=== PATIENT | male | born 1955 | race Caucasian/White ===

== ENCOUNTER 2016-10-29 10:31 | Inpatient (IN) | payer MEDICAID ==
[~2016-10-29] VITALS: Ht 175.3 cm; Wt 80.5 kg
[2016-10-29] MEDS ORDERED: ENALAPRILAT 1.25 MG INJ IV ONE (11:30)
[2016-10-29] MEDS ORDERED: FUROSEMIDE 40 MG INJ IV ONE ×2 (11:30→16:30)
[2016-10-29] MEDS ORDERED: ASPIRIN 81 MG TAB PO ONE ×2 (11:30→13:00)
[2016-10-29] MEDS ORDERED: NITROGLYCERIN (SL) 0.4 MG TAB SL ONE (11:30)
--- NOTE | 2016-10-29 12:25 | RADRPT ---
PROCEDURE: Chest 1 views. CLINICAL INDICATION: Abdominal pain and abnormal breath sounds. TECHNIQUE: AP views of the chest were obtained. COMPARISON: None. FINDINGS: The heart is large. Central pulmonary vascular congestion and interstitial prominence is seen in bot h lungs. Patchy infiltrates are identified in the right mid and lower lung, combined with moderate pleural effusion. Atelectasis versus minimal infiltrates are noted in the left lower lobe. 11 mm n odular density is identified over the left lower lobe. Osseous structures are intact. IMPRESSION: Cardiomegaly . Central pulmonary vascular congestion and interstitial prominence in both lungs. Patchy infiltrates in the right mid and lower lung combined with moderate pleural effusion. Atelectasis versus mild infiltrates in the left lower lobe. 11 mm nodular density over the left lower lobe. This could reflect nipple shadow versus lung nodule . Repeat exam with nipple markers or further characterization with CT chest is recommended. RPTAT: AA .Macho Winters MD, MD Date Time Electronically viewed and signed by .Macho Winters MD, on 10/29/2016 12:25 .P/
[2016-10-29 12:29] LABS: CREATININE 12.83 mg/dl (0.61-1.24); TOTAL PROTEIN 6.8 g/dl (6.1-8.1)
[2016-10-29 12:37] LABS: BASOPHILS % 0.4 % (0.0-2.0); EOSINOPHILS # 0.1 10^3/ul (0.0-0.5); HEMATOCRIT 23.9 % (42.0-52.0); HEMOGLOBIN 7.9 g/dl (14.0-18.0); LYMPHOCYTES # 0.7 10^3/ul (0.8-2.9); LYMPHOCYTES % 8.2 % (15.0-51.0); MEAN CORPUSCULAR HEMOGLOBIN 28.9 pg (29.0-33.0); MEAN CORPUSCULAR HGB CONC 32.9 g/dl (32.0-37.0); MEAN CORPUSCULAR VOLUME 87.7 fl (82.0-101.0); MEAN PLATELET VOLUME 12.1 fl (7.4-10.4); MONOCYTE # 0.3 10^3/ul (0.3-0.9); MONOCYTES % 3.7 % (0.0-11.0); NEUTROPHILS % 86.7 % (39.0-77.0); PLATELET COUNT 187 10^3/UL (140-440); RED BLOOD COUNT 2.73 10^6/ul (4.70-6.10); RED CELL DISTRIBUTION WIDTH 16.2 % (11.5-14.5); UNCORRECTED WBC 8.1 10^3/ul (4.8-10.8); WHITE BLOOD COUNT 8.1 10^3/ul (4.8-10.8)
[2016-10-29 12:41] LABS: SUSPECT 1
[2016-10-29 12:42] LABS: CONDITION 1; LH ANALYZER COMMENTS 1
[2016-10-29 12:43] LABS: CALCIUM 5.9 mg/dl (8.4-10.2)
[2016-10-29 12:44] LABS: ALBUMIN 3.4 g/dl (3.3-4.9)
[2016-10-29 12:45] LABS: INR 1.17; PT RATIO 1.2
[2016-10-29 12:47] LABS: TROPONIN-I 0.732 ng/ml (0.00-0.12)
[2016-10-29] MEDS ORDERED: ALBUTEROL 0.083% (NEB) 2.5 MG/3 ML AMP HHN ONE (13:00)
[2016-10-29] MEDS ORDERED: CALCIUM GLUCONATE 10% 2 GM in SOD CHLORIDE 0.9% 100 ML IVPB ONE (13:00)
--- NOTE | 2016-10-29 13:00 | ERA ---
ER Documentation Chief Complaint Date/Time DATE: 10/29/16 TIME: 12:57 Chief Complaint weak, unable to ambulate, sob and swelling. pitting edema noted to domonique le HPI 61-year-old man brought in by his mother for complaints of bilateral lower extremity swelling, recent weakness, and recent shortness of breath. He has developed dyspnea on exertion recently and denies having any past medical history relating to kidneys or liver. He has had no fevers or chills, no chest pain, no blood per rectum or melena. HPI was limited. ROS All systems reviewed and are negative except as per history of present illness. Medications Home Meds No Active Prescriptions or Reported Meds Allergies Allergies: Coded Allergies: No Known Allergy (Unverified , 11/28/13) PMhx/Soc Hypertension, possible psychiatric illness Hx Cardiac Disorders: Yes (htn non-compliant) Hx Alcohol Use: Yes Hx Substance Use: No Hx Tobacco Use: No Smoking Status: Current some day smoker FmHx Family History: No diabetes Physical Exam Vitals Vital Signs Date Time Temp Pulse Resp B/P Pulse Ox O2 Delivery O2 Flow Rate FiO2 10/29/16 13:16 20 99 Nasal Cannula 2.0 10/29/16 10:35 97.8 89 20 226/110 96 Physical Exam GENERAL: Well-developed, well-nourished, well-hydrated, in no apparent distress , looks nontoxic in appearance HEENT: Moist mucous membranes, pink conjunctiva, no cervical spine tenderness or step-off deformities, no goiter, no jaundice or icterus, extraocular movements intact without pain. No submandibular induration, and no pharyngeal erythema NEURO: Alert and oriented 3, cranial nerves II through XII intact bilaterally, pupils equal round reactive to light, no focal deficits or facial asymmetry, sensation intact distally Strength 5/5 in upper and lower extremities bilaterally CARDIAC: Regular rate and rhythm, no murmurs rubs or gallops LUNGS: Bibasilar crackles no wheezing or stridor ABDOMEN: Soft nontender, no guarding, no rigidity, no rebound, no psoas sign no obturator sign. Normoactive bowel sounds SKIN: Positive anasarca with 3+ pitting edema in the lower extremities bilaterally, no ecchymosis, no target lesions, and without ulcers EXTREMITIES: No clubbing cyanosis, 3+ pitting edema in the lower extremities bilaterally, calves are bilaterally symmetrical, no Homans sign, no popliteal cord sign. Distal pulses equal and bilateral PSYCH: Normal affect without agitation or irritability Result Diagram: 10/29/16 1108 10/29/16 1108 Results 24 hrs Laboratory Tests Test 10/29/16 11:08 10/29/16 13:00 Alanine Aminotransferase (ALT/SGPT) 32IU/L Albumin 3.4g/dl Albumin/Globulin Ratio 1.00 Alkaline Phosphatase 123IU/L Anion Gap 24 Aspartate Amino Transf (AST/SGOT) 12IU/L B-Type Natriuretic Peptide 21514QM/ML Basophils # 0.010^3/ul Basophils % 0.4% Blood Morphology Comment Blood Urea Nitrogen 105mg/dl Calcium Level 5.9mg/dl Carbon Dioxide Level 19mmol/L Chloride Level 111mmol/L Creatinine 12.83mg/dl Direct Bilirubin 0.00mg/dl Eosinophils # 0.110^3/ul Eosinophils % 1.0% Globulin 3.40g/dl Glucose Level 76mg/dl Hematocrit 23.9% Hemoglobin 7.9g/dl INR International Normalized Ratio 1.17 Indirect Bilirubin 0.0mg/dl Lipase 209U/L Lymphocytes # 0.710^3/ul Lymphocytes % 8.2% Mean Corpuscular Hemoglobin 28.9pg Mean Corpuscular Hemoglobin Concent 32.9g/dl Mean Corpuscular Volume 87.7fl Mean Platelet Volume 12.1fl Monocytes # 0.310^3/ul Monocytes % 3.7% Neutrophils # 7.010^3/ul Neutrophils % 86.7% Nucleated Red Blood Cells # 0.010^3/ul Nucleated Red Blood Cells % 0.0/100WBC Platelet Count 86537^3/UL Potassium Level 6.0mmol/L Prothrombin Time 15.0Sec Prothrombin Time Ratio 1.2 Red Blood Count 2.7310^6/ul Red Cell Distribution Width 16.2% Sodium Level 148mmol/L Total Bilirubin 0.0mg/dl Total Protein 6.8g/dl Troponin I 0.732ng/ml White Blood Count 8.110^3/ul Urine Amorphous Urates FEW Urine Bilirubin NEGATIVE Urine Clarity CLEAR Urine Coarse Granular Casts RARE Urine Color LT. YELLOW Urine Epithelial Cells FEW Urine Glucose NEGATIVE% Urine Hemoglobin 2+ Urine Ketones NEGATIVE Urine Leukocyte Esterase NEGATIVE Urine Microscopic RBC 0-2/HPF Urine Microscopic WBC 2-5/HPF Urine Nitrite NEGATIVE Urine Specific [place] 1.025 Urine Total Protein 2+ Urine Urobilinogen 0.2 E.U./dL Urine pH 6.0 Current Medications Medications (Trade) Dose Ordered Sig/Saira Route PRN Reason Start Time Stop Time Status Last Admin Dose Admin Nitroglycerin (Nitroglycerin (Sl Tab) 0.4 Mg) 1 tab ONCE ONCE SL 10/29/16 11:30 10/29/16 11:31 DC 10/29/16 12:18 Aspirin (Aspirin) 324 mg ONCE ONCE PO 10/29/16 11:30 10/29/16 11:31 DC 10/29/16 12:18 Furosemide (Lasix) 60 mg ONCE ONCE IV 10/29/16 11:30 10/29/16 11:31 DC 10/29/16 12:18 Enalaprilat 1.25 mg 1.25 mg ONCE ONCE IV 10/29/16 11:30 10/29/16 11:31 DC 10/29/16 12:19 Calcium Gluconate/ Sodium Chloride (Ca Gluc/NS) 120 ml @ 60 mls/hr ONCE ONCE IVPB 10/29/16 13:00 10/29/16 14:59 10/29/16 13:33 Aspirin (Aspirin) 324 mg ONCE ONCE PO 10/29/16 13:00 10/29/16 13:01 DC Albuterol (Proventil 0.083% (Neb)) 10 mg ONCE ONCE HHN 10/29/16 13:00 10/29/16 13:06 DC 10/29/16 13:15 IV Flush (NS 3 ml) 3 ml PER PROTOCOL IV 10/29/16 14:30 UNV Ondansetron HCl (Zofran Inj) 4 mg Q6H PRN IV NAUSEA AND/OR VOMITING 10/29/16 14:30 UNV Acetaminophen (Tylenol Tab) 650 mg Q6H PRN PO PAIN LEVEL 1-3 OR FEVER 10/29/16 14:30 UNV Acetaminophen (Tylenol Supp) 650 mg Q6H PRN ME PAIN LEVEL 1-3 OR FEVER 10/29/16 14:30 UNV Acetaminophen/ Hydrocodone Bitart ([place] (5/325)) 1 tab Q6H PRN PO MODERATE PAIN LEVEL 4-6 10/29/16 14:30 UNV Acetaminophen/ Hydrocodone Bitart ([place] (5/325)) 2 tab Q6H PRN PO SEVERE PAIN LEVEL 7-10 10/29/16 14:30 UNV Morphine Sulfate (morphine) 2 mg Q4H PRN IV SEVERE PAIN LEVEL 7-10 10/29/16 14:30 UNV Docusate Sodium (Colace) 100 mg Q12H PRN PO CONSTIPATION 10/29/16 14:30 UNV Magnesium Hydroxide (Milk Of Mag) 30 ml DAILY PRN PO CONSTIPATION 10/29/16 14:30 UNV Bisacodyl (Dulcolax Supp) 10 mg DAILY PRN ME CONSTIPATION 10/29/16 14:30 UNV Famotidine (Pepcid Iv) 20 mg Q12 IV 10/29/16 21:00 UNV Hydralazine HCl (Apresoline) 10 mg Q4 PRN IV sbp>160 10/29/16 14:30 UNV Procedures/MDM IV line was established 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 Patient was afebrile. EKG performed, read by me: 84 bpm, normal sinus rhythm, normal axis, no acute ST segment changes, narrow QRS complex, with good R-wave progression in precordial leads. One view chest x-ray performed, read by me reveals cardiomegaly with bilateral pulmonary edema and a right pleural effusion, no acute infiltrates, no pneumothorax. Patient was extremely hypertensive upon presentation so I administered enalapril 1.25 mg IV as well as furosemide 60 mg IV for diuresis, nitroglycerin 0.4 mg sublingual. CBC revealed anemia with a hemoglobin of 7.9, electrolytes were all abnormal with a potassium of 6, and a BUN/creatinine of 105/12.8, bicarb low at 19, liver function tests were unremarkable, troponin positive at 0.7, BNP elevated over 83,000, calcium critically low at 5.9 Urine analysis revealed 2+ proteins. I administered calcium gluconate 2 g IV supplementation, patient also received albuterol 10 mg via nebulizer for hyperkalemia after furosemide was administered. Patient also received aspirin 324 mg orally for cardioprotective measures. Critical Care: Time: 40 minutes, this was time separate from other procedures. Treatments/Evaluations: Close monitoring and treatment of unstable vital signs, cardiorespiratory, and neurologic status, while maintaining tight balance of fluid, respiratory, and cardiac interventions. Given the patient's acute renal failure and hypertension, edema, critical hypocalcemia, and proteinuria I suspect acute hypertensive nephropathy of new onset. He may require dialysis and will be admitted to telemetry setting. A Mcgill catheter was placed Departure Diagnosis: Primary Impression: Hypertensive nephrosclerosis, stage 5 chronic kidney disease or end stage renal disease Additional Impressions: Hypertension Qualified Code: I10 - Essential hypertension Hypocalcemia Hyperkalemia Anemia Qualified Code: D64.9 - Anemia, unspecified type Proteinuria Condition: Serious JORDEN ARIZMENDI MD Oct 29, 2016 13:00
[2016-10-29 13:25] LABS: ADD UMIC YES; URINE BILIRUBIN (Dip) NEGATIVE (NEGATIVE); URINE BLOOD (Dip) 2+ (NEGATIVE); URINE COLOR LT. YELLOW (YELLOW); URINE GLUCOSE (Dip) NEGATIVE (NEGATIVE); URINE KETONES (Dip) NEGATIVE (NEGATIVE); URINE LEUKOCYTE ESTERASE (Dip) NEGATIVE (NEGATIVE); URINE NITRITE (Dip) NEGATIVE (NEGATIVE); URINE TOTAL PROTEIN (Dip) 2+ (NEGATIVE); URINE UROBILINOGEN (Dip) 0.2 E.U./dL (0.1-1.0)
[2016-10-29 13:44] LABS: URINE RBCS 0-2 /HPF (0)
[2016-10-29] MEDS ORDERED: morphine 2 MG INJ IV PRN (14:30)
[2016-10-29] MEDS ORDERED: BISACODYL 10 MG SUPP PR PRN (14:30)
[2016-10-29] MEDS ORDERED: DOCUSATE SODIUM 100 MG CAP PO PRN (14:30)
[2016-10-29] MEDS ORDERED: HYDROCODONE/APAP (5/325) TAB PO PRN ×2 (14:30)
[2016-10-29] MEDS ORDERED: MAGNESIUM HYDROXIDE 30ML CUP PO PRN (14:30)
[2016-10-29] MEDS ORDERED: NACL 0.9% 3 ML SYG IV SCH (14:30)
[2016-10-29] MEDS ORDERED: ONDANSETRON 4 MG INJ IV PRN (14:30)
[2016-10-29] MEDS ORDERED: ACETAMINOPHEN 650 MG SUPP PR PRN (14:30)
[2016-10-29] MEDS ORDERED: ACETAMINOPHEN 325 MG TAB PO PRN (14:30)
--- NOTE | 2016-10-29 14:34 | CONS ---
Date/Time of Note Date/Time of Note DATE: 10/29/16 TIME: 14:28 Assessment/Plan Assessment/Plan Additional Assessment/Plan Assessment and recommendations; next 1. Patient admitted with what appears to be congestive heart failure exacerbation. Next 2. Chest x-ray revealing smooth bordered round left lower lobe nodule 1 cm in diameter. Etiology is unclear possibly partially calcified. Next 3. Acute renal failure possibly chronic in etiology. Next 4. Hypertension. 5. Long-standing history of smoking alcohol use. Next 6 currently no evidence of any infective process. Next 7. Right pleural effusion. Likely from congestive heart failure and acute renal failure. 8. Anemia. Obtain ultrasound guided thoracentesis of the right sided ,send fluid for protein. He will need to have dialysis performed. I would recommend obtaining a CT scan of the chest without contrast after couple of sessions of dialysis to get rid of pulmonary edema to better visualize the left lower lobe nodule. Patient also is anemic likely on account of end-stage renal disease. Consultation Date/Type/Reason Admit Date/Time Date of Consultation: Oct 29, 2016 Type of Consultation: Pulmonary Reason for Consultation Patient is a 61-year-old male who came into the emergency room with complaints of shortness of breath and generalized edema. Chest x-ray was done which is showing changes of congestive heart failure also visualized is a left lower lobe nodule and pulmonary consultation has been obtained for further clarification. History presenting in the; patient is a 61-year-old male who came into the ER with complaints of generalized swelling going on for the last several weeks. Associated with some shortness of breath. Patient denies any chest pain , any fever, chills, wheezing, cough or any sputum production. Next Past medical history; hypertension. No other history. Next Medications; are none. Allergies; are none. Social history; patient just recently quit smoking also recently quit drinking about couple of months ago. No history of any hard drug use. Family history; he is single. Occupational history; patient is homeless. Occupational history; patient is on disability. Review of systems; denies any headache, visual changes, seizures, dysphagia, chest pain, wheezing, compares or shortness of breath. Denies any angina. Any sputum production or any hemoptysis. Denies any weight loss. Has gained weight. Denies any abdominal pain, any GI or urinary symptoms. Complains of generalized swelling more pronounced in lower extremities. Does complain of orthopnea. Denies any skin changes. Any arthritis symptoms. General exam; middle aged man, currently in no distress, alert awake and alert. Social History Smoking Status: Current some day smoker Exam/Review of Systems Vital Signs Vitals Vital Signs Date Time Temp Pulse Resp B/P Pulse Ox O2 Delivery O2 Flow Rate FiO2 10/29/16 13:16 20 99 Nasal Cannula 2.0 10/29/16 10:35 97.8 89 226/110 Exam HEENT examination; supple neck, positive JVD. Pharynx is clear. Patient has a few missing teeth. No neck masses. No thyromegaly. Pupils are midsize and reactive to light. Extraocular movements are intact. No neck bruits. Chest examination; minimally decreased breath sounds right lower lobe otherwise clear. S1-S2 audible, no murmurs. Regular rhythm. Abdomen examination; protuberant. Umbilicus is inverted. No organomegaly. Extremity examination; 3+ pitting edema bilaterally lower extremities. Pulses 1 + bilaterally. There are chronic skin changes involving both feet. APN examination; no focal deficit. Results Result Diagram: 10/29/16 1108 10/29/16 1108 Results 24 hrs Laboratory Tests Test 10/29/16 11:08 10/29/16 13:00 Alanine Aminotransferase (ALT/SGPT) 32 Albumin 3.4 Albumin/Globulin Ratio 1.00 Alkaline Phosphatase 123 H Anion Gap 24 H Aspartate Amino Transf (AST/SGOT) 12 L B-Type Natriuretic Peptide 00269 H Basophils # 0.0 Basophils % 0.4 Blood Morphology Comment Blood Urea Nitrogen 105 H Calcium Level 5.9 *L Carbon Dioxide Level 19 L Chloride Level 111 H Creatinine 12.83 H Direct Bilirubin 0.00 Eosinophils # 0.1 Eosinophils % 1.0 Globulin 3.40 H Glucose Level 76 Hematocrit 23.9 L Hemoglobin 7.9 L INR International Normalized Ratio 1.17 Indirect Bilirubin 0.0 Lipase 209 Lymphocytes # 0.7 L Lymphocytes % 8.2 L Mean Corpuscular Hemoglobin 28.9 L Mean Corpuscular Hemoglobin Concent 32.9 Mean Corpuscular Volume 87.7 Mean Platelet Volume 12.1 H Monocytes # 0.3 Monocytes % 3.7 Neutrophils # 7.0 Neutrophils % 86.7 H Nucleated Red Blood Cells # 0.0 Nucleated Red Blood Cells % 0.0 Platelet Count 187 Potassium Level 6.0 H Prothrombin Time 15.0 H Prothrombin Time Ratio 1.2 Red Blood Count 2.73 L Red Cell Distribution Width 16.2 H Sodium Level 148 H Total Bilirubin 0.0 L Total Protein 6.8 Troponin I 0.732 *H White Blood Count 8.1 Urine Amorphous Urates FEW Urine Bilirubin NEGATIVE Urine Clarity CLEAR Urine Coarse Granular Casts RARE Urine Color LT. YELLOW Urine Epithelial Cells FEW Urine Glucose NEGATIVE Urine Hemoglobin 2+ H Urine Ketones NEGATIVE Urine Leukocyte Esterase NEGATIVE Urine Microscopic RBC 0-2 Urine Microscopic WBC 2-5 Urine Nitrite NEGATIVE Urine Specific [place] 1.025 Urine Total Protein 2+ H Urine Urobilinogen 0.2 E.U./dL Urine pH 6.0 Medications Medications Current Medications Calcium Gluconate/ Sodium Chloride (Ca Gluc/NS) 120 ml @ 60 mls/hr ONCE ONCE IVPB Last administered on 10/29/16t 13:33; Admin Dose 60 MLS/HR; Start at 13:00; Stop 10/29/16 at 14:59 Ondansetron HCl (Zofran Inj) 4 mg Q6H PRN IV NAUSEA AND/OR VOMITING; Start at 14:30; Status UNV Acetaminophen (Tylenol Tab) 650 mg Q6H PRN PO PAIN LEVEL 1-3 OR FEVER; Start at 14:30; Status UNV Acetaminophen (Tylenol Supp) 650 mg Q6H PRN [place] PAIN LEVEL 1-3 OR FEVER; Start 10/29/16 at 14:30; Status UNV Acetaminophen/ Hydrocodone Bitart ([place] (5/325)) 1 tab Q6H PRN PO MODERATE PAIN LEVEL 4-6; Start 10/29/16 at 14:30; Status UNV Acetaminophen/ Hydrocodone Bitart ([place] (5/325)) 2 tab Q6H PRN PO SEVERE PAIN LEVEL 7-10; Start 10/29/16 at 14:30; Status UNV Morphine Sulfate (morphine) 2 mg Q4H PRN IV SEVERE PAIN LEVEL 7-10; Start 10/29 at 14:30; Status UNV Docusate Sodium (Colace) 100 mg Q12H PRN PO CONSTIPATION; Start 10/29/16 at 14: 30; Status UNV Magnesium Hydroxide (Milk Of Mag) 30 ml DAILY PRN PO CONSTIPATION; Start at 14:30; Status UNV Bisacodyl (Dulcolax Supp) 10 mg DAILY PRN CO CONSTIPATION; Start 10/29/16 at 14 :30; Status UNV Famotidine (Pepcid Iv) 20 mg Q12 IV ; Start 10/29/16 at 21:00; Status UNV Hydralazine HCl (Apresoline) 10 mg Q4 PRN IV sbp>160; Start 10/29/16 at 14:30; Status UNV KIRA MCCURDY Oct 29, 2016 14:34
--- NOTE | 2016-10-29 14:58 | QN ---
Documentation Comment [id number] Abdi MD Oct 29, 2016 14:58
[2016-10-29] MEDS ORDERED: NA POLYST SULFON 15 GM/60 ML BTL PO ONE (15:30)
[2016-10-29 15:32] LABS: HAAIG REFLEX REFLEX FILED
[2016-10-29 15:41] LABS: CK-MB 8.28 ng/ml (0.0-2.4); TROPONIN-I 0.662 ng/ml (0.00-0.12)
[2016-10-29 15:47] LABS: PHOSPHORUS 8.7 mg/dl (2.5-4.9)
--- NOTE | 2016-10-29 15:52 | HP ---
DATE OF ADMISSION: 10/29/2016 TYPE OF CONSULTATION: Nephrology. Thank you, Dr. sorianofor kindly asking me to see this patient in Nephrology consultation. HISTORY OF PRESENT ILLNESS: The patient is a poor historian who presented to this hospital admitted with complaints of shortness of breath. The patient also is legally blind and is homeless. Denies any diabetes, hypertension at this point. He presented with shortness of breath, has anasarca and is being admitted for further management. PAST MEDICAL HISTORY: Cannot be obtained. The patient denies any diabetes, hypertension or any medical condition at this point. ALLERGY HISTORY: Denies. FAMILY HISTORY: Denies. SOCIAL HISTORY: He is also on denying. He denies any smoking or drinking but has used in the past. MEDICATION HISTORY: At home none. FAMILY HISTORY: He denies. REVIEW OF SYSTEMS HEENT: Unremarkable. RESPIRATORY: Shortness of breath. CARDIOVASCULAR: No chest pain, palpitation. ABDOMEN: No dyspepsia, hematemesis or melena. EXTREMITIES: No swelling. CENTRAL NERVOUS SYSTEM: Denies any history of stroke. PHYSICAL EXAMINATION: GENERAL: Anasarcic looking male, awake, alert with poor hygiene. VITAL SIGNS: Pulse 89, blood pressure 220 to 110. HEAD: Atraumatic, normocephalic. Pupils are equal, reactive. Patient has pale conjunctivae. No icterus. NECK: Supple. LUNGS: Basilar rales. CARDIOVASCULAR: S1, S2 is normal. ABDOMEN: Soft, bowel sounds present, no palpable mass. EXTREMITIES: No cyanosis, clubbing, edema positive. CENTRAL NERVOUS SYSTEM: The patient is awake, alert, moving both upper and lower extremities. LABORATORY DATA: Hematocrit 23.9, sodium 148, potassium 6, BUN of 105, creatinine 12.83. Patient's potassium 5.9. Troponin 0.732, albumin 3.4. The patient had a chest x-ray done, shows central pulmonary vascular congestion and interstitial prominence in both lungs, patchy infiltrate, atelectasis, versus mild infiltrate. IMPRESSION: 1. Patient has acute kidney injury with possible underlying chronic kidney disease. 2. The patient has anasarca. 3. Pulmonary edema. 4. Anemia. 5. Hyperkalemia. 6. Metabolic acidosis. 7. Homelessness. 8. Incomplete database. 9. Rule out proteinuria. 10. Rule out underlying chronic kidney disease. 11. Congestive heart failure. 12. Electrolyte imbalance. PLAN: At this point, the patient is currently on the renal diet. Will have thoracentesis ordered per pulmonary. Patient will have ultrasound of the kidney , diuretic and Kayexalate. The patient will also be receiving urine for protein creatinine ratio. A hemoglobin A1c will be ordered. Her diuretics will be given. The patient should benefit from 2D echo as well. Thank to Dr. lieberman for asking me to see this patient in nephrology consultation. Dictated By: ARMIDA HARRIS MD BS/NTS Conf#: [id number] DID#: [id number] MTDD
--- NOTE | 2016-10-29 16:30 | CONS ---
Date/Time of Note Date/Time of Note DATE: 10/29/16 TIME: 16:22 Assessment/Plan Assessment/Plan Chief Complaint/Hosp Course Acute diastolic vs systolic heart failure: In setting of acute vs chronic kidney failure. Will likely need HD for volume unloading as doubt lasix will be very effective Acute respiratory distress: secondary to above. Appears relatively comfortable though grossly decompensated Acute vs chronic renal failure: contributing to above Hyperkalemia: secondary to above HTN urgency: SBP >200 on admission, now improved. Contribution by volume overload NSTEMI: type II in setting of above. Trop 0.7 and trending down. No acute EKG changes. Would not be cath candidate anyway considering his social situation and med noncompliance Anemia: ?from CKD Homelessness Blindness -will give another lasix 60mg (total 120) -will likely need HD, defer to nephrology -ASA, lipitor -hold BB until EF assessed and euvolemic -BP control (can try amlodipine or hydralazine for now) -echo -would not anticoagulate as unlikely ACS and may need procedures/lines Problems: Consultation Date/Type/Reason Admit Date/Time Date of Consultation: Oct 29, 2016 Type of Consultation: Cardiology Reason for Consultation CHF, NSTEMI Referring Provider: MIGUE VILLALOBOS Hx of Present Illness 61 yo homeless male brought in by his mother for failure to thrive. Through an vamp liner the pt notes that he also has been having severe SOB and leg swelling. He also notes having pain everywhere including chest and head. He is blind. He is unaware of his medical history. per HPI, unable to obtain details Social History Smoking Status: Current some day smoker Exam/Review of Systems Vital Signs Vitals Vital Signs Date Time Temp Pulse Resp B/P Pulse Ox O2 Delivery O2 Flow Rate FiO2 10/29/16 13:16 20 99 Nasal Cannula 2.0 10/29/16 10:35 97.8 89 226/110 Exam Constitutional: alert, other (disheveled, unkempt ) Head: atraumatic, normocephalic Neck: jvd (12cm) Respiratory: crackles/rales, diminished breath sounds, No clear to auscultation Cardiovascular: edema (3+), regular rate and rhythm, systolic murmur (2/6) Neurological: nl mental status Skin: No rash or lesions Results Result Diagram: 10/29/16 1108 10/29/16 1108 Results 24 hrs Laboratory Tests Test 10/29/16 11:08 10/29/16 13:00 10/29/16 14:50 Alanine Aminotransferase (ALT/SGPT) 32 Albumin 3.4 Albumin/Globulin Ratio 1.00 Alkaline Phosphatase 123 H Anion Gap 24 H Aspartate Amino Transf (AST/SGOT) 12 L B-Type Natriuretic Peptide 45473 H Basophils # 0.0 Basophils % 0.4 Blood Morphology Comment Blood Urea Nitrogen 105 H Calcium Level 5.9 *L Carbon Dioxide Level 19 L Chloride Level 111 H Creatinine 12.83 H Direct Bilirubin 0.00 Eosinophils # 0.1 Eosinophils % 1.0 Globulin 3.40 H Glucose Level 76 Hematocrit 23.9 L Hemoglobin 7.9 L Hepatitis B Core Total Antibody Pending Hepatitis B Surface Antigen Pending Hepatitis C Antibody Pending INR International Normalized Ratio 1.17 Indirect Bilirubin 0.0 Lipase 209 Lymphocytes # 0.7 L Lymphocytes % 8.2 L Mean Corpuscular Hemoglobin 28.9 L Mean Corpuscular Hemoglobin Concent 32.9 Mean Corpuscular Volume 87.7 Mean Platelet Volume 12.1 H Monocytes # 0.3 Monocytes % 3.7 Neutrophils # 7.0 Neutrophils % 86.7 H Nucleated Red Blood Cells # 0.0 Nucleated Red Blood Cells % 0.0 Parathyroid Hormone (Intact) Pending Phosphorus Level 8.7 H Platelet Count 187 Potassium Level 6.0 H Prothrombin Time 15.0 H Prothrombin Time Ratio 1.2 Red Blood Count 2.73 L Red Cell Distribution Width 16.2 H Sodium Level 148 H Total Bilirubin 0.0 L Total Protein 6.8 Troponin I 0.732 *H 0.662 *H White Blood Count 8.1 Urine Amorphous Urates FEW Urine Bilirubin NEGATIVE Urine Clarity CLEAR Urine Coarse Granular Casts RARE Urine Color LT. YELLOW Urine Epithelial Cells FEW Urine Glucose NEGATIVE Urine Hemoglobin 2+ H Urine Ketones NEGATIVE Urine Leukocyte Esterase NEGATIVE Urine Microscopic RBC 0-2 Urine Microscopic WBC 2-5 Urine Nitrite NEGATIVE Urine Random Sodium 82 Urine Specific [place] 1.025 Urine Total Protein 2+ H Urine Urobilinogen 0.2 E.U./dL Urine pH 6.0 Ammonia < 9 L Creatine Kinase 468 H Creatine Kinase Index 1.8 Creatinine Kinase MB (Mass) 8.28 H Medications Medications Current Medications Ondansetron HCl (Zofran Inj) 4 mg Q6H PRN IV NAUSEA AND/OR VOMITING; Start at 14:30 Acetaminophen (Tylenol Tab) 650 mg Q6H PRN PO PAIN LEVEL 1-3 OR FEVER; Start at 14:30 Acetaminophen (Tylenol Supp) 650 mg Q6H PRN [place] PAIN LEVEL 1-3 OR FEVER; Start 10/29/16 at 14:30 Acetaminophen/ Hydrocodone Bitart ([place] (5/325)) 1 tab Q6H PRN PO MODERATE PAIN LEVEL 4-6; Start 10/29/16 at 14:30 Acetaminophen/ Hydrocodone Bitart ([place] (5/325)) 2 tab Q6H PRN PO SEVERE PAIN LEVEL 7-10; Start 10/29/16 at 14:30 Morphine Sulfate (morphine) 2 mg Q4H PRN IV SEVERE PAIN LEVEL 7-10; Start 10/29 at 14:30 Docusate Sodium (Colace) 100 mg Q12H PRN PO CONSTIPATION; Start 10/29/16 at 14: 30 Magnesium Hydroxide (Milk Of Mag) 30 ml DAILY PRN PO CONSTIPATION; Start at 14:30 Bisacodyl (Dulcolax Supp) 10 mg DAILY PRN [place] CONSTIPATION; Start 10/29/16 at 14 :30 Famotidine (Pepcid Iv) 20 mg Q24H IV ; Start 10/29/16 at 21:00 Hydralazine HCl (Apresoline) 10 mg Q4 PRN IV sbp>160; Start 10/29/16 at 14:30 Furosemide (Lasix) 40 mg BID IV ; Start 10/29/16 at 21:00 HILDA LOWE Oct 29, 2016 16:30
[2016-10-29 16:37] LABS: HEPATITIS B CORE ANTIBODY NEGATIVE (NEGATIVE)
--- NOTE | 2016-10-29 17:04 | RADRPT ---
PROCEDURE: Retroperitoneal US. CLINICAL INDICATION: Renal insufficiency TECHNIQUE: Multiple sonographic images of the kidneys and retroperitoneum were obtained. The imag es were reviewed on a PACS workstation. COMPARISON: No prior studies are available for comparison. FINDINGS: The kidneys are normal in size, contour, cortical thickness and cortical echogenicity. The right kidney measures 9.3 cm. The left kidney measures 9.4 cm. No kidney stones are visualized. There is no evidence for hydronephrosis. There is a left pleural effusion. The urinary bladder is not visualized. RPTAT: AA IMPRESSION: Normal appearance of the kidneys. Left pleural effusion. .Singh Garrett MD, MD Date Time Electronically viewed and signed by .Singh Garrett MD, on 10/29/2016 17:04 .S/
--- NOTE | 2016-10-29 17:12 | RADRPT ---
Echocardiogram Report Patient Name: LYN OLVERA Gender: Male Date: 1955 Study Date: 29-Oct-2016 Folder Machine: Ric Chester RDCS Location: 3 Ref. Physician: MIGUE VILLALOBOS Quality: Adequate Procedures: Transthoracic echocardiogram with complete 2D, M-Mode, and doppler examination. Indications: Congestive Heart Failure. 2D/M Mode Doppler Measurement Value Normal Ranges Measurement Value Normal Ranges LVIDd 2D 5.2 3.5 - 5.6 cm AV Peak [place] 1.5 m/sec LVIDs 2D 3.2 2.1 - 4.1 cm AV Peak PG 9.5 mmHg LVPWd 2D 1.2 0.6 - 1.1 cm MV E Peak [place] 1.1 m/sec IVSd 2D 1.2 0.6 - 1.1 cm MV A Peak [place] 0.6 m/sec AoR Diam 2D 2.5 2.0 - 3.7 cm MV E/A 1.7 EDV 2D 126.9 cm3 MV Decel Time 134 msec ESV 2D 33.1 cm3 MV Decel [place] 8 LA Dimen 2D 4.5 2.3 - 4.0 cm MV E/A 1.7 TR Peak [place] 3.8 m/sec TR Peak PG 49.0 mmHg RVSP 66.0 mmHg Findings Left Ventricle: Lower limits of normal systolic function. Normal left ventricular cavity size. Mild concentric left ventricular hypertrophy. Ejection fraction is visually estimated at 50 %. Tissue Doppler/Mitral Doppler indices are consistent with pseudonormalization with mildly elevated left atrial pressure (Stage II diastolic dysfunction). Resting Segmental Wall Motion Analysis: Mild hypokinesis of the inferior and septal walker. Right Ventricle: Normal right ventricular size. Normal right ventricular systolic function. Left Atrium: There is mild enlargement of left atrium. LA Dimension4.50 cm. Right Atrium: The right atrium is normal in size. Mitral Valve: Mitral valve leaflets appear mildly thickened. Mild mitral annular calcification. Mild mitral valve regurgitation. Aortic Valve: No significant aortic stenosis or insufficiency. Aortic cusps appear mildly calcified. Tricuspid Valve: Normal appearance of the tricuspid valve. Estimated peak PA systolic pressure 58 mmHg. There is mild tricuspid regurgitation. Pulmonic Valve: Normal pulmonic valve appearance. Pericardium: Normal pericardium with no significant pericardial effusion. Left pleural effusion seen. Aorta: Normal aortic root. IVC: Normal size and no respiratory collapse consistent with elevated right atrial pressure. Conclusions 1.Lower limits of normal systolic function. Normal left ventricular cavity size. Mild concentric left ventricular hypertrophy. Ejection fraction is visually estimated at 50 %. Stage II diastolic dysfunction. Mild hypokinesis of the inferior and septal walker. 2.No significant valvular stenosis or regurgitation seen. 3.Estimated peak PA systolic pressure 58 mmHg based on RA pressure of 8 mmHg. Electronically Signed By: Vladimir Mac 29-Oct-2016 17:11:45 -0800 Patient Name: LYN OLVERA Study Date: 29-Oct-2016 [id number]
--- NOTE | 2016-10-29 17:13 | HP ---
Date/Time of Note Date/Time of Note DATE: 10/29/16 TIME: 16:58 Assessment/Plan VTE Prophylaxis VTE Prophylaxis Intervention: SCD's Lines/Catheters IV [facility] Saline Lock Assessment/Plan Chief Complaint/Hosp Course Assessment and plan 1. Acute renal failure. Patient with no reported unknown renal failure. Fresh Work Inspector consulted. Patient noted with symptomatic hyperkalemia. Will provide with Kayexalate as needed 2. CHF. Follow-up on echocardiogram. 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 Will get cardiology to follow. 3. Elevated troponin. Likely ischemic demand. Housekeeping Director consulted. Will follow up with recommendations 4. Anemia. Likely of chronic disease. Follow-up on iron panel. Will follow up on occult stool 5. Hyperkalemia. Will provide Kayexalate as needed. 6. Hypocalcemia. To be repleted. Will check level in a.m. Continue with the following recommendations 7. Hypertensive emergency. Patient does not report having any blood pressure medicines at home. Will add medications for better blood pressure control 8. Homeless status. 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 Bradley Problems: HPI/ROS Admit Date/Time Admit Date/Time Hx of Present Illness This is a 61-year-old male who is a poor historian of his medical history who came to the [facility] due to reports of increased shortness of breath. According to the patient had been havin increased shortness of breath for several days. He is reported to be homeless and was brought to his mother who then brought the patient to the hospital due to his increased shortness of breath. On further examination He did have a chest x-ray that did show cardiomegaly and central pulmonary vascular congestion and interstitial prominence in both lungs. There is also some patchy infiltrates in the right mid and lower lung combined with moderate pleural effusion. There is also seen atelectasis versus mild infiltrates in the left lower lobe. There was also seen and an 11 mm nodular density over the left lower lobe. Patient also was in hypertensive emergency with blood pressure of 226/110. Further lab results done also showed him to have elevated potassium at 6.0 and a BUN of 105 and creatinine of 12.83. He was also found with electrode imbalance of calcium which was 5.9. He also had elevated troponin initial at 0.732 and second and 0.662. He had elevated BNP of 83,200. Currently the patient is alert and oriented. He does have some shortness of breath but does have normal oxygenation while on room air. We will evaluate him for the aforementioned issues. ROS 12 point review of systems obtained and entirely negative except that mentioned in history of present illness PMH/Family/Social Past Medical History Medical/surgical history 1. Patient for historian and is unaware of any other medical history Past Surgical History Past Surgical Hx: no surgical history Family History Significant Family History: no pertinent family hx Social History Alcohol Use: none Smoking Status: Unknown if ever smoked Drug Use: none Exam/Review of Systems Vital Signs Vitals Vital Signs Date Time Temp Pulse Resp B/P Pulse Ox O2 Delivery O2 Flow Rate FiO2 10/29/16 16:06 97 18 180/100 97 Nasal Cannula 2.0 10/29/16 10:35 97.8 Exam Exam General: In some mild distress. Reports of shortness of breath Eyes: [pupils equal round, Anicteric sclera] Neck: Supple nontender, no JVD Cardiac: [S1, S2 auscultated, regular rhythm and rate] Pulmonary: diminished at lung bases GI: [Abdomen soft nontender nondistended, bowel sounds active] Extremities: Edema bilateral lower extremities Skin: Blackish discoloration feet on dorsal aspect Neurologic: [Alert to person place and time and situation] Labs Result Diagram: 10/29/16 1108 10/29/16 1108 Medications Medications Current Medications Ondansetron HCl (Zofran Inj) 4 mg Q6H PRN IV NAUSEA AND/OR VOMITING; Start at 14:30 Acetaminophen (Tylenol Tab) 650 mg Q6H PRN PO PAIN LEVEL 1-3 OR FEVER; Start at 14:30 Acetaminophen (Tylenol Supp) 650 mg Q6H PRN [place] PAIN LEVEL 1-3 OR FEVER; Start 10/29/16 at 14:30 Acetaminophen/ Hydrocodone Bitart ([place] (5/325)) 1 tab Q6H PRN PO MODERATE PAIN LEVEL 4-6; Start 10/29/16 at 14:30 Acetaminophen/ Hydrocodone Bitart ([place] (5/325)) 2 tab Q6H PRN PO SEVERE PAIN LEVEL 7-10; Start 10/29/16 at 14:30 Morphine Sulfate (morphine) 2 mg Q4H PRN IV SEVERE PAIN LEVEL 7-10; Start 10/29 at 14:30 Docusate Sodium (Colace) 100 mg Q12H PRN PO CONSTIPATION; Start 10/29/16 at 14: 30 Magnesium Hydroxide (Milk Of Mag) 30 ml DAILY PRN PO CONSTIPATION; Start at 14:30 Bisacodyl (Dulcolax Supp) 10 mg DAILY PRN [place] CONSTIPATION; Start 10/29/16 at 14 :30 Famotidine (Pepcid Iv) 20 mg Q24H IV ; Start 10/29/16 at 21:00 Hydralazine HCl (Apresoline) 10 mg Q4 PRN IV sbp>160; Start 10/29/16 at 14:30 Furosemide (Lasix) 40 mg BID IV ; Start 10/29/16 at 21:00 MIGUE VILLALOBOS Oct 29, 2016 17:09
[2016-10-29 18:00] VITALS: TEMP 98.9
[2016-10-29] MEDS: FAMOTIDINE 20 MG INJ IV SCH (20:23)
[2016-10-29] MEDS: FUROSEMIDE 40 MG INJ IV SCH (20:23)
[2016-10-29 21:41] LABS: CK-MB 6.71 ng/ml (0.0-2.4); TROPONIN-I 0.605 ng/ml (0.00-0.12)
[2016-10-29 21:57] VITALS: PULSE 86
[2016-10-29 23:16] VITALS: Ht 175.3 cm; Wt 80.5 kg
[2016-10-30] VITALS (16 sets, daily range): BP systolic 134–184; BP diastolic 63–92; PULSE 77–85; RESP 15–20
[2016-10-30 08:10] LABS: ALBUMIN 3.1 g/dl (3.3-4.9)
[2016-10-30 08:11] LABS: POTASSIUM 5.3 mmol/L (3.5-5.1)
[2016-10-30 08:13] LABS: CREATININE 12.21 mg/dl (0.61-1.24); TOTAL PROTEIN 6.2 g/dl (6.1-8.1)
[2016-10-30 08:14] LABS: CHOL/HDL RATIO 3.6 RATIO; MAGNESIUM 1.9 mg/dl (1.7-2.5); PHOSPHORUS 9.2 mg/dl (2.5-4.9)
[2016-10-30 08:16] LABS: T3 UPTAKE 45.3 % (23.5-40.5)
[2016-10-30 08:20] LABS: CALCIUM 5.7 mg/dl (8.4-10.2)
[2016-10-30] MEDS ORDERED: NA POLYST SULFON 15 GM/60 ML BTL PO ONE (09:00)
[2016-10-30 09:09] LABS: BASOPHILS % 0.4 % (0.0-2.0); EOSINOPHILS # 0.2 10^3/ul (0.0-0.5); EOSINOPHILS % 2.1 % (0.0-7.0); HEMATOCRIT 21.6 % (42.0-52.0); HEMOGLOBIN 7.1 g/dl (14.0-18.0); LYMPHOCYTES # 0.8 10^3/ul (0.8-2.9); LYMPHOCYTES % 9.9 % (15.0-51.0); MEAN CORPUSCULAR HEMOGLOBIN 28.9 pg (29.0-33.0); MEAN CORPUSCULAR HGB CONC 32.6 g/dl (32.0-37.0); MEAN CORPUSCULAR VOLUME 88.5 fl (82.0-101.0); MEAN PLATELET VOLUME 12.1 fl (7.4-10.4); MONOCYTE # 0.4 10^3/ul (0.3-0.9); MONOCYTES % 5.4 % (0.0-11.0); NEUTROPHIL # 6.3 10^3/ul (1.6-7.5); NEUTROPHILS % 82.2 % (39.0-77.0); PLATELET COUNT 177 10^3/UL (140-440); RED BLOOD COUNT 2.45 10^6/ul (4.70-6.10); RED CELL DISTRIBUTION WIDTH 16.4 % (11.5-14.5); UNCORRECTED WBC 7.7 10^3/ul (4.8-10.8); WHITE BLOOD COUNT 7.7 10^3/ul (4.8-10.8)
[2016-10-30 09:16] LABS: CONDITION 1; LH ANALYZER COMMENTS 1; SUSPECT 1
[2016-10-30 09:19] LABS: THYROID STIMULATING HORMONE 2.61 MIU/L (0.465-4.680)
[2016-10-30] MEDS ORDERED: LIDOCAINE 1% (MPF) 5 ML VIAL ONE (09:23)
[2016-10-30] MEDS: FUROSEMIDE 40 MG INJ IV SCH ×2 (09:58→21:14)
[2016-10-30] MEDS ORDERED: CALCIUM GLUCONATE 10% 2 GM in SOD CHLORIDE 0.9% 100 ML IVPB ONE (10:00)
--- NOTE | 2016-10-30 10:39 | RADRPT ---
PROCEDURE: US guided right thoracentesis. CLINICAL INDICATION: Shortness of breath. Right pleural effusion. TECHNIQUE: Prior to the procedure, informed consent was obtained. The risks, benefits, and alternatives were e xplained to the patient or the patient's family, including but not limited to bleeding, infection, p ain, visceral or vascular damage, shock, pneumothorax, chest tube placement, air embolism, and . The patient or the patient's family understood the risks and the alternatives and wished to proce ed with the study. Informed written consent was obtained. A procedural pause was performed. The patient's name, date of , and procedure to be performed were verified. Ultrasound of the right hemithorax was performed in the axial and sagittal planes. A right pleural e ffusion is noted. Utilizing ultrasound guidance, optimal location for entry to the pleural cavity wa s ascertained. The overlying skin was prepped and draped in the usual sterile fashion. Approximate ly 10 ml of 1% Xylocaine was injected locally for pain control. Using ultrasound guidance, a 5-Fren ch Yueh catheter was introduced into the right pleural space without difficulty. Fluid was aspirated . COMPARISON: None. FINDINGS: Initial ultrasound demonstrates fluid in the right pleural space. Approximately 1.0 liters of serou s fluid was aspirated and sent to the laboratory. IMPRESSION: 1. Satisfactory ultrasound-guided right thoracentesis. RPTAT: QQ .Trip Blanton MD, Date Time Electronically viewed and signed by .Trip Blanton MD, on 10/30/2016 10:39 .R/
--- NOTE | 2016-10-30 12:03 | CONS ---
Date/Time of Note Date/Time of Note DATE: 10/30/16 TIME: 12:01 Assessment/Plan Assessment/Plan Chief Complaint/Hosp Course Acute diastolic vs systolic heart failure: In setting of acute vs chronic kidney failure. EF 50%. Actually making some urine so will continue lasix Acute respiratory distress: secondary to above. Improving with diuresis Acute vs chronic renal failure: contributing to above Hyperkalemia: secondary to above. Improved with diuresis HTN urgency: SBP >200 on admission, now improved. Contribution by volume overload NSTEMI: type II in setting of above. Trop 0.7 and trending down. No acute EKG changes. Would not be cath candidate anyway considering his social situation and med noncompliance Anemia: ?from CKD Homelessness Blindness -increase to lasix 60mg IV BID -ASA, lipitor -BP control Problems: Consultation Date/Type/Reason Admit Date/Time Oct 29, 2016 at 13:24 Initial Consult Date 10/29/16 Type of Consultation: Cardiology Referring Provider: MIGUE VILLALOBOS 24 HR Interval Summary Free Text/Dictation Feels better. No SOB Exam/Review of Systems Vital Signs Vitals Vital Signs Date Time Temp Pulse Resp B/P Pulse Ox O2 Delivery O2 Flow Rate FiO2 10/30/16 08:31 78 10/30/16 07:00 98.0 20 164/74 94 10/29/16 20:00 Nasal Cannula 2.0 Intake and Output 10/29/16 10/29/16 10/30/16 15:00 23:00 07:00 Intake Total 120 ml 550 ml Output Total 600 ml 500 ml Balance 120 ml -600 ml 50 ml Exam Constitutional: alert, oriented Head: atraumatic, normocephalic Neck: jvd (12) Respiratory: crackles/rales, diminished breath sounds Cardiovascular: edema (2+) Neurological: nl mental status Results Result Diagram: 10/30/16 0705 10/30/16 0705 Results 24 hrs Laboratory Tests Test 10/29/16 13:00 10/29/16 14:50 10/29/16 20:55 10/30/16 04:16 Urine Amorphous Urates FEW Urine Bilirubin NEGATIVE Urine Clarity CLEAR Urine Coarse Granular Casts RARE Urine Color LT. YELLOW Urine Eosinophils % 0.0 Urine Epithelial Cells FEW Urine Glucose NEGATIVE Urine Hemoglobin 2+ H Urine Ketones NEGATIVE Urine Leukocyte Esterase NEGATIVE Urine Microscopic RBC 0-2 Urine Microscopic WBC 2-5 Urine Nitrite NEGATIVE Urine Protein/Creatinine Ratio Urine Random Creatinine 41.61 Urine Random Sodium 82 Urine Specific [place] 1.025 Urine Total Protein Urine Urobilinogen 0.2 E.U./dL Urine pH 6.0 Ammonia < 9 L Creatine Kinase 468 H 457 H Creatine Kinase Index 1.8 1.5 Creatinine Kinase MB (Mass) 8.28 H 6.71 H Troponin I 0.662 *H 0.605 *H Test 10/30/16 07:05 Alanine Aminotransferase (ALT/SGPT) 28 Albumin 3.1 L Albumin/Globulin Ratio 1.00 Alkaline Phosphatase 104 Anion Gap 23 H Aspartate Amino Transf (AST/SGOT) 9 L Basophils # 0.0 Basophils % 0.4 Blood Morphology Comment Blood Urea Nitrogen 105 H Calcium Level 5.7 *L Carbon Dioxide Level 19 L Chloride Level 111 H Cholesterol Level 108 Cholesterol/HDL Ratio 3.6 Creatinine 12.21 H Direct Bilirubin 0.00 Eosinophils # 0.2 Eosinophils % 2.1 Free Thyroxine Index 1.95 Globulin 3.10 Glucose Level 73 HDL Cholesterol 30 Hematocrit 21.6 L Hemoglobin 7.1 L Hemoglobin A1c 5.3 Indirect Bilirubin 0.0 LDL Cholesterol, Calculated 63 Lymphocytes # 0.8 Lymphocytes % 9.9 L Magnesium Level 1.9 Mean Corpuscular Hemoglobin 28.9 L Mean Corpuscular Hemoglobin Concent 32.6 Mean Corpuscular Volume 88.5 Mean Platelet Volume 12.1 H Monocytes # 0.4 Monocytes % 5.4 Neutrophils # 6.3 Neutrophils % 82.2 H Nucleated Red Blood Cells # 0.0 Nucleated Red Blood Cells % 0.0 Phosphorus Level 9.2 H Platelet Count 177 Potassium Level 5.3 H Red Blood Count 2.45 L Red Cell Distribution Width 16.4 H Sodium Level 148 H Thyroid Stimulating Hormone (TSH) 2.610 Thyroxine (T4) 4.3 L Total Bilirubin 0.0 L Total Protein 6.2 Triglycerides Level 74 Triiodothyronine (T3) Uptake 45.3 H White Blood Count 7.7 Medications Medications Current Medications Ondansetron HCl (Zofran Inj) 4 mg Q6H PRN IV NAUSEA AND/OR VOMITING; Start at 14:30 Acetaminophen (Tylenol Tab) 650 mg Q6H PRN PO PAIN LEVEL 1-3 OR FEVER; Start at 14:30 Acetaminophen (Tylenol Supp) 650 mg Q6H PRN [place] PAIN LEVEL 1-3 OR FEVER; Start 10/29/16 at 14:30 Acetaminophen/ Hydrocodone Bitart ([place] (5/325)) 1 tab Q6H PRN PO MODERATE PAIN LEVEL 4-6; Start 10/29/16 at 14:30 Acetaminophen/ Hydrocodone Bitart ([place] (5/325)) 2 tab Q6H PRN PO SEVERE PAIN LEVEL 7-10; Start 10/29/16 at 14:30 Morphine Sulfate (morphine) 2 mg Q4H PRN IV SEVERE PAIN LEVEL 7-10; Start 10/29 at 14:30 Docusate Sodium (Colace) 100 mg Q12H PRN PO CONSTIPATION; Start 10/29/16 at 14: 30 Magnesium Hydroxide (Milk Of Mag) 30 ml DAILY PRN PO CONSTIPATION; Start at 14:30 Bisacodyl (Dulcolax Supp) 10 mg DAILY PRN [place] CONSTIPATION; Start 10/29/16 at 14 :30 Famotidine (Pepcid Iv) 20 mg Q24H IV Last administered on 10/29/16 20:23; Admin Dose 20 MG; Start 10/29/16 at 21:00 Hydralazine HCl (Apresoline) 10 mg Q4 PRN IV sbp>160; Start 10/29/16 at 14:30 Furosemide (Lasix) 40 mg BID IV Last administered on 10/30/16 09:58; Admin Dose 40 MG; Start 10/29/16 at 21:00 HILDA LOWE Oct 30, 2016 12:03
--- NOTE | 2016-10-30 13:00 | CONS ---
Date/Time of Note Date/Time of Note DATE: 10/30/16 TIME: 12:57 Assessment/Plan Assessment/Plan Additional Assessment/Plan Assessment and recommendations; next 1. Patient admitted with acute renal failure possibly chronic in etiology. 2. CHF. 3. Anemia. Next 4. Diabetes. 5. Hypertension. Next 6. Left lower lobe lung nodule. Etiology currently is unclear. Current treatment for now ,patient will need to be dialyzed. Transfuse blood as well. CT of the chest is recommended in 2 days once patient undergoes couple of hemodialysis sessions. Consultation Date/Type/Reason Admit Date/Time Oct 29, 2016 at 13:24 Initial Consult Date 10/29/16 Type of Consultation: Pulmonary Referring Provider: MIGUE VILLALOBOS 24 HR Interval Summary Free Text/Dictation Patient's condition is stable. Denies any shortness of breath. Patient underwent right-sided thoracentesis about a liter of serous fluid was removed. Denies any chest pain. Still complains of lower extremity edema. General examination; elderly male currently in no distress. Exam/Review of Systems Vital Signs Vitals Vital Signs Date Time Temp Pulse Resp B/P Pulse Ox O2 Delivery O2 Flow Rate FiO2 10/30/16 12:41 81 10/30/16 11:00 98.2 20 177/84 98 10/29/16 20:00 Nasal Cannula 2.0 Intake and Output 10/29/16 10/29/16 10/30/16 15:00 23:00 07:00 Intake Total 120 ml 550 ml Output Total 600 ml 500 ml Balance 120 ml -600 ml 50 ml Exam H EENT examination; supple neck, positive JVD. Pharynx is clear. Patient has a few missing teeth. Pupils are midsize and reactive to light. Chest examination; diminished breath on lung bases bilaterally. S1-S2 audible, no murmurs. Regular rhythm. Abdomen examination; soft, protuberant. No organomegaly. Bowel sounds audible. Extremity examination; 2+ pitting edema bilaterally lower extremities. Pulses 1 + bilaterally. Appearing skin changes are seen in both lower extremities. PRESSURE TESTER examination; no focal deficit. Results Result Diagram: 10/30/16 0705 10/30/16 0705 Results 24 hrs Laboratory Tests Test 10/29/16 13:00 10/29/16 14:50 10/29/16 20:55 10/30/16 04:16 Urine Amorphous Urates FEW Urine Bilirubin NEGATIVE Urine Clarity CLEAR Urine Coarse Granular Casts RARE Urine Color LT. YELLOW Urine Eosinophils % 0.0 Urine Epithelial Cells FEW Urine Glucose NEGATIVE Urine Hemoglobin 2+ H Urine Ketones NEGATIVE Urine Leukocyte Esterase NEGATIVE Urine Microscopic RBC 0-2 Urine Microscopic WBC 2-5 Urine Nitrite NEGATIVE Urine Protein/Creatinine Ratio Urine Random Creatinine 41.61 Urine Random Sodium 82 Urine Specific [place] 1.025 Urine Total Protein Urine Urobilinogen 0.2 E.U./dL Urine pH 6.0 Ammonia < 9 L Creatine Kinase 468 H 457 H Creatine Kinase Index 1.8 1.5 Creatinine Kinase MB (Mass) 8.28 H 6.71 H Troponin I 0.662 *H 0.605 *H Test 10/30/16 07:05 Alanine Aminotransferase (ALT/SGPT) 28 Albumin 3.1 L Albumin/Globulin Ratio 1.00 Alkaline Phosphatase 104 Anion Gap 23 H Aspartate Amino Transf (AST/SGOT) 9 L Basophils # 0.0 Basophils % 0.4 Blood Morphology Comment Blood Urea Nitrogen 105 H Calcium Level 5.7 *L Carbon Dioxide Level 19 L Chloride Level 111 H Cholesterol Level 108 Cholesterol/HDL Ratio 3.6 Creatinine 12.21 H Direct Bilirubin 0.00 Eosinophils # 0.2 Eosinophils % 2.1 Free Thyroxine Index 1.95 Globulin 3.10 Glucose Level 73 HDL Cholesterol 30 Hematocrit 21.6 L Hemoglobin 7.1 L Hemoglobin A1c 5.3 Indirect Bilirubin 0.0 LDL Cholesterol, Calculated 63 Lymphocytes # 0.8 Lymphocytes % 9.9 L Magnesium Level 1.9 Mean Corpuscular Hemoglobin 28.9 L Mean Corpuscular Hemoglobin Concent 32.6 Mean Corpuscular Volume 88.5 Mean Platelet Volume 12.1 H Monocytes # 0.4 Monocytes % 5.4 Neutrophils # 6.3 Neutrophils % 82.2 H Nucleated Red Blood Cells # 0.0 Nucleated Red Blood Cells % 0.0 Phosphorus Level 9.2 H Platelet Count 177 Potassium Level 5.3 H Red Blood Count 2.45 L Red Cell Distribution Width 16.4 H Sodium Level 148 H Thyroid Stimulating Hormone (TSH) 2.610 Thyroxine (T4) 4.3 L Total Bilirubin 0.0 L Total Protein 6.2 Triglycerides Level 74 Triiodothyronine (T3) Uptake 45.3 H White Blood Count 7.7 Medications Medications Current Medications Ondansetron HCl (Zofran Inj) 4 mg Q6H PRN IV NAUSEA AND/OR VOMITING; Start at 14:30 Acetaminophen (Tylenol Tab) 650 mg Q6H PRN PO PAIN LEVEL 1-3 OR FEVER; Start at 14:30 Acetaminophen (Tylenol Supp) 650 mg Q6H PRN [place] PAIN LEVEL 1-3 OR FEVER; Start 10/29/16 at 14:30 Acetaminophen/ Hydrocodone Bitart ([place] (5/325)) 1 tab Q6H PRN PO MODERATE PAIN LEVEL 4-6; Start 10/29/16 at 14:30 Acetaminophen/ Hydrocodone Bitart ([place] (5/325)) 2 tab Q6H PRN PO SEVERE PAIN LEVEL 7-10; Start 10/29/16 at 14:30 Morphine Sulfate (morphine) 2 mg Q4H PRN IV SEVERE PAIN LEVEL 7-10; Start 10/29 at 14:30 Docusate Sodium (Colace) 100 mg Q12H PRN PO CONSTIPATION; Start 10/29/16 at 14: 30 Magnesium Hydroxide (Milk Of Mag) 30 ml DAILY PRN PO CONSTIPATION; Start at 14:30 Bisacodyl (Dulcolax Supp) 10 mg DAILY PRN [place] CONSTIPATION; Start 10/29/16 at 14 :30 Famotidine (Pepcid Iv) 20 mg Q24H IV Last administered on 10/29/16t 20:23; Admin Dose 20 MG; Start 10/29/16 at 21:00 Hydralazine HCl (Apresoline) 10 mg Q4 PRN IV sbp>160; Start 10/29/16 at 14:30 Furosemide (Lasix) 60 mg BID IV ; Start 10/30/16 at 21:00 KIRA MCCURDY Oct 30, 2016 13:00
--- NOTE | 2016-10-30 14:17 | RADRPT ---
PROCEDURE: XR Chest. CLINICAL INDICATION: Shortness of breath. Post right thoracentesis. TECHNIQUE: Single frontal view. COMPARISON: 10/29/2016. FINDINGS: There is interstitial and alveolar disease bilaterally in the mid and lower lung zones consistent wi th pulmonary edema, unchanged. The heart is enlarged. Previously noted right pleural effusion is no longer present. There is a small left pleural effusio n. There is no pneumothorax. IMPRESSION: 1. Unchanged pulmonary edema. 2. Right pleural effusion no longer present. 3. No pneumothorax following right thoracentesis. RPTAT: QQ .Trip Blanton MD, MD Date Time Electronically viewed and signed by .Trip Blanton MD, MD on 10/30/2016 14:17 .R/
--- NOTE | 2016-10-30 14:18 | CONS ---
Date/Time of Note Date/Time of Note DATE: 10/30/16 TIME: 14:16 Assessment/Plan Assessment/Plan Chief Complaint/Hosp Course IMPRESSION: 1. Patient has acute kidney injury with possible underlying chronic kidney disease. 2. The patient has anasarca. 3. Pulmonary edema. 4. Anemia. 5. Hyperkalemia. 6. Metabolic acidosis. 7. Homelessness. 8. Incomplete database. 9. Rule out proteinuria. 10. Rule out underlying chronic kidney disease. 11. Congestive heart failure. 12. Electrolyte imbalance. PLAN HD LASIX Problems: Consultation Date/Type/Reason Admit Date/Time Oct 29, 2016 at 13:24 Initial Consult Date 10/29/16 Type of Consultation: RENAL Referring Provider: MIGUE VILLALOBOS 24 HR Interval Summary Constitutional: other (SOB LESS) Exam/Review of Systems Vital Signs Vitals Vital Signs Date Time Temp Pulse Resp B/P Pulse Ox O2 Delivery O2 Flow Rate FiO2 10/30/16 13:27 158/78 10/30/16 12:41 81 10/30/16 11:00 98.2 20 98 10/29/16 20:00 Nasal Cannula 2.0 Intake and Output 10/29/16 10/29/16 10/30/16 15:00 23:00 07:00 Intake Total 120 ml 550 ml Output Total 600 ml 500 ml Balance 120 ml -600 ml 50 ml Exam Neck: supple Respiratory: diminished breath sounds Cardiovascular: regular rate and rhythm Gastrointestinal: soft Musculoskeletal: nl extremities to inspection Extremities: edema (++), normal pulses Results Result Diagram: 10/30/16 0710/30/16 0705 Results 24 hrs Laboratory Tests Test 10/29/16 14:50 10/29/16 20:55 10/30/16 04:16 10/30/16 07:05 Ammonia < 9 L Creatine Kinase 468 H 457 H Creatine Kinase Index 1.8 1.5 Creatinine Kinase MB (Mass) 8.28 H 6.71 H Troponin I 0.662 *H 0.605 *H Urine Random Creatinine 41.61 Alanine Aminotransferase (ALT/SGPT) 28 Albumin 3.1 L Albumin/Globulin Ratio 1.00 Alkaline Phosphatase 104 Anion Gap 23 H Aspartate Amino Transf (AST/SGOT) 9 L Basophils # 0.0 Basophils % 0.4 Blood Morphology Comment Blood Urea Nitrogen 105 H Calcium Level 5.7 *L Carbon Dioxide Level 19 L Chloride Level 111 H Cholesterol Level 108 Cholesterol/HDL Ratio 3.6 Creatinine 12.21 H Direct Bilirubin 0.00 Eosinophils # 0.2 Eosinophils % 2.1 Free Thyroxine Index 1.95 Globulin 3.10 Glucose Level 73 HDL Cholesterol 30 Hematocrit 21.6 L Hemoglobin 7.1 L Hemoglobin A1c 5.3 Indirect Bilirubin 0.0 LDL Cholesterol, Calculated 63 Lymphocytes # 0.8 Lymphocytes % 9.9 L Magnesium Level 1.9 Mean Corpuscular Hemoglobin 28.9 L Mean Corpuscular Hemoglobin Concent 32.6 Mean Corpuscular Volume 88.5 Mean Platelet Volume 12.1 H Monocytes # 0.4 Monocytes % 5.4 Neutrophils # 6.3 Neutrophils % 82.2 H Nucleated Red Blood Cells # 0.0 Nucleated Red Blood Cells % 0.0 Phosphorus Level 9.2 H Platelet Count 177 Potassium Level 5.3 H Red Blood Count 2.45 L Red Cell Distribution Width 16.4 H Sodium Level 148 H Thyroid Stimulating Hormone (TSH) 2.610 Thyroxine (T4) 4.3 L Total Bilirubin 0.0 L Total Protein 6.2 Triglycerides Level 74 Triiodothyronine (T3) Uptake 45.3 H White Blood Count 7.7 Medications Medications Current Medications Ondansetron HCl (Zofran Inj) 4 mg Q6H PRN IV NAUSEA AND/OR VOMITING; Start at 14:30 Acetaminophen (Tylenol Tab) 650 mg Q6H PRN PO PAIN LEVEL 1-3 OR FEVER; Start at 14:30 Acetaminophen (Tylenol Supp) 650 mg Q6H PRN [place] PAIN LEVEL 1-3 OR FEVER; Start 10/29/16 at 14:30 Acetaminophen/ Hydrocodone Bitart ([place] (5/325)) 1 tab Q6H PRN PO MODERATE PAIN LEVEL 4-6; Start 10/29/16 at 14:30 Acetaminophen/ Hydrocodone Bitart ([place] (5/325)) 2 tab Q6H PRN PO SEVERE PAIN LEVEL 7-10; Start 10/29/16 at 14:30 Morphine Sulfate (morphine) 2 mg Q4H PRN IV SEVERE PAIN LEVEL 7-10; Start 10/29 at 14:30 Docusate Sodium (Colace) 100 mg Q12H PRN PO CONSTIPATION; Start 10/29/16 at 14: 30 Magnesium Hydroxide (Milk Of Mag) 30 ml DAILY PRN PO CONSTIPATION; Start at 14:30 Bisacodyl (Dulcolax Supp) 10 mg DAILY PRN [place] CONSTIPATION; Start 10/29/16 at 14 :30 Famotidine (Pepcid Iv) 20 mg Q24H IV Last administered on 10/29/16t 20:23; Admin Dose 20 MG; Start 10/29/16 at 21:00 Hydralazine HCl (Apresoline) 10 mg Q4 PRN IV sbp>160; Start 10/29/16 at 14:30 Furosemide (Lasix) 60 mg BID IV ; Start 10/30/16 at 21:00 ARMIDA HARRIS MD Oct 30, 2016 14:18
[2016-10-30] MEDS ORDERED: SOD CHLORIDE 0.9% 250 ML IV* ONE (15:27)
--- NOTE | 2016-10-30 16:23 | PN ---
Date/Time of Note Date/Time of Note DATE: 10/30/16 TIME: 16:19 Assessment/Plan VTE Prophylaxis VTE Prophylaxis Intervention: SCD's Lines/Catheters IV [facility] Saline Lock Urinary Cath still in place: Yes Reason Cath still needed: other (indicate) Assessment/Plan Chief Complaint/Hosp Course Assessment and plan 1. Acute renal failure. Patient with worsening renal function. 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 CHF. plan for HD. cont with cardiology recs. cont optimization with cardiovascular medications 3. Elevated troponin. Likely ischemic demand. cont with cardiology recs 4. Anemia. Worse. Patient with reported black stool. will get GI consultation 5. Hyperkalemia. Will provide Kayexalate as needed. plan for HD 6. Hypocalcemia. To be repleted. Will check level in a.m. Continue with the following recommendations 7. Hypertensive emergency. Patient does not report having any blood pressure medicines at home. cont on antihypertensives 8. Homeless status. Follow up with social service coordinator DISPO/PLAN: Plan for dialysis. GI consulted for worsening anemia and suspect GI bleed Discussed plan of care with Dr. Bradley Problems: Subjective 24 Hr Interval Summary Free Text/Dictation less shortness of breath reported . With reported black stools Exam/Review of Systems Vital Signs Vitals Vital Signs Date Time Temp Pulse Resp B/P Pulse Ox O2 Delivery O2 Flow Rate FiO2 10/30/16 16:18 79 10/30/16 13:27 158/78 10/30/16 11:00 98.2 20 98 10/29/16 20:00 Nasal Cannula 2.0 Intake and Output 10/29/16 10/29/16 10/30/16 14:59 22:59 06:59 Intake Total 120 ml 550 ml Output Total 600 ml 500 ml Balance 120 ml -600 ml 50 ml Exam General: In some mild distress. Reports of shortness of breath Eyes: [pupils equal round, Anicteric sclera] Neck: Supple nontender, no JVD Cardiac: [S1, S2 auscultated, regular rhythm and rate] Pulmonary: diminished at lung bases GI: [Abdomen soft nontender nondistended, bowel sounds active] Extremities: Edema bilateral lower extremities Skin: Blackish discoloration feet on dorsal aspect Neurologic: [Alert to person place and time and situation] Results Result Diagram: 2/17/17 0705 2/17/17 0705 Results 24 hrs Laboratory Tests Test 10/29/16 20:55 10/30/16 04:16 10/30/16 07:05 Creatine Kinase 457 H Creatine Kinase Index 1.5 Creatinine Kinase MB (Mass) 6.71 H Troponin I 0.605 *H Urine Random Creatinine 41.61 Alanine Aminotransferase (ALT/SGPT) 28 Albumin 3.1 L Albumin/Globulin Ratio 1.00 Alkaline Phosphatase 104 Anion Gap 23 H Aspartate Amino Transf (AST/SGOT) 9 L Basophils # 0.0 Basophils % 0.4 Blood Morphology Comment Blood Urea Nitrogen 105 H Calcium Level 5.7 *L Carbon Dioxide Level 19 L Chloride Level 111 H Cholesterol Level 108 Cholesterol/HDL Ratio 3.6 Creatinine 12.21 H Direct Bilirubin 0.00 Eosinophils # 0.2 Eosinophils % 2.1 Free Thyroxine Index 1.95 Globulin 3.10 Glucose Level 73 HDL Cholesterol 30 Hematocrit 21.6 L Hemoglobin 7.1 L Hemoglobin A1c 5.3 Indirect Bilirubin 0.0 LDL Cholesterol, Calculated 63 Lymphocytes # 0.8 Lymphocytes % 9.9 L Magnesium Level 1.9 Mean Corpuscular Hemoglobin 28.9 L Mean Corpuscular Hemoglobin Concent 32.6 Mean Corpuscular Volume 88.5 Mean Platelet Volume 12.1 H Monocytes # 0.4 Monocytes % 5.4 Neutrophils # 6.3 Neutrophils % 82.2 H Nucleated Red Blood Cells # 0.0 Nucleated Red Blood Cells % 0.0 Phosphorus Level 9.2 H Platelet Count 177 Potassium Level 5.3 H Red Blood Count 2.45 L Red Cell Distribution Width 16.4 H Sodium Level 148 H Thyroid Stimulating Hormone (TSH) 2.610 Thyroxine (T4) 4.3 L Total Bilirubin 0.0 L Total Protein 6.2 Triglycerides Level 74 Triiodothyronine (T3) Uptake 45.3 H White Blood Count 7.7 Medications Medications Current Medications Ondansetron HCl (Zofran Inj) 4 mg Q6H PRN IV NAUSEA AND/OR VOMITING; Start at 14:30 Acetaminophen (Tylenol Tab) 650 mg Q6H PRN PO PAIN LEVEL 1-3 OR FEVER; Start at 14:30 Acetaminophen (Tylenol Supp) 650 mg Q6H PRN [place] PAIN LEVEL 1-3 OR FEVER; Start 10/29/16 at 14:30 Acetaminophen/ Hydrocodone Bitart ([place] (5/325)) 1 tab Q6H PRN PO MODERATE PAIN LEVEL 4-6; Start 10/29/16 at 14:30 Acetaminophen/ Hydrocodone Bitart ([place] (5/325)) 2 tab Q6H PRN PO SEVERE PAIN LEVEL 7-10; Start 10/29/16 at 14:30 Morphine Sulfate (morphine) 2 mg Q4H PRN IV SEVERE PAIN LEVEL 7-10; Start 10/29 at 14:30 Docusate Sodium (Colace) 100 mg Q12H PRN PO CONSTIPATION; Start 10/29/16 at 14: 30 Magnesium Hydroxide (Milk Of Mag) 30 ml DAILY PRN PO CONSTIPATION; Start at 14:30 Bisacodyl (Dulcolax Supp) 10 mg DAILY PRN [place] CONSTIPATION; Start 10/29/16 at 14 :30 Famotidine (Pepcid Iv) 20 mg Q24H IV Last administered on 10/29/16t 20:23; Admin Dose 20 MG; Start 10/29/16 at 21:00 Hydralazine HCl (Apresoline) 10 mg Q4 PRN IV sbp>160; Start 10/29/16 at 14:30 Furosemide (Lasix) 60 mg BID IV ; Start 10/30/16 at 21:00 MIGUE VILLALOBOS Oct 30, 2016 16:23
--- NOTE | 2016-10-30 17:11 | CONS ---
DATE OF ADMISSION: 10/29/2016 DATE OF CONSULTATION: 10/30/2016 TYPE OF CONSULTATION: Infectious Disease. REASON FOR CONSULTATION: Antibiotic management. HISTORY OF PRESENT ILLNESS: Jason Olivarez is a 61-year-old male with a number of problem s who comes in with shortness of breath for several days. The patient is homeless, was brought to h is mother, who then brought the patient to the hospital. Chest x-ray showed cardiomegaly and centra l pulmonary vascular congestion and interstitial prominence in both lungs. There are also some patc hy infiltrates in the right middle and lower lung combined with moderate pleural effusion. There is some atelectasis versus mild infiltrates in the left lower lobe. He has an 11 mm nodular density i n the left lower lobe. The patient also had hypertensive emergency with blood pressure of 226/110. His BUN and creatinine was 105/12.83 with a potassium of 6, so he was in renal failure. On admission, his white count was 8.1, H and H of 7.9 and 23.9, platelet count 187,000. BUN and cre atinine 105/12.83. So the patient was in acute renal failure, congestive heart failure. Microbiolo gy showed gram-positive cocci in pairs and chains in 2 sets of blood cultures. Urine culture was ne gative. He had a thoracentesis, 1 liter of serous fluid was aspirated and sent to the laboratory [facility]. His white count today is 7.7, H and H of 7.1 and 21.6, platelet count of 177,000. His urine was negative for nitrite and leukocyte esterase. His hepatitis B antibodies and hepatitis C were ne gative. Currently, is on no antibiotics and the source of his sepsis may be his lungs or possibly e ndocarditis. PAST MEDICAL HISTORY: Operations as outlined. FAMILY HISTORY: Noncontributory. SOCIAL HISTORY: He does not smoke, drink or abuse drugs as far as we know. He is homeless. ALLERGIES: NONE TO PENICILLIN, SULFA OR FOODS. MEDICATIONS: Per chart. REVIEW OF SYSTEMS: Noncontributory. PHYSICAL EXAMINATION: GENERAL: The patient is in some mild distress with shortness of breath. SKIN: Without generalized rash. He has some blackish discoloration on his feet. HEENT: Within normal limits. NECK: Supple. LYMPH NODES: None palpable. CHEST: Decreased breath sounds at the bases. HEART: Without murmur or gallop. ABDOMEN: Soft, nontender, without organosplenomegaly or masses. EXTREMITIES: Without cyanosis, clubbing, or edema. RECTAL AND GENITAL: Deferred. NEUROLOGIC: No focal neurological abnormalities. IMPRESSION AND PLAN: The patient is bacteremic. He needs to be on antibiotic therapy. I will star t him on vancomycin. I will discuss the case with nurse practitioner Edwin Cortez. Dictated By: JESSICA VARGAS MD, JD/MYRON Conf#: [id number] DID#: [id number]
[2016-10-30] MEDS: hydrALAzine 20 MG INJ IV PRN (17:12)
[2016-10-30] MEDS ORDERED: LABETALOL HCL 20MG INJ IV PRN (18:00)
[2016-10-30] MEDS: CLINDAMYCIN 900 MG/D5W (PMX) 50 ML IVPB SCH (21:14)
[2016-10-30] MEDS: FAMOTIDINE 20 MG INJ IV SCH (21:14)
[2016-10-31] VITALS (13 sets, daily range): BP systolic 143–168; BP diastolic 69–85; PULSE 73–76; RESP 18–20
[2016-10-31] MEDS: CLINDAMYCIN 900 MG/D5W (PMX) 50 ML IVPB SCH ×3 (05:26→21:26)
[2016-10-31 07:49] LABS: BASOPHILS % 0.2 % (0.0-2.0); EOSINOPHILS # 0.2 10^3/ul (0.0-0.5); HEMATOCRIT 24.9 % (42.0-52.0); HEMOGLOBIN 8.2 g/dl (14.0-18.0); LYMPHOCYTES # 0.9 10^3/ul (0.8-2.9); LYMPHOCYTES % 11.1 % (15.0-51.0); MEAN CORPUSCULAR HEMOGLOBIN 28.9 pg (29.0-33.0); MEAN CORPUSCULAR HGB CONC 32.9 g/dl (32.0-37.0); MEAN PLATELET VOLUME 12.1 fl (7.4-10.4); MONOCYTE # 0.5 10^3/ul (0.3-0.9); MONOCYTES % 6.5 % (0.0-11.0); NEUTROPHIL # 6.5 10^3/ul (1.6-7.5); NEUTROPHILS % 80.2 % (39.0-77.0); PLATELET COUNT 172 10^3/UL (140-440); RED BLOOD COUNT 2.83 10^6/ul (4.70-6.10); RED CELL DISTRIBUTION WIDTH 15.9 % (11.5-14.5); UNCORRECTED WBC 8.2 10^3/ul (4.8-10.8); WHITE BLOOD COUNT 8.2 10^3/ul (4.8-10.8)
[2016-10-31 07:56] LABS: CONDITION 1; LH ANALYZER COMMENTS 1; SUSPECT 1
[2016-10-31 08:04] LABS: CHLORIDE 110 mmol/L (97-110); POTASSIUM 4.8 mmol/L (3.5-5.1); SODIUM 150 mmol/L (135-144)
[2016-10-31 08:06] LABS: ANION GAP 26 (8-16); CARBON DIOXIDE 19 mmol/L (21-31)
[2016-10-31 08:07] LABS: ALANINE AMINOTRANSFERASE 24 IU/L (13-69); ALBUMIN/GLOBULIN RATIO 0.96; ALKALINE PHOSPHATASE 102 IU/L (42-121); ASPARTATE AMINO TRANSFERASE < 8 IU/L (15-46); BLOOD UREA NITROGEN 105 mg/dl (7-20); GLUCOSE 85 mg/dl (70-220); TOTAL PROTEIN 6.1 g/dl (6.1-8.1)
[2016-10-31 08:33] LABS: CALCIUM 5.4 mg/dl (8.4-10.2)
[2016-10-31] MEDS: FUROSEMIDE 40 MG INJ IV SCH ×2 (09:00→20:55)
[2016-10-31 10:20] LABS: INR 1.29; PROTIME 16.2 Sec (12.2-14.2); PT RATIO 1.3
[2016-10-31 10:21] LABS: PARTIAL THROMBOPLASTIN TIME 33.6 Sec (25.0-35.0)
--- NOTE | 2016-10-31 12:15 | CONS ---
Date/Time of Note Date/Time of Note DATE: 10/31/16 TIME: 12:15 Assessment/Plan Assessment/Plan Chief Complaint/Hosp Course IMPRESSION: 1. Patient has acute kidney injury with possible underlying chronic kidney disease. 2. The patient has anasarca. 3. Pulmonary edema. 4. Anemia. 5. Hyperkalemia. 6. Metabolic acidosis. 7. Homelessness. 8. Incomplete database. 9. Rule out proteinuria. 10. Rule out underlying chronic kidney disease. 11. Congestive heart failure. 12. Electrolyte imbalance. PLAN HD LASIX need hd catheter Problems: Consultation Date/Type/Reason Admit Date/Time Oct 29, 2016 at 13:24 Initial Consult Date 10/29/16 Type of Consultation: RENAL Referring Provider: MIGUE VILLALOBOS 24 HR Interval Summary Constitutional: no complaints Exam/Review of Systems Vital Signs Vitals Vital Signs Date Time Temp Pulse Resp B/P Pulse Ox O2 Delivery O2 Flow Rate FiO2 10/31/16 11:56 98.4 74 18 143/69 95 10/31/16 04:00 Nasal Cannula 2.0 Intake and Output 10/30/16 10/30/16 10/31/16 15:00 23:00 07:00 Intake Total 120 ml 550 ml 665 ml Output Total 200 ml 1800 ml Balance 120 ml 350 ml -1135 ml Exam Neck: supple Respiratory: diminished breath sounds Cardiovascular: regular rate and rhythm Gastrointestinal: soft Extremities: edema (++) Results Result Diagram: 10/31/16 0600 10/31/16 0600 Results 24 hrs Laboratory Tests Test 10/31/16 06:00 10/31/16 09:40 Alanine Aminotransferase (ALT/SGPT) 24 Albumin 3.0 L Albumin/Globulin Ratio 0.96 Alkaline Phosphatase 102 Anion Gap 26 H Aspartate Amino Transf (AST/SGOT) < 8 L Basophils # 0.0 Basophils % 0.2 Blood Morphology Comment Blood Urea Nitrogen 105 H Calcium Level 5.4 *L Carbon Dioxide Level 19 L Chloride Level 110 Creatinine 12.30 H Direct Bilirubin 0.00 Eosinophils # 0.2 Eosinophils % 2.0 Globulin 3.10 Glucose Level 85 Hematocrit 24.9 L Hemoglobin 8.2 L Indirect Bilirubin 0.0 Lymphocytes # 0.9 Lymphocytes % 11.1 L Mean Corpuscular Hemoglobin 28.9 L Mean Corpuscular Hemoglobin Concent 32.9 Mean Corpuscular Volume 88.0 Mean Platelet Volume 12.1 H Monocytes # 0.5 Monocytes % 6.5 Neutrophils # 6.5 Neutrophils % 80.2 H Nucleated Red Blood Cells # 0.0 Nucleated Red Blood Cells % 0.0 Platelet Count 172 Potassium Level 4.8 Red Blood Count 2.83 L Red Cell Distribution Width 15.9 H Sodium Level 150 H Total Bilirubin 0.0 L Total Protein 6.1 White Blood Count 8.2 Activated Partial Thromboplast Time 33.6 INR International Normalized Ratio 1.29 Prothrombin Time 16.2 H Prothrombin Time Ratio 1.3 Medications Medications Current Medications Ondansetron HCl (Zofran Inj) 4 mg Q6H PRN IV NAUSEA AND/OR VOMITING; Start at 14:30 Acetaminophen (Tylenol Tab) 650 mg Q6H PRN PO PAIN LEVEL 1-3 OR FEVER; Start at 14:30 Acetaminophen (Tylenol Supp) 650 mg Q6H PRN [place] PAIN LEVEL 1-3 OR FEVER; Start 10/29/16 at 14:30 Acetaminophen/ Hydrocodone Bitart ([place] (5/325)) 1 tab Q6H PRN PO MODERATE PAIN LEVEL 4-6; Start 10/29/16 at 14:30 Acetaminophen/ Hydrocodone Bitart ([place] (5/325)) 2 tab Q6H PRN PO SEVERE PAIN LEVEL 7-10; Start 10/29/16 at 14:30 Morphine Sulfate (morphine) 2 mg Q4H PRN IV SEVERE PAIN LEVEL 7-10; Start 10/29 at 14:30 Docusate Sodium (Colace) 100 mg Q12H PRN PO CONSTIPATION; Start 10/29/16 at 14: 30 Magnesium Hydroxide (Milk Of Mag) 30 ml DAILY PRN PO CONSTIPATION; Start at 14:30 Bisacodyl (Dulcolax Supp) 10 mg DAILY PRN [place] CONSTIPATION; Start 10/29/16 at 14 :30 Famotidine (Pepcid Iv) 20 mg Q24H IV Last administered on 10/30/16 21:14; Admin Dose 20 MG; Start 10/29/16 at 21:00 Hydralazine HCl (Apresoline) 10 mg Q4 PRN IV sbp>160 Last administered on 17:12; Admin Dose 10 MG; Start 10/29/16 at 14:30 Furosemide 60 mg 60 mg BID IV Last administered on 10/30/16 21:14; Admin Dose 60 MG; Start 10/30/16 at 21:00 Clindamycin HCl/ Dextrose (Cleocin 900 Mg/ D5W (Pmx)) 50 ml @ 50 mls/hr Q8 IVPB Last administered on 10/31/16 05:26; Admin Dose 50 MLS/HR; Start 10/30/16 at 22:00 Labetalol HCl (Labetalol) 20 mg Q2H PRN IV for sbp >160 Last administered on 18:01; Admin Dose 20 MG; Start 10/30/16 at 18:00 ARMIDA HARRIS MD Oct 31, 2016 12:15
--- NOTE | 2016-10-31 13:08 | CONS ---
Date/Time of Note Date/Time of Note DATE: 10/31/16 TIME: 12:59 Assessment/Plan Assessment/Plan Chief Complaint/Hosp Course Impression: 1. Acute renal failure. 2. Anemia with reported black stool: h/h stable 3. CHF. plan for HD. 4. Elevated troponin. Likely ischemic demand. 5. Electrolyte abnormality 7. Hypertensive emergency. Patient does not report having any blood pressure medicines at home. 8. Homeless status. Follow up with health care social worker Plan: 1. f/u occult blood 2. if occult blood positive, consider EGD and colonoscopy 3. change H2 eleanor with PPI for better acid suppression 4. management of his other medical problems per primary and consultants 5. will need cardiac optimization if EGD and colonoscopy is needed Problems: Consultation Date/Type/Reason Admit Date/Time Oct 29, 2016 at 13:24 Type of Consultation: GI Hx of Present Illness 61-year-old male who is a poor historian of his medical history who is admitted for bilateral pleural effusion, CHF, and renal insufficiency. Patient had been having increased shortness of breath for several days [employer]. Work up with a chest x-ray that did show cardiomegaly and central pulmonary vascular congestion and interstitial prominence in both lungs. There is also some patchy infiltrates in the right mid and lower lung combined with moderate pleural effusion. There is also seen atelectasis versus mild infiltrates in the left lower lobe. There was also seen and an 11 mm nodular density over the left lower lobe. Other w/u showed hypertensive emergency with blood pressure of 226/110. Lab results done also showed him to have elevated potassium at 6.0 and a BUN of 105 and creatinine of 12.83. He was also found with electrode imbalance of calcium which was 5.9. He also had elevated troponin initial at 0.732 and second and 0.662. He had elevated BNP of 83,200. Currently the patient is alert and oriented. He does have some shortness of breath but does have normal oxygenation while on room air. We will evaluate him for the aforementioned issues. He reports "black" stool and GI is consulted to r/o GIB. All point ROS administered, pertinent positives and negatives in HPI otherwise negative. Constitutional: no complaints Past Medical History Medical History: congestive heart failure, hypertension, renal disease Past Surgical History Past Surgical Hx: no surgical history Family History Significant Family History: no pertinent family hx Social History Alcohol Use: none Smoking Status: Former smoker Drug Use: none Exam/Review of Systems Vital Signs Vitals Vital Signs Date Time Temp Pulse Resp B/P Pulse Ox O2 Delivery O2 Flow Rate FiO2 10/31/16 12:27 73 10/31/16 11:56 98.4 18 143/69 95 10/31/16 04:00 Nasal Cannula 2.0 Intake and Output 10/30/16 10/30/16 10/31/16 15:00 23:00 07:00 Intake Total 120 ml 550 ml 665 ml Output Total 200 ml 1800 ml Balance 120 ml 350 ml -1135 ml Exam Constitutional: alert, oriented, well developed Psych: nl mood/affect, no complaints Head: atraumatic, normocephalic Eyes: EOMI, nl conjunctiva, nl lids, nl sclera ENMT: mucosa pink and moist, nl external ears & nose, nl lips & teeth, nl nasal mucosa & septum Neck: non-tender, supple Respiratory: clear to auscultation, normal air movement Cardiovascular: nl pulses, regular rate and rhythm Gastrointestinal: bowel sounds, non-tender, soft Musculoskeletal: nl extremities to inspection, nl gait and stance Neurological: nl mental status, nl speech, nl strength Results Result Diagram: 10/31/16 0600 10/31/16 0600 Results 24 hrs Laboratory Tests Test 10/31/16 06:00 10/31/16 09:40 Alanine Aminotransferase (ALT/SGPT) 24 Albumin 3.0 L Albumin/Globulin Ratio 0.96 Alkaline Phosphatase 102 Anion Gap 26 H Aspartate Amino Transf (AST/SGOT) < 8 L Basophils # 0.0 Basophils % 0.2 Blood Morphology Comment Blood Urea Nitrogen 105 H Calcium Level 5.4 *L Carbon Dioxide Level 19 L Chloride Level 110 Creatinine 12.30 H Direct Bilirubin 0.00 Eosinophils # 0.2 Eosinophils % 2.0 Globulin 3.10 Glucose Level 85 Hematocrit 24.9 L Hemoglobin 8.2 L Indirect Bilirubin 0.0 Lymphocytes # 0.9 Lymphocytes % 11.1 L Mean Corpuscular Hemoglobin 28.9 L Mean Corpuscular Hemoglobin Concent 32.9 Mean Corpuscular Volume 88.0 Mean Platelet Volume 12.1 H Monocytes # 0.5 Monocytes % 6.5 Neutrophils # 6.5 Neutrophils % 80.2 H Nucleated Red Blood Cells # 0.0 Nucleated Red Blood Cells % 0.0 Platelet Count 172 Potassium Level 4.8 Red Blood Count 2.83 L Red Cell Distribution Width 15.9 H Sodium Level 150 H Total Bilirubin 0.0 L Total Protein 6.1 White Blood Count 8.2 Activated Partial Thromboplast Time 33.6 INR International Normalized Ratio 1.29 Prothrombin Time 16.2 H Prothrombin Time Ratio 1.3 Medications Medications Current Medications Ondansetron HCl (Zofran Inj) 4 mg Q6H PRN IV NAUSEA AND/OR VOMITING; Start at 14:30 Acetaminophen (Tylenol Tab) 650 mg Q6H PRN PO PAIN LEVEL 1-3 OR FEVER; Start at 14:30 Acetaminophen (Tylenol Supp) 650 mg Q6H PRN [place] PAIN LEVEL 1-3 OR FEVER; Start 10/29/16 at 14:30 Acetaminophen/ Hydrocodone Bitart ([place] (5/325)) 1 tab Q6H PRN PO MODERATE PAIN LEVEL 4-6; Start 10/29/16 at 14:30 Acetaminophen/ Hydrocodone Bitart ([place] (5/325)) 2 tab Q6H PRN PO SEVERE PAIN LEVEL 7-10; Start 10/29/16 at 14:30 Morphine Sulfate (morphine) 2 mg Q4H PRN IV SEVERE PAIN LEVEL 7-10; Start 10/29 at 14:30 Docusate Sodium (Colace) 100 mg Q12H PRN PO CONSTIPATION; Start 10/29/16 at 14: 30 Magnesium Hydroxide (Milk Of Mag) 30 ml DAILY PRN PO CONSTIPATION; Start at 14:30 Bisacodyl (Dulcolax Supp) 10 mg DAILY PRN [place] CONSTIPATION; Start 10/29/16 at 14 :30 Famotidine (Pepcid Iv) 20 mg Q24H IV Last administered on 10/30/16 21:14; Admin Dose 20 MG; Start 10/29/16 at 21:00 Hydralazine HCl (Apresoline) 10 mg Q4 PRN IV sbp>160 Last administered on 17:12; Admin Dose 10 MG; Start 10/29/16 at 14:30 Furosemide 60 mg 60 mg BID IV Last administered on 10/30/16 21:14; Admin Dose 60 MG; Start 10/30/16 at 21:00 Clindamycin HCl/ Dextrose (Cleocin 900 Mg/ D5W (Pmx)) 50 ml @ 50 mls/hr Q8 IVPB Last administered on 10/31/16 05:26; Admin Dose 50 MLS/HR; Start 10/30/16 at 22:00 Labetalol HCl (Labetalol) 20 mg Q2H PRN IV for sbp >160 Last administered on 18:01; Admin Dose 20 MG; Start 10/30/16 at 18:00 JORDEN CHRISTIE MD Oct 31, 2016 13:08
--- NOTE | 2016-10-31 14:54 | PN ---
Date/Time of Note Date/Time of Note DATE: 10/31/16 TIME: 14:50 Assessment/Plan VTE Prophylaxis VTE Prophylaxis Intervention: SCD's Lines/Catheters [facility] Saline Lock Urinary Cath still in place: Yes Reason Cath still needed: other (indicate) (monitor I&O) Assessment/Plan Chief Complaint/Hosp Course Assessment and plan 1. Acute renal failure. . Plan for HD per floorworker distributor 2. CHF. plan for HD. cont with cardiology recs. cont optimization with cardiovascular medications 3. Elevated troponin. Likely ischemic demand. cont with cardiology recs 4. Anemia. Follow-up on occult stool. GI following. Follow-up with recommendations 5. Hyperkalemia. Will provide Kayexalate as needed. plan for HD 6. Hypocalcemia. To be repleted. Will check level in a.m. Continue with the following recommendations 7. Hypertensive emergency. Patient does not report having any blood pressure medicines at home. cont on antihypertensives 8. Homeless status. Follow up with neonatal social worker DISPO/PLAN: Monitor H&H for worsening anemia. Dialysis per floorworker distributor. We'll follow-up a.m. labs Discussed plan of care with Dr. Bradley Problems: Subjective 24 Hr Interval Summary Free Text/Dictation Denies shortness of breath. Seen off oxygen. Family at bedside Exam/Review of Systems Vital Signs Vitals Vital Signs Date Time Temp Pulse Resp B/P Pulse Ox O2 Delivery O2 Flow Rate FiO2 10/31/16 12:27 73 10/31/16 11:56 98.4 18 143/69 95 10/31/16 04:00 Nasal Cannula 2.0 Intake and Output 10/30/16 10/30/16 10/31/16 15:00 23:00 07:00 Intake Total 120 ml 550 ml 665 ml Output Total 200 ml 1800 ml Balance 120 ml 350 ml -1135 ml Exam General: No plan distress noted at this time Eyes: pupils equal round, Anicteric sclera Neck: Supple nontender, no JVD Cardiac: S1, S2 auscultated, regular rhythm and rate Pulmonary: diminished at lung bases GI: Abdomen soft nontender nondistended, bowel sounds active Extremities: Edema bilateral lower extremities Skin: Blackish discoloration feet on dorsal aspect Neurologic: Alert to person place and time and situation Results Result Diagram: 10/31/16 0600 10/31/16 0600 Results 24 hrs Laboratory Tests Test 10/31/16 06:00 10/31/16 09:40 Alanine Aminotransferase (ALT/SGPT) 24 Albumin 3.0 L Albumin/Globulin Ratio 0.96 Alkaline Phosphatase 102 Anion Gap 26 H Aspartate Amino Transf (AST/SGOT) < 8 L Basophils # 0.0 Basophils % 0.2 Blood Morphology Comment Blood Urea Nitrogen 105 H Calcium Level 5.4 *L Carbon Dioxide Level 19 L Chloride Level 110 Creatinine 12.30 H Direct Bilirubin 0.00 Eosinophils # 0.2 Eosinophils % 2.0 Globulin 3.10 Glucose Level 85 Hematocrit 24.9 L Hemoglobin 8.2 L Indirect Bilirubin 0.0 Lymphocytes # 0.9 Lymphocytes % 11.1 L Mean Corpuscular Hemoglobin 28.9 L Mean Corpuscular Hemoglobin Concent 32.9 Mean Corpuscular Volume 88.0 Mean Platelet Volume 12.1 H Monocytes # 0.5 Monocytes % 6.5 Neutrophils # 6.5 Neutrophils % 80.2 H Nucleated Red Blood Cells # 0.0 Nucleated Red Blood Cells % 0.0 Platelet Count 172 Potassium Level 4.8 Red Blood Count 2.83 L Red Cell Distribution Width 15.9 H Sodium Level 150 H Total Bilirubin 0.0 L Total Protein 6.1 White Blood Count 8.2 Activated Partial Thromboplast Time 33.6 INR International Normalized Ratio 1.29 Prothrombin Time 16.2 H Prothrombin Time Ratio 1.3 Medications Medications Current Medications Ondansetron HCl (Zofran Inj) 4 mg Q6H PRN IV NAUSEA AND/OR VOMITING; Start at 14:30 Acetaminophen (Tylenol Tab) 650 mg Q6H PRN PO PAIN LEVEL 1-3 OR FEVER; Start at 14:30 Acetaminophen (Tylenol Supp) 650 mg Q6H PRN [place] PAIN LEVEL 1-3 OR FEVER; Start 10/29/16 at 14:30 Acetaminophen/ Hydrocodone Bitart ([place] (5/325)) 1 tab Q6H PRN PO MODERATE PAIN LEVEL 4-6; Start 10/29/16 at 14:30 Acetaminophen/ Hydrocodone Bitart ([place] (5/325)) 2 tab Q6H PRN PO SEVERE PAIN LEVEL 7-10; Start 10/29/16 at 14:30 Morphine Sulfate (morphine) 2 mg Q4H PRN IV SEVERE PAIN LEVEL 7-10; Start 10/29 at 14:30 Docusate Sodium (Colace) 100 mg Q12H PRN PO CONSTIPATION; Start 10/29/16 at 14: 30 Magnesium Hydroxide (Milk Of Mag) 30 ml DAILY PRN PO CONSTIPATION; Start at 14:30 Bisacodyl (Dulcolax Supp) 10 mg DAILY PRN [place] CONSTIPATION; Start 10/29/16 at 14 :30 Hydralazine HCl (Apresoline) 10 mg Q4 PRN IV sbp>160 Last administered on 17:12; Admin Dose 10 MG; Start 10/29/16 at 14:30 Furosemide 60 mg 60 mg BID IV Last administered on 10/30/16 21:14; Admin Dose 60 MG; Start 10/30/16 at 21:00 Clindamycin HCl/ Dextrose (Cleocin 900 Mg/ D5W (Pmx)) 50 ml @ 50 mls/hr Q8 IVPB Last administered on 10/31/16 05:26; Admin Dose 50 MLS/HR; Start 10/30/16 at 22:00 Labetalol HCl (Labetalol) 20 mg Q2H PRN IV for sbp >160 Last administered on 18:01; Admin Dose 20 MG; Start 10/30/16 at 18:00 Pantoprazole (Protonix Tab) 40 mg BID@06,18 PO ; Start 10/31/16 at 18:00 MIGUE VILLALOBOS Oct 31, 2016 14:54
[2016-10-31] MEDS ORDERED: HEPARIN 1000 UNITS/ML 10 ML INJ ONE (14:58)
[2016-10-31] MEDS ORDERED: LIDOCAINE 1% (MDV) 20 ML INJ ONE (14:58)
[2016-10-31] MEDS ORDERED: FENTAnyl 50 MCG/ML VIAL ONE (16:01)
[2016-10-31] MEDS ORDERED: MIDAZOLAM 1 MG/ML 2 ML INJ ONE (16:01)
[2016-10-31] MEDS ORDERED: SOD CHLORIDE 0.9% 500 ML ONE (16:02)
[2016-10-31] MEDS ORDERED: DIPHENHYDRAMINE 50 MG INJ ONE (16:02)
[2016-10-31] MEDS ORDERED: CEFAZOLIN 1 GM/50 ML (PMX) 50 ML IVPB ONE (16:05)
--- NOTE | 2016-10-31 17:33 | RADRPT ---
PROCEDURE: PLACEMENT OF RIGHT INTERNAL JUGULAR VENOUS TUNNELED DIALYSIS CATHETER. CLINICAL INDICATION: Renal failure. TECHNIQUE: Prior to the procedure, informed consent was obtained. Risks including bleeding, infection, and pneu mothorax were explained to the patient. The patient understood and was willing to proceed. A procedu ral pause was performed. The patient's name, date of , and procedure to be performed were verif ied. The central line was inserted with all elements of maximal sterile barrier technique. All of th e following were used: head covering, facial mask, sterile gown, sterile gloves, a large sterile she et, hand hygiene, and 2% chlorhexidine for cutaneous antisepsis. The right neck and anterior/super ior chest wall was prepped and draped in usual sterile fashion. Limited sonography of the right neck was then performed. Noted is a patent right internal jugular ve in. Ultrasound images were recorded and stored in the patient's medical record. Following the local injection of Xylocaine, the right internal jugular vein was punctured under sono graphic guidance with a 20-gauge needle through which a 0.018 inch floppy tip guidewire was advanced into the superior vena cava. The tract was dilated to 5 [place] and the wire was then replaced with a 0.035 in Amplatz guidewire. A tunnel was then created from the anterior lateral aspect of the sup erior right chest wall to the puncture site in the neck and the catheter was pulled through the trac t. Serial dilatation was then performed and a 16 [place]ian peel away sheath was introduced. The 14.5 [place]isian 23cm tip to cuff Angiodynamics dialysis catheter was advanced through the 16 [place]ian peel-away sheath. The tip of the catheter was confirmed in position within the right atrium. The peel-away sh eath was removed. The 2 ports were each flushed with 2.3 ml of 1:1000 heparin. The catheter was sec ured to the skin with 2-0 silk. The wound in the neck was closed with 4-0 Vicryl suture using subcuticular running technique. The site was dressed. The patient tolerated the procedure well. COMPARISON: None. FINDINGS: Final radiographic images demonstrate the tip of the catheter in the upper right atrium. A total of 0.1 minutes of fluoroscopy time was used. The ultrasound images demonstrate the needle entering e jugular vein. Ultrasound images were recorded and stored in the patient's medical record. 6 fluor oscopic guided images of the chest were obtained. IMPRESSION: 1. Percutaneous insertion of right internal jugular dialysis tunneled dialysis catheter under fluoro scopic and sonographic guidance. RPTAT: QQ .Trip Blanton MD, MD Date Time Electronically viewed and signed by .Trip Blanton MD, MD on 10/31/2016 17:33 .R/
--- NOTE | 2016-10-31 17:49 | RADRPT ---
PROCEDURE: Ultrasound guidance for placement of needle in right internal jugular vein. CLINICAL INDICATION: Venous access. TECHNIQUE: Prior to the procedure, informed consent was obtained. Risks including bleeding, infection, and pneu mothorax were explained to the patient. The patient understood and was willing to proceed. A procedu ral pause was performed. The patient's name, date of , and procedure to be performed were verif ied. The central line was inserted with all elements of maximal sterile barrier technique. All of th e following were used: head covering, facial mask, sterile gown, sterile gloves, a large sterile she et, hand hygiene, and 2% chlorhexidine for cutaneous antisepsis. The right neck and anterior/super ior chest wall was prepped and draped in usual sterile fashion. Limited sonography of the right neck was then performed. Noted is a patent right internal jugular ve in. Ultrasound images were recorded and stored in the patient's medical record. Following the local injection of Xylocaine, the right internal jugular vein was punctured under sono graphic guidance with a 20-gauge needle through which a 0.018 inch floppy tip guidewire was advanced into the superior vena cava. The patient tolerated the procedure well. The remainder of the proce dure was performed and dictated under separate cover. COMPARISON: None. FINDINGS: The ultrasound images demonstrate a patent right internal jugular vein. The subsequent images demon strate the needle entering the right internal jugular vein. IMPRESSION: 1. Ultrasound guidance for a needle placement in right internal jugular vein. RPTAT: QQ .Trip Blanton MD, Date Time Electronically viewed and signed by .Trip Blanton MD, on 10/31/2016 17:49 .R/
[2016-10-31] MEDS: PANTOPRAZOLE (EC) 40 MG TAB PO SCH (18:00)
--- NOTE | 2016-10-31 19:07 | CONS ---
Date/Time of Note Date/Time of Note DATE: 10/31/16 TIME: 19:06 Consult Date/Type/Reason Admit Date/Time Oct 29, 2016 at 13:24 Initial Consult Date 10/29/16 Type of Consultation: Pulm Ordering Provider: MIGUE VILLALOBOS Subjective No events overnight Objective Vital Signs Date Time Temp Pulse Resp B/P Pulse Ox O2 Delivery O2 Flow Rate FiO2 10/31/16 16:01 98.1 75 18 168/81 95 10/31/16 04:00 Nasal Cannula 2.0 Intake and Output 10/30/16 10/30/16 10/31/16 15:00 23:00 07:00 Intake Total 120 ml 550 ml 665 ml Output Total 200 ml 1800 ml Balance 120 ml 350 ml -1135 ml HEENT: Neck supple; no JVD; no LAD CVS: RRR, S1 and S2 CHEST: Bibasilar rales ABD: Soft, NT, + BS EXT: No c/c ++ edema Results/Medications Result Diagram: 10/31/16 0600 10/31/16 0600 Results 24 hrs Laboratory Tests Test 10/31/16 06:00 10/31/16 09:40 Alanine Aminotransferase (ALT/SGPT) 24 Albumin 3.0 L Albumin/Globulin Ratio 0.96 Alkaline Phosphatase 102 Anion Gap 26 H Aspartate Amino Transf (AST/SGOT) < 8 L Basophils # 0.0 Basophils % 0.2 Blood Morphology Comment Blood Urea Nitrogen 105 H Calcium Level 5.4 *L Carbon Dioxide Level 19 L Chloride Level 110 Creatinine 12.30 H Direct Bilirubin 0.00 Eosinophils # 0.2 Eosinophils % 2.0 Globulin 3.10 Glucose Level 85 Hematocrit 24.9 L Hemoglobin 8.2 L Indirect Bilirubin 0.0 Lymphocytes # 0.9 Lymphocytes % 11.1 L Mean Corpuscular Hemoglobin 28.9 L Mean Corpuscular Hemoglobin Concent 32.9 Mean Corpuscular Volume 88.0 Mean Platelet Volume 12.1 H Monocytes # 0.5 Monocytes % 6.5 Neutrophils # 6.5 Neutrophils % 80.2 H Nucleated Red Blood Cells # 0.0 Nucleated Red Blood Cells % 0.0 Platelet Count 172 Potassium Level 4.8 Red Blood Count 2.83 L Red Cell Distribution Width 15.9 H Sodium Level 150 H Total Bilirubin 0.0 L Total Protein 6.1 White Blood Count 8.2 Activated Partial Thromboplast Time 33.6 INR International Normalized Ratio 1.29 Prothrombin Time 16.2 H Prothrombin Time Ratio 1.3 Medications Current Medications Ondansetron HCl (Zofran Inj) 4 mg Q6H PRN IV NAUSEA AND/OR VOMITING; Start at 14:30 Acetaminophen (Tylenol Tab) 650 mg Q6H PRN PO PAIN LEVEL 1-3 OR FEVER; Start at 14:30 Acetaminophen (Tylenol Supp) 650 mg Q6H PRN [place] PAIN LEVEL 1-3 OR FEVER; Start 10/29/16 at 14:30 Acetaminophen/ Hydrocodone Bitart ([place] (5/325)) 1 tab Q6H PRN PO MODERATE PAIN LEVEL 4-6; Start 10/29/16 at 14:30 Acetaminophen/ Hydrocodone Bitart ([place] (5/325)) 2 tab Q6H PRN PO SEVERE PAIN LEVEL 7-10; Start 10/29/16 at 14:30 Morphine Sulfate (morphine) 2 mg Q4H PRN IV SEVERE PAIN LEVEL 7-10; Start 10/29 at 14:30 Docusate Sodium (Colace) 100 mg Q12H PRN PO CONSTIPATION; Start 10/29/16 at 14: 30 Magnesium Hydroxide (Milk Of Mag) 30 ml DAILY PRN PO CONSTIPATION; Start at 14:30 Bisacodyl (Dulcolax Supp) 10 mg DAILY PRN [place] CONSTIPATION; Start 10/29/16 at 14 :30 Hydralazine HCl (Apresoline) 10 mg Q4 PRN IV sbp>160 Last administered on 17:12; Admin Dose 10 MG; Start 10/29/16 at 14:30 Furosemide 60 mg 60 mg BID IV Last administered on 10/31/16 09:00; Admin Dose 60 MG; Start 10/30/16 at 21:00 Clindamycin HCl/ Dextrose (Cleocin 900 Mg/ D5W (Pmx)) 50 ml @ 50 mls/hr Q8 IVPB Last administered on 10/31/16 14:00; Admin Dose 50 MLS/HR; Start 10/30/16 at 22:00 Labetalol HCl (Labetalol) 20 mg Q2H PRN IV for sbp >160 Last administered on 18:01; Admin Dose 20 MG; Start 10/30/16 at 18:00 Pantoprazole (Protonix Tab) 40 mg BID@06,18 PO Last administered on 10/31/16t 18:00; Admin Dose 40 MG; Start 10/31/16 at 18:00 Assessment/Plan Additional Assessment/Plan IMP: 1. Volume overload/pulm edema 2. ARF 3. Anemia RECS: 1. HD/UF 2. Follow H/H 3 Increase free H20 RAJIV GATES MD Oct 31, 2016 19:07
--- NOTE | 2016-10-31 20:06 | CONS ---
Date/Time of Note Date/Time of Note DATE: 10/31/16 TIME: 19:56 Assessment/Plan Assessment/Plan Chief Complaint/Hosp Course Subjective: No events, awake, lying in bed, no fevers nad Ax: Clindamycin Micro: Bld cx + Strep PHYSICAL EXAMINATION: GENERAL: Obese, wel developed elderly man with a poor hygiene, in no distress SKIN: Without generalized rash. He has some blackish discoloration on his feet. HEENT: Within normal limits. NECK: Supple. LYMPH NODES: None palpable. CHEST: Decreased breath sounds at the bases. HEART: Without murmur or gallop. ABDOMEN: Soft, nontender, without organosplenomegaly or masses. EXTREMITIES: Without cyanosis, clubbing, or edema. RECTAL AND GENITAL: Deferred. NEUROLOGIC: No focal neurological abnormalities. Assessment: 1. Strep bacteremia 2. Acute respiratory distress/fluid overload, s/p thoracentesis ?PNA 3. ARF ?CKD 4. Anemia 5. Elevated troponin 6. Homeless PLAN: Stable, pulmonary/card teams follow, no vegetations per 2D ECHO, plan for richie catheter placement/HD, continue abx, repeat bld cx in am, sputum cx if able DW pt/mother at bedside DW RN Problems: Consultation Date/Type/Reason Admit Date/Time Oct 29, 2016 at 13:24 Initial Consult Date 10/29/16 Type of Consultation: id Referring Provider: MIGUE VILLALOBOS Exam/Review of Systems Vital Signs Vitals Vital Signs Date Time Temp Pulse Resp B/P Pulse Ox O2 Delivery O2 Flow Rate FiO2 10/31/16 16:01 98.1 75 18 168/81 95 10/31/16 04:00 Nasal Cannula 2.0 Intake and Output 10/30/16 10/30/16 10/31/16 15:00 23:00 07:00 Intake Total 120 ml 550 ml 665 ml Output Total 200 ml 1800 ml Balance 120 ml 350 ml -1135 ml Results Result Diagram: 10/31/16 0600 10/31/16 0600 Results 24 hrs Laboratory Tests Test 10/31/16 06:00 10/31/16 09:40 Alanine Aminotransferase (ALT/SGPT) 24 Albumin 3.0 L Albumin/Globulin Ratio 0.96 Alkaline Phosphatase 102 Anion Gap 26 H Aspartate Amino Transf (AST/SGOT) < 8 L Basophils # 0.0 Basophils % 0.2 Blood Morphology Comment Blood Urea Nitrogen 105 H Calcium Level 5.4 *L Carbon Dioxide Level 19 L Chloride Level 110 Creatinine 12.30 H Direct Bilirubin 0.00 Eosinophils # 0.2 Eosinophils % 2.0 Globulin 3.10 Glucose Level 85 Hematocrit 24.9 L Hemoglobin 8.2 L Indirect Bilirubin 0.0 Lymphocytes # 0.9 Lymphocytes % 11.1 L Mean Corpuscular Hemoglobin 28.9 L Mean Corpuscular Hemoglobin Concent 32.9 Mean Corpuscular Volume 88.0 Mean Platelet Volume 12.1 H Monocytes # 0.5 Monocytes % 6.5 Neutrophils # 6.5 Neutrophils % 80.2 H Nucleated Red Blood Cells # 0.0 Nucleated Red Blood Cells % 0.0 Platelet Count 172 Potassium Level 4.8 Red Blood Count 2.83 L Red Cell Distribution Width 15.9 H Sodium Level 150 H Total Bilirubin 0.0 L Total Protein 6.1 White Blood Count 8.2 Activated Partial Thromboplast Time 33.6 INR International Normalized Ratio 1.29 Prothrombin Time 16.2 H Prothrombin Time Ratio 1.3 Medications Medications Current Medications Ondansetron HCl (Zofran Inj) 4 mg Q6H PRN IV NAUSEA AND/OR VOMITING; Start at 14:30 Acetaminophen (Tylenol Tab) 650 mg Q6H PRN PO PAIN LEVEL 1-3 OR FEVER; Start at 14:30 Acetaminophen (Tylenol Supp) 650 mg Q6H PRN [place] PAIN LEVEL 1-3 OR FEVER; Start 10/29/16 at 14:30 Acetaminophen/ Hydrocodone Bitart ([place] (5/325)) 1 tab Q6H PRN PO MODERATE PAIN LEVEL 4-6; Start 10/29/16 at 14:30 Acetaminophen/ Hydrocodone Bitart ([place] (5/325)) 2 tab Q6H PRN PO SEVERE PAIN LEVEL 7-10; Start 10/29/16 at 14:30 Morphine Sulfate (morphine) 2 mg Q4H PRN IV SEVERE PAIN LEVEL 7-10; Start 10/29 at 14:30 Docusate Sodium (Colace) 100 mg Q12H PRN PO CONSTIPATION; Start 10/29/16 at 14: 30 Magnesium Hydroxide (Milk Of Mag) 30 ml DAILY PRN PO CONSTIPATION; Start at 14:30 Bisacodyl (Dulcolax Supp) 10 mg DAILY PRN [place] CONSTIPATION; Start 10/29/16 at 14 :30 Hydralazine HCl (Apresoline) 10 mg Q4 PRN IV sbp>160 Last administered on 17:12; Admin Dose 10 MG; Start 10/29/16 at 14:30 Furosemide 60 mg 60 mg BID IV Last administered on 10/31/16 09:00; Admin Dose 60 MG; Start 10/30/16 at 21:00 Clindamycin HCl/ Dextrose (Cleocin 900 Mg/ D5W (Pmx)) 50 ml @ 50 mls/hr Q8 IVPB Last administered on 10/31/16 14:00; Admin Dose 50 MLS/HR; Start 10/30/16 at 22:00 Labetalol HCl (Labetalol) 20 mg Q2H PRN IV for sbp >160 Last administered on 18:01; Admin Dose 20 MG; Start 10/30/16 at 18:00 Pantoprazole (Protonix Tab) 40 mg BID@06,18 PO Last administered on 10/31/16 18:00; Admin Dose 40 MG; Start 10/31/16 at 18:00 MARY CEDILLO NP Oct 31, 2016 20:05
--- NOTE | 2016-10-31 20:13 | CONS ---
Date/Time of Note Date/Time of Note DATE: 10/31/16 TIME: 20:08 Assessment/Plan Assessment/Plan Chief Complaint/Hosp Course Acute on chronic diastolic heart failure: In setting of renal failure. Actually making some urine, so will continue Lasix. Acute respiratory distress: secondary to above. Improving with diuresis. Acute vs chronic renal failure: contributing to above HTN urgency: SBP >200 on admission, now improved. Contribution by volume overload. NSTEMI: type II in setting of above. Trop 0.7 and trending down. No acute EKG changes. Would not be cath candidate anyway considering his social situation and med noncompliance. Anemia Homelessness Blindness -echocardiogram showed LVEF 50% with inferior and septal hypokinesis, moderate diastolic dysfunction, RVSP 58mmHg -continue Lasix 60mg IV BID -ASA, lipitor -BP control -product/device technologist plans to initiate hemodialysis Problems: Consultation Date/Type/Reason Admit Date/Time Oct 29, 2016 at 13:24 Initial Consult Date 10/29/16 Type of Consultation: Cardiology 24 HR Interval Summary Free Text/Dictation Status post right thoracentesis yesterday with removal of [address] Tunneled-catheter place for hemodialysis. Patient still with some shortness of breath. Detailed Summary Additional Comments 14 point review of systems without changes. Exam/Review of Systems Vital Signs Vitals Vital Signs Date Time Temp Pulse Resp B/P Pulse Ox O2 Delivery O2 Flow Rate FiO2 10/31/16 16:01 98.1 75 18 168/81 95 10/31/16 04:00 Nasal Cannula 2.0 Intake and Output 10/30/16 10/30/16 10/31/16 15:00 23:00 07:00 Intake Total 120 ml 550 ml 665 ml Output Total 200 ml 1800 ml Balance 120 ml 350 ml -1135 ml Exam Constitutional: alert, oriented Head: atraumatic, normocephalic Neck: jvd (12) Respiratory: crackles/rales, diminished breath sounds Cardiovascular: edema (2+) Neurological: nl mental status Results Result Diagram: 10/31/16 0600 10/31/16 0600 Results 24 hrs Laboratory Tests Test 10/31/16 06:00 10/31/16 09:40 Alanine Aminotransferase (ALT/SGPT) 24 Albumin 3.0 L Albumin/Globulin Ratio 0.96 Alkaline Phosphatase 102 Anion Gap 26 H Aspartate Amino Transf (AST/SGOT) < 8 L Basophils # 0.0 Basophils % 0.2 Blood Morphology Comment Blood Urea Nitrogen 105 H Calcium Level 5.4 *L Carbon Dioxide Level 19 L Chloride Level 110 Creatinine 12.30 H Direct Bilirubin 0.00 Eosinophils # 0.2 Eosinophils % 2.0 Globulin 3.10 Glucose Level 85 Hematocrit 24.9 L Hemoglobin 8.2 L Indirect Bilirubin 0.0 Lymphocytes # 0.9 Lymphocytes % 11.1 L Mean Corpuscular Hemoglobin 28.9 L Mean Corpuscular Hemoglobin Concent 32.9 Mean Corpuscular Volume 88.0 Mean Platelet Volume 12.1 H Monocytes # 0.5 Monocytes % 6.5 Neutrophils # 6.5 Neutrophils % 80.2 H Nucleated Red Blood Cells # 0.0 Nucleated Red Blood Cells % 0.0 Platelet Count 172 Potassium Level 4.8 Red Blood Count 2.83 L Red Cell Distribution Width 15.9 H Sodium Level 150 H Total Bilirubin 0.0 L Total Protein 6.1 White Blood Count 8.2 Activated Partial Thromboplast Time 33.6 INR International Normalized Ratio 1.29 Prothrombin Time 16.2 H Prothrombin Time Ratio 1.3 Medications Medications Current Medications Ondansetron HCl (Zofran Inj) 4 mg Q6H PRN IV NAUSEA AND/OR VOMITING; Start at 14:30 Acetaminophen (Tylenol Tab) 650 mg Q6H PRN PO PAIN LEVEL 1-3 OR FEVER; Start at 14:30 Acetaminophen (Tylenol Supp) 650 mg Q6H PRN [place] PAIN LEVEL 1-3 OR FEVER; Start 10/29/16 at 14:30 Acetaminophen/ Hydrocodone Bitart ([place] (5/325)) 1 tab Q6H PRN PO MODERATE PAIN LEVEL 4-6; Start 10/29/16 at 14:30 Acetaminophen/ Hydrocodone Bitart ([place] (5/325)) 2 tab Q6H PRN PO SEVERE PAIN LEVEL 7-10; Start 10/29/16 at 14:30 Morphine Sulfate (morphine) 2 mg Q4H PRN IV SEVERE PAIN LEVEL 7-10; Start 10/29 at 14:30 Docusate Sodium (Colace) 100 mg Q12H PRN PO CONSTIPATION; Start 10/29/16 at 14: 30 Magnesium Hydroxide (Milk Of Mag) 30 ml DAILY PRN PO CONSTIPATION; Start at 14:30 Bisacodyl (Dulcolax Supp) 10 mg DAILY PRN [place] CONSTIPATION; Start 10/29/16 at 14 :30 Hydralazine HCl (Apresoline) 10 mg Q4 PRN IV sbp>160 Last administered on 17:12; Admin Dose 10 MG; Start 10/29/16 at 14:30 Furosemide 60 mg 60 mg BID IV Last administered on 10/31/16 09:00; Admin Dose 60 MG; Start 10/30/16 at 21:00 Clindamycin HCl/ Dextrose (Cleocin 900 Mg/ D5W (Pmx)) 50 ml @ 50 mls/hr Q8 IVPB Last administered on 10/31/16 14:00; Admin Dose 50 MLS/HR; Start 10/30/16 at 22:00 Labetalol HCl (Labetalol) 20 mg Q2H PRN IV for sbp >160 Last administered on 18:01; Admin Dose 20 MG; Start 10/30/16 at 18:00 Pantoprazole (Protonix Tab) 40 mg BID@06,18 PO Last administered on 10/31/16 18:00; Admin Dose 40 MG; Start 10/31/16 at 18:00 SHANTA CROFT MD Oct 31, 2016 20:12
[2016-11-01] VITALS (30 sets, daily range): BP systolic 125–197; BP diastolic 58–106; PULSE 73–117; RESP 18–20
[2016-11-01] MEDS: MANNITOL 25% 50 ML IV PRN ×2 (00:12→17:24)
[2016-11-01] MEDS: CLINDAMYCIN 900 MG/D5W (PMX) 50 ML IVPB SCH ×2 (05:10→14:45)
[2016-11-01] MEDS: PANTOPRAZOLE (EC) 40 MG TAB PO SCH ×2 (05:10→17:57)
[2016-11-01 10:02] LABS: BASOPHIL # 0.1 10^3/ul (0.0-0.1); BASOPHILS % 0.7 % (0.0-2.0); EOSINOPHILS # 0.2 10^3/ul (0.0-0.5); EOSINOPHILS % 3.1 % (0.0-7.0); HEMATOCRIT 24.5 % (42.0-52.0); HEMOGLOBIN 8.2 g/dl (14.0-18.0); LYMPHOCYTES # 0.7 10^3/ul (0.8-2.9); LYMPHOCYTES % 9.9 % (15.0-51.0); MEAN CORPUSCULAR HEMOGLOBIN 29.4 pg (29.0-33.0); MEAN CORPUSCULAR HGB CONC 33.4 g/dl (32.0-37.0); MEAN CORPUSCULAR VOLUME 87.9 fl (82.0-101.0); MEAN PLATELET VOLUME 11.2 fl (7.4-10.4); MONOCYTE # 0.5 10^3/ul (0.3-0.9); MONOCYTES % 6.6 % (0.0-11.0); NEUTROPHIL # 5.7 10^3/ul (1.6-7.5); NEUTROPHILS % 79.7 % (39.0-77.0); PLATELET COUNT 153 10^3/UL (140-440); RED BLOOD COUNT 2.79 10^6/ul (4.70-6.10); RED CELL DISTRIBUTION WIDTH 16.4 % (11.5-14.5); UNCORRECTED WBC 7.1 10^3/ul (4.8-10.8); WHITE BLOOD COUNT 7.1 10^3/ul (4.8-10.8)
[2016-11-01 10:06] LABS: CONDITION 1; LH ANALYZER COMMENTS 1; SUSPECT 1
[2016-11-01 10:14] LABS: CREATININE 10.36 mg/dl (0.61-1.24)
[2016-11-01 10:15] LABS: CALCIUM 6.1 mg/dl (8.4-10.2)
[2016-11-01] MEDS: hydrALAzine 20 MG INJ IV PRN ×2 (10:22→18:59)
[2016-11-01] MEDS: FUROSEMIDE 40 MG INJ IV SCH ×2 (10:24→20:43)
--- NOTE | 2016-11-01 12:20 | CONS ---
Date/Time of Note Date/Time of Note DATE: 11/01/16 TIME: 12:18 Assessment/Plan Assessment/Plan Chief Complaint/Hosp Course Impression: 1. Acute renal failure. 2. Anemia with reported black stool: h/h stable 3. CHF. plan for HD. 4. Elevated troponin. Likely ischemic demand. 5. Electrolyte abnormality 7. Hypertensive emergency. Patient does not report having any blood pressure medicines at home. 8. Homeless status. Follow up with social and human services assistant Plan: 1. f/u occult blood 2. if occult blood positive, consider EGD and colonoscopy 3. change H2 eleanor with PPI for better acid suppression 4. management of his other medical problems per primary and consultants 5. will need cardiac optimization if EGD and colonoscopy is needed Problems: Consultation Date/Type/Reason Admit Date/Time Oct 29, 2016 at 13:24 Initial Consult Date 10/29/16 Type of Consultation: GI 24 HR Interval Summary Free Text/Dictation no abdominal pain, no n/v Constitutional: improved Exam/Review of Systems Vital Signs Vitals Vital Signs Date Time Temp Pulse Resp B/P Pulse Ox O2 Delivery O2 Flow Rate FiO2 11/01/16 08:29 75 11/01/16 07:54 98.1 18 184/94 100 10/31/16 04:00 Nasal Cannula 2.0 Intake and Output 10/31/16 10/31/16 11/01/16 15:00 23:00 07:00 Intake Total 650 ml 740 ml Output Total 450 ml 4050 ml Balance 200 ml -3310 ml Exam Constitutional: alert, oriented, well developed Psych: nl mood/affect, no complaints Head: atraumatic, normocephalic Eyes: EOMI, nl conjunctiva, nl lids, nl sclera ENMT: mucosa pink and moist, nl external ears & nose, nl lips & teeth, nl nasal mucosa & septum Neck: non-tender, supple Respiratory: clear to auscultation, normal air movement Cardiovascular: nl pulses, regular rate and rhythm Gastrointestinal: bowel sounds, non-tender, soft Results Result Diagram: 11/01/16 0940 11/01/16 0940 Results 24 hrs Laboratory Tests Test 11/01/16 09:40 Anion Gap 19 #H Basophils # 0.1 Basophils % 0.7 Blood Morphology Comment Blood Urea Nitrogen 76 H Calcium Level 6.1 L Carbon Dioxide Level 23 Chloride Level 105 Creatinine 10.36 H Eosinophils # 0.2 Eosinophils % 3.1 Glucose Level 99 Hematocrit 24.5 L Hemoglobin 8.2 L Lymphocytes # 0.7 L Lymphocytes % 9.9 L Mean Corpuscular Hemoglobin 29.4 Mean Corpuscular Hemoglobin Concent 33.4 Mean Corpuscular Volume 87.9 Mean Platelet Volume 11.2 H Monocytes # 0.5 Monocytes % 6.6 Neutrophils # 5.7 Neutrophils % 79.7 H Nucleated Red Blood Cells # 0.0 Nucleated Red Blood Cells % 0.0 Platelet Count 153 Potassium Level 4.0 Red Blood Count 2.79 L Red Cell Distribution Width 16.4 H Sodium Level 143 White Blood Count 7.1 Medications Medications Current Medications Ondansetron HCl (Zofran Inj) 4 mg Q6H PRN IV NAUSEA AND/OR VOMITING; Start at 14:30 Acetaminophen (Tylenol Tab) 650 mg Q6H PRN PO PAIN LEVEL 1-3 OR FEVER; Start at 14:30 Acetaminophen (Tylenol Supp) 650 mg Q6H PRN [place] PAIN LEVEL 1-3 OR FEVER; Start 10/29/16 at 14:30 Acetaminophen/ Hydrocodone Bitart ([place] (5/325)) 1 tab Q6H PRN PO MODERATE PAIN LEVEL 4-6; Start 10/29/16 at 14:30 Acetaminophen/ Hydrocodone Bitart ([place] (5/325)) 2 tab Q6H PRN PO SEVERE PAIN LEVEL 7-10; Start 10/29/16 at 14:30 Morphine Sulfate (morphine) 2 mg Q4H PRN IV SEVERE PAIN LEVEL 7-10; Start 10/29 at 14:30 Docusate Sodium (Colace) 100 mg Q12H PRN PO CONSTIPATION; Start 10/29/16 at 14: 30 Magnesium Hydroxide (Milk Of Mag) 30 ml DAILY PRN PO CONSTIPATION; Start at 14:30 Bisacodyl (Dulcolax Supp) 10 mg DAILY PRN [place] CONSTIPATION; Start 10/29/16 at 14 :30 Hydralazine HCl (Apresoline) 10 mg Q4 PRN IV sbp>160 Last administered on 10:22; Admin Dose 10 MG; Start 10/29/16 at 14:30 Furosemide 60 mg 60 mg BID IV Last administered on 11/01/16 10:24; Admin Dose 60 MG; Start 10/30/16 at 21:00 Clindamycin HCl/ Dextrose (Cleocin 900 Mg/ D5W (Pmx)) 50 ml @ 50 mls/hr Q8 IVPB Last administered on 11/01/16 05:10; Admin Dose 50 MLS/HR; Start 10/30/16 at 22:00 Labetalol HCl (Labetalol) 20 mg Q2H PRN IV for sbp >160 Last administered on 18:01; Admin Dose 20 MG; Start 10/30/16 at 18:00 Pantoprazole (Protonix Tab) 40 mg BID@06,18 PO Last administered on 11/01/16 05:10; Admin Dose 40 MG; Start 10/31/16 at 18:00 JORDEN CHRISTIE MD Nov 01, 2016 12:19
--- NOTE | 2016-11-01 13:47 | PN ---
Date/Time of Note Date/Time of Note DATE: 11/01/16 TIME: 13:45 Assessment/Plan VTE Prophylaxis VTE Prophylaxis Intervention: SCD's Lines/Catheters [facility] Urinary Cath still in place: Yes Reason Cath still needed: other (indicate) (monitor I&O) Assessment/Plan Chief Complaint/Hosp Course Assessment and plan 1. Acute renal failure. Patient with worsening renal function. Plan for HD per marshmallow machine worker 2. CHF. plan for HD. cont with cardiology recs. cont optimization with cardiovascular medications 3. Elevated troponin. Likely ischemic demand. cont with cardiology recs 4. Anemia. Worse. Patient with reported black stool. will get GI consultation 5. Hyperkalemia. Will provide Kayexalate as needed. plan for HD 6. Hypocalcemia. will monitor and replete as needed. follow up with marshmallow machine worker recommendations 7. Hypertensive emergency. Patient does not report having any blood pressure medicines at home. cont on antihypertensives 8. Homeless status. Follow up with social work coordinator DISPO/PLAN: dialysis catheter placed. plan for HD . d/c when medically stable and cleared by consultants Discussed plan of care with Dr. Bradley Problems: Subjective 24 Hr Interval Summary Free Text/Dictation comfortable at present. no s/s of distress Exam/Review of Systems Vital Signs Vitals Vital Signs Date Time Temp Pulse Resp B/P Pulse Ox O2 Delivery O2 Flow Rate FiO2 11/01/16 12:22 78 11/01/16 12:19 97.1 18 125/60 99 10/31/16 04:00 Nasal Cannula 2.0 Intake and Output 10/31/16 10/31/16 11/01/16 15:00 23:00 07:00 Intake Total 650 ml 740 ml Output Total 450 ml 4050 ml Balance 200 ml -3310 ml Exam General: No plan distress noted at this time Eyes: pupils equal round, Anicteric sclera Neck: Supple nontender, no JVD Cardiac: S1, S2 auscultated, regular rhythm and rate Pulmonary: diminished at lung bases GI: Abdomen soft nontender nondistended, bowel sounds active Extremities: Edema bilateral lower extremities Skin: Blackish discoloration feet on dorsal aspect Neurologic: Alert to person place and time and situation Results Result Diagram: 11/01/16 0940 11/01/16 0940 Results 24 hrs Laboratory Tests Test 11/01/16 09:40 Anion Gap 19 #H Basophils # 0.1 Basophils % 0.7 Blood Morphology Comment Blood Urea Nitrogen 76 H Calcium Level 6.1 L Carbon Dioxide Level 23 Chloride Level 105 Creatinine 10.36 H Eosinophils # 0.2 Eosinophils % 3.1 Glucose Level 99 Hematocrit 24.5 L Hemoglobin 8.2 L Lymphocytes # 0.7 L Lymphocytes % 9.9 L Mean Corpuscular Hemoglobin 29.4 Mean Corpuscular Hemoglobin Concent 33.4 Mean Corpuscular Volume 87.9 Mean Platelet Volume 11.2 H Monocytes # 0.5 Monocytes % 6.6 Neutrophils # 5.7 Neutrophils % 79.7 H Nucleated Red Blood Cells # 0.0 Nucleated Red Blood Cells % 0.0 Platelet Count 153 Potassium Level 4.0 Red Blood Count 2.79 L Red Cell Distribution Width 16.4 H Sodium Level 143 White Blood Count 7.1 Medications Medications Current Medications Ondansetron HCl (Zofran Inj) 4 mg Q6H PRN IV NAUSEA AND/OR VOMITING; Start at 14:30 Acetaminophen (Tylenol Tab) 650 mg Q6H PRN PO PAIN LEVEL 1-3 OR FEVER; Start at 14:30 Acetaminophen (Tylenol Supp) 650 mg Q6H PRN [place] PAIN LEVEL 1-3 OR FEVER; Start 10/29/16 at 14:30 Acetaminophen/ Hydrocodone Bitart ([place] (5/325)) 1 tab Q6H PRN PO MODERATE PAIN LEVEL 4-6; Start 10/29/16 at 14:30 Acetaminophen/ Hydrocodone Bitart ([place] (5/325)) 2 tab Q6H PRN PO SEVERE PAIN LEVEL 7-10; Start 10/29/16 at 14:30 Morphine Sulfate (morphine) 2 mg Q4H PRN IV SEVERE PAIN LEVEL 7-10; Start 10/29 at 14:30 Docusate Sodium (Colace) 100 mg Q12H PRN PO CONSTIPATION; Start 10/29/16 at 14: 30 Magnesium Hydroxide (Milk Of Mag) 30 ml DAILY PRN PO CONSTIPATION; Start at 14:30 Bisacodyl (Dulcolax Supp) 10 mg DAILY PRN [place] CONSTIPATION; Start 10/29/16 at 14 :30 Hydralazine HCl (Apresoline) 10 mg Q4 PRN IV sbp>160 Last administered on 10:22; Admin Dose 10 MG; Start 10/29/16 at 14:30 Furosemide 60 mg 60 mg BID IV Last administered on 11/01/16 10:24; Admin Dose 60 MG; Start 10/30/16 at 21:00 Clindamycin HCl/ Dextrose (Cleocin 900 Mg/ D5W (Pmx)) 50 ml @ 50 mls/hr Q8 IVPB Last administered on 11/01/16 05:10; Admin Dose 50 MLS/HR; Start 10/30/16 at 22:00 Labetalol HCl (Labetalol) 20 mg Q2H PRN IV for sbp >160 Last administered on 18:01; Admin Dose 20 MG; Start 10/30/16 at 18:00 Pantoprazole 40 mg 40 mg BID@06,18 PO Last administered on 11/01/16 05:10; Admin Dose 40 MG; Start 10/31/16 at 18:00 Multivitamins 10 ml/Thiamine HCl 100 mg/Folic Acid 1 mg/Sodium Chloride 1,011.2 ml @ 125 mls/ hr DAILY@09 IVPB ; Start 11/02/16 at 09:00; Stop 11/04/16 at 17: 06 Calcium Gluconate/ Sodium Chloride (Ca Gluc/NS) 120 ml @ 60 mls/hr ONCE ONCE IVPB ; Start 11/01/16 at 14:00; Stop 11/01/16 at 15:59 MIGUE VILLALOBOS Nov 01, 2016 13:47
[2016-11-01] MEDS ORDERED: CALCIUM GLUCONATE 10% 2 GM in SOD CHLORIDE 0.9% 100 ML IVPB ONE (14:00)
--- NOTE | 2016-11-01 16:50 | CONS ---
Date/Time of Note Date/Time of Note DATE: 11/01/16 TIME: 16:48 Assessment/Plan Assessment/Plan Chief Complaint/Hosp Course IMPRESSION: 1. Patient has acute kidney injury with possible underlying chronic kidney disease. 2. The patient has anasarca. 3. Pulmonary edema. 4. Anemia. 5. Hyperkalemia. 6. Metabolic acidosis. 7. Homelessness. 8. Incomplete database. 9. proteinuria. 10. chronic kidney disease. 11. Congestive heart failure. 12. Electrolyte imbalance. PLAN HD LASIX s/p perma cath placement and hd Problems: Consultation Date/Type/Reason Admit Date/Time Oct 29, 2016 at 13:24 Initial Consult Date 10/29/16 Type of Consultation: renal 24 HR Interval Summary Constitutional: no complaints Exam/Review of Systems Vital Signs Vitals Vital Signs Date Time Temp Pulse Resp B/P Pulse Ox O2 Delivery O2 Flow Rate FiO2 11/01/16 16:35 74 11/01/16 15:53 98.1 18 140/66 96 10/31/16 04:00 Nasal Cannula 2.0 Intake and Output 10/31/16 10/31/16 11/01/16 15:00 23:00 07:00 Intake Total 650 ml 740 ml Output Total 450 ml 4050 ml Balance 200 ml -3310 ml Exam Respiratory: diminished breath sounds Cardiovascular: regular rate and rhythm Gastrointestinal: bowel sounds (+), soft Extremities: edema Results Result Diagram: 11/01/16 0940 11/01/16 0940 Results 24 hrs Laboratory Tests Test 11/01/16 09:40 Anion Gap 19 #H Basophils # 0.1 Basophils % 0.7 Blood Morphology Comment Blood Urea Nitrogen 76 H Calcium Level 6.1 L Carbon Dioxide Level 23 Chloride Level 105 Creatinine 10.36 H Eosinophils # 0.2 Eosinophils % 3.1 Glucose Level 99 Hematocrit 24.5 L Hemoglobin 8.2 L Lymphocytes # 0.7 L Lymphocytes % 9.9 L Mean Corpuscular Hemoglobin 29.4 Mean Corpuscular Hemoglobin Concent 33.4 Mean Corpuscular Volume 87.9 Mean Platelet Volume 11.2 H Monocytes # 0.5 Monocytes % 6.6 Neutrophils # 5.7 Neutrophils % 79.7 H Nucleated Red Blood Cells # 0.0 Nucleated Red Blood Cells % 0.0 Platelet Count 153 Potassium Level 4.0 Red Blood Count 2.79 L Red Cell Distribution Width 16.4 H Sodium Level 143 White Blood Count 7.1 Medications Medications Current Medications Ondansetron HCl (Zofran Inj) 4 mg Q6H PRN IV NAUSEA AND/OR VOMITING; Start at 14:30 Acetaminophen (Tylenol Tab) 650 mg Q6H PRN PO PAIN LEVEL 1-3 OR FEVER; Start at 14:30 Acetaminophen (Tylenol Supp) 650 mg Q6H PRN [place] PAIN LEVEL 1-3 OR FEVER; Start 10/29/16 at 14:30 Acetaminophen/ Hydrocodone Bitart ([place] (5/325)) 1 tab Q6H PRN PO MODERATE PAIN LEVEL 4-6; Start 10/29/16 at 14:30 Acetaminophen/ Hydrocodone Bitart ([place] (5/325)) 2 tab Q6H PRN PO SEVERE PAIN LEVEL 7-10; Start 10/29/16 at 14:30 Morphine Sulfate (morphine) 2 mg Q4H PRN IV SEVERE PAIN LEVEL 7-10; Start 10/29 at 14:30 Docusate Sodium (Colace) 100 mg Q12H PRN PO CONSTIPATION; Start 10/29/16 at 14: 30 Magnesium Hydroxide (Milk Of Mag) 30 ml DAILY PRN PO CONSTIPATION; Start at 14:30 Bisacodyl (Dulcolax Supp) 10 mg DAILY PRN [place] CONSTIPATION; Start 10/29/16 at 14 :30 Hydralazine HCl (Apresoline) 10 mg Q4 PRN IV sbp>160 Last administered on 10:22; Admin Dose 10 MG; Start 10/29/16 at 14:30 Furosemide 60 mg 60 mg BID IV Last administered on 11/01/16 10:24; Admin Dose 60 MG; Start 10/30/16 at 21:00 Clindamycin HCl/ Dextrose (Cleocin 900 Mg/ D5W (Pmx)) 50 ml @ 50 mls/hr Q8 IVPB Last administered on 11/01/16 14:45; Admin Dose 50 MLS/HR; Start 10/30/16 at 22:00 Labetalol HCl (Labetalol) 20 mg Q2H PRN IV for sbp >160 Last administered on 18:01; Admin Dose 20 MG; Start 10/30/16 at 18:00 Pantoprazole 40 mg 40 mg BID@06,18 PO Last administered on 11/01/16t 05:10; Admin Dose 40 MG; Start 10/31/16 at 18:00 Multivitamins/ Thiamine HCl/ Folic Acid/Sodium Chloride (Mvi-12 Adult/ Vitamin B1/Folic Acid/NS) 1,011.2 ml @ 125 mls/ hr DAILY@09 IVPB ; Start 11/02/16 at 09 :00; Stop 11/04/16 at 17:06 ARMIDA HARRIS MD Nov 01, 2016 16:50
--- NOTE | 2016-11-01 20:10 | PN ---
DATE: 11/01/2016 SUBJECTIVE: The patient is awake. Denies pain, discomfort. Lying comfortably in bed. No fevers. LABORATORY DATA: WBC is 7.1, platelets 153, neutrophils 79.7. INDWELLINGS: Right subclavian Baljit and Mcgill catheter. MICROBIOLOGY: Blood culture on admission grew alpha hemolytic strep species susceptible to majority antibiotics. ALLERGIES: NONE. ANTIMICROBIALS: The patient is on IV clindamycin. PHYSICAL EXAMINATION: GENERAL: Well-developed, elderly man in no distress. HEENT: Head atraumatic, normocephalic. Sclerae anicteric. Buccal mucosa pink. NECK: Supple, trachea midline. CHEST: Rise symmetrical. Breath sounds diminished to bases. HEART: S1, S2. ABDOMEN: Soft. Bowel tones present. ASSESSMENT: 1. Alpha hemolytic strep bacteremia, unclear etiology. A 2D echocardiogram on admission revealed n o vegetations. 2. Acute renal failure, possibly on chronic kidney disease, status post Baljit, started on hemodia lysis. 3. Status post acute respiratory distress secondary to pleural effusion. 4. Anemia. 5. Homelessness. PLAN: We are going to change clindamycin to Rocephin. Repeat blood cultures. Continue management as per primary team and consultants. Dictated By: MARY CEDILLO DYEING MACHINE BACK TENDER for JESSICA VARGAS MD NI/NTS Conf#: [id number] DID#: [id number] CC: KALE VERA MD;*EndCC*
[2016-11-01] MEDS: CEFTRIAXONE 1 GM/50 ML (PMX) 50 ML IVPB SCH (21:30)
[2016-11-02] VITALS (20 sets, daily range): BP systolic 148–191; BP diastolic 60–81; PULSE 76–116; RESP 20–22
[2016-11-02] MEDS: PANTOPRAZOLE (EC) 40 MG TAB PO SCH ×2 (05:58→17:41)
--- NOTE | 2016-11-02 07:47 | CONS ---
Date/Time of Note Date/Time of Note DATE: 11/02/16 TIME: 07:46 Assessment/Plan Assessment/Plan Chief Complaint/Hosp Course Impression: 1. Acute renal failure. 2. Anemia with reported black stool: h/h stable 3. CHF. plan for HD. 4. Elevated troponin. Likely ischemic demand. 5. Electrolyte abnormality 7. Hypertensive emergency. Patient does not report having any blood pressure medicines at home. 8. Homeless status. Follow up with executive secretary social welfare Plan: 1. f/u occult blood 2. if occult blood positive, consider EGD and colonoscopy 3. change H2 eleanor with PPI for better acid suppression 4. management of his other medical problems per primary and consultants 5. will need cardiac optimization if EGD and colonoscopy is needed Problems: Consultation Date/Type/Reason Admit Date/Time Oct 29, 2016 at 13:24 Initial Consult Date 10/29/16 Type of Consultation: GI 24 HR Interval Summary Free Text/Dictation plan to start hemodialysis today Exam/Review of Systems Vital Signs Vitals Vital Signs Date Time Temp Pulse Resp B/P Pulse Ox O2 Delivery O2 Flow Rate FiO2 11/02/16 04:35 81 11/02/16 04:08 98.6 22 150/60 98 10/31/16 04:00 Nasal Cannula 2.0 Intake and Output 11/01/16 11/01/16 11/02/16 15:00 23:00 07:00 Intake Total 1420 ml 450 ml Output Total 6750 ml 500 ml Balance -5330 ml -50 ml Exam Head: atraumatic, normocephalic Eyes: EOMI, nl conjunctiva, nl lids, nl sclera ENMT: mucosa pink and moist, nl external ears & nose, nl lips & teeth, nl nasal mucosa & septum Neck: non-tender, supple Respiratory: clear to auscultation, normal air movement Cardiovascular: nl pulses, regular rate and rhythm Gastrointestinal: bowel sounds, soft Results Result Diagram: 11/01/16 0940 11/01/16 0940 Results 24 hrs Laboratory Tests Test 11/01/16 09:40 Anion Gap 19 #H Basophils # 0.1 Basophils % 0.7 Blood Morphology Comment Blood Urea Nitrogen 76 H Calcium Level 6.1 L Carbon Dioxide Level 23 Chloride Level 105 Creatinine 10.36 H Eosinophils # 0.2 Eosinophils % 3.1 Glucose Level 99 Hematocrit 24.5 L Hemoglobin 8.2 L Lymphocytes # 0.7 L Lymphocytes % 9.9 L Mean Corpuscular Hemoglobin 29.4 Mean Corpuscular Hemoglobin Concent 33.4 Mean Corpuscular Volume 87.9 Mean Platelet Volume 11.2 H Monocytes # 0.5 Monocytes % 6.6 Neutrophils # 5.7 Neutrophils % 79.7 H Nucleated Red Blood Cells # 0.0 Nucleated Red Blood Cells % 0.0 Platelet Count 153 Potassium Level 4.0 Red Blood Count 2.79 L Red Cell Distribution Width 16.4 H Sodium Level 143 White Blood Count 7.1 Medications Medications Current Medications Ondansetron HCl (Zofran Inj) 4 mg Q6H PRN IV NAUSEA AND/OR VOMITING; Start at 14:30 Acetaminophen (Tylenol Tab) 650 mg Q6H PRN PO PAIN LEVEL 1-3 OR FEVER; Start at 14:30 Acetaminophen (Tylenol Supp) 650 mg Q6H PRN [place] PAIN LEVEL 1-3 OR FEVER; Start 10/29/16 at 14:30 Acetaminophen/ Hydrocodone Bitart ([place] (5/325)) 1 tab Q6H PRN PO MODERATE PAIN LEVEL 4-6; Start 10/29/16 at 14:30 Acetaminophen/ Hydrocodone Bitart ([place] (5/325)) 2 tab Q6H PRN PO SEVERE PAIN LEVEL 7-10; Start 10/29/16 at 14:30 Morphine Sulfate (morphine) 2 mg Q4H PRN IV SEVERE PAIN LEVEL 7-10; Start 10/29 at 14:30 Docusate Sodium (Colace) 100 mg Q12H PRN PO CONSTIPATION; Start 10/29/16 at 14: 30 Magnesium Hydroxide (Milk Of Mag) 30 ml DAILY PRN PO CONSTIPATION; Start at 14:30 Bisacodyl (Dulcolax Supp) 10 mg DAILY PRN [place] CONSTIPATION; Start 10/29/16 at 14 :30 Hydralazine HCl (Apresoline) 10 mg Q4 PRN IV sbp>160 Last administered on 18:59; Admin Dose 10 MG; Start 10/29/16 at 14:30 Furosemide (Lasix) 60 mg BID IV Last administered on 11/01/16 20:43; Admin Dose 60 MG; Start 10/30/16 at 21:00 Labetalol HCl (Labetalol) 20 mg Q2H PRN IV for sbp >160 Last administered on 18:01; Admin Dose 20 MG; Start 10/30/16 at 18:00 Pantoprazole 40 mg 40 mg BID@06,18 PO Last administered on 11/02/16 05:58; Admin Dose 40 MG; Start 10/31/16 at 18:00 Multivitamins 10 ml/Thiamine HCl 100 mg/Folic Acid 1 mg/Sodium Chloride 1,011.2 ml @ 125 mls/ hr DAILY@09 IVPB ; Start 11/02/16 at 09:00; Stop 11/04/16 at 17: 06 Ceftriaxone Sodium (Rocephin) 50 ml @ 100 mls/hr Q24H IVPB Last administered on 11/01/16 21:30; Admin Dose 100 MLS/HR; Start 11/01/16 at 19:30 JORDEN CHRISTIE MD Nov 02, 2016 07:46
[2016-11-02] MEDS: FUROSEMIDE 40 MG INJ IV SCH ×2 (08:51→21:08)
[2016-11-02 09:45] LABS: BASOPHILS % 0.1 % (0.0-2.0); EOSINOPHILS # 0.2 10^3/ul (0.0-0.5); EOSINOPHILS % 2.1 % (0.0-7.0); HEMATOCRIT 26.6 % (42.0-52.0); HEMOGLOBIN 8.8 g/dl (14.0-18.0); LYMPHOCYTES # 0.6 10^3/ul (0.8-2.9); LYMPHOCYTES % 7.6 % (15.0-51.0); MEAN CORPUSCULAR HGB CONC 33.1 g/dl (32.0-37.0); MEAN CORPUSCULAR VOLUME 87.7 fl (82.0-101.0); MEAN PLATELET VOLUME 11.6 fl (7.4-10.4); MONOCYTE # 0.5 10^3/ul (0.3-0.9); MONOCYTES % 6.1 % (0.0-11.0); NEUTROPHIL # 7.1 10^3/ul (1.6-7.5); NEUTROPHILS % 84.1 % (39.0-77.0); PLATELET COUNT 162 10^3/UL (140-440); RED BLOOD COUNT 3.04 10^6/ul (4.70-6.10); RED CELL DISTRIBUTION WIDTH 16.1 % (11.5-14.5); UNCORRECTED WBC 8.5 10^3/ul (4.8-10.8); WHITE BLOOD COUNT 8.5 10^3/ul (4.8-10.8)
[2016-11-02 09:53] LABS: CONDITION 1; LH ANALYZER COMMENTS 1; SUSPECT 1
[2016-11-02 09:58] LABS: POTASSIUM 3.8 mmol/L (3.5-5.1)
[2016-11-02 10:01] LABS: CREATININE 8.38 mg/dl (0.61-1.24)
[2016-11-02 10:02] LABS: CALCIUM 6.8 mg/dl (8.4-10.2)
--- NOTE | 2016-11-02 14:33 | CONS ---
Date/Time of Note Date/Time of Note DATE: 11/02/16 TIME: 14:32 Assessment/Plan Assessment/Plan Chief Complaint/Hosp Course SUBJECTIVE: The patient is awake. In HD, lying comfortably in bed. No fevers. INDWELLINGS: Right subclavian Baljit and Mcgill catheter. MICROBIOLOGY: Blood culture on admission grew alpha hemolytic strep species . ALLERGIES: NONE. ANTIMICROBIALS: Rocephin. PHYSICAL EXAMINATION: GENERAL: Well-developed, elderly man in no distress. HEENT: Head atraumatic, normocephalic. Sclerae anicteric. Buccal mucosa pink. NECK: Supple, trachea midline. CHEST: Rise symmetrical. Breath sounds diminished to bases. HEART: S1, S2. ABDOMEN: Soft. Bowel tones present. ASSESSMENT: 1. Alpha hemolytic strep bacteremia, unclear etiology. A 2D echocardiogram on admission revealed no vegetations. 2. Acute renal failure, possibly on chronic kidney disease, status post Baljit , started on hemodialysis. 3. Status post acute respiratory distress secondary to pleural effusion. 4. Anemia. 5. Homelessness. PLAN: Clinically stable, continue abx, f/u repeat blood cultures. Continue management as per primary team and consultants. DW staff Problems: Consultation Date/Type/Reason Admit Date/Time Oct 29, 2016 at 13:24 Initial Consult Date 10/29/16 Type of Consultation: ID Exam/Review of Systems Vital Signs Vitals Vital Signs Date Time Temp Pulse Resp B/P Pulse Ox O2 Delivery O2 Flow Rate FiO2 11/02/16 14:00 80 11/02/16 12:20 99.0 20 156/74 95 10/31/16 04:00 Nasal Cannula 2.0 Intake and Output 11/01/16 11/01/16 11/02/16 14:59 22:59 06:59 Intake Total 1420 ml 450 ml Output Total 6750 ml 500 ml Balance -5330 ml -50 ml Results Result Diagram: 11/02/1690411/02/16 09 Results 24 hrs Laboratory Tests Test 11/02/16 09:05 Anion Gap 19 H Basophils # 0.0 Basophils % 0.1 Blood Morphology Comment Blood Urea Nitrogen 54 H Calcium Level 6.8 L Carbon Dioxide Level 25 Chloride Level 101 Creatinine 8.38 H Eosinophils # 0.2 Eosinophils % 2.1 Glucose Level 104 Hematocrit 26.6 L Hemoglobin 8.8 L Lymphocytes # 0.6 L Lymphocytes % 7.6 L Mean Corpuscular Hemoglobin 29.0 Mean Corpuscular Hemoglobin Concent 33.1 Mean Corpuscular Volume 87.7 Mean Platelet Volume 11.6 H Monocytes # 0.5 Monocytes % 6.1 Neutrophils # 7.1 Neutrophils % 84.1 H Nucleated Red Blood Cells # 0.0 Nucleated Red Blood Cells % 0.0 Platelet Count 162 Potassium Level 3.8 Red Blood Count 3.04 L Red Cell Distribution Width 16.1 H Sodium Level 141 White Blood Count 8.5 Medications Medications Current Medications Ondansetron HCl (Zofran Inj) 4 mg Q6H PRN IV NAUSEA AND/OR VOMITING; Start at 14:30 Acetaminophen (Tylenol Tab) 650 mg Q6H PRN PO PAIN LEVEL 1-3 OR FEVER; Start at 14:30 Acetaminophen (Tylenol Supp) 650 mg Q6H PRN [place] PAIN LEVEL 1-3 OR FEVER; Start 10/29/16 at 14:30 Acetaminophen/ Hydrocodone Bitart ([place] (5/325)) 1 tab Q6H PRN PO MODERATE PAIN LEVEL 4-6; Start 10/29/16 at 14:30 Acetaminophen/ Hydrocodone Bitart ([place] (5/325)) 2 tab Q6H PRN PO SEVERE PAIN LEVEL 7-10; Start 10/29/16 at 14:30 Morphine Sulfate (morphine) 2 mg Q4H PRN IV SEVERE PAIN LEVEL 7-10; Start 10/29 at 14:30 Docusate Sodium (Colace) 100 mg Q12H PRN PO CONSTIPATION; Start 10/29/16 at 14: 30 Magnesium Hydroxide (Milk Of Mag) 30 ml DAILY PRN PO CONSTIPATION; Start at 14:30 Bisacodyl (Dulcolax Supp) 10 mg DAILY PRN [place] CONSTIPATION; Start 10/29/16 at 14 :30 Hydralazine HCl (Apresoline) 10 mg Q4 PRN IV sbp>160 Last administered on 18:59; Admin Dose 10 MG; Start 10/29/16 at 14:30 Furosemide (Lasix) 60 mg BID IV Last administered on 11/02/16 08:51; Admin Dose 60 MG; Start 10/30/16 at 21:00 Labetalol HCl (Labetalol) 20 mg Q2H PRN IV for sbp >160 Last administered on 18:01; Admin Dose 20 MG; Start 10/30/16 at 18:00 Pantoprazole 40 mg 40 mg BID@06,18 PO Last administered on 11/02/16 05:58; Admin Dose 40 MG; Start 10/31/16 at 18:00 Multivitamins 10 ml/Thiamine HCl 100 mg/Folic Acid 1 mg/Sodium Chloride 1,011.2 ml @ 125 mls/ hr DAILY@09 IVPB ; Start 11/02/16 at 09:00; Stop 11/04/16 at 17: 06 Ceftriaxone Sodium (Rocephin) 50 ml @ 100 mls/hr Q24H IVPB Last administered on 11/01/16 21:30; Admin Dose 100 MLS/HR; Start 11/01/16 at 19:30 MARY CEDILLO NP Nov 02, 2016 14:33
[2016-11-02] MEDS: MULTIVITAMINS 10 ML, THIAMINE 100 MG, FOLIC ACID 1 MG in SOD CHLORIDE 0.9% 1,000 ML IVPB SCH (16:30)
--- NOTE | 2016-11-02 17:14 | CONS ---
Date/Time of Note Date/Time of Note DATE: 11/02/16 TIME: 17:13 Assessment/Plan Assessment/Plan Chief Complaint/Hosp Course IMPRESSION: 1. Patient has acute kidney injury with possible underlying chronic kidney disease. 2. The patient has anasarca. 3. Pulmonary edema. 4. Anemia. 5. Hyperkalemia. 6. Metabolic acidosis. 7. Homelessness. 8. Incomplete database. 9. proteinuria. 10. chronic kidney disease. 11. Congestive heart failure. 12. Electrolyte imbalance. PLAN HD LASIX s/p perma cath placement and hd Problems: Consultation Date/Type/Reason Admit Date/Time Oct 29, 2016 at 13:24 Initial Consult Date 10/29/16 Type of Consultation: renal 24 HR Interval Summary Constitutional: no complaints Exam/Review of Systems Vital Signs Vitals Vital Signs Date Time Temp Pulse Resp B/P Pulse Ox O2 Delivery O2 Flow Rate FiO2 11/02/16 15:44 2.0 11/02/16 15:28 98.3 80 20 191/81 99 11/02/16 08:00 Nasal Cannula Intake and Output 11/01/16 11/01/16 11/02/16 14:59 22:59 06:59 Intake Total 1420 ml 450 ml Output Total 6750 ml 500 ml Balance -5330 ml -50 ml Exam Respiratory: clear to auscultation Cardiovascular: regular rate and rhythm Gastrointestinal: soft Extremities: edema (better) Results Result Diagram: 11/02/16 0905 11/02/16 0905 Results 24 hrs Laboratory Tests Test 11/02/16 09:05 Anion Gap 19 H Basophils # 0.0 Basophils % 0.1 Blood Morphology Comment Blood Urea Nitrogen 54 H Calcium Level 6.8 L Carbon Dioxide Level 25 Chloride Level 101 Creatinine 8.38 H Eosinophils # 0.2 Eosinophils % 2.1 Glucose Level 104 Hematocrit 26.6 L Hemoglobin 8.8 L Lymphocytes # 0.6 L Lymphocytes % 7.6 L Mean Corpuscular Hemoglobin 29.0 Mean Corpuscular Hemoglobin Concent 33.1 Mean Corpuscular Volume 87.7 Mean Platelet Volume 11.6 H Monocytes # 0.5 Monocytes % 6.1 Neutrophils # 7.1 Neutrophils % 84.1 H Nucleated Red Blood Cells # 0.0 Nucleated Red Blood Cells % 0.0 Platelet Count 162 Potassium Level 3.8 Red Blood Count 3.04 L Red Cell Distribution Width 16.1 H Sodium Level 141 White Blood Count 8.5 Medications Medications Current Medications Ondansetron HCl (Zofran Inj) 4 mg Q6H PRN IV NAUSEA AND/OR VOMITING Last administered on 11/02/16 16:29; Admin Dose 4 MG; Start 10/29/16 at 14:30 Acetaminophen (Tylenol Tab) 650 mg Q6H PRN PO PAIN LEVEL 1-3 OR FEVER; Start at 14:30 Acetaminophen (Tylenol Supp) 650 mg Q6H PRN [place] PAIN LEVEL 1-3 OR FEVER; Start 10/29/16 at 14:30 Acetaminophen/ Hydrocodone Bitart ([place] (5/325)) 1 tab Q6H PRN PO MODERATE PAIN LEVEL 4-6; Start 10/29/16 at 14:30 Acetaminophen/ Hydrocodone Bitart ([place] (5/325)) 2 tab Q6H PRN PO SEVERE PAIN LEVEL 7-10; Start 10/29/16 at 14:30 Morphine Sulfate (morphine) 2 mg Q4H PRN IV SEVERE PAIN LEVEL 7-10; Start 10/29 at 14:30 Docusate Sodium (Colace) 100 mg Q12H PRN PO CONSTIPATION; Start 10/29/16 at 14: 30 Magnesium Hydroxide (Milk Of Mag) 30 ml DAILY PRN PO CONSTIPATION; Start at 14:30 Bisacodyl (Dulcolax Supp) 10 mg DAILY PRN [place] CONSTIPATION; Start 10/29/16 at 14 :30 Hydralazine HCl (Apresoline) 10 mg Q4 PRN IV sbp>160 Last administered on 18:59; Admin Dose 10 MG; Start 10/29/16 at 14:30 Furosemide (Lasix) 60 mg BID IV Last administered on 11/02/16 08:51; Admin Dose 60 MG; Start 10/30/16 at 21:00 Labetalol HCl (Labetalol) 20 mg Q2H PRN IV for sbp >160 Last administered on 18:01; Admin Dose 20 MG; Start 10/30/16 at 18:00 Pantoprazole 40 mg 40 mg BID@ PO Last administered on 11/02/16 05:58; Admin Dose 40 MG; Start 2/18/17 at 18:00 Multivitamins 10 ml/Thiamine HCl 100 mg/Folic Acid 1 mg/Sodium Chloride 1,011.2 ml @ 125 mls/ hr DAILY@09 IVPB Last administered on 11/02/16 16:30; Admin Dose 125 MLS/HR; Start 11/02/16 at 09:00; Stop 11/04/16 at 17:06 Ceftriaxone Sodium (Rocephin) 50 ml @ 100 mls/hr Q24H IVPB Last administered on 11/01/16 21:30; Admin Dose 100 MLS/HR; Start 11/01/16 at 19:30 ARMIDA HARRIS MD Nov 02, 2016 17:14
--- NOTE | 2016-11-02 17:42 | CONS ---
Date/Time of Note Date/Time of Note DATE: 11/02/16 TIME: 17:41 Assessment/Plan Assessment/Plan Chief Complaint/Hosp Course Acute on chronic diastolic heart failure: improving with hemodialysis and Lasix Acute respiratory distress: secondary to above. Improving with hemodialysis and diuresis. Acute vs chronic renal failure: contributing to above HTN urgency: SBP >200 on admission, now improved. Contribution by volume overload. NSTEMI: type II in setting of above. Trop 0.7 and trending down. No acute EKG changes. Would not be cath candidate anyway considering his social situation and med noncompliance. Anemia Homelessness Blindness -echocardiogram showed LVEF 50% with inferior and septal hypokinesis, moderate diastolic dysfunction, RVSP 58mmHg -continue Lasix 60mg IV BID -ASA, lipitor -BP control -hemodialysis per nephrology Problems: Consultation Date/Type/Reason Admit Date/Time Oct 29, 2016 at 13:24 Initial Consult Date 10/29/16 Type of Consultation: Cardiology 24 HR Interval Summary Free Text/Dictation Started on hemodialysis today. Detailed Summary Additional Comments 14 point review of systems without changes. Exam/Review of Systems Vital Signs Vitals Vital Signs Date Time Temp Pulse Resp B/P Pulse Ox O2 Delivery O2 Flow Rate FiO2 11/02/16 15:44 2.0 11/02/16 15:28 98.3 80 20 191/81 99 11/02/16 08:00 Nasal Cannula Intake and Output 11/01/16 11/01/16 11/02/16 15:00 23:00 07:00 Intake Total 1420 ml 450 ml Output Total 6750 ml 500 ml Balance -5330 ml -50 ml Exam Constitutional: alert, oriented Head: atraumatic, normocephalic Neck: jvd (12) Respiratory: crackles/rales, diminished breath sounds Cardiovascular: edema (2+) Neurological: nl mental status Results Result Diagram: 11/02/16 0905 11/02/16 0905 Results 24 hrs Laboratory Tests Test 11/02/16 09:05 Anion Gap 19 H Basophils # 0.0 Basophils % 0.1 Blood Morphology Comment Blood Urea Nitrogen 54 H Calcium Level 6.8 L Carbon Dioxide Level 25 Chloride Level 101 Creatinine 8.38 H Eosinophils # 0.2 Eosinophils % 2.1 Glucose Level 104 Hematocrit 26.6 L Hemoglobin 8.8 L Lymphocytes # 0.6 L Lymphocytes % 7.6 L Mean Corpuscular Hemoglobin 29.0 Mean Corpuscular Hemoglobin Concent 33.1 Mean Corpuscular Volume 87.7 Mean Platelet Volume 11.6 H Monocytes # 0.5 Monocytes % 6.1 Neutrophils # 7.1 Neutrophils % 84.1 H Nucleated Red Blood Cells # 0.0 Nucleated Red Blood Cells % 0.0 Platelet Count 162 Potassium Level 3.8 Red Blood Count 3.04 L Red Cell Distribution Width 16.1 H Sodium Level 141 White Blood Count 8.5 Medications Medications Current Medications Ondansetron HCl (Zofran Inj) 4 mg Q6H PRN IV NAUSEA AND/OR VOMITING Last administered on 11/02/16 16:29; Admin Dose 4 MG; Start 10/29/16 at 14:30 Acetaminophen (Tylenol Tab) 650 mg Q6H PRN PO PAIN LEVEL 1-3 OR FEVER; Start at 14:30 Acetaminophen (Tylenol Supp) 650 mg Q6H PRN [place] PAIN LEVEL 1-3 OR FEVER; Start 10/29/16 at 14:30 Acetaminophen/ Hydrocodone Bitart ([place] (5/325)) 1 tab Q6H PRN PO MODERATE PAIN LEVEL 4-6; Start 10/29/16 at 14:30 Acetaminophen/ Hydrocodone Bitart ([place] (5/325)) 2 tab Q6H PRN PO SEVERE PAIN LEVEL 7-10; Start 10/29/16 at 14:30 Morphine Sulfate (morphine) 2 mg Q4H PRN IV SEVERE PAIN LEVEL 7-10; Start 10/29 at 14:30 Docusate Sodium (Colace) 100 mg Q12H PRN PO CONSTIPATION; Start 10/29/16 at 14: 30 Magnesium Hydroxide (Milk Of Mag) 30 ml DAILY PRN PO CONSTIPATION; Start at 14:30 Bisacodyl (Dulcolax Supp) 10 mg DAILY PRN [place] CONSTIPATION; Start 10/29/16 at 14 :30 Hydralazine HCl (Apresoline) 10 mg Q4 PRN IV sbp>160 Last administered on 18:59; Admin Dose 10 MG; Start 10/29/16 at 14:30 Furosemide (Lasix) 60 mg BID IV Last administered on 11/02/16 08:51; Admin Dose 60 MG; Start 10/30/16 at 21:00 Labetalol HCl (Labetalol) 20 mg Q2H PRN IV for sbp >160 Last administered on 18:01; Admin Dose 20 MG; Start 10/30/16 at 18:00 Pantoprazole 40 mg 40 mg BID@06,18 PO Last administered on 11/02/16 05:58; Admin Dose 40 MG; Start 10/31/16 at 18:00 Multivitamins 10 ml/Thiamine HCl 100 mg/Folic Acid 1 mg/Sodium Chloride 1,011.2 ml @ 125 mls/ hr DAILY@09 IVPB Last administered on 11/02/16 16:30; Admin Dose 125 MLS/HR; Start 11/02/16 at 09:00; Stop 11/04/16 at 17:06 Ceftriaxone Sodium (Rocephin) 50 ml @ 100 mls/hr Q24H IVPB Last administered on 11/01/16 21:30; Admin Dose 100 MLS/HR; Start 11/01/16 at 19:30 SHANTA CROFT MD Nov 02, 2016 17:42
[2016-11-02] MEDS: CEFTRIAXONE 1 GM/50 ML (PMX) 50 ML IVPB SCH (21:02)
[2016-11-03] VITALS (12 sets, daily range): BP systolic 130–180; BP diastolic 69–84; PULSE 71–77; RESP 18–20
[2016-11-03] MEDS: PANTOPRAZOLE (EC) 40 MG TAB PO SCH ×2 (05:48→17:32)
[2016-11-03 07:49] LABS: POTASSIUM 3.9 mmol/L (3.5-5.1)
[2016-11-03 07:52] LABS: CREATININE 5.83 mg/dl (0.61-1.24)
[2016-11-03 07:53] LABS: CALCIUM 6.9 mg/dl (8.4-10.2)
[2016-11-03 08:05] LABS: BASOPHILS % 0.1 % (0.0-2.0); EOSINOPHILS # 0.3 10^3/ul (0.0-0.5); EOSINOPHILS % 3.9 % (0.0-7.0); HEMATOCRIT 26.7 % (42.0-52.0); HEMOGLOBIN 9.1 g/dl (14.0-18.0); LYMPHOCYTES # 0.8 10^3/ul (0.8-2.9); LYMPHOCYTES % 10.8 % (15.0-51.0); MEAN CORPUSCULAR HEMOGLOBIN 29.7 pg (29.0-33.0); MEAN CORPUSCULAR HGB CONC 33.9 g/dl (32.0-37.0); MEAN CORPUSCULAR VOLUME 87.5 fl (82.0-101.0); MEAN PLATELET VOLUME 12.5 fl (7.4-10.4); MONOCYTE # 0.6 10^3/ul (0.3-0.9); MONOCYTES % 7.5 % (0.0-11.0); NEUTROPHIL # 5.7 10^3/ul (1.6-7.5); NEUTROPHILS % 77.7 % (39.0-77.0); PLATELET COUNT 155 10^3/UL (140-440); RED BLOOD COUNT 3.06 10^6/ul (4.70-6.10); UNCORRECTED WBC 7.4 10^3/ul (4.8-10.8); WHITE BLOOD COUNT 7.4 10^3/ul (4.8-10.8)
[2016-11-03 08:07] LABS: CONDITION 1; LH ANALYZER COMMENTS 1; SUSPECT 1
[2016-11-03] MEDS: MULTIVITAMINS 10 ML, THIAMINE 100 MG, FOLIC ACID 1 MG in SOD CHLORIDE 0.9% 1,000 ML IVPB SCH (09:05)
[2016-11-03] MEDS: FUROSEMIDE 40 MG INJ IV SCH ×2 (09:06→20:07)
--- NOTE | 2016-11-03 11:53 | CONS ---
Date/Time of Note Date/Time of Note DATE: 11/03/16 TIME: 11:49 Assessment/Plan Assessment/Plan Chief Complaint/Hosp Course Acute diastolic heart failure: In setting of acute vs chronic kidney failure. EF 50%. Still making urine and on HD. Improving Acute respiratory distress: secondary to above.resolved Acute vs chronic renal failure: contributing to above Hyperkalemia: secondary to above. Resolved HTN urgency: SBP >200 on admission, now improved. Contribution by volume overload NSTEMI: type II in setting of above. Trop 0.7 and trended down. No acute EKG changes. Would not be cath candidate anyway considering his social situation and med noncompliance Anemia: ?from CKD Homelessness Blindness -start amlodipine 5mg -continue lasix and HD Problems: Consultation Date/Type/Reason Admit Date/Time Oct 29, 2016 at 13:24 Initial Consult Date 10/29/16 Type of Consultation: Cardiology 24 HR Interval Summary Free Text/Dictation No o/n events. No complaints. Exam/Review of Systems Vital Signs Vitals Vital Signs Date Time Temp Pulse Resp B/P Pulse Ox O2 Delivery O2 Flow Rate FiO2 11/03/16 09:47 73 11/03/16 09:06 98.9 18 180/84 100 11/03/16 08:00 Nasal Cannula 2.0 Intake and Output 11/02/16 11/02/16 11/03/16 15:00 23:00 07:00 Intake Total 500 ml 450 ml 300 ml Output Total 3500 ml 200 ml 550 ml Balance -3000 ml 250 ml -250 ml Exam Constitutional: alert Head: normocephalic Neck: jvd (8cm) Respiratory: crackles/rales, diminished breath sounds Cardiovascular: regular rate and rhythm, systolic murmur (2/6) Gastrointestinal: soft Results Result Diagram: 11/03/16 0700 11/03/16 0700 Results 24 hrs Laboratory Tests Test 11/03/16 07:00 11/03/16 09:48 Anion Gap 14 Basophils # 0.0 Basophils % 0.1 Blood Morphology Comment Blood Urea Nitrogen 32 #H Calcium Level 6.9 L Carbon Dioxide Level 30 Chloride Level 98 Creatinine 5.83 #H Eosinophils # 0.3 Eosinophils % 3.9 Glucose Level 82 Hematocrit 26.7 L Hemoglobin 9.1 L Lymphocytes # 0.8 Lymphocytes % 10.8 L Mean Corpuscular Hemoglobin 29.7 Mean Corpuscular Hemoglobin Concent 33.9 Mean Corpuscular Volume 87.5 Mean Platelet Volume 12.5 H Monocytes # 0.6 Monocytes % 7.5 Neutrophils # 5.7 Neutrophils % 77.7 H Nucleated Red Blood Cells # 0.0 Nucleated Red Blood Cells % 0.0 Platelet Count 155 Potassium Level 3.9 Red Blood Count 3.06 L Red Cell Distribution Width 16.0 H Sodium Level 138 White Blood Count 7.4 Lab Scanned Report REFERENCE LAB Medications Medications Current Medications Ondansetron HCl (Zofran Inj) 4 mg Q6H PRN IV NAUSEA AND/OR VOMITING Last administered on 11/02/16 16:29; Admin Dose 4 MG; Start 10/29/16 at 14:30 Acetaminophen (Tylenol Tab) 650 mg Q6H PRN PO PAIN LEVEL 1-3 OR FEVER; Start at 14:30 Acetaminophen (Tylenol Supp) 650 mg Q6H PRN [place] PAIN LEVEL 1-3 OR FEVER; Start 10/29/16 at 14:30 Acetaminophen/ Hydrocodone Bitart ([place] (5/325)) 1 tab Q6H PRN PO MODERATE PAIN LEVEL 4-6; Start 10/29/16 at 14:30 Acetaminophen/ Hydrocodone Bitart ([place] (5/325)) 2 tab Q6H PRN PO SEVERE PAIN LEVEL 7-10; Start 10/29/16 at 14:30 Morphine Sulfate (morphine) 2 mg Q4H PRN IV SEVERE PAIN LEVEL 7-10; Start 10/29 at 14:30 Docusate Sodium (Colace) 100 mg Q12H PRN PO CONSTIPATION; Start 10/29/16 at 14: 30 Magnesium Hydroxide (Milk Of Mag) 30 ml DAILY PRN PO CONSTIPATION; Start at 14:30 Bisacodyl (Dulcolax Supp) 10 mg DAILY PRN [place] CONSTIPATION; Start 10/29/16 at 14 :30 Hydralazine HCl (Apresoline) 10 mg Q4 PRN IV sbp>160 Last administered on 18:59; Admin Dose 10 MG; Start 10/29/16 at 14:30 Furosemide (Lasix) 60 mg BID IV Last administered on 11/03/16 09:06; Admin Dose 60 MG; Start 10/30/16 at 21:00 Labetalol HCl (Labetalol) 20 mg Q2H PRN IV for sbp >160 Last administered on 18:01; Admin Dose 20 MG; Start 10/30/16 at 18:00 Pantoprazole 40 mg 40 mg BID@06,18 PO Last administered on 11/03/16 05:48; Admin Dose 40 MG; Start 10/31/16 at 18:00 Multivitamins 10 ml/Thiamine HCl 100 mg/Folic Acid 1 mg/Sodium Chloride 1,011.2 ml @ 125 mls/ hr DAILY@09 IVPB Last administered on 11/03/16 09:05; Admin Dose 125 MLS/HR; Start 11/02/16 at 09:00; Stop 11/04/16 at 17:06 Ceftriaxone Sodium (Rocephin) 50 ml @ 100 mls/hr Q24H IVPB Last administered on 11/02/16 21:02; Admin Dose 100 MLS/HR; Start 11/01/16 at 19:30 HILDA LOWE Nov 03, 2016 11:53
[2016-11-03] MEDS ORDERED: AMLODIPINE 5 MG TAB PO SCH (12:00)
--- NOTE | 2016-11-03 12:42 | PN ---
DATE: 11/03/2016 SUBJECTIVE: No events overnight. No fevers. The patient is alert, lying comfortably in bed. Saul es pain. LABORATORY DATA: WBC 7.4, neutrophils 77.7. INDWELLINGS: Right chest Baljit. ANTIMICROBIALS: The patient is on Rocephin. PHYSICAL EXAMINATION: GENERAL: Well-developed elderly man who is alert, in no distress. HEENT: Head atraumatic, normocephalic. Sclerae anicteric. Buccal mucosa pink. NECK: Supple, trachea midline. CHEST: Rise symmetrical. Breath sounds clear. HEART: S1, S2. ABDOMEN: Soft, bowel tones present. EXTREMITIES: No cyanosis. ASSESSMENT: 1. Resolving sepsis. 2. Alpha hemolytic strep bacteremia on admission, possibly pulmonary source, 2-D echo revealed no e vidence of vegetations. Repeat blood cultures negative. 3. Acute kidney failure on chronic kidney disease, hemodialysis dependent. 4. Status post acute respiratory distress secondary to congestive heart failure exacerbation and vo lume overload. 5. Non-ST elevation myocardial infarction. 6. Homeless. PLAN: The patient remains stable on appropriate antimicrobials. Repeat blood cultures negative. C ontinue antibiotics for 2 weeks to complete treatment for bacteremia. Dictated By: MARY CEDILLO MICROFICHE DUPLICATOR for JESSICA VARGAS MD NI/NTS Conf#: [id number] DID#: [id number]
[2016-11-03] MEDS: CEFTRIAXONE 1 GM/50 ML (PMX) 50 ML IVPB SCH (20:07)
--- NOTE | 2016-11-03 21:06 | CONS ---
Date/Time of Note Date/Time of Note DATE: 11/03/16 TIME: 21:06 Assessment/Plan Assessment/Plan Chief Complaint/Hosp Course IMPRESSION: 1. Patient has acute kidney injury with possible underlying chronic kidney disease. 2. The patient has anasarca. 3. Pulmonary edema. 4. Anemia. 5. Hyperkalemia. 6. Metabolic acidosis. 7. Homelessness. 8. Incomplete database. 9. proteinuria. 10. chronic kidney disease. 11. Congestive heart failure. BETTER PLAN HD Problems: Consultation Date/Type/Reason Admit Date/Time Oct 29, 2016 at 13:24 Initial Consult Date 10/29/16 Type of Consultation: Cardiology 24 HR Interval Summary Constitutional: no complaints Exam/Review of Systems Vital Signs Vitals Vital Signs Date Time Temp Pulse Resp B/P Pulse Ox O2 Delivery O2 Flow Rate FiO2 11/03/16 20:44 75 11/03/16 20:43 98.5 20 158/75 100 11/03/16 08:00 Nasal Cannula 2.0 Intake and Output 11/02/16 11/02/16 11/03/16 15:00 23:00 07:00 Intake Total 500 ml 450 ml 300 ml Output Total 3500 ml 200 ml 550 ml Balance -3000 ml 250 ml -250 ml Exam Neck: supple Respiratory: clear to auscultation Cardiovascular: regular rate and rhythm Gastrointestinal: soft Results Result Diagram: 11/03/16 0700 11/03/16 0700 Results 24 hrs Laboratory Tests Test 11/03/16 07:00 11/03/16 09:48 Anion Gap 14 Basophils # 0.0 Basophils % 0.1 Blood Morphology Comment Blood Urea Nitrogen 32 #H Calcium Level 6.9 L Carbon Dioxide Level 30 Chloride Level 98 Creatinine 5.83 #H Eosinophils # 0.3 Eosinophils % 3.9 Glucose Level 82 Hematocrit 26.7 L Hemoglobin 9.1 L Lymphocytes # 0.8 Lymphocytes % 10.8 L Mean Corpuscular Hemoglobin 29.7 Mean Corpuscular Hemoglobin Concent 33.9 Mean Corpuscular Volume 87.5 Mean Platelet Volume 12.5 H Monocytes # 0.6 Monocytes % 7.5 Neutrophils # 5.7 Neutrophils % 77.7 H Nucleated Red Blood Cells # 0.0 Nucleated Red Blood Cells % 0.0 Platelet Count 155 Potassium Level 3.9 Red Blood Count 3.06 L Red Cell Distribution Width 16.0 H Sodium Level 138 White Blood Count 7.4 Lab Scanned Report REFERENCE LAB Medications Medications Current Medications Ondansetron HCl (Zofran Inj) 4 mg Q6H PRN IV NAUSEA AND/OR VOMITING Last administered on 11/02/16 16:29; Admin Dose 4 MG; Start 10/29/16 at 14:30 Acetaminophen (Tylenol Tab) 650 mg Q6H PRN PO PAIN LEVEL 1-3 OR FEVER; Start at 14:30 Acetaminophen (Tylenol Supp) 650 mg Q6H PRN [place] PAIN LEVEL 1-3 OR FEVER; Start 10/29/16 at 14:30 Acetaminophen/ Hydrocodone Bitart ([place] (5/325)) 1 tab Q6H PRN PO MODERATE PAIN LEVEL 4-6; Start 10/29/16 at 14:30 Acetaminophen/ Hydrocodone Bitart ([place] (5/325)) 2 tab Q6H PRN PO SEVERE PAIN LEVEL 7-10; Start 10/29/16 at 14:30 Morphine Sulfate (morphine) 2 mg Q4H PRN IV SEVERE PAIN LEVEL 7-10; Start 10/29 at 14:30 Docusate Sodium (Colace) 100 mg Q12H PRN PO CONSTIPATION; Start 10/29/16 at 14: 30 Magnesium Hydroxide (Milk Of Mag) 30 ml DAILY PRN PO CONSTIPATION; Start at 14:30 Bisacodyl (Dulcolax Supp) 10 mg DAILY PRN [place] CONSTIPATION; Start 10/29/16 at 14 :30 Hydralazine HCl (Apresoline) 10 mg Q4 PRN IV sbp>160 Last administered on 18:59; Admin Dose 10 MG; Start 10/29/16 at 14:30 Furosemide (Lasix) 60 mg BID IV Last administered on 11/03/16 20:07; Admin Dose 60 MG; Start 10/30/16 at 21:00 Labetalol HCl (Labetalol) 20 mg Q2H PRN IV for sbp >160 Last administered on 18:01; Admin Dose 20 MG; Start 10/30/16 at 18:00 Pantoprazole 40 mg 40 mg BID@18 PO Last administered on 11/03/16 17:32; Admin Dose 40 MG; Start 10/31/16 at 18:00 Multivitamins 10 ml/Thiamine HCl 100 mg/Folic Acid 1 mg/Sodium Chloride 1,011.2 ml @ 125 mls/ hr DAILY@09 IVPB Last administered on 11/03/16 09:05; Admin Dose 125 MLS/HR; Start 11/02/16 at 09:00; Stop 11/04/16 at 17:06 Ceftriaxone Sodium (Rocephin) 50 ml @ 100 mls/hr Q24H IVPB Last administered on 11/03/16 20:07; Admin Dose 100 MLS/HR; Start 11/01/16 at 19:30 Amlodipine Besylate (Norvasc) 5 mg DAILY PO Last administered on 11/03/16 12: 20; Admin Dose 5 MG; Start 11/03/16 at 12:00 ARMIDA HARRIS MD Nov 03, 2016 21:06
[2016-11-04] VITALS (16 sets, daily range): BP systolic 131–190; BP diastolic 67–89; PULSE 71–95; RESP 17–20
[2016-11-04] MEDS: PANTOPRAZOLE (EC) 40 MG TAB PO SCH ×2 (05:15→17:36)
[2016-11-04 07:21] LABS: POTASSIUM 4.4 mmol/L (3.5-5.1)
[2016-11-04 07:23] LABS: CREATININE 7.32 mg/dl (0.61-1.24)
[2016-11-04 07:25] LABS: CALCIUM 6.4 mg/dl (8.4-10.2); PHOSPHORUS 7.2 mg/dl (2.5-4.9)
[2016-11-04] MEDS: AMLODIPINE 10 MG TAB PO SCH ×2 (08:52→09:11)
[2016-11-04] MEDS: METOPROLOL 25 MG TAB PO SCH ×3 (08:52→20:00)
[2016-11-04] MEDS: MULTIVITAMINS 10 ML, THIAMINE 100 MG, FOLIC ACID 1 MG in SOD CHLORIDE 0.9% 1,000 ML IVPB SCH (09:10)
--- NOTE | 2016-11-04 09:17 | CONS ---
Date/Time of Note Date/Time of Note DATE: 11/04/16 TIME: 09:15 Assessment/Plan Assessment/Plan Chief Complaint/Hosp Course Acute diastolic heart failure: In setting of acute vs chronic kidney failure. EF 50%. Still making urine and on HD. ~Euvolemic Acute respiratory distress: secondary to above.resolved Acute vs chronic renal failure: contributing to above. Now on HD Hyperkalemia: secondary to above. Resolved HTN urgency: SBP >200 on admission, now improved. Contribution by volume overload. Improving NSTEMI: type II in setting of above. Trop 0.7 and trended down. No acute EKG changes. Would not be cath candidate anyway considering his social situation and med noncompliance Anemia: ?from CKD Homelessness Blindness -increase to amlodipine 10mg -MTP 25mg BID -change to PO lasix 40mg BID -will follow as needed Problems: Consultation Date/Type/Reason Admit Date/Time Oct 29, 2016 at 13:24 Initial Consult Date 10/29/16 Type of Consultation: Cardiology 24 HR Interval Summary Free Text/Dictation No o/n events. Exam/Review of Systems Vital Signs Vitals Vital Signs Date Time Temp Pulse Resp B/P Pulse Ox O2 Delivery O2 Flow Rate FiO2 11/04/16 08:18 98.0 77 17 179/88 100 11/04/16 06:26 2.0 11/03/16 21:00 Nasal Cannula Intake and Output 11/03/16 11/03/16 11/04/16 15:00 23:00 07:00 Intake Total 700 ml Output Total 500 ml Balance 200 ml Exam Constitutional: alert, oriented Psych: no complaints Neck: No jvd Respiratory: diminished breath sounds Cardiovascular: regular rate and rhythm, systolic murmur (2/6) Gastrointestinal: non-tender, soft Neurological: nl mental status, nl speech Results Result Diagram: 11/03/16 0700 11/04/16 0623 Results 24 hrs Laboratory Tests Test 11/03/16 09:48 11/04/16 06:23 Lab Scanned Report REFERENCE LAB Anion Gap 15 Blood Urea Nitrogen 43 #H Calcium Level 6.4 L Carbon Dioxide Level 29 Chloride Level 97 Creatinine 7.32 H Glucose Level 89 Phosphorus Level 7.2 H Potassium Level 4.4 Sodium Level 137 Medications Medications Current Medications Ondansetron HCl (Zofran Inj) 4 mg Q6H PRN IV NAUSEA AND/OR VOMITING Last administered on 11/02/16 16:29; Admin Dose 4 MG; Start 10/29/16 at 14:30 Acetaminophen (Tylenol Tab) 650 mg Q6H PRN PO PAIN LEVEL 1-3 OR FEVER; Start at 14:30 Acetaminophen (Tylenol Supp) 650 mg Q6H PRN [place] PAIN LEVEL 1-3 OR FEVER; Start 10/29/16 at 14:30 Acetaminophen/ Hydrocodone Bitart ([place] (5/325)) 1 tab Q6H PRN PO MODERATE PAIN LEVEL 4-6; Start 10/29/16 at 14:30 Acetaminophen/ Hydrocodone Bitart ([place] (5/325)) 2 tab Q6H PRN PO SEVERE PAIN LEVEL 7-10; Start 10/29/16 at 14:30 Morphine Sulfate (morphine) 2 mg Q4H PRN IV SEVERE PAIN LEVEL 7-10; Start 10/29 at 14:30 Docusate Sodium (Colace) 100 mg Q12H PRN PO CONSTIPATION; Start 10/29/16 at 14: 30 Magnesium Hydroxide (Milk Of Mag) 30 ml DAILY PRN PO CONSTIPATION; Start at 14:30 Bisacodyl (Dulcolax Supp) 10 mg DAILY PRN [place] CONSTIPATION; Start 10/29/16 at 14 :30 Hydralazine HCl (Apresoline) 10 mg Q4 PRN IV sbp>160 Last administered on 18:59; Admin Dose 10 MG; Start 10/29/16 at 14:30 Labetalol HCl (Labetalol) 20 mg Q2H PRN IV for sbp >160 Last administered on 18:01; Admin Dose 20 MG; Start 10/30/16 at 18:00 Pantoprazole 40 mg 40 mg BID@06,18 PO Last administered on 11/04/16 05:15; Admin Dose 40 MG; Start 10/31/16 at 18:00 Multivitamins 10 ml/Thiamine HCl 100 mg/Folic Acid 1 mg/Sodium Chloride 1,011.2 ml @ 125 mls/ hr DAILY@09 IVPB Last administered on 11/04/16 09:10; Admin Dose 125 MLS/HR; Start 11/02/16 at 09:00; Stop 11/04/16 at 17:06 Ceftriaxone Sodium (Rocephin) 50 ml @ 100 mls/hr Q24H IVPB Last administered on 11/03/16 20:07; Admin Dose 100 MLS/HR; Start 11/01/16 at 19:30 Amlodipine Besylate (Norvasc) 10 mg DAILY PO Last administered on 11/04/16 09: 11; Admin Dose 10 MG; Start 11/04/16 at 09:00 Metoprolol Tartrate (Lopressor) 25 mg BID PO Last administered on 11/04/16 09: 11; Admin Dose 25 MG; Start 11/04/16 at 09:00 HILDA LOWE Nov 04, 2016 09:17
--- NOTE | 2016-11-04 12:03 | PN ---
Date/Time of Note Date/Time of Note DATE: 11/04/16 TIME: 11:55 Assessment/Plan VTE Prophylaxis VTE Prophylaxis Intervention: SCD's Lines/Catheters IV Catheter Type (from Nrs): perm caTH Central line still needed: Yes (dialysis access ) Urinary Cath still in place: Yes Reason Cath still needed: other (indicate) (strict I/O ) Assessment/Plan Assessment/Plan 1. Severe sepsis due to abcteremia- 2 D echo neg for vegeations . 2. Alpha hemolytic strep bacteremia on admission, possibly pulmonary source, 2- D echo revealed no evidence of vegetations. Repeat blood cultures negative. 3. acute on chronic renal failure, progressed to ESRD started on HD during this admission 4. Status post acute respiratory distress secondary to congestive heart failure exacerbation and volume overload. 5. Non-ST elevation myocardial infarction.- Cardiology following, no further Intevention/procedure planned Plan: IV abx, ID following, recommending for 2 weeks of Abx HD as per nephrology- will need outpatietn HD placement BP stable, afebrile, Case management to help with d/c, d/c thomas catheter Subjective 24 Hr Interval Summary Free Text/Dictation pt remained stable s/p HD yesterday, plan for HD today Follow up blood cx negative Exam/Review of Systems Vital Signs Vitals Vital Signs Date Time Temp Pulse Resp B/P Pulse Ox O2 Delivery O2 Flow Rate FiO2 11/04/16 10:47 95 17 11/04/16 10:33 Nasal Cannula 2.0 11/04/16 08:18 98.0 179/88 100 Intake and Output 11/03/16 11/03/16 11/04/16 15:00 23:00 07:00 Intake Total 700 ml Output Total 500 ml Balance 200 ml Exam GENERAL: Well-developed elderly man who is alert, in no distress. HEENT: Head atraumatic, normocephalic. Sclerae anicteric. Buccal mucosa pink. + permacath NECK: Supple, trachea midline. CHEST: Rise symmetrical. Breath sounds clear. HEART: S1, S2. ABDOMEN: Soft, bowel tones present. EXTREMITIES: No cyanosis. Results Result Diagram: 11/03/16 0700 11/04/16 0623 Results 24 hrs Laboratory Tests Test 11/04/16 06:23 Anion Gap 15 Blood Urea Nitrogen 43 #H Calcium Level 6.4 L Carbon Dioxide Level 29 Chloride Level 97 Creatinine 7.32 H Glucose Level 89 Phosphorus Level 7.2 H Potassium Level 4.4 Sodium Level 137 Medications Medications Current Medications Ondansetron HCl (Zofran Inj) 4 mg Q6H PRN IV NAUSEA AND/OR VOMITING Last administered on 11/02/16 16:29; Admin Dose 4 MG; Start 10/29/16 at 14:30 Acetaminophen (Tylenol Tab) 650 mg Q6H PRN PO PAIN LEVEL 1-3 OR FEVER; Start at 14:30 Acetaminophen (Tylenol Supp) 650 mg Q6H PRN [place] PAIN LEVEL 1-3 OR FEVER; Start 10/29/16 at 14:30 Acetaminophen/ Hydrocodone Bitart ([place] (5/325)) 1 tab Q6H PRN PO MODERATE PAIN LEVEL 4-6; Start 10/29/16 at 14:30 Acetaminophen/ Hydrocodone Bitart ([place] (5/325)) 2 tab Q6H PRN PO SEVERE PAIN LEVEL 7-10; Start 10/29/16 at 14:30 Morphine Sulfate (morphine) 2 mg Q4H PRN IV SEVERE PAIN LEVEL 7-10; Start 10/29 at 14:30 Docusate Sodium (Colace) 100 mg Q12H PRN PO CONSTIPATION; Start 10/29/16 at 14: 30 Magnesium Hydroxide (Milk Of Mag) 30 ml DAILY PRN PO CONSTIPATION; Start at 14:30 Bisacodyl (Dulcolax Supp) 10 mg DAILY PRN [place] CONSTIPATION; Start 10/29/16 at 14 :30 Hydralazine HCl (Apresoline) 10 mg Q4 PRN IV sbp>160 Last administered on 18:59; Admin Dose 10 MG; Start 10/29/16 at 14:30 Labetalol HCl (Labetalol) 20 mg Q2H PRN IV for sbp >160 Last administered on 18:01; Admin Dose 20 MG; Start 10/30/16 at 18:00 Pantoprazole 40 mg 40 mg BID@06,18 PO Last administered on 11/04/16 05:15; Admin Dose 40 MG; Start 10/31/16 at 18:00 Multivitamins 10 ml/Thiamine HCl 100 mg/Folic Acid 1 mg/Sodium Chloride 1,011.2 ml @ 125 mls/ hr DAILY@09 IVPB Last administered on 11/04/16 09:10; Admin Dose 125 MLS/HR; Start 11/02/16 at 09:00; Stop 11/04/16 at 17:06 Ceftriaxone Sodium (Rocephin) 50 ml @ 100 mls/hr Q24H IVPB Last administered on 11/03/16 20:07; Admin Dose 100 MLS/HR; Start 11/01/16 at 19:30 Amlodipine Besylate (Norvasc) 10 mg DAILY PO Last administered on 11/04/16 09: 11; Admin Dose 10 MG; Start 11/04/16 at 09:00 Metoprolol Tartrate (Lopressor) 25 mg BID PO Last administered on 11/04/16 09: 11; Admin Dose 25 MG; Start 11/04/16 at 09:00 ИРИНА URBANO MD Nov 04, 2016 12:03
--- NOTE | 2016-11-04 12:51 | CONS ---
Date/Time of Note Date/Time of Note DATE: 11/04/16 TIME: 12:39 Assessment/Plan Assessment/Plan Additional Assessment/Plan 1. Acute renal failure. 2. Anemia with reported black stool: h/h stable 3. CHF. plan for HD. 4. Elevated troponin. Likely ischemic demand. 5. Electrolyte abnormality 7. Hypertensive emergency. Patient does not report having any blood pressure medicines at home. 8. Homeless status. Follow up with addiction social worker Plan: 1. f/u occult blood 2. if occult blood positive, consider EGD and colonoscopy 3. Continue PPI for better acid suppression 4. management of his other medical problems per primary and consultants 5. will need cardiac optimization if EGD and colonoscopy is needed Further recommendations depend on clinical course Patient seen in collaboration with Dr. Webb Consultation Date/Type/Reason Admit Date/Time Oct 29, 2016 at 13:24 Initial Consult Date 10/29/16 Type of Consultation: GI 24 HR Interval Summary Free Text/Dictation Hemoglobin stable Last BM 10/31/2016, however stool OB not processed 1 dose of lactulose ordered for stool OB Denies abdominal pain Paulina diet Exam/Review of Systems Vital Signs Vitals Vital Signs Date Time Temp Pulse Resp B/P Pulse Ox O2 Delivery O2 Flow Rate FiO2 11/04/16 12:19 97.9 74 18 168/80 96 11/04/16 10:33 Nasal Cannula 2.0 Intake and Output 11/03/16 11/03/16 11/04/16 15:00 23:00 07:00 Intake Total 700 ml Output Total 500 ml Balance 200 ml Exam Head: atraumatic, normocephalic Eyes: EOMI, nl conjunctiva, nl lids, nl sclera ENMT: mucosa pink and moist, nl external ears & nose, nl lips & teeth, nl nasal mucosa & septum Neck: non-tender, supple Respiratory: clear to auscultation, normal air movement Cardiovascular: nl pulses, regular rate and rhythm Gastrointestinal: bowel sounds, soft Results Result Diagram: 11/03/16 0700 11/04/16 0623 Results 24 hrs Laboratory Tests Test 11/04/16 06:23 Anion Gap 15 Blood Urea Nitrogen 43 #H Calcium Level 6.4 L Carbon Dioxide Level 29 Chloride Level 97 Creatinine 7.32 H Glucose Level 89 Phosphorus Level 7.2 H Potassium Level 4.4 Sodium Level 137 Medications Medications Current Medications Ondansetron HCl (Zofran Inj) 4 mg Q6H PRN IV NAUSEA AND/OR VOMITING Last administered on 11/02/16 16:29; Admin Dose 4 MG; Start 10/29/16 at 14:30 Acetaminophen (Tylenol Tab) 650 mg Q6H PRN PO PAIN LEVEL 1-3 OR FEVER; Start at 14:30 Acetaminophen (Tylenol Supp) 650 mg Q6H PRN [place] PAIN LEVEL 1-3 OR FEVER; Start 10/29/16 at 14:30 Acetaminophen/ Hydrocodone Bitart ([place] (5/325)) 1 tab Q6H PRN PO MODERATE PAIN LEVEL 4-6; Start 10/29/16 at 14:30 Acetaminophen/ Hydrocodone Bitart ([place] (5/325)) 2 tab Q6H PRN PO SEVERE PAIN LEVEL 7-10; Start 10/29/16 at 14:30 Morphine Sulfate (morphine) 2 mg Q4H PRN IV SEVERE PAIN LEVEL 7-10; Start 10/29 at 14:30 Docusate Sodium (Colace) 100 mg Q12H PRN PO CONSTIPATION; Start 10/29/16 at 14: 30 Magnesium Hydroxide (Milk Of Mag) 30 ml DAILY PRN PO CONSTIPATION; Start at 14:30 Bisacodyl (Dulcolax Supp) 10 mg DAILY PRN [place] CONSTIPATION; Start 10/29/16 at 14 :30 Hydralazine HCl (Apresoline) 10 mg Q4 PRN IV sbp>160 Last administered on 18:59; Admin Dose 10 MG; Start 10/29/16 at 14:30 Labetalol HCl (Labetalol) 20 mg Q2H PRN IV for sbp >160 Last administered on 18:01; Admin Dose 20 MG; Start 10/30/16 at 18:00 Pantoprazole 40 mg 40 mg BID@06,18 PO Last administered on 11/04/16 05:15; Admin Dose 40 MG; Start 10/31/16 at 18:00 Multivitamins 10 ml/Thiamine HCl 100 mg/Folic Acid 1 mg/Sodium Chloride 1,011.2 ml @ 125 mls/ hr DAILY@09 IVPB Last administered on 11/04/16 09:10; Admin Dose 125 MLS/HR; Start 11/02/16 at 09:00; Stop 11/04/16 at 17:06 Ceftriaxone Sodium (Rocephin) 50 ml @ 100 mls/hr Q24H IVPB Last administered on 11/03/16 20:07; Admin Dose 100 MLS/HR; Start 11/01/16 at 19:30 Amlodipine Besylate (Norvasc) 10 mg DAILY PO Last administered on 11/04/16 09: 11; Admin Dose 10 MG; Start 11/04/16 at 09:00 Metoprolol Tartrate (Lopressor) 25 mg BID PO Last administered on 11/04/16 09: 11; Admin Dose 25 MG; Start 11/04/16 at 09:00 GIOVANA REGAN Nov 04, 2016 12:50
[2016-11-04] MEDS ORDERED: LACTULOSE 30ML CUP PO ONE (13:00)
--- NOTE | 2016-11-04 13:23 | CONS ---
Date/Time of Note Date/Time of Note DATE: 11/04/16 TIME: 13:22 Assessment/Plan Assessment/Plan Chief Complaint/Hosp Course SUBJECTIVE: The patient is in HD, lying comfortably in bed. No fevers. INDWELLINGS: Right subclavian permacath Mcgill catheter. MICROBIOLOGY: Blood culture on admission grew alpha hemolytic strep species . ALLERGIES: NONE. ANTIMICROBIALS: Rocephin. PHYSICAL EXAMINATION: GENERAL: Well-developed, elderly man in no distress. HEENT: Head atraumatic, normocephalic. Sclerae anicteric. Buccal mucosa pink. NECK: Supple, trachea midline. CHEST: Rise symmetrical. Breath sounds diminished to bases. HEART: S1, S2. ABDOMEN: Soft. Bowel tones present. ASSESSMENT: 1. Alpha hemolytic strep bacteremia, unclear etiology. A 2D echocardiogram on admission revealed no vegetations. 2. Acute renal failure, possibly on chronic kidney disease, status post Baljit , started on hemodialysis. 3. Status post acute respiratory distress secondary to pleural effusion. 4. Anemia. 5. Homelessness. PLAN: Clinically stable, repeat bld cx negative, continue abx for 8 more days DW staff Problems: Consultation Date/Type/Reason Admit Date/Time Oct 29, 2016 at 13:24 Initial Consult Date 10/29/16 Type of Consultation: ID Exam/Review of Systems Vital Signs Vitals Vital Signs Date Time Temp Pulse Resp B/P Pulse Ox O2 Delivery O2 Flow Rate FiO2 11/04/16 12:19 97.9 74 18 168/80 96 11/04/16 10:33 Nasal Cannula 2.0 Intake and Output 11/03/16 11/03/16 11/04/16 15:00 23:00 07:00 Intake Total 700 ml Output Total 500 ml Balance 200 ml Results Result Diagram: 11/03/16 0700 11/04/16 0623 Results 24 hrs Laboratory Tests Test 11/04/16 06:23 Anion Gap 15 Blood Urea Nitrogen 43 #H Calcium Level 6.4 L Carbon Dioxide Level 29 Chloride Level 97 Creatinine 7.32 H Glucose Level 89 Phosphorus Level 7.2 H Potassium Level 4.4 Sodium Level 137 Medications Medications Current Medications Ondansetron HCl (Zofran Inj) 4 mg Q6H PRN IV NAUSEA AND/OR VOMITING Last administered on 11/02/16t 16:29; Admin Dose 4 MG; Start 10/29/16 at 14:30 Acetaminophen (Tylenol Tab) 650 mg Q6H PRN PO PAIN LEVEL 1-3 OR FEVER; Start at 14:30 Acetaminophen (Tylenol Supp) 650 mg Q6H PRN [place] PAIN LEVEL 1-3 OR FEVER; Start 10/29/16 at 14:30 Acetaminophen/ Hydrocodone Bitart ([place] (5/325)) 1 tab Q6H PRN PO MODERATE PAIN LEVEL 4-6; Start 10/29/16 at 14:30 Acetaminophen/ Hydrocodone Bitart ([place] (5/325)) 2 tab Q6H PRN PO SEVERE PAIN LEVEL 7-10; Start 10/29/16 at 14:30 Morphine Sulfate (morphine) 2 mg Q4H PRN IV SEVERE PAIN LEVEL 7-10; Start 10/29 at 14:30 Docusate Sodium (Colace) 100 mg Q12H PRN PO CONSTIPATION; Start 10/29/16 at 14: 30 Magnesium Hydroxide (Milk Of Mag) 30 ml DAILY PRN PO CONSTIPATION; Start at 14:30 Bisacodyl (Dulcolax Supp) 10 mg DAILY PRN [place] CONSTIPATION; Start 10/29/16 at 14 :30 Hydralazine HCl (Apresoline) 10 mg Q4 PRN IV sbp>160 Last administered on 18:59; Admin Dose 10 MG; Start 10/29/16 at 14:30 Labetalol HCl (Labetalol) 20 mg Q2H PRN IV for sbp >160 Last administered on 18:01; Admin Dose 20 MG; Start 10/30/16 at 18:00 Pantoprazole 40 mg 40 mg BID@06,18 PO Last administered on 11/04/16 05:15; Admin Dose 40 MG; Start 10/31/16 at 18:00 Multivitamins 10 ml/Thiamine HCl 100 mg/Folic Acid 1 mg/Sodium Chloride 1,011.2 ml @ 125 mls/ hr DAILY@09 IVPB Last administered on 11/04/16 09:10; Admin Dose 125 MLS/HR; Start 11/02/16 at 09:00; Stop 11/04/16 at 17:06 Ceftriaxone Sodium (Rocephin) 50 ml @ 100 mls/hr Q24H IVPB Last administered on 11/03/16 20:07; Admin Dose 100 MLS/HR; Start 11/01/16 at 19:30 Amlodipine Besylate (Norvasc) 10 mg DAILY PO Last administered on 11/04/16 09: 11; Admin Dose 10 MG; Start 11/04/16 at 09:00 Metoprolol Tartrate (Lopressor) 25 mg BID PO Last administered on 11/04/16 09: 11; Admin Dose 25 MG; Start 11/04/16 at 09:00 MARY CEDILLO NP Nov 04, 2016 13:23
[2016-11-04] MEDS: hydrALAzine 20 MG INJ IV PRN (15:50)
[2016-11-04] MEDS: FUROSEMIDE 40 MG TAB PO SCH (17:36)
--- NOTE | 2016-11-04 19:15 | CONS ---
Date/Time of Note Date/Time of Note DATE: 11/04/16 TIME: 19:14 Assessment/Plan Assessment/Plan Chief Complaint/Hosp Course IMPRESSION: 1. Patient has acute kidney injury with possible underlying chronic kidney disease. 2. The patient has anasarca.BETTER 3. Pulmonary edema.BETTER 4. Anemia. 5. Hyperkalemia.BETTER 6. Metabolic acidosis. 7. Homelessness. 8. Incomplete database. 9. proteinuria. 10. chronic kidney disease. 11. Congestive heart failure. BETTER PLAN HD [facility] Problems: Consultation Date/Type/Reason Admit Date/Time Oct 29, 2016 at 13:24 Initial Consult Date 10/29/16 Type of Consultation: RENAL 24 HR Interval Summary Constitutional: no complaints Exam/Review of Systems Vital Signs Vitals Vital Signs Date Time Temp Pulse Resp B/P Pulse Ox O2 Delivery O2 Flow Rate FiO2 11/04/16 18:08 2.0 11/04/16 17:24 73 11/04/16 17:00 152/71 11/04/16 16:17 98.9 17 100 11/04/16 10:33 Nasal Cannula Intake and Output 11/03/16 11/03/16 11/04/16 15:00 23:00 07:00 Intake Total 700 ml Output Total 500 ml Balance 200 ml Exam Respiratory: clear to auscultation Cardiovascular: regular rate and rhythm Gastrointestinal: soft Musculoskeletal: nl extremities to inspection Extremities: normal pulses, No edema Neurological: 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 II-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 intact Results Result Diagram: 11/03/16 0700 11/04/16 0623 Results 24 hrs Laboratory Tests Test 11/04/16 06:23 Anion Gap 15 Blood Urea Nitrogen 43 #H Calcium Level 6.4 L Carbon Dioxide Level 29 Chloride Level 97 Creatinine 7.32 H Glucose Level 89 Phosphorus Level 7.2 H Potassium Level 4.4 Sodium Level 137 Medications Medications Current Medications Ondansetron HCl (Zofran Inj) 4 mg Q6H PRN IV NAUSEA AND/OR VOMITING Last administered on 11/02/16t 16:29; Admin Dose 4 MG; Start 10/29/16 at 14:30 Acetaminophen (Tylenol Tab) 650 mg Q6H PRN PO PAIN LEVEL 1-3 OR FEVER; Start at 14:30 Acetaminophen (Tylenol Supp) 650 mg Q6H PRN [place] PAIN LEVEL 1-3 OR FEVER; Start 10/29/16 at 14:30 Acetaminophen/ Hydrocodone Bitart ([place] (5/325)) 1 tab Q6H PRN PO MODERATE PAIN LEVEL 4-6; Start 10/29/16 at 14:30 Acetaminophen/ Hydrocodone Bitart ([place] (5/325)) 2 tab Q6H PRN PO SEVERE PAIN LEVEL 7-10; Start 10/29/16 at 14:30 Morphine Sulfate (morphine) 2 mg Q4H PRN IV SEVERE PAIN LEVEL 7-10; Start 10/29 at 14:30 Docusate Sodium (Colace) 100 mg Q12H PRN PO CONSTIPATION Last administered on 13:43; Admin Dose 100 MG; Start 10/29/16 at 14:30 Magnesium Hydroxide (Milk Of Mag) 30 ml DAILY PRN PO CONSTIPATION; Start at 14:30 Bisacodyl (Dulcolax Supp) 10 mg DAILY PRN [place] CONSTIPATION; Start 10/29/16 at 14 :30 Hydralazine HCl (Apresoline) 10 mg Q4 PRN IV sbp>160 Last administered on 15:50; Admin Dose 10 MG; Start 10/29/16 at 14:30 Labetalol HCl (Labetalol) 20 mg Q2H PRN IV for sbp >160 Last administered on 18:01; Admin Dose 20 MG; Start 10/30/16 at 18:00 Pantoprazole 40 mg 40 mg BID@06,18 PO Last administered on 11/04/16 17:36; Admin Dose 40 MG; Start 10/31/16 at 18:00 Ceftriaxone Sodium (Rocephin) 50 ml @ 100 mls/hr Q24H IVPB Last administered on 11/03/16 20:07; Admin Dose 100 MLS/HR; Start 11/01/16 at 19:30 Amlodipine Besylate (Norvasc) 10 mg DAILY PO Last administered on 11/04/16 09: 11; Admin Dose 10 MG; Start 11/04/16 at 09:00 Metoprolol Tartrate (Lopressor) 25 mg BID PO Last administered on 11/04/16 09: 11; Admin Dose 25 MG; Start 11/04/16 at 09:00 ARMIDA HARRIS MD Nov 04, 2016 19:15
[2016-11-04] MEDS: CEFTRIAXONE 1 GM/50 ML (PMX) 50 ML IVPB SCH (19:48)
[2016-11-05] VITALS (12 sets, daily range): BP systolic 133–153; BP diastolic 58–70; PULSE 72–79; RESP 16–20
[2016-11-05] MEDS: FUROSEMIDE 40 MG TAB PO SCH ×2 (05:14→17:18)
[2016-11-05] MEDS: PANTOPRAZOLE (EC) 40 MG TAB PO SCH ×2 (05:14→17:17)
[2016-11-05 08:02] LABS: BASOPHILS % 0.1 % (0.0-2.0); EOSINOPHILS # 0.3 10^3/ul (0.0-0.5); EOSINOPHILS % 2.8 % (0.0-7.0); HEMATOCRIT 27.9 % (42.0-52.0); HEMOGLOBIN 8.7 g/dl (14.0-18.0); LYMPHOCYTES # 0.5 10^3/ul (0.8-2.9); LYMPHOCYTES % 5.4 % (15.0-51.0); MEAN CORPUSCULAR HEMOGLOBIN 28.7 pg (29.0-33.0); MEAN CORPUSCULAR HGB CONC 31.2 g/dl (32.0-37.0); MEAN CORPUSCULAR VOLUME 92.1 fl (82.0-101.0); MEAN PLATELET VOLUME 13.9 fl (7.4-10.4); MONOCYTE # 0.7 10^3/ul (0.3-0.9); MONOCYTES % 7.1 % (0.0-11.0); NEUTROPHIL # 8.2 10^3/ul (1.6-7.5); PLATELET COUNT 145 10^3/UL (140-415); RED BLOOD COUNT 3.03 10^6/ul (4.70-6.10); RED CELL DISTRIBUTION WIDTH 14.9 % (11.5-14.5); WHITE BLOOD COUNT 9.7 10^3/ul (4.8-10.8)
[2016-11-05] MEDS: MULTIVIT/CA CARB/B CMPLX/FA TAB PO SCH (10:01)
[2016-11-05] MEDS: CALCIUM ACETATE 667 MG CAP PO SCH ×3 (10:02→17:18)
[2016-11-05] MEDS: AMLODIPINE 10 MG TAB PO SCH (10:02)
[2016-11-05] MEDS: METOPROLOL 25 MG TAB PO SCH ×2 (10:02→20:53)
--- NOTE | 2016-11-05 11:57 | PN ---
Date/Time of Note Date/Time of Note DATE: 11/05/16 TIME: 11:53 Assessment/Plan VTE Prophylaxis VTE Prophylaxis Intervention: SCD's Lines/Catheters IV [facility] [place] [facility] Urinary Cath still in place: No Assessment/Plan Assessment/Plan 1. Severe sepsis due to abcteremia- 2 D echo neg for vegeations . 2. Alpha hemolytic strep bacteremia on admission, possibly pulmonary source, 2- D echo revealed no evidence of vegetations. Repeat blood cultures negative. 3. acute on chronic renal failure, progressed to ESRD started on HD during this admission 4. Status post acute respiratory distress secondary to congestive heart failure exacerbation and volume overload. 5. Non-ST elevation myocardial infarction.- Cardiology following, no further Intevention/procedure planned Plan: IV abx, ID following, recommending for 2 weeks of Abx podiatry has been consulted to see pt HD as per nephrology- will need outpatient HD placement - in progress BP stable, afebrile, Case management to help with d/c, Subjective 24 Hr Interval Summary Free Text/Dictation podiatry has been consulted to see pt for foot, On HD per nephrology, outpatient HD placement in Progress Exam/Review of Systems Vital Signs Vitals Vital Signs Date Time Temp Pulse Resp B/P Pulse Ox O2 Delivery O2 Flow Rate FiO2 11/05/16 11:00 98.1 71 20 153/70 99 11/05/16 01:40 2.0 11/04/16 20:51 Nasal Cannula Intake and Output 11/04/16 11/04/16 11/05/16 15:00 23:00 07:00 Intake Total 2000 ml Output Total 3050 ml Balance -1050 ml Exam GENERAL: Well-developed elderly man who is alert, in no distress. HEENT: Head atraumatic, normocephalic. Sclerae anicteric. Buccal mucosa pink. + permacath NECK: Supple, trachea midline. CHEST: Rise symmetrical. Breath sounds clear. HEART: S1, S2. ABDOMEN: Soft, bowel tones present. EXTREMITIES: No cyanosis. Results Result Diagram: 11/05/16 0608 11/04/16 0623 Results 24 hrs Laboratory Tests Test 11/04/16 19:22 11/05/16 06:08 Stool Occult Blood NEGATIVE Basophils # 0.0 Basophils % 0.1 Eosinophils # 0.3 Eosinophils % 2.8 Hematocrit 27.9 L Hemoglobin 8.7 L Lymphocytes # 0.5 L Lymphocytes % 5.4 L Mean Corpuscular Hemoglobin 28.7 L Mean Corpuscular Hemoglobin Concent 31.2 L Mean Corpuscular Volume 92.1 Mean Platelet Volume 13.9 H Monocytes # 0.7 Monocytes % 7.1 Neutrophils # 8.2 H Neutrophils % 84.0 H Nucleated Red Blood Cells # 0.0 Nucleated Red Blood Cells % 0.0 Platelet Count 145 Red Blood Count 3.03 L Red Cell Distribution Width 14.9 H White Blood Count 9.7 # Medications Medications Current Medications Ondansetron HCl (Zofran Inj) 4 mg Q6H PRN IV NAUSEA AND/OR VOMITING Last administered on 11/02/16 16:29; Admin Dose 4 MG; Start 10/29/16 at 14:30 Acetaminophen (Tylenol Tab) 650 mg Q6H PRN PO PAIN LEVEL 1-3 OR FEVER; Start at 14:30 Acetaminophen (Tylenol Supp) 650 mg Q6H PRN [place] PAIN LEVEL 1-3 OR FEVER; Start 10/29/16 at 14:30 Acetaminophen/ Hydrocodone Bitart ([place] (5/325)) 1 tab Q6H PRN PO MODERATE PAIN LEVEL 4-6; Start 10/29/16 at 14:30 Acetaminophen/ Hydrocodone Bitart ([place] (5/325)) 2 tab Q6H PRN PO SEVERE PAIN LEVEL 7-10; Start 10/29/16 at 14:30 Morphine Sulfate (morphine) 2 mg Q4H PRN IV SEVERE PAIN LEVEL 7-10; Start 10/29 at 14:30 Docusate Sodium (Colace) 100 mg Q12H PRN PO CONSTIPATION Last administered on 13:43; Admin Dose 100 MG; Start 10/29/16 at 14:30 Magnesium Hydroxide (Milk Of Mag) 30 ml DAILY PRN PO CONSTIPATION; Start at 14:30 Bisacodyl (Dulcolax Supp) 10 mg DAILY PRN [place] CONSTIPATION; Start 10/29/16 at 14 :30 Hydralazine HCl (Apresoline) 10 mg Q4 PRN IV sbp>160 Last administered on 15:50; Admin Dose 10 MG; Start 10/29/16 at 14:30 Labetalol HCl (Labetalol) 20 mg Q2H PRN IV for sbp >160 Last administered on 18:01; Admin Dose 20 MG; Start 10/30/16 at 18:00 Pantoprazole 40 mg 40 mg BID@06,18 PO Last administered on 11/05/16 05:14; Admin Dose 40 MG; Start 10/31/16 at 18:00 Ceftriaxone Sodium (Rocephin) 50 ml @ 100 mls/hr Q24H IVPB Last administered on 11/04/16 19:48; Admin Dose 100 MLS/HR; Start 11/01/16 at 19:30 Amlodipine Besylate (Norvasc) 10 mg DAILY PO Last administered on 11/05/16 10: 02; Admin Dose 10 MG; Start 11/04/16 at 09:00 Metoprolol Tartrate (Lopressor) 25 mg BID PO Last administered on 11/05/16 10: 02; Admin Dose 25 MG; Start 11/04/16 at 09:00 Multivit/Ca Carb/ B Cmplx/FA/Prenat (Ct-Haritha) 1 tab DAILY PO Last administered on 11/05/16 10:01; Admin Dose 1 TAB; Start 11/05/16 at 09:00 ИРИНА URBANO MD Nov 05, 2016 11:57
--- NOTE | 2016-11-05 13:31 | CONS ---
Date/Time of Note Date/Time of Note DATE: 11/05/16 TIME: 13:30 Assessment/Plan Assessment/Plan Chief Complaint/Hosp Course SUBJECTIVE: The patient is lying comfortably in bed. No fevers. INDWELLINGS: Right subclavian permacath Mcgill catheter. MICROBIOLOGY: Blood culture on admission grew alpha hemolytic strep species . ALLERGIES: NONE. ANTIMICROBIALS: Rocephin. PHYSICAL EXAMINATION: GENERAL: Well-developed, elderly man in no distress. HEENT: Head atraumatic, normocephalic. Sclerae anicteric. Buccal mucosa pink. NECK: Supple, trachea midline. CHEST: Rise symmetrical. Breath sounds diminished to bases. HEART: S1, S2. ABDOMEN: Soft. Bowel tones present. ASSESSMENT: 1. Alpha hemolytic strep bacteremia, unclear etiology. A 2D echocardiogram on admission revealed no vegetations. 2. Acute renal failure, possibly on chronic kidney disease, status post Baljit , started on hemodialysis. 3. Status post acute respiratory distress secondary to pleural effusion. 4. Anemia. 5. Homelessness. PLAN: Clinically stable, repeat bld cx negative, continue abx for 7 more days DW staff Problems: Consultation Date/Type/Reason Admit Date/Time Oct 29, 2016 at 13:24 Initial Consult Date 10/29/16 Type of Consultation: ID Exam/Review of Systems Vital Signs Vitals Vital Signs Date Time Temp Pulse Resp B/P Pulse Ox O2 Delivery O2 Flow Rate FiO2 11/05/16 12:15 74 11/05/16 11:00 98.1 20 153/70 99 11/05/16 01:40 2.0 11/04/16 20:51 Nasal Cannula Intake and Output 11/04/16 11/04/16 11/05/16 15:00 23:00 07:00 Intake Total 2000 ml Output Total 3050 ml Balance -1050 ml Results Result Diagram: 11/05/16 0608 11/04/16 0623 Results 24 hrs Laboratory Tests Test 11/04/16 19:22 11/05/16 06:08 Stool Occult Blood NEGATIVE Basophils # 0.0 Basophils % 0.1 Eosinophils # 0.3 Eosinophils % 2.8 Hematocrit 27.9 L Hemoglobin 8.7 L Lymphocytes # 0.5 L Lymphocytes % 5.4 L Mean Corpuscular Hemoglobin 28.7 L Mean Corpuscular Hemoglobin Concent 31.2 L Mean Corpuscular Volume 92.1 Mean Platelet Volume 13.9 H Monocytes # 0.7 Monocytes % 7.1 Neutrophils # 8.2 H Neutrophils % 84.0 H Nucleated Red Blood Cells # 0.0 Nucleated Red Blood Cells % 0.0 Platelet Count 145 Red Blood Count 3.03 L Red Cell Distribution Width 14.9 H White Blood Count 9.7 # Medications Medications Current Medications Ondansetron HCl (Zofran Inj) 4 mg Q6H PRN IV NAUSEA AND/OR VOMITING Last administered on 11/02/16 16:29; Admin Dose 4 MG; Start 10/29/16 at 14:30 Acetaminophen (Tylenol Tab) 650 mg Q6H PRN PO PAIN LEVEL 1-3 OR FEVER; Start at 14:30 Acetaminophen (Tylenol Supp) 650 mg Q6H PRN [place] PAIN LEVEL 1-3 OR FEVER; Start 10/29/16 at 14:30 Acetaminophen/ Hydrocodone Bitart ([place] (5/325)) 1 tab Q6H PRN PO MODERATE PAIN LEVEL 4-6; Start 10/29/16 at 14:30 Acetaminophen/ Hydrocodone Bitart ([place] (5/325)) 2 tab Q6H PRN PO SEVERE PAIN LEVEL 7-10; Start 10/29/16 at 14:30 Morphine Sulfate (morphine) 2 mg Q4H PRN IV SEVERE PAIN LEVEL 7-10; Start 10/29 at 14:30 Docusate Sodium (Colace) 100 mg Q12H PRN PO CONSTIPATION Last administered on 13:43; Admin Dose 100 MG; Start 10/29/16 at 14:30 Magnesium Hydroxide (Milk Of Mag) 30 ml DAILY PRN PO CONSTIPATION; Start at 14:30 Bisacodyl (Dulcolax Supp) 10 mg DAILY PRN [place] CONSTIPATION; Start 10/29/16 at 14 :30 Hydralazine HCl (Apresoline) 10 mg Q4 PRN IV sbp>160 Last administered on 15:50; Admin Dose 10 MG; Start 10/29/16 at 14:30 Labetalol HCl (Labetalol) 20 mg Q2H PRN IV for sbp >160 Last administered on 18:01; Admin Dose 20 MG; Start 10/30/16 at 18:00 Pantoprazole 40 mg 40 mg BID@06,18 PO Last administered on 11/05/16 05:14; Admin Dose 40 MG; Start 10/31/16 at 18:00 Ceftriaxone Sodium (Rocephin) 50 ml @ 100 mls/hr Q24H IVPB Last administered on 11/04/16 19:48; Admin Dose 100 MLS/HR; Start 11/01/16 at 19:30 Amlodipine Besylate (Norvasc) 10 mg DAILY PO Last administered on 11/05/16 10: 02; Admin Dose 10 MG; Start 11/04/16 at 09:00 Metoprolol Tartrate (Lopressor) 25 mg BID PO Last administered on 11/05/16 10: 02; Admin Dose 25 MG; Start 11/04/16 at 09:00 Multivit/Ca Carb/ B Cmplx/FA/Prenat (Ct-Haritha) 1 tab DAILY PO Last administered on 11/05/16 10:01; Admin Dose 1 TAB; Start 11/05/16 at 09:00 MARY CEDILLO NP Nov 05, 2016 13:31
--- NOTE | 2016-11-05 16:15 | CONS ---
Date/Time of Note Date/Time of Note DATE: 11/05/16 TIME: 16:13 Assessment/Plan Assessment/Plan Additional Assessment/Plan 1. Acute renal failure. 2. Anemia with reported black stool: h/h stable, stool OB negative 3. CHF. plan for HD. 4. Elevated troponin. Likely ischemic demand. 5. Electrolyte abnormality 7. Hypertensive emergency. Patient does not report having any blood pressure medicines at home. 8. Homeless status. Follow up with social media content specialist Plan: 1. EGD and colonoscopy deferred 2. Continue PPI for better acid suppression 3. management of his other medical problems per primary and consultants 4. will need cardiac optimization if EGD and colonoscopy is needed Further recommendations depend on clinical course Patient seen in collaboration with Dr. Webb Consultation Date/Type/Reason Admit Date/Time Oct 29, 2016 at 13:24 Initial Consult Date 10/29/16 Type of Consultation: GI Reason for Consultation Anemia 24 HR Interval Summary Free Text/Dictation Stool OB negative Patient denies abdominal pain, nausea, vomiting Hemoglobin stable EGD deferred Exam/Review of Systems Vital Signs Vitals Vital Signs Date Time Temp Pulse Resp B/P Pulse Ox O2 Delivery O2 Flow Rate FiO2 11/05/16 15:15 97.9 75 20 146/67 99 11/05/16 14:15 Nasal Cannula 2.0 Intake and Output 11/04/16 11/04/16 11/05/16 15:00 23:00 07:00 Intake Total 2000 ml Output Total 3050 ml Balance -1050 ml Exam Head: atraumatic, normocephalic Eyes: EOMI, nl conjunctiva, nl lids, nl sclera ENMT: mucosa pink and moist, nl external ears & nose, nl lips & teeth, nl nasal mucosa & septum Neck: non-tender, supple Respiratory: clear to auscultation, normal air movement Cardiovascular: nl pulses, regular rate and rhythm Gastrointestinal: bowel sounds, soft Results Result Diagram: 11/05/16 0608 11/04/16 0623 Results 24 hrs Laboratory Tests Test 11/04/16 19:22 11/05/16 06:08 Stool Occult Blood NEGATIVE Basophils # 0.0 Basophils % 0.1 Eosinophils # 0.3 Eosinophils % 2.8 Hematocrit 27.9 L Hemoglobin 8.7 L Lymphocytes # 0.5 L Lymphocytes % 5.4 L Mean Corpuscular Hemoglobin 28.7 L Mean Corpuscular Hemoglobin Concent 31.2 L Mean Corpuscular Volume 92.1 Mean Platelet Volume 13.9 H Monocytes # 0.7 Monocytes % 7.1 Neutrophils # 8.2 H Neutrophils % 84.0 H Nucleated Red Blood Cells # 0.0 Nucleated Red Blood Cells % 0.0 Platelet Count 145 Red Blood Count 3.03 L Red Cell Distribution Width 14.9 H White Blood Count 9.7 # Medications Medications Current Medications Ondansetron HCl (Zofran Inj) 4 mg Q6H PRN IV NAUSEA AND/OR VOMITING Last administered on 11/02/16 16:29; Admin Dose 4 MG; Start 10/29/16 at 14:30 Acetaminophen (Tylenol Tab) 650 mg Q6H PRN PO PAIN LEVEL 1-3 OR FEVER; Start at 14:30 Acetaminophen (Tylenol Supp) 650 mg Q6H PRN [place] PAIN LEVEL 1-3 OR FEVER; Start 10/29/16 at 14:30 Acetaminophen/ Hydrocodone Bitart ([place] (5/325)) 1 tab Q6H PRN PO MODERATE PAIN LEVEL 4-6; Start 10/29/16 at 14:30 Acetaminophen/ Hydrocodone Bitart ([place] (5/325)) 2 tab Q6H PRN PO SEVERE PAIN LEVEL 7-10; Start 10/29/16 at 14:30 Morphine Sulfate (morphine) 2 mg Q4H PRN IV SEVERE PAIN LEVEL 7-10; Start 10/29 at 14:30 Docusate Sodium (Colace) 100 mg Q12H PRN PO CONSTIPATION Last administered on 13:43; Admin Dose 100 MG; Start 10/29/16 at 14:30 Magnesium Hydroxide (Milk Of Mag) 30 ml DAILY PRN PO CONSTIPATION; Start at 14:30 Bisacodyl (Dulcolax Supp) 10 mg DAILY PRN [place] CONSTIPATION; Start 10/29/16 at 14 :30 Hydralazine HCl (Apresoline) 10 mg Q4 PRN IV sbp>160 Last administered on 15:50; Admin Dose 10 MG; Start 10/29/16 at 14:30 Labetalol HCl (Labetalol) 20 mg Q2H PRN IV for sbp >160 Last administered on 18:01; Admin Dose 20 MG; Start 10/30/16 at 18:00 Pantoprazole 40 mg 40 mg BID@06,18 PO Last administered on 11/05/16 05:14; Admin Dose 40 MG; Start 10/31/16 at 18:00 Ceftriaxone Sodium (Rocephin) 50 ml @ 100 mls/hr Q24H IVPB Last administered on 11/04/16 19:48; Admin Dose 100 MLS/HR; Start 11/01/16 at 19:30 Amlodipine Besylate (Norvasc) 10 mg DAILY PO Last administered on 11/05/16 10: 02; Admin Dose 10 MG; Start 11/04/16 at 09:00 Metoprolol Tartrate (Lopressor) 25 mg BID PO Last administered on 11/05/16 10: 02; Admin Dose 25 MG; Start 11/04/16 at 09:00 Multivit/Ca Carb/ B Cmplx/FA/Prenat (Ct-Haritha) 1 tab DAILY PO Last administered on 11/05/16 10:01; Admin Dose 1 TAB; Start 11/05/16 at 09:00 GIOVANA REGAN Nov 05, 2016 16:15
--- NOTE | 2016-11-05 20:19 | CONS ---
Date/Time of Note Date/Time of Note DATE: 11/05/16 TIME: 20:18 Assessment/Plan Assessment/Plan Chief Complaint/Hosp Course IMPRESSION: 1. Patient has acute kidney injury with possible underlying chronic kidney disease. 2. The patient has anasarca.BETTER 3. Pulmonary edema.BETTER 4. Anemia. 5. Hyperkalemia.BETTER 6. Metabolic acidosis. 7. Homelessness. 8. Incomplete database. 9. proteinuria. 10. chronic kidney disease. 11. Congestive heart failure. BETTER PLAN HD am [place] Problems: Consultation Date/Type/Reason Admit Date/Time Oct 29, 2016 at 13:24 Initial Consult Date 10/29/16 Type of Consultation: renal 24 HR Interval Summary Constitutional: no complaints Exam/Review of Systems Vital Signs Vitals Vital Signs Date Time Temp Pulse Resp B/P Pulse Ox O2 Delivery O2 Flow Rate FiO2 11/05/16 19:59 98.6 74 18 151/58 99 11/05/16 14:15 Nasal Cannula 2.0 Intake and Output 11/04/16 11/04/16 11/05/16 15:00 23:00 07:00 Intake Total 2000 ml Output Total 3050 ml Balance -1050 ml Exam Neck: supple Respiratory: clear to auscultation Cardiovascular: regular rate and rhythm Gastrointestinal: soft Extremities: No edema Results Result Diagram: 11/05/16 0608 11/04/16 0623 Results 24 hrs Laboratory Tests Test 11/05/16 06:08 Basophils # 0.0 Basophils % 0.1 Eosinophils # 0.3 Eosinophils % 2.8 Hematocrit 27.9 L Hemoglobin 8.7 L Lymphocytes # 0.5 L Lymphocytes % 5.4 L Mean Corpuscular Hemoglobin 28.7 L Mean Corpuscular Hemoglobin Concent 31.2 L Mean Corpuscular Volume 92.1 Mean Platelet Volume 13.9 H Monocytes # 0.7 Monocytes % 7.1 Neutrophils # 8.2 H Neutrophils % 84.0 H Nucleated Red Blood Cells # 0.0 Nucleated Red Blood Cells % 0.0 Platelet Count 145 Red Blood Count 3.03 L Red Cell Distribution Width 14.9 H White Blood Count 9.7 # Medications Medications Current Medications Ondansetron HCl (Zofran Inj) 4 mg Q6H PRN IV NAUSEA AND/OR VOMITING Last administered on 11/02/16t 16:29; Admin Dose 4 MG; Start 10/29/16 at 14:30 Acetaminophen (Tylenol Tab) 650 mg Q6H PRN PO PAIN LEVEL 1-3 OR FEVER; Start at 14:30 Acetaminophen (Tylenol Supp) 650 mg Q6H PRN [place] PAIN LEVEL 1-3 OR FEVER; Start 10/29/16 at 14:30 Acetaminophen/ Hydrocodone Bitart ([place] (5/325)) 1 tab Q6H PRN PO MODERATE PAIN LEVEL 4-6; Start 10/29/16 at 14:30 Acetaminophen/ Hydrocodone Bitart ([place] (5/325)) 2 tab Q6H PRN PO SEVERE PAIN LEVEL 7-10; Start 10/29/16 at 14:30 Morphine Sulfate (morphine) 2 mg Q4H PRN IV SEVERE PAIN LEVEL 7-10; Start 10/29 at 14:30 Docusate Sodium (Colace) 100 mg Q12H PRN PO CONSTIPATION Last administered on 13:43; Admin Dose 100 MG; Start 10/29/16 at 14:30 Magnesium Hydroxide (Milk Of Mag) 30 ml DAILY PRN PO CONSTIPATION; Start at 14:30 Bisacodyl (Dulcolax Supp) 10 mg DAILY PRN [place] CONSTIPATION; Start 10/29/16 at 14 :30 Hydralazine HCl (Apresoline) 10 mg Q4 PRN IV sbp>160 Last administered on 15:50; Admin Dose 10 MG; Start 10/29/16 at 14:30 Labetalol HCl (Labetalol) 20 mg Q2H PRN IV for sbp >160 Last administered on 18:01; Admin Dose 20 MG; Start 10/30/16 at 18:00 Pantoprazole 40 mg 40 mg BID@06,18 PO Last administered on 11/05/16 17:17; Admin Dose 40 MG; Start 10/31/16 at 18:00 Ceftriaxone Sodium (Rocephin) 50 ml @ 100 mls/hr Q24H IVPB Last administered on 11/04/16 19:48; Admin Dose 100 MLS/HR; Start 11/01/16 at 19:30 Amlodipine Besylate (Norvasc) 10 mg DAILY PO Last administered on 11/05/16 10: 02; Admin Dose 10 MG; Start 11/04/16 at 09:00 Metoprolol Tartrate (Lopressor) 25 mg BID PO Last administered on 11/05/16 10: 02; Admin Dose 25 MG; Start 11/04/16 at 09:00 Multivit/Ca Carb/ B Cmplx/FA/Prenat (Ct-Haritha) 1 tab DAILY PO Last administered on 11/05/16 10:01; Admin Dose 1 TAB; Start 11/05/16 at 09:00 ARMIDA HARRIS MD Nov 05, 2016 20:19
[2016-11-05] MEDS: CEFTRIAXONE 1 GM/50 ML (PMX) 50 ML IVPB SCH (22:45)
[2016-11-06] VITALS (19 sets, daily range): BP systolic 120–174; BP diastolic 63–80; PULSE 68–86; RESP 18
[2016-11-06] MEDS: FUROSEMIDE 40 MG TAB PO SCH ×2 (06:26→18:58)
[2016-11-06] MEDS: PANTOPRAZOLE (EC) 40 MG TAB PO SCH ×2 (06:28→18:58)
[2016-11-06 07:22] LABS: ADD SCAN DIFF NO
[2016-11-06 07:31] LABS: BASOPHILS % 0.2 % (0.0-2.0); EOSINOPHILS # 0.3 10^3/ul (0.0-0.5); EOSINOPHILS % 2.9 % (0.0-7.0); HEMATOCRIT 27.3 % (42.0-52.0); HEMOGLOBIN 8.5 g/dl (14.0-18.0); LYMPHOCYTES % 11.1 % (15.0-51.0); MEAN CORPUSCULAR HEMOGLOBIN 28.6 pg (29.0-33.0); MEAN CORPUSCULAR HGB CONC 31.1 g/dl (32.0-37.0); MEAN CORPUSCULAR VOLUME 91.9 fl (82.0-101.0); MEAN PLATELET VOLUME 13.8 fl (7.4-10.4); MONOCYTE # 0.6 10^3/ul (0.3-0.9); MONOCYTES % 7.1 % (0.0-11.0); NEUTROPHIL # 6.8 10^3/ul (1.6-7.5); NEUTROPHILS % 78.4 % (39.0-77.0); PLATELET COUNT 153 10^3/UL (140-415); RED BLOOD COUNT 2.97 10^6/ul (4.70-6.10); RED CELL DISTRIBUTION WIDTH 14.5 % (11.5-14.5); WHITE BLOOD COUNT 8.7 10^3/ul (4.8-10.8)
[2016-11-06] MEDS: MULTIVIT/CA CARB/B CMPLX/FA TAB PO SCH (08:53)
[2016-11-06] MEDS: CALCIUM ACETATE 667 MG CAP PO SCH ×3 (08:53→18:05)
[2016-11-06] MEDS: AMLODIPINE 10 MG TAB PO SCH (08:57)
[2016-11-06] MEDS: METOPROLOL 25 MG TAB PO SCH ×2 (08:57→20:36)
--- NOTE | 2016-11-06 11:14 | CONS ---
Date/Time of Note Date/Time of Note DATE: 11/06/16 TIME: 11:13 Assessment/Plan Assessment/Plan Additional Assessment/Plan 1. Acute renal failure. 2. Anemia with reported black stool: h/h stable, stool OB negative 3. CHF. plan for HD. 4. Elevated troponin. Likely ischemic demand. 5. Electrolyte abnormality 7. Hypertensive emergency. Patient does not report having any blood pressure medicines at home. 8. Homeless status. Follow up with social service liaison Plan: 1. EGD and colonoscopy deferred 2. Continue PPI for better acid suppression 3. management of his other medical problems per primary and consultants 4. will need cardiac optimization if EGD and colonoscopy is needed Further recommendations depend on clinical course Patient seen in collaboration with Dr. Webb Consultation Date/Type/Reason Admit Date/Time Oct 29, 2016 at 13:24 Initial Consult Date 10/29/16 Type of Consultation: GI 24 HR Interval Summary Free Text/Dictation Getting HD Paulina diet Hgb stable Exam/Review of Systems Vital Signs Vitals Vital Signs Date Time Temp Pulse Resp B/P Pulse Ox O2 Delivery O2 Flow Rate FiO2 11/06/16 10:29 68 17 11/06/16 08:52 97.9 148/69 100 11/06/16 08:09 Nasal Cannula 2.0 Intake and Output 11/05/16 11/05/16 11/06/16 15:00 23:00 07:00 Intake Total 400 ml Output Total 100 ml Balance 400 ml -100 ml Exam Head: atraumatic, normocephalic Eyes: EOMI, nl conjunctiva, nl lids, nl sclera ENMT: mucosa pink and moist, nl external ears & nose, nl lips & teeth, nl nasal mucosa & septum Neck: non-tender, supple Respiratory: clear to auscultation, normal air movement Cardiovascular: nl pulses, regular rate and rhythm Gastrointestinal: bowel sounds, soft Results Result Diagram: 11/06/16 0539 11/04/16 0623 Results 24 hrs Laboratory Tests Test 11/06/16 05:39 Basophils # 0.0 Basophils % 0.2 Eosinophils # 0.3 Eosinophils % 2.9 Hematocrit 27.3 L Hemoglobin 8.5 L Lymphocytes # 1.0 Lymphocytes % 11.1 L Mean Corpuscular Hemoglobin 28.6 L Mean Corpuscular Hemoglobin Concent 31.1 L Mean Corpuscular Volume 91.9 Mean Platelet Volume 13.8 H Monocytes # 0.6 Monocytes % 7.1 Neutrophils # 6.8 Neutrophils % 78.4 H Nucleated Red Blood Cells # 0.0 Nucleated Red Blood Cells % 0.0 Platelet Count 153 Red Blood Count 2.97 L Red Cell Distribution Width 14.5 White Blood Count 8.7 Medications Medications Current Medications Ondansetron HCl (Zofran Inj) 4 mg Q6H PRN IV NAUSEA AND/OR VOMITING Last administered on 11/02/16 16:29; Admin Dose 4 MG; Start 10/29/16 at 14:30 Acetaminophen (Tylenol Tab) 650 mg Q6H PRN PO PAIN LEVEL 1-3 OR FEVER; Start at 14:30 Acetaminophen (Tylenol Supp) 650 mg Q6H PRN [place] PAIN LEVEL 1-3 OR FEVER; Start 10/29/16 at 14:30 Acetaminophen/ Hydrocodone Bitart ([place] (5/325)) 1 tab Q6H PRN PO MODERATE PAIN LEVEL 4-6; Start 10/29/16 at 14:30 Acetaminophen/ Hydrocodone Bitart ([place] (5/325)) 2 tab Q6H PRN PO SEVERE PAIN LEVEL 7-10; Start 10/29/16 at 14:30 Morphine Sulfate (morphine) 2 mg Q4H PRN IV SEVERE PAIN LEVEL 7-10 Last administered on 11/05/16 22:58; Admin Dose 2 MG; Start 10/29/16 at 14:30 Docusate Sodium (Colace) 100 mg Q12H PRN PO CONSTIPATION Last administered on 13:43; Admin Dose 100 MG; Start 10/29/16 at 14:30 Magnesium Hydroxide (Milk Of Mag) 30 ml DAILY PRN PO CONSTIPATION; Start at 14:30 Bisacodyl (Dulcolax Supp) 10 mg DAILY PRN [place] CONSTIPATION; Start 10/29/16 at 14 :30 Hydralazine HCl (Apresoline) 10 mg Q4 PRN IV sbp>160 Last administered on 15:50; Admin Dose 10 MG; Start 10/29/16 at 14:30 Labetalol HCl (Labetalol) 20 mg Q2H PRN IV for sbp >160 Last administered on 18:01; Admin Dose 20 MG; Start 10/30/16 at 18:00 Pantoprazole 40 mg 40 mg BID@06,18 PO Last administered on 11/06/16 06:28; Admin Dose 40 MG; Start 10/31/16 at 18:00 Ceftriaxone Sodium (Rocephin) 50 ml @ 100 mls/hr Q24H IVPB Last administered on 11/05/16 22:45; Admin Dose 100 MLS/HR; Start 11/01/16 at 19:30 Amlodipine Besylate (Norvasc) 10 mg DAILY PO Last administered on 11/05/16 10: 02; Admin Dose 10 MG; Start 11/04/16 at 09:00 Metoprolol Tartrate (Lopressor) 25 mg BID PO Last administered on 11/05/16 20: 53; Admin Dose 25 MG; Start 11/04/16 at 09:00 Multivit/Ca Carb/ B Cmplx/FA/Prenat (Ct-Haritha) 1 tab DAILY PO Last administered on 11/06/16 08:53; Admin Dose 1 TAB; Start 11/05/16 at 09:00 GIOVANA REGAN Nov 06, 2016 11:14
[2016-11-06 12:40] LABS: ALANINE AMINOTRANSFERASE 25 IU/L (13-69); ASPARTATE AMINO TRANSFERASE 21 IU/L (15-46)
--- NOTE | 2016-11-06 13:27 | PN ---
Date/Time of Note Date/Time of Note DATE: 11/06/16 TIME: 13:25 Assessment/Plan VTE Prophylaxis VTE Prophylaxis Intervention: SCD's Lines/Catheters IV [facility]ter [facility]from [facility] Lock Urinary Cath still in place: No Assessment/Plan Assessment/Plan 1. Severe sepsis due to abcteremia- 2 D echo neg for vegeations . 2. Alpha hemolytic strep bacteremia on admission, possibly pulmonary source, 2- D echo revealed no evidence of vegetations. Repeat blood cultures negative. 3. acute on chronic renal failure, progressed to ESRD started on HD during this admission 4. Status post acute respiratory distress secondary to congestive heart failure exacerbation and volume overload. 5. Non-ST elevation myocardial infarction.- Cardiology following, no further Intevention/procedure planned Plan: IV abx, ID following, recommending for 2 weeks of Abx on PO lasix SCD for DVT prophylaxis podiatry has been consulted to see pt - not seen pt yet HD as per nephrology- will need outpatient HD placement - in progress BP stable, afebrile, Case management to help with d/c, Subjective 24 Hr Interval Summary Free Text/Dictation awaiting HD placement, BP stable, afebrile Exam/Review of Systems Vital Signs Vitals Vital Signs Date Time Temp Pulse Resp B/P Pulse Ox O2 Delivery O2 Flow Rate FiO2 11/06/16 12:30 76 11/06/16 11:33 17 11/06/16 08:52 97.9 148/69 100 11/06/16 08:09 Nasal Cannula 2.0 Intake and Output 11/05/16 11/05/16 11/06/16 15:00 23:00 07:00 Intake Total 400 ml Output Total 100 ml Balance 400 ml -100 ml Exam GENERAL: Well-developed elderly man who is alert, in no distress. HEENT: Head atraumatic, normocephalic. Sclerae anicteric. Buccal mucosa pink. + permacath NECK: Supple, trachea midline. CHEST: Rise symmetrical. Breath sounds clear. HEART: S1, S2. ABDOMEN: Soft, bowel tones present. EXTREMITIES: No cyanosis. Results Result Diagram: 11/06/16 0539 11/04/16 0623 Results 24 hrs Laboratory Tests Test 11/06/16 05:39 11/06/16 12:15 Basophils # 0.0 Basophils % 0.2 Eosinophils # 0.3 Eosinophils % 2.9 Hematocrit 27.3 L Hemoglobin 8.5 L Lymphocytes # 1.0 Lymphocytes % 11.1 L Mean Corpuscular Hemoglobin 28.6 L Mean Corpuscular Hemoglobin Concent 31.1 L Mean Corpuscular Volume 91.9 Mean Platelet Volume 13.8 H Monocytes # 0.6 Monocytes % 7.1 Neutrophils # 6.8 Neutrophils % 78.4 H Nucleated Red Blood Cells # 0.0 Nucleated Red Blood Cells % 0.0 Platelet Count 153 Red Blood Count 2.97 L Red Cell Distribution Width 14.5 White Blood Count 8.7 Alanine Aminotransferase (ALT/SGPT) 25 Aspartate Amino Transf (AST/SGOT) 21 Medications Medications Current Medications Ondansetron HCl (Zofran Inj) 4 mg Q6H PRN IV NAUSEA AND/OR VOMITING Last administered on 11/02/16 16:29; Admin Dose 4 MG; Start 10/29/16 at 14:30 Acetaminophen (Tylenol Tab) 650 mg Q6H PRN PO PAIN LEVEL 1-3 OR FEVER; Start at 14:30 Acetaminophen (Tylenol Supp) 650 mg Q6H PRN [place] PAIN LEVEL 1-3 OR FEVER; Start 10/29/16 at 14:30 Acetaminophen/ Hydrocodone Bitart ([place] (5/325)) 1 tab Q6H PRN PO MODERATE PAIN LEVEL 4-6; Start 10/29/16 at 14:30 Acetaminophen/ Hydrocodone Bitart ([place] (5/325)) 2 tab Q6H PRN PO SEVERE PAIN LEVEL 7-10; Start 10/29/16 at 14:30 Morphine Sulfate (morphine) 2 mg Q4H PRN IV SEVERE PAIN LEVEL 7-10 Last administered on 11/05/16 22:58; Admin Dose 2 MG; Start 10/29/16 at 14:30 Docusate Sodium (Colace) 100 mg Q12H PRN PO CONSTIPATION Last administered on 13:43; Admin Dose 100 MG; Start 10/29/16 at 14:30 Magnesium Hydroxide (Milk Of Mag) 30 ml DAILY PRN PO CONSTIPATION; Start at 14:30 Bisacodyl (Dulcolax Supp) 10 mg DAILY PRN [place] CONSTIPATION; Start 10/29/16 at 14 :30 Hydralazine HCl (Apresoline) 10 mg Q4 PRN IV sbp>160 Last administered on 15:50; Admin Dose 10 MG; Start 10/29/16 at 14:30 Labetalol HCl (Labetalol) 20 mg Q2H PRN IV for sbp >160 Last administered on 18:01; Admin Dose 20 MG; Start 10/30/16 at 18:00 Pantoprazole 40 mg 40 mg BID@06,18 PO Last administered on 11/06/16 06:28; Admin Dose 40 MG; Start 10/31/16 at 18:00 Ceftriaxone Sodium (Rocephin) 50 ml @ 100 mls/hr Q24H IVPB Last administered on 11/05/16 22:45; Admin Dose 100 MLS/HR; Start 11/01/16 at 19:30 Amlodipine Besylate (Norvasc) 10 mg DAILY PO Last administered on 11/05/16 10: 02; Admin Dose 10 MG; Start 11/04/16 at 09:00 Metoprolol Tartrate (Lopressor) 25 mg BID PO Last administered on 11/05/16 20: 53; Admin Dose 25 MG; Start 11/04/16 at 09:00 Multivit/Ca Carb/ B Cmplx/FA/Prenat (Ct-Haritha) 1 tab DAILY PO Last administered on 11/06/16 08:53; Admin Dose 1 TAB; Start 11/05/16 at 09:00 ИРИНА URBANO MD Nov 06, 2016 13:27
--- NOTE | 2016-11-06 13:29 | CONS ---
Date/Time of Note Date/Time of Note DATE: 11/06/16 TIME: 13:28 Assessment/Plan Assessment/Plan Chief Complaint/Hosp Course SUBJECTIVE: The patient is lying comfortably in bed. No fevers. INDWELLINGS: Right subclavian permacath, Mcgill catheter. MICROBIOLOGY: Blood culture on admission grew alpha hemolytic strep species . ALLERGIES: NONE. ANTIMICROBIALS: Rocephin. PHYSICAL EXAMINATION: GENERAL: Well-developed, elderly man in no distress. HEENT: Head atraumatic, normocephalic. Sclerae anicteric. Buccal mucosa pink. NECK: Supple, trachea midline. CHEST: Rise symmetrical. Breath sounds diminished to bases. HEART: S1, S2. ABDOMEN: Soft. Bowel tones present. ASSESSMENT: 1. Alpha hemolytic strep bacteremia, unclear etiology. A 2D echocardiogram on admission revealed no vegetations. 2. Acute renal failure, possibly on chronic kidney disease, status post Baljit , started on hemodialysis. 3. Status post acute respiratory distress secondary to pleural effusion. 4. Anemia. 5. Homelessness. PLAN: Clinically stable, repeat bld cx negative, continue abx for 6 more days, HD per renal DW staff Problems: Consultation Date/Type/Reason Admit Date/Time Oct 29, 2016 at 13:24 Initial Consult Date 10/29/16 Type of Consultation: ID Exam/Review of Systems Vital Signs Vitals Vital Signs Date Time Temp Pulse Resp B/P Pulse Ox O2 Delivery O2 Flow Rate FiO2 11/06/16 13:24 71 11/06/16 11:33 17 11/06/16 08:52 97.9 148/69 100 11/06/16 08:09 Nasal Cannula 2.0 Intake and Output 11/05/16 11/05/16 11/06/16 15:00 23:00 07:00 Intake Total 400 ml Output Total 100 ml Balance 400 ml -100 ml Results Result Diagram: 11/06/16 0539 11/04/16 0623 Results 24 hrs Laboratory Tests Test 11/06/16 05:39 11/06/16 12:15 Basophils # 0.0 Basophils % 0.2 Eosinophils # 0.3 Eosinophils % 2.9 Hematocrit 27.3 L Hemoglobin 8.5 L Lymphocytes # 1.0 Lymphocytes % 11.1 L Mean Corpuscular Hemoglobin 28.6 L Mean Corpuscular Hemoglobin Concent 31.1 L Mean Corpuscular Volume 91.9 Mean Platelet Volume 13.8 H Monocytes # 0.6 Monocytes % 7.1 Neutrophils # 6.8 Neutrophils % 78.4 H Nucleated Red Blood Cells # 0.0 Nucleated Red Blood Cells % 0.0 Platelet Count 153 Red Blood Count 2.97 L Red Cell Distribution Width 14.5 White Blood Count 8.7 Alanine Aminotransferase (ALT/SGPT) 25 Aspartate Amino Transf (AST/SGOT) 21 Medications Medications Current Medications Ondansetron HCl (Zofran Inj) 4 mg Q6H PRN IV NAUSEA AND/OR VOMITING Last administered on 11/02/16 16:29; Admin Dose 4 MG; Start 10/29/16 at 14:30 Acetaminophen (Tylenol Tab) 650 mg Q6H PRN PO PAIN LEVEL 1-3 OR FEVER; Start at 14:30 Acetaminophen (Tylenol Supp) 650 mg Q6H PRN [place] PAIN LEVEL 1-3 OR FEVER; Start 10/29/16 at 14:30 Acetaminophen/ Hydrocodone Bitart ([place] (5/325)) 1 tab Q6H PRN PO MODERATE PAIN LEVEL 4-6; Start 10/29/16 at 14:30 Acetaminophen/ Hydrocodone Bitart ([place] (5/325)) 2 tab Q6H PRN PO SEVERE PAIN LEVEL 7-10; Start 10/29/16 at 14:30 Morphine Sulfate (morphine) 2 mg Q4H PRN IV SEVERE PAIN LEVEL 7-10 Last administered on 11/05/16 22:58; Admin Dose 2 MG; Start 10/29/16 at 14:30 Docusate Sodium (Colace) 100 mg Q12H PRN PO CONSTIPATION Last administered on 13:43; Admin Dose 100 MG; Start 10/29/16 at 14:30 Magnesium Hydroxide (Milk Of Mag) 30 ml DAILY PRN PO CONSTIPATION; Start at 14:30 Bisacodyl (Dulcolax Supp) 10 mg DAILY PRN [place] CONSTIPATION; Start 10/29/16 at 14 :30 Hydralazine HCl (Apresoline) 10 mg Q4 PRN IV sbp>160 Last administered on 15:50; Admin Dose 10 MG; Start 10/29/16 at 14:30 Labetalol HCl (Labetalol) 20 mg Q2H PRN IV for sbp >160 Last administered on 18:01; Admin Dose 20 MG; Start 10/30/16 at 18:00 Pantoprazole 40 mg 40 mg BID@06,18 PO Last administered on 11/06/16 06:28; Admin Dose 40 MG; Start 10/31/16 at 18:00 Ceftriaxone Sodium (Rocephin) 50 ml @ 100 mls/hr Q24H IVPB Last administered on 11/05/16 22:45; Admin Dose 100 MLS/HR; Start 11/01/16 at 19:30 Amlodipine Besylate (Norvasc) 10 mg DAILY PO Last administered on 11/05/16 10: 02; Admin Dose 10 MG; Start 11/04/16 at 09:00 Metoprolol Tartrate (Lopressor) 25 mg BID PO Last administered on 11/05/16 20: 53; Admin Dose 25 MG; Start 11/04/16 at 09:00 Multivit/Ca Carb/ B Cmplx/FA/Prenat (Ct-Haritha) 1 tab DAILY PO Last administered on 11/06/16 08:53; Admin Dose 1 TAB; Start 11/05/16 at 09:00 MARY CEDILLO NP Nov 06, 2016 13:29
[2016-11-06] MEDS: CEFTRIAXONE 1 GM/50 ML (PMX) 50 ML IVPB SCH (20:36)
--- NOTE | 2016-11-06 21:20 | CONS ---
Date/Time of Note Date/Time of Note DATE: 11/06/16 TIME: 21:19 Assessment/Plan Assessment/Plan Chief Complaint/Hosp Course IMPRESSION: 1. Patient has acute kidney injury with possible underlying chronic kidney disease. 2. The patient has anasarca.BETTER 3. Pulmonary edema.BETTER 4. Anemia. 5. Hyperkalemia.BETTER 6. Metabolic acidosis.BETTER 7. Homelessness. 8. Incomplete database. 9. proteinuria. 10. chronic kidney disease. 11. Congestive heart failure. BETTER PLAN HD QOD Problems: Consultation Date/Type/Reason Admit Date/Time Oct 29, 2016 at 13:24 Initial Consult Date 10/29/16 Type of Consultation: RENAL 24 HR Interval Summary Constitutional: no complaints Exam/Review of Systems Vital Signs Vitals Vital Signs Date Time Temp Pulse Resp B/P Pulse Ox O2 Delivery O2 Flow Rate FiO2 11/06/16 16:55 98.1 81 18 169/79 98 11/06/16 12:00 Nasal Cannula 2.0 Intake and Output 11/05/16 11/05/16 11/06/16 15:00 23:00 07:00 Intake Total 400 ml Output Total 100 ml Balance 400 ml -100 ml Exam Neck: supple Respiratory: clear to auscultation Cardiovascular: regular rate and rhythm Gastrointestinal: soft Musculoskeletal: nl extremities to inspection Extremities: normal pulses Results Result Diagram: 11/06/16 0539 11/04/16 0623 Results 24 hrs Laboratory Tests Test 11/06/16 05:39 11/06/16 12:15 Basophils # 0.0 Basophils % 0.2 Eosinophils # 0.3 Eosinophils % 2.9 Hematocrit 27.3 L Hemoglobin 8.5 L Lymphocytes # 1.0 Lymphocytes % 11.1 L Mean Corpuscular Hemoglobin 28.6 L Mean Corpuscular Hemoglobin Concent 31.1 L Mean Corpuscular Volume 91.9 Mean Platelet Volume 13.8 H Monocytes # 0.6 Monocytes % 7.1 Neutrophils # 6.8 Neutrophils % 78.4 H Nucleated Red Blood Cells # 0.0 Nucleated Red Blood Cells % 0.0 Platelet Count 153 Red Blood Count 2.97 L Red Cell Distribution Width 14.5 White Blood Count 8.7 Alanine Aminotransferase (ALT/SGPT) 25 Aspartate Amino Transf (AST/SGOT) 21 Medications Medications Current Medications Ondansetron HCl (Zofran Inj) 4 mg Q6H PRN IV NAUSEA AND/OR VOMITING Last administered on 11/02/16 16:29; Admin Dose 4 MG; Start 10/29/16 at 14:30 Acetaminophen (Tylenol Tab) 650 mg Q6H PRN PO PAIN LEVEL 1-3 OR FEVER; Start at 14:30 Acetaminophen (Tylenol Supp) 650 mg Q6H PRN [place] PAIN LEVEL 1-3 OR FEVER; Start 10/29/16 at 14:30 Acetaminophen/ Hydrocodone Bitart ([place] (5/325)) 1 tab Q6H PRN PO MODERATE PAIN LEVEL 4-6; Start 10/29/16 at 14:30 Acetaminophen/ Hydrocodone Bitart ([place] (5/325)) 2 tab Q6H PRN PO SEVERE PAIN LEVEL 7-10; Start 10/29/16 at 14:30 Morphine Sulfate (morphine) 2 mg Q4H PRN IV SEVERE PAIN LEVEL 7-10 Last administered on 11/05/16 22:58; Admin Dose 2 MG; Start 10/29/16 at 14:30 Docusate Sodium (Colace) 100 mg Q12H PRN PO CONSTIPATION Last administered on 13:43; Admin Dose 100 MG; Start 10/29/16 at 14:30 Magnesium Hydroxide (Milk Of Mag) 30 ml DAILY PRN PO CONSTIPATION; Start at 14:30 Bisacodyl (Dulcolax Supp) 10 mg DAILY PRN [place] CONSTIPATION; Start 10/29/16 at 14 :30 Hydralazine HCl (Apresoline) 10 mg Q4 PRN IV sbp>160 Last administered on 15:50; Admin Dose 10 MG; Start 10/29/16 at 14:30 Labetalol HCl (Labetalol) 20 mg Q2H PRN IV for sbp >160 Last administered on 18:01; Admin Dose 20 MG; Start 10/30/16 at 18:00 Pantoprazole 40 mg 40 mg BID@06,18 PO Last administered on 11/06/16 18:58; Admin Dose 40 MG; Start 10/31/16 at 18:00 Ceftriaxone Sodium (Rocephin) 50 ml @ 100 mls/hr Q24H IVPB Last administered on 11/06/16 20:36; Admin Dose 100 MLS/HR; Start 11/01/16 at 19:30 Amlodipine Besylate (Norvasc) 10 mg DAILY PO Last administered on 11/05/16 10: 02; Admin Dose 10 MG; Start 11/04/16 at 09:00 Metoprolol Tartrate (Lopressor) 25 mg BID PO Last administered on 11/06/16 20: 36; Admin Dose 25 MG; Start 11/04/16 at 09:00 Multivit/Ca Carb/ B Cmplx/FA/Prenat (Ct-Haritha) 1 tab DAILY PO Last administered on 11/06/16 08:53; Admin Dose 1 TAB; Start 11/05/16 at 09:00 ARMIDA HARRIS MD Nov 06, 2016 21:20
[2016-11-07] VITALS (11 sets, daily range): BP systolic 137–153; BP diastolic 63–72; PULSE 68–72; RESP 18–20
[2016-11-07] MEDS: PANTOPRAZOLE (EC) 40 MG TAB PO SCH ×2 (06:41→17:37)
[2016-11-07 07:48] LABS: ADD SCAN DIFF NO
[2016-11-07 07:53] LABS: BASOPHILS % 0.3 % (0.0-2.0); EOSINOPHILS # 0.3 10^3/ul (0.0-0.5); EOSINOPHILS % 3.4 % (0.0-7.0); HEMOGLOBIN 8.1 g/dl (14.0-18.0); LYMPHOCYTES % 11.4 % (15.0-51.0); MEAN CORPUSCULAR HEMOGLOBIN 28.7 pg (29.0-33.0); MEAN CORPUSCULAR HGB CONC 31.2 g/dl (32.0-37.0); MEAN CORPUSCULAR VOLUME 92.2 fl (82.0-101.0); MEAN PLATELET VOLUME 14.2 fl (7.4-10.4); MONOCYTE # 0.7 10^3/ul (0.3-0.9); MONOCYTES % 7.4 % (0.0-11.0); NEUTROPHIL # 6.8 10^3/ul (1.6-7.5); PLATELET COUNT 157 10^3/UL (140-415); RED BLOOD COUNT 2.82 10^6/ul (4.70-6.10); RED CELL DISTRIBUTION WIDTH 14.4 % (11.5-14.5); WHITE BLOOD COUNT 8.8 10^3/ul (4.8-10.8)
[2016-11-07 08:19] LABS: ALBUMIN 3.1 g/dl (3.3-4.9)
[2016-11-07 08:20] LABS: POTASSIUM 4.4 mmol/L (3.5-5.1)
[2016-11-07 08:22] LABS: CREATININE 6.18 mg/dl (0.61-1.24); TOTAL PROTEIN 5.9 g/dl (6.1-8.1)
[2016-11-07 08:23] LABS: CALCIUM 7.4 mg/dl (8.4-10.2); PHOSPHORUS 5.8 mg/dl (2.5-4.9)
[2016-11-07 08:25] LABS: ALBUMIN/GLOBULIN RATIO 1.1
[2016-11-07] MEDS: CALCIUM ACETATE 667 MG CAP PO SCH ×3 (09:12→17:37)
[2016-11-07] MEDS: MULTIVIT/CA CARB/B CMPLX/FA TAB PO SCH (09:12)
[2016-11-07] MEDS: METOPROLOL 25 MG TAB PO SCH ×2 (09:12→21:38)
[2016-11-07] MEDS: AMLODIPINE 10 MG TAB PO SCH (09:13)
[2016-11-07] MEDS: FUROSEMIDE 40 MG INJ IV SCH (09:13)
--- NOTE | 2016-11-07 11:45 | PN ---
Date/Time of Note Date/Time of Note DATE: 11/07/16 TIME: 11:43 Assessment/Plan VTE Prophylaxis VTE Prophylaxis Intervention: SCD's Lines/Catheters [facility] Saline Lock Urinary Cath still in place: No Assessment/Plan Assessment/Plan Assessment: 1. Acute renal failure. 2. Anemia stool OB negative 3. CHF. plan for HD. 4. Elevated troponin. Likely ischemic demand. 5. Electrolyte abnormality 7. Hypertensive emergency. Patient does not report having any blood pressure medicines at home. 8. Homeless status. 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 Continue present regimen 2. No GI intervention anticipated at this time 3. We will sign off and follow upon request Subjective 24 Hr Interval Summary Free Text/Dictation Course reviewed with nursing staff No GI issues outstanding Tolerating diet without problems No evidence of overt gastrointestinal bleeding We will sign off and follow on a as needed basis Exam/Review of Systems Vital Signs Vitals Vital Signs Date Time Temp Pulse Resp B/P Pulse Ox O2 Delivery O2 Flow Rate FiO2 11/07/16 08:18 70 11/07/16 08:10 Nasal Cannula 2.0 11/07/16 08:07 98.1 19 142/66 100 Intake and Output 11/06/16 11/06/16 11/07/16 15:00 23:00 07:00 Intake Total 300 ml 750 ml Output Total 3300 ml 200 ml Balance -3000 ml 550 ml Exam Head: atraumatic, normocephalic Eyes: EOMI, nl conjunctiva, nl lids, nl sclera ENMT: mucosa pink and moist, nl external ears & nose, nl lips & teeth, nl nasal mucosa & septum Neck: non-tender, supple Respiratory: clear to auscultation, normal air movement Cardiovascular: nl pulses, regular rate and rhythm Gastrointestinal: bowel sounds, soft Results Result Diagram: 11/07/16 0710 11/07/16 0710 Results 24 hrs Laboratory Tests Test 11/06/16 12:15 11/07/16 07:10 Alanine Aminotransferase (ALT/SGPT) 25 22 Aspartate Amino Transf (AST/SGOT) 21 23 Albumin 3.1 L Albumin/Globulin Ratio 1.10 Alkaline Phosphatase 102 Anion Gap 15 Basophils # 0.0 Basophils % 0.3 Blood Urea Nitrogen 47 H Calcium Level 7.4 L Carbon Dioxide Level 30 Chloride Level 102 Creatinine 6.18 H Direct Bilirubin 0.00 Eosinophils # 0.3 Eosinophils % 3.4 Globulin 2.80 Glucose Level 93 Hematocrit 26.0 L Hemoglobin 8.1 L Indirect Bilirubin 0.0 Lymphocytes # 1.0 Lymphocytes % 11.4 L Mean Corpuscular Hemoglobin 28.7 L Mean Corpuscular Hemoglobin Concent 31.2 L Mean Corpuscular Volume 92.2 Mean Platelet Volume 14.2 H Monocytes # 0.7 Monocytes % 7.4 Neutrophils # 6.8 Neutrophils % 77.0 Nucleated Red Blood Cells # 0.0 Nucleated Red Blood Cells % 0.0 Phosphorus Level 5.8 H Platelet Count 157 Potassium Level 4.4 Red Blood Count 2.82 L Red Cell Distribution Width 14.4 Sodium Level 143 Total Bilirubin 0.0 L Total Protein 5.9 L White Blood Count 8.8 Medications Medications Current Medications Ondansetron HCl (Zofran Inj) 4 mg Q6H PRN IV NAUSEA AND/OR VOMITING Last administered on 11/02/16 16:29; Admin Dose 4 MG; Start 10/29/16 at 14:30 Acetaminophen (Tylenol Tab) 650 mg Q6H PRN PO PAIN LEVEL 1-3 OR FEVER; Start at 14:30 Acetaminophen (Tylenol Supp) 650 mg Q6H PRN [place] PAIN LEVEL 1-3 OR FEVER; Start 10/29/16 at 14:30 Acetaminophen/ Hydrocodone Bitart ([place] (5/325)) 1 tab Q6H PRN PO MODERATE PAIN LEVEL 4-6; Start 10/29/16 at 14:30 Acetaminophen/ Hydrocodone Bitart ([place] (5/325)) 2 tab Q6H PRN PO SEVERE PAIN LEVEL 7-10; Start 10/29/16 at 14:30 Morphine Sulfate (morphine) 2 mg Q4H PRN IV SEVERE PAIN LEVEL 7-10 Last administered on 11/05/16 22:58; Admin Dose 2 MG; Start 10/29/16 at 14:30 Docusate Sodium (Colace) 100 mg Q12H PRN PO CONSTIPATION Last administered on 13:43; Admin Dose 100 MG; Start 10/29/16 at 14:30 Magnesium Hydroxide (Milk Of Mag) 30 ml DAILY PRN PO CONSTIPATION; Start at 14:30 Bisacodyl (Dulcolax Supp) 10 mg DAILY PRN [place] CONSTIPATION; Start 10/29/16 at 14 :30 Hydralazine HCl (Apresoline) 10 mg Q4 PRN IV sbp>160 Last administered on 15:50; Admin Dose 10 MG; Start 10/29/16 at 14:30 Labetalol HCl (Labetalol) 20 mg Q2H PRN IV for sbp >160 Last administered on 18:01; Admin Dose 20 MG; Start 10/30/16 at 18:00 Pantoprazole 40 mg 40 mg BID@06,18 PO Last administered on 11/07/16 06:41; Admin Dose 40 MG; Start 10/31/16 at 18:00 Ceftriaxone Sodium (Rocephin) 50 ml @ 100 mls/hr Q24H IVPB Last administered on 11/06/16 20:36; Admin Dose 100 MLS/HR; Start 11/01/16 at 19:30 Amlodipine Besylate (Norvasc) 10 mg DAILY PO Last administered on 11/07/16 09: 13; Admin Dose 10 MG; Start 11/04/16 at 09:00 Metoprolol Tartrate (Lopressor) 25 mg BID PO Last administered on 11/07/16 09: 12; Admin Dose 25 MG; Start 11/04/16 at 09:00 Multivit/Ca Carb/ B Cmplx/FA/Prenat (Ct-Haritha) 1 tab DAILY PO Last administered on 11/07/16 09:12; Admin Dose 1 TAB; Start 11/05/16 at 09:00 Furosemide (Lasix) 40 mg DAILY IV Last administered on 11/07/16 09:13; Admin Dose 40 MG; Start 11/07/16 at 09:00 MARY CHARLTON MD Nov 07, 2016 11:45
--- NOTE | 2016-11-07 12:39 | CONS ---
Date/Time of Note Date/Time of Note DATE: 11/07/16 TIME: 12:39 Assessment/Plan Assessment/Plan Chief Complaint/Hosp Course IMPRESSION: 1. Patient has acute kidney injury with possible underlying chronic kidney disease. 2. The patient has anasarca.BETTER 3. Pulmonary edema.BETTER 4. Anemia. 5. Hyperkalemia.BETTER 6. Metabolic acidosis.BETTER 7. Homelessness. 8. Incomplete database. 9. proteinuria. 10. chronic kidney disease. 11. Congestive heart failure. BETTER PLAN HD QOD Problems: Consultation Date/Type/Reason Admit Date/Time Oct 29, 2016 at 13:24 Initial Consult Date 10/29/16 Type of Consultation: RENAL 24 HR Interval Summary Constitutional: no complaints Exam/Review of Systems Vital Signs Vitals Vital Signs Date Time Temp Pulse Resp B/P Pulse Ox O2 Delivery O2 Flow Rate FiO2 11/07/16 12:27 70 11/07/16 12:02 98.3 19 147/72 100 11/07/16 08:10 Nasal Cannula 2.0 Intake and Output 11/06/16 11/06/16 11/07/16 15:00 23:00 07:00 Intake Total 300 ml 750 ml Output Total 3300 ml 200 ml Balance -3000 ml 550 ml Exam Neck: supple Respiratory: clear to auscultation Cardiovascular: regular rate and rhythm Gastrointestinal: soft Musculoskeletal: nl extremities to inspection Results Result Diagram: 11/07/16 0710 11/07/16 0710 Results 24 hrs Laboratory Tests Test 11/07/16 07:10 Alanine Aminotransferase (ALT/SGPT) 22 Albumin 3.1 L Albumin/Globulin Ratio 1.10 Alkaline Phosphatase 102 Anion Gap 15 Aspartate Amino Transf (AST/SGOT) 23 Basophils # 0.0 Basophils % 0.3 Blood Urea Nitrogen 47 H Calcium Level 7.4 L Carbon Dioxide Level 30 Chloride Level 102 Creatinine 6.18 H Direct Bilirubin 0.00 Eosinophils # 0.3 Eosinophils % 3.4 Globulin 2.80 Glucose Level 93 Hematocrit 26.0 L Hemoglobin 8.1 L Indirect Bilirubin 0.0 Lymphocytes # 1.0 Lymphocytes % 11.4 L Mean Corpuscular Hemoglobin 28.7 L Mean Corpuscular Hemoglobin Concent 31.2 L Mean Corpuscular Volume 92.2 Mean Platelet Volume 14.2 H Monocytes # 0.7 Monocytes % 7.4 Neutrophils # 6.8 Neutrophils % 77.0 Nucleated Red Blood Cells # 0.0 Nucleated Red Blood Cells % 0.0 Phosphorus Level 5.8 H Platelet Count 157 Potassium Level 4.4 Red Blood Count 2.82 L Red Cell Distribution Width 14.4 Sodium Level 143 Total Bilirubin 0.0 L Total Protein 5.9 L White Blood Count 8.8 Medications Medications Current Medications Ondansetron HCl (Zofran Inj) 4 mg Q6H PRN IV NAUSEA AND/OR VOMITING Last administered on 11/02/16 16:29; Admin Dose 4 MG; Start 10/29/16 at 14:30 Acetaminophen (Tylenol Tab) 650 mg Q6H PRN PO PAIN LEVEL 1-3 OR FEVER; Start at 14:30 Acetaminophen (Tylenol Supp) 650 mg Q6H PRN [place] PAIN LEVEL 1-3 OR FEVER; Start 10/29/16 at 14:30 Acetaminophen/ Hydrocodone Bitart ([place] (5/325)) 1 tab Q6H PRN PO MODERATE PAIN LEVEL 4-6; Start 10/29/16 at 14:30 Acetaminophen/ Hydrocodone Bitart ([place] (5/325)) 2 tab Q6H PRN PO SEVERE PAIN LEVEL 7-10; Start 10/29/16 at 14:30 Morphine Sulfate (morphine) 2 mg Q4H PRN IV SEVERE PAIN LEVEL 7-10 Last administered on 11/05/16 22:58; Admin Dose 2 MG; Start 10/29/16 at 14:30 Docusate Sodium (Colace) 100 mg Q12H PRN PO CONSTIPATION Last administered on 13:43; Admin Dose 100 MG; Start 10/29/16 at 14:30 Magnesium Hydroxide (Milk Of Mag) 30 ml DAILY PRN PO CONSTIPATION; Start at 14:30 Bisacodyl (Dulcolax Supp) 10 mg DAILY PRN [place] CONSTIPATION; Start 10/29/16 at 14 :30 Hydralazine HCl (Apresoline) 10 mg Q4 PRN IV sbp>160 Last administered on 15:50; Admin Dose 10 MG; Start 10/29/16 at 14:30 Labetalol HCl (Labetalol) 20 mg Q2H PRN IV for sbp >160 Last administered on 18:01; Admin Dose 20 MG; Start 10/30/16 at 18:00 Pantoprazole 40 mg 40 mg BID@06,18 PO Last administered on 11/07/16 06:41; Admin Dose 40 MG; Start 10/31/16 at 18:00 Ceftriaxone Sodium (Rocephin) 50 ml @ 100 mls/hr Q24H IVPB Last administered on 11/06/16 20:36; Admin Dose 100 MLS/HR; Start 11/01/16 at 19:30 Amlodipine Besylate (Norvasc) 10 mg DAILY PO Last administered on 11/07/16 09: 13; Admin Dose 10 MG; Start 11/04/16 at 09:00 Metoprolol Tartrate (Lopressor) 25 mg BID PO Last administered on 11/07/16 09: 12; Admin Dose 25 MG; Start 11/04/16 at 09:00 Multivit/Ca Carb/ B Cmplx/FA/Prenat (Ct-Haritha) 1 tab DAILY PO Last administered on 11/07/16 09:12; Admin Dose 1 TAB; Start 11/05/16 at 09:00 Furosemide (Lasix) 40 mg DAILY IV Last administered on 11/07/16 09:13; Admin Dose 40 MG; Start 11/07/16 at 09:00 ARMIDA HARRIS MD Nov 07, 2016 12:39
--- NOTE | 2016-11-07 12:55 | PN ---
Date/Time of Note Date/Time of Note DATE: 11/07/16 TIME: 12:53 Assessment/Plan VTE Prophylaxis VTE Prophylaxis Intervention: SCD's Lines/Catheters [facility] Saline Lock Urinary Cath still in place: No Assessment/Plan Assessment/Plan 1. Severe sepsis due to abcteremia- 2 D echo neg for vegeations . 2. Alpha hemolytic strep bacteremia on admission, possibly pulmonary source, 2- D echo revealed no evidence of vegetations. Repeat blood cultures negative. 3. acute on chronic renal failure, progressed to ESRD started on HD during this admission 4. Status post acute respiratory distress secondary to congestive heart failure exacerbation and volume overload. 5. Non-ST elevation myocardial infarction.- Cardiology following, no further Intevention/procedure planned Plan: IV abx, ID following, recommending for 2 weeks of Abx on PO lasix SCD for DVT prophylaxis podiatry has been consulted to see pt - not seen pt yet HD as per nephrology- will need outpatient HD placement - in progress Case management to help with d/c, Subjective 24 Hr Interval Summary Free Text/Dictation Hd as per nephrology, BP stable Exam/Review of Systems Vital Signs Vitals Vital Signs Date Time Temp Pulse Resp B/P Pulse Ox O2 Delivery O2 Flow Rate FiO2 11/07/16 12:27 70 11/07/16 12:02 98.3 19 147/72 100 11/07/16 08:10 Nasal Cannula 2.0 Intake and Output 11/06/16 11/06/16 11/07/16 14:59 22:59 06:59 Intake Total 300 ml 750 ml Output Total 3300 ml 200 ml Balance -3000 ml 550 ml Exam GENERAL: Well-developed elderly man who is alert, in no distress. HEENT: Head atraumatic, normocephalic. Sclerae anicteric. Buccal mucosa pink. + permacath NECK: Supple, trachea midline. CHEST: Rise symmetrical. Breath sounds clear. HEART: S1, S2. ABDOMEN: Soft, bowel tones present. EXTREMITIES: No cyanosis. Results Result Diagram: 11/07/16 0710 11/07/16 0710 Results 24 hrs Laboratory Tests Test 11/07/16 07:10 Alanine Aminotransferase (ALT/SGPT) 22 Albumin 3.1 L Albumin/Globulin Ratio 1.10 Alkaline Phosphatase 102 Anion Gap 15 Aspartate Amino Transf (AST/SGOT) 23 Basophils # 0.0 Basophils % 0.3 Blood Urea Nitrogen 47 H Calcium Level 7.4 L Carbon Dioxide Level 30 Chloride Level 102 Creatinine 6.18 H Direct Bilirubin 0.00 Eosinophils # 0.3 Eosinophils % 3.4 Globulin 2.80 Glucose Level 93 Hematocrit 26.0 L Hemoglobin 8.1 L Indirect Bilirubin 0.0 Lymphocytes # 1.0 Lymphocytes % 11.4 L Mean Corpuscular Hemoglobin 28.7 L Mean Corpuscular Hemoglobin Concent 31.2 L Mean Corpuscular Volume 92.2 Mean Platelet Volume 14.2 H Monocytes # 0.7 Monocytes % 7.4 Neutrophils # 6.8 Neutrophils % 77.0 Nucleated Red Blood Cells # 0.0 Nucleated Red Blood Cells % 0.0 Phosphorus Level 5.8 H Platelet Count 157 Potassium Level 4.4 Red Blood Count 2.82 L Red Cell Distribution Width 14.4 Sodium Level 143 Total Bilirubin 0.0 L Total Protein 5.9 L White Blood Count 8.8 Medications Medications Current Medications Ondansetron HCl (Zofran Inj) 4 mg Q6H PRN IV NAUSEA AND/OR VOMITING Last administered on 11/02/16 16:29; Admin Dose 4 MG; Start 10/29/16 at 14:30 Acetaminophen (Tylenol Tab) 650 mg Q6H PRN PO PAIN LEVEL 1-3 OR FEVER; Start at 14:30 Acetaminophen (Tylenol Supp) 650 mg Q6H PRN [place] PAIN LEVEL 1-3 OR FEVER; Start 10/29/16 at 14:30 Acetaminophen/ Hydrocodone Bitart ([place] (5/325)) 1 tab Q6H PRN PO MODERATE PAIN LEVEL 4-6; Start 10/29/16 at 14:30 Acetaminophen/ Hydrocodone Bitart ([place] (5/325)) 2 tab Q6H PRN PO SEVERE PAIN LEVEL 7-10; Start 10/29/16 at 14:30 Morphine Sulfate (morphine) 2 mg Q4H PRN IV SEVERE PAIN LEVEL 7-10 Last administered on 11/05/16 22:58; Admin Dose 2 MG; Start 10/29/16 at 14:30 Docusate Sodium (Colace) 100 mg Q12H PRN PO CONSTIPATION Last administered on 13:43; Admin Dose 100 MG; Start 10/29/16 at 14:30 Magnesium Hydroxide (Milk Of Mag) 30 ml DAILY PRN PO CONSTIPATION; Start at 14:30 Bisacodyl (Dulcolax Supp) 10 mg DAILY PRN [place] CONSTIPATION; Start 10/29/16 at 14 :30 Hydralazine HCl (Apresoline) 10 mg Q4 PRN IV sbp>160 Last administered on 15:50; Admin Dose 10 MG; Start 10/29/16 at 14:30 Labetalol HCl (Labetalol) 20 mg Q2H PRN IV for sbp >160 Last administered on 18:01; Admin Dose 20 MG; Start 10/30/16 at 18:00 Pantoprazole 40 mg 40 mg BID@06,18 PO Last administered on 11/07/16 06:41; Admin Dose 40 MG; Start 10/31/16 at 18:00 Ceftriaxone Sodium (Rocephin) 50 ml @ 100 mls/hr Q24H IVPB Last administered on 11/06/16 20:36; Admin Dose 100 MLS/HR; Start 11/01/16 at 19:30 Amlodipine Besylate (Norvasc) 10 mg DAILY PO Last administered on 11/07/16 09: 13; Admin Dose 10 MG; Start 11/04/16 at 09:00 Metoprolol Tartrate (Lopressor) 25 mg BID PO Last administered on 11/07/16 09: 12; Admin Dose 25 MG; Start 11/04/16 at 09:00 Multivit/Ca Carb/ B Cmplx/FA/Prenat (Ct-Haritha) 1 tab DAILY PO Last administered on 11/07/16 09:12; Admin Dose 1 TAB; Start 11/05/16 at 09:00 Furosemide (Lasix) 40 mg DAILY IV Last administered on 11/07/16 09:13; Admin Dose 40 MG; Start 11/07/16 at 09:00 ИРИНА URBANO MD Nov 07, 2016 12:55
--- NOTE | 2016-11-07 15:15 | CONS ---
DATE OF ADMISSION: 10/29/2016 DATE OF CONSULTATION: 11/07/2016 REASON FOR CONSULTATION: Onychogryphotic nails, bilateral feet, and concern of the subungual ulceration. HISTORY OF PRESENT ILLNESS: This is a 61-year-old gentleman who was admitted with acute renal failure with a history of chronic kidney disease, was noted to have severely Onychogryphotic nails and concern for subungual ulceration. The patient is legally blind, homeless and without insurance. He is currently being worked up for sepsis. PAST MEDICAL HISTORY: Acute renal failure, CHF, elevated troponins, anemia, hyperkalemia, hypocalcemia, congestive heart failure, proteinuria. ALLERGIES: NONE. SOCIAL HISTORY: History of tobacco use, recently quit. FAMILY HISTORY: The patient is single, patient homeless. REVIEW OF SYSTEMS: No chest pain, shortness of breath. PHYSICAL EXAMINATION: VITAL SIGNS: Temperature 98.3, pulse 71, respiratory rate 19, blood pressure 147/72, pulse ox is 100% on room air. GENERAL: Patient is awake, lying supine. Regular respirations. EXTREMITIES: The patient has dry skin, venous stasis with hyperpigmentation, severely dry skin, onychomycotic toenails, with onychogryphosis, severe. Pain with palpation of multiple nails. Unable to visualize subungual ulceration. The patient has 2+ DP and PT pulses bilaterally. No signs of decubitus ulceration. SKIN: Warm with palpation. LABORATORIES: WBC 8.8, hemoglobin 8.1, hematocrit 26, platelets 157. Sodium 143, potassium 4.4, chloride 102, CO2 30, BUN 47, creatinine 6.18. Blood cultures, no growth on 11/01/2016. 10/29/2016 had blood cultures positive for alpha hemolytic strep and viridans. ASSESSMENT: 1. Onychomycosis without subungual ulceration. 2. Sepsis. 3. Acute on chronic renal failure. 4. Status post acute respiratory failure, with associated CHF exacerbation. 5. Non-ST elevation myocardial infarction. PLAN: The patient was seen and evaluated. Nails were debrided. No evidence of subungual ulceration. Patient with severe onychomycotic changes. The patient tolerated the procedure well. Nails were debrided x10. Nursing recommendations were given. Recommend topical antifungal treatment. Thank you for this consultation. Dictated By: ANDREWS ROMEO DPM RB/MYRON Conf#: [id number] DID#: [id number] MTDD
--- NOTE | 2016-11-07 19:30 | RADRPT ---
PROCEDURE: Chest xray. CLINICAL INDICATION: Follow-up. TECHNIQUE: A portable semi-erect AP view of the chest was obtained. COMPARISON: 10/30/2016. FINDINGS: There has been interval placement of a right internal jugular approach hemodialysis catheter with it s tip projecting in the upper right atrium. There is stable mild enlargement of the cardiac silhouette in stable mild pulmonary vascular congest ion. There are small bilateral pleural effusions, increased on the right side when compared to 10/14. Bilateral lower lung zone airspace disease has not significantly changed. There is no evid ence of a pneumothorax. IMPRESSION: Interval placement of a right internal jugular approach hemodialysis catheter with its tip projectin g in the upper right atrium. Small bilateral pleural effusions, increased on the right side when compared to 10/30/2016. Stable mild cardiomegaly, pulmonary vascular congestion, and bilateral lower lung zone airspace dise ase. RPTAT:PP .Humera Moyer MD, MD Date Time Electronically viewed and signed by .Humera Moyer MD, on 11/07/2016 19:30 .K/
[2016-11-07] MEDS: CEFTRIAXONE 1 GM/50 ML (PMX) 50 ML IVPB SCH (21:38)
[2016-11-07] MEDS: BETAMETHASONE/CLOTRIMAZOLE 15 GM CR TOP SCH (21:39)
[2016-11-08] VITALS (13 sets, daily range): BP systolic 132–147; BP diastolic 63–68; PULSE 66–72; RESP 18–20
[2016-11-08] MEDS: PANTOPRAZOLE (EC) 40 MG TAB PO SCH ×2 (06:25→18:30)
[2016-11-08] MEDS: FUROSEMIDE 40 MG INJ IV SCH (08:24)
[2016-11-08] MEDS: CALCIUM ACETATE 667 MG CAP PO SCH ×3 (08:24→18:30)
[2016-11-08] MEDS: AMLODIPINE 10 MG TAB PO SCH (08:25)
[2016-11-08] MEDS: METOPROLOL 25 MG TAB PO SCH ×2 (08:25→20:29)
[2016-11-08] MEDS: BETAMETHASONE/CLOTRIMAZOLE 15 GM CR TOP SCH ×2 (08:26→20:29)
[2016-11-08] MEDS: MULTIVIT/CA CARB/B CMPLX/FA TAB PO SCH (11:54)
--- NOTE | 2016-11-08 12:45 | PN ---
Date/Time of Note Date/Time of Note DATE: 11/08/16 TIME: 12:44 Assessment/Plan VTE Prophylaxis VTE Prophylaxis Intervention: SCD's Lines/Catheters IV Catheter Type (from [facility]): Saline Lock Urinary Cath still in place: No Assessment/Plan Assessment/Plan 1. Severe sepsis due to abcteremia- 2 D echo neg for vegeations . 2. Alpha hemolytic strep bacteremia on admission, possibly pulmonary source, 2- D echo revealed no evidence of vegetations. Repeat blood cultures negative. 3. acute on chronic renal failure, progressed to ESRD started on HD during this admission 4. Status post acute respiratory distress secondary to congestive heart failure exacerbation and volume overload. 5. Non-ST elevation myocardial infarction.- Cardiology following, no further Intevention/procedure planned Plan: IV abx, ID following, recommending for 2 weeks of Abx on PO lasix SCD for DVT prophylaxis podiatry has been consulted to see pt - not seen pt yet HD as per nephrology- will need outpatient HD placement - in progress Case management to help with d/c, Subjective 24 Hr Interval Summary Free Text/Dictation no events overnight, BP stable Exam/Review of Systems Vital Signs Vitals Vital Signs Date Time Temp Pulse Resp B/P Pulse Ox O2 Delivery O2 Flow Rate FiO2 11/08/16 12:36 67 11/08/16 11:52 98.2 20 132/64 99 11/08/16 08:05 Nasal Cannula 2.0 Intake and Output 11/07/16 11/07/16 11/08/16 15:00 23:00 07:00 Intake Total 250 ml Output Total 300 ml Balance -50 ml Exam GENERAL: Well-developed elderly man who is alert, in no distress. HEENT: Head atraumatic, normocephalic. Sclerae anicteric. Buccal mucosa pink. + permacath NECK: Supple, trachea midline. CHEST: Rise symmetrical. Breath sounds clear. HEART: S1, S2. ABDOMEN: Soft, bowel tones present. EXTREMITIES: No cyanosis. Results Result Diagram: 11/07/16 0710 11/07/16 0710 Medications Medications Current Medications Ondansetron HCl (Zofran Inj) 4 mg Q6H PRN IV NAUSEA AND/OR VOMITING Last administered on 11/02/16t 16:29; Admin Dose 4 MG; Start 10/29/16 at 14:30 Acetaminophen (Tylenol Tab) 650 mg Q6H PRN PO PAIN LEVEL 1-3 OR FEVER; Start at 14:30 Acetaminophen (Tylenol Supp) 650 mg Q6H PRN [place] PAIN LEVEL 1-3 OR FEVER; Start 10/29/16 at 14:30 Acetaminophen/ Hydrocodone Bitart ([place] (5/325)) 1 tab Q6H PRN PO MODERATE PAIN LEVEL 4-6; Start 10/29/16 at 14:30 Acetaminophen/ Hydrocodone Bitart ([place] (5/325)) 2 tab Q6H PRN PO SEVERE PAIN LEVEL 7-10; Start 10/29/16 at 14:30 Morphine Sulfate (morphine) 2 mg Q4H PRN IV SEVERE PAIN LEVEL 7-10 Last administered on 11/05/16 22:58; Admin Dose 2 MG; Start 10/29/16 at 14:30 Docusate Sodium (Colace) 100 mg Q12H PRN PO CONSTIPATION Last administered on 13:43; Admin Dose 100 MG; Start 10/29/16 at 14:30 Magnesium Hydroxide (Milk Of Mag) 30 ml DAILY PRN PO CONSTIPATION; Start at 14:30 Bisacodyl (Dulcolax Supp) 10 mg DAILY PRN [place] CONSTIPATION; Start 10/29/16 at 14 :30 Hydralazine HCl (Apresoline) 10 mg Q4 PRN IV sbp>160 Last administered on 15:50; Admin Dose 10 MG; Start 10/29/16 at 14:30 Labetalol HCl (Labetalol) 20 mg Q2H PRN IV for sbp >160 Last administered on 18:01; Admin Dose 20 MG; Start 10/30/16 at 18:00 Pantoprazole 40 mg 40 mg BID@06,18 PO Last administered on 11/08/16 06:25; Admin Dose 40 MG; Start 10/31/16 at 18:00 Ceftriaxone Sodium (Rocephin) 50 ml @ 100 mls/hr Q24H IVPB Last administered on 11/07/16 21:38; Admin Dose 100 MLS/HR; Start 11/01/16 at 19:30 Amlodipine Besylate (Norvasc) 10 mg DAILY PO Last administered on 11/08/16 08: 25; Admin Dose 10 MG; Start 11/04/16 at 09:00 Metoprolol Tartrate (Lopressor) 25 mg BID PO Last administered on 11/08/16 08: 25; Admin Dose 25 MG; Start 11/04/16 at 09:00 Multivit/Ca Carb/ B Cmplx/FA/Prenat ([facility]-Harith[facility]) 1 tab DAILY PO Last administered on 11/08/16 11:54; Admin Dose 1 TAB; Start 11/05/16 at 09:00 Furosemide (Lasix) 40 mg DAILY IV Last administered on 11/08/16 08:24; Admin Dose 40 MG; Start 11/07/16 at 09:00 Betamethasone/ Clotrimazole (Lotrisone Cr) 1 applic BID TOP Last administered on 11/08/16 08:26; Admin Dose 1 APPLIC; Start 11/07/16 at 21:00 ИРИНА URBANO MD Nov 08, 2016 12:45
--- NOTE | 2016-11-08 13:17 | CONS ---
Date/Time of Note Date/Time of Note DATE: 11/08/16 TIME: 13:16 Assessment/Plan Assessment/Plan Chief Complaint/Hosp Course IMPRESSION: 1. Patient has acute kidney injury with possible underlying chronic kidney disease. 2. The patient has anasarca.BETTER 3. Pulmonary edema.BETTER 4. Anemia. 5. Hyperkalemia.BETTER 6. Metabolic acidosis.BETTER 7. Homelessness. 8. Incomplete database. 9. proteinuria. 10. chronic kidney disease. 11. Congestive heart failure. BETTER 12 onychomycosis PLAN HD QOD ok to go home from renal Problems: Consultation Date/Type/Reason Admit Date/Time Oct 29, 2016 at 13:24 Initial Consult Date 10/29/16 Type of Consultation: RENAL 24 HR Interval Summary Constitutional: no complaints Exam/Review of Systems Vital Signs Vitals Vital Signs Date Time Temp Pulse Resp B/P Pulse Ox O2 Delivery O2 Flow Rate FiO2 11/08/16 12:36 67 11/08/16 11:52 98.2 20 132/64 99 11/08/16 08:05 Nasal Cannula 2.0 Intake and Output 11/07/16 11/07/16 11/08/16 15:00 23:00 07:00 Intake Total 250 ml Output Total 300 ml Balance -50 ml Exam Neck: supple Respiratory: clear to auscultation Cardiovascular: regular rate and rhythm Gastrointestinal: soft Extremities: edema (tr) Results Result Diagram: 11/07/16 0710 11/07/16 0710 Medications Medications Current Medications Ondansetron HCl (Zofran Inj) 4 mg Q6H PRN IV NAUSEA AND/OR VOMITING Last administered on 11/02/16t 16:29; Admin Dose 4 MG; Start 10/29/16 at 14:30 Acetaminophen (Tylenol Tab) 650 mg Q6H PRN PO PAIN LEVEL 1-3 OR FEVER; Start at 14:30 Acetaminophen (Tylenol Supp) 650 mg Q6H PRN [place] PAIN LEVEL 1-3 OR FEVER; Start 10/29/16 at 14:30 Acetaminophen/ Hydrocodone Bitart ([place] (5/325)) 1 tab Q6H PRN PO MODERATE PAIN LEVEL 4-6; Start 10/29/16 at 14:30 Acetaminophen/ Hydrocodone Bitart ([place] (5/325)) 2 tab Q6H PRN PO SEVERE PAIN LEVEL 7-10; Start 10/29/16 at 14:30 Morphine Sulfate (morphine) 2 mg Q4H PRN IV SEVERE PAIN LEVEL 7-10 Last administered on 11/05/16 22:58; Admin Dose 2 MG; Start 10/29/16 at 14:30 Docusate Sodium (Colace) 100 mg Q12H PRN PO CONSTIPATION Last administered on 13:43; Admin Dose 100 MG; Start 10/29/16 at 14:30 Magnesium Hydroxide (Milk Of Mag) 30 ml DAILY PRN PO CONSTIPATION; Start at 14:30 Bisacodyl (Dulcolax Supp) 10 mg DAILY PRN [place] CONSTIPATION; Start 10/29/16 at 14 :30 Hydralazine HCl (Apresoline) 10 mg Q4 PRN IV sbp>160 Last administered on 15:50; Admin Dose 10 MG; Start 10/29/16 at 14:30 Labetalol HCl (Labetalol) 20 mg Q2H PRN IV for sbp >160 Last administered on 18:01; Admin Dose 20 MG; Start 10/30/16 at 18:00 Pantoprazole 40 mg 40 mg BID@06,18 PO Last administered on 11/08/16 06:25; Admin Dose 40 MG; Start 10/31/16 at 18:00 Ceftriaxone Sodium (Rocephin) 50 ml @ 100 mls/hr Q24H IVPB Last administered on 11/07/16 21:38; Admin Dose 100 MLS/HR; Start 11/01/16 at 19:30 Amlodipine Besylate (Norvasc) 10 mg DAILY PO Last administered on 11/08/16 08: 25; Admin Dose 10 MG; Start 11/04/16 at 09:00 Metoprolol Tartrate (Lopressor) 25 mg BID PO Last administered on 11/08/16 08: 25; Admin Dose 25 MG; Start 11/04/16 at 09:00 Multivit/Ca Carb/ B Cmplx/FA/Prenat (Ct-Haritha) 1 tab DAILY PO Last administered on 11/08/16 11:54; Admin Dose 1 TAB; Start 11/05/16 at 09:00 Furosemide (Lasix) 40 mg DAILY IV Last administered on 11/08/16 08:24; Admin Dose 40 MG; Start 11/07/16 at 09:00 Betamethasone/ Clotrimazole (Lotrisone Cr) 1 applic BID TOP Last administered on 11/08/16 08:26; Admin Dose 1 APPLIC; Start 11/07/16 at 21:00 ARMIDA HARRIS MD Nov 08, 2016 13:17
[2016-11-08] MEDS: CEFTRIAXONE 1 GM/50 ML (PMX) 50 ML IVPB SCH (20:28)
[2016-11-09] VITALS (16 sets, daily range): BP systolic 106–155; BP diastolic 54–69; PULSE 67–85; RESP 16–19
[2016-11-09] MEDS: PANTOPRAZOLE (EC) 40 MG TAB PO SCH ×2 (06:09→17:41)
[2016-11-09] MEDS: MULTIVIT/CA CARB/B CMPLX/FA TAB PO SCH (08:30)
[2016-11-09] MEDS: CALCIUM ACETATE 667 MG CAP PO SCH ×3 (08:31→17:41)
[2016-11-09] MEDS: AMLODIPINE 10 MG TAB PO SCH (08:31)
[2016-11-09] MEDS: METOPROLOL 25 MG TAB PO SCH ×2 (08:31→21:04)
[2016-11-09] MEDS: BETAMETHASONE/CLOTRIMAZOLE 15 GM CR TOP SCH ×2 (08:32→22:42)
[2016-11-09] MEDS: FUROSEMIDE 40 MG INJ IV SCH (08:33)
--- NOTE | 2016-11-09 11:59 | CONS ---
Date/Time of Note Date/Time of Note DATE: 11/09/16 TIME: 11:58 Assessment/Plan Assessment/Plan Chief Complaint/Hosp Course SUBJECTIVE: The patient is lying comfortably in bed. No fevers. INDWELLINGS: Right subclavian permacath, Mcgill catheter. MICROBIOLOGY: Blood culture on admission grew alpha hemolytic strep species . ALLERGIES: NONE. ANTIMICROBIALS: Rocephin. PHYSICAL EXAMINATION: GENERAL: Well-developed, elderly man in no distress. HEENT: Head atraumatic, normocephalic. Sclerae anicteric. Buccal mucosa pink. NECK: Supple, trachea midline. CHEST: Rise symmetrical. Breath sounds diminished to bases. HEART: S1, S2. ABDOMEN: Soft. Bowel tones present. ASSESSMENT: 1. Alpha hemolytic strep bacteremia, unclear etiology. A 2D echocardiogram on admission revealed no vegetations. 2. Acute renal failure, possibly on chronic kidney disease, status post Baljit , started on hemodialysis. 3. Status post acute respiratory distress secondary to pleural effusion. 4. Anemia. 5. Homelessness. PLAN: Clinically stable, repeat bld cx negative, continue abx for 3 more days, HD per renal DW staff Problems: Consultation Date/Type/Reason Admit Date/Time Oct 29, 2016 at 13:24 Initial Consult Date 10/29/16 Type of Consultation: id Exam/Review of Systems Vital Signs Vitals Vital Signs Date Time Temp Pulse Resp B/P Pulse Ox O2 Delivery O2 Flow Rate FiO2 11/09/16 09:34 Nasal Cannula 2.0 11/09/16 08:52 69 11/09/16 08:03 99.1 19 144/66 99 Intake and Output 11/08/16 11/08/16 11/09/16 15:00 23:00 07:00 Intake Total 550 ml 350 ml Output Total 150 ml Balance 550 ml 200 ml Results Result Diagram: 11/07/16 0710 11/07/16 0710 Medications Medications Current Medications Ondansetron HCl (Zofran Inj) 4 mg Q6H PRN IV NAUSEA AND/OR VOMITING Last administered on 11/02/16t 16:29; Admin Dose 4 MG; Start 10/29/16 at 14:30 Acetaminophen (Tylenol Tab) 650 mg Q6H PRN PO PAIN LEVEL 1-3 OR FEVER; Start at 14:30 Acetaminophen (Tylenol Supp) 650 mg Q6H PRN [place] PAIN LEVEL 1-3 OR FEVER; Start 10/29/16 at 14:30 Acetaminophen/ Hydrocodone Bitart ([place] (5/325)) 1 tab Q6H PRN PO MODERATE PAIN LEVEL 4-6; Start 10/29/16 at 14:30 Acetaminophen/ Hydrocodone Bitart ([place] (5/325)) 2 tab Q6H PRN PO SEVERE PAIN LEVEL 7-10; Start 10/29/16 at 14:30 Morphine Sulfate (morphine) 2 mg Q4H PRN IV SEVERE PAIN LEVEL 7-10 Last administered on 11/05/16 22:58; Admin Dose 2 MG; Start 10/29/16 at 14:30 Docusate Sodium (Colace) 100 mg Q12H PRN PO CONSTIPATION Last administered on 13:43; Admin Dose 100 MG; Start 10/29/16 at 14:30 Magnesium Hydroxide (Milk Of Mag) 30 ml DAILY PRN PO CONSTIPATION; Start at 14:30 Bisacodyl (Dulcolax Supp) 10 mg DAILY PRN [place] CONSTIPATION; Start 10/29/16 at 14 :30 Hydralazine HCl (Apresoline) 10 mg Q4 PRN IV sbp>160 Last administered on 15:50; Admin Dose 10 MG; Start 10/29/16 at 14:30 Labetalol HCl (Labetalol) 20 mg Q2H PRN IV for sbp >160 Last administered on 18:01; Admin Dose 20 MG; Start 10/30/16 at 18:00 Pantoprazole 40 mg 40 mg BID@06,18 PO Last administered on 11/09/16 06:09; Admin Dose 40 MG; Start 10/31/16 at 18:00 Ceftriaxone Sodium (Rocephin) 50 ml @ 100 mls/hr Q24H IVPB Last administered on 11/08/16 20:28; Admin Dose 100 MLS/HR; Start 11/01/16 at 19:30 Amlodipine Besylate (Norvasc) 10 mg DAILY PO Last administered on 11/09/16 08: 31; Admin Dose 10 MG; Start 11/04/16 at 09:00 Metoprolol Tartrate (Lopressor) 25 mg BID PO Last administered on 11/09/16 08: 31; Admin Dose 25 MG; Start 11/04/16 at 09:00 Multivit/Ca Carb/ B Cmplx/FA/Prenat (Ct-Haritha) 1 tab DAILY PO Last administered on 11/09/16 08:30; Admin Dose 1 TAB; Start 11/05/16 at 09:00 Furosemide (Lasix) 40 mg DAILY IV Last administered on 11/09/16 08:33; Admin Dose 40 MG; Start 11/07/16 at 09:00 Betamethasone/ Clotrimazole (Lotrisone Cr) 1 applic BID TOP Last administered on 11/09/16 08:32; Admin Dose 1 APPLIC; Start 11/07/16 at 21:00 MARY CEDILLO NP Nov 09, 2016 11:58
--- NOTE | 2016-11-09 12:17 | PN ---
Date/Time of Note Date/Time of Note DATE: 11/09/16 TIME: 11:56 Assessment/Plan VTE Prophylaxis VTE Prophylaxis Intervention: heparin Lines/Catheters IV Catheter Type (from Nrsg): Saline Lock Urinary Cath still in place: No Assessment/Plan Assessment/Plan 1. ESRD, on HD started this admission 2. Bacteremia, rocephin to 11/12/2016. 3. Anemia, normocytic, CKD related 4. Pulmonary hypertension 5. Congestive heart failure. diastolic, stable 6 onychomycosis, stable 7. Legally blind 8. DVT prophylaxis: heparin Exam/Review of Systems Vital Signs Vitals Vital Signs Date Time Temp Pulse Resp B/P Pulse Ox O2 Delivery O2 Flow Rate FiO2 11/09/16 09:34 Nasal Cannula 2.0 11/09/16 08:52 69 11/09/16 08:03 99.1 19 144/66 99 Intake and Output 11/08/16 11/08/16 11/09/16 15:00 23:00 07:00 Intake Total 550 ml 350 ml Output Total 150 ml Balance 550 ml 200 ml Results Result Diagram: 11/07/16 0710 11/07/16 0710 Medications Medications Current Medications Ondansetron HCl (Zofran Inj) 4 mg Q6H PRN IV NAUSEA AND/OR VOMITING Last administered on 11/02/16 16:29; Admin Dose 4 MG; Start 10/29/16 at 14:30 Acetaminophen (Tylenol Tab) 650 mg Q6H PRN PO PAIN LEVEL 1-3 OR FEVER; Start at 14:30 Acetaminophen (Tylenol Supp) 650 mg Q6H PRN [place] PAIN LEVEL 1-3 OR FEVER; Start 10/29/16 at 14:30 Acetaminophen/ Hydrocodone Bitart ([place] (5/325)) 1 tab Q6H PRN PO MODERATE PAIN LEVEL 4-6; Start 10/29/16 at 14:30 Acetaminophen/ Hydrocodone Bitart ([place] (5/325)) 2 tab Q6H PRN PO SEVERE PAIN LEVEL 7-10; Start 10/29/16 at 14:30 Morphine Sulfate (morphine) 2 mg Q4H PRN IV SEVERE PAIN LEVEL 7-10 Last administered on 11/05/16 22:58; Admin Dose 2 MG; Start 10/29/16 at 14:30 Docusate Sodium (Colace) 100 mg Q12H PRN PO CONSTIPATION Last administered on 13:43; Admin Dose 100 MG; Start 10/29/16 at 14:30 Magnesium Hydroxide (Milk Of Mag) 30 ml DAILY PRN PO CONSTIPATION; Start at 14:30 Bisacodyl (Dulcolax Supp) 10 mg DAILY PRN [place] CONSTIPATION; Start 10/29/16 at 14 :30 Hydralazine HCl (Apresoline) 10 mg Q4 PRN IV sbp>160 Last administered on 15:50; Admin Dose 10 MG; Start 10/29/16 at 14:30 Labetalol HCl (Labetalol) 20 mg Q2H PRN IV for sbp >160 Last administered on 18:01; Admin Dose 20 MG; Start 10/30/16 at 18:00 Pantoprazole 40 mg 40 mg BID@06,18 PO Last administered on 11/09/16 06:09; Admin Dose 40 MG; Start 10/31/16 at 18:00 Ceftriaxone Sodium (Rocephin) 50 ml @ 100 mls/hr Q24H IVPB Last administered on 11/08/16 20:28; Admin Dose 100 MLS/HR; Start 11/01/16 at 19:30 Amlodipine Besylate (Norvasc) 10 mg DAILY PO Last administered on 11/09/16 08: 31; Admin Dose 10 MG; Start 11/04/16 at 09:00 Metoprolol Tartrate (Lopressor) 25 mg BID PO Last administered on 11/09/16 08: 31; Admin Dose 25 MG; Start 11/04/16 at 09:00 Multivit/Ca Carb/ B Cmplx/FA/Prenat (Ct-Haritha) 1 tab DAILY PO Last administered on 11/09/16 08:30; Admin Dose 1 TAB; Start 11/05/16 at 09:00 Furosemide (Lasix) 40 mg DAILY IV Last administered on 11/09/16 08:33; Admin Dose 40 MG; Start 11/07/16 at 09:00 Betamethasone/ Clotrimazole (Lotrisone Cr) 1 applic BID TOP Last administered on 11/09/16 08:32; Admin Dose 1 APPLIC; Start 11/07/16 at 21:00 CHIKI CHEUNG MD Nov 09, 2016 12:09
[2016-11-09] MEDS ORDERED: METO-448 PO (14:59)
[2016-11-09] MEDS ORDERED: AMLO-147 PO (14:59)
[2016-11-09] MEDS ORDERED: VANC1.5P12 IV (15:01)
--- NOTE | 2016-11-09 15:06 | DS ---
Date/Time of Note Date/Time of Note DATE: 11/09/16 TIME: 15:02 Discharge Summary Admission/Discharge Info Admit Date/Time Oct 29, 2016 at 13:24 Discharge Date/Time Final Diagnosis 1. ESRD, on HD started this admission 2. Bacteremia, one dose of vancomycin on HD on 3. Anemia, normocytic, CKD related 4. Pulmonary hypertension 5. Congestive heart failure. diastolic, stable 6 onychomycosis, stable 7. Legally blind Patient Condition: Stable Hx of Present Illness This is a 61-year-old male who is a poor historian of his medical history who came to the [facility] due to reports of increased shortness of breath. According to the patient had been havin increased shortness of breath for several days. He is reported to be homeless and was brought to his mother who then brought the patient to the hospital due to his increased shortness of breath. On further examination He did have a chest x-ray that did show cardiomegaly and central pulmonary vascular congestion and interstitial prominence in both lungs. There is also some patchy infiltrates in the right mid and lower lung combined with moderate pleural effusion. There is also seen atelectasis versus mild infiltrates in the left lower lobe. There was also seen and an 11 mm nodular density over the left lower lobe. Patient also was in hypertensive emergency with blood pressure of 226/110. Further lab results done also showed him to have elevated potassium at 6.0 and a BUN of 105 and creatinine of 12.83. He was also found with electrode imbalance of calcium which was 5.9. He also had elevated troponin initial at 0.732 and second and 0.662. He had elevated BNP of 83,200. Currently the patient is alert and oriented. He does have some shortness of breath but does have normal oxygenation while on room air. We will evaluate him for the aforementioned issues. Hospital Course Patient is started HD that is scheduled on TTS. Patient was found of having bacteremia with ALPHA HEMOLYTIC STREP SPP and [employer]. He is getting rocephin. He will get one dose of vancomycin during next HD on . Home Meds Active Scripts Vancomycin HCl in Dextrose 5 % (Vancomycin 1.5 Gram/250 ml-D5w) 1.5 Gm/250 Ml Plast..bag, 1.5 GM IV ONCE for 1 Day Prov:CHIKI CHEUNG MD 11/09/16 Metoprolol Tartrate* (Lopressor*) 25 Mg Tab, 25 MG PO BID for 30 Days, TAB Prov:CHIKI CHEUNG MD 11/09/16 Amlodipine Besylate* (Amlodipine Besylate*) 10 Mg Tablet, 10 MG PO DAILY for 30 Days, TAB Prov:CHIKI CHEUNG MD 11/09/16 Follow-up Plan PCP in one week Nephrology one week CHIKI CHEUNG MD Nov 09, 2016 15:06
[2016-11-09] MEDS ORDERED: VANCOMYCIN 1.5 GM in SOD CHLORIDE 0.9% 250 ML IVPB SCH (16:30)
--- NOTE | 2016-11-09 17:02 | PN ---
Date/Time of Note Date/Time of Note DATE: 11/09/16 TIME: 17:01 Assessment/Plan VTE Prophylaxis VTE Prophylaxis Intervention: other Lines/Catheters IV Catheter Type (from Nrs): Saline Lock Urinary Cath still in place: No Assessment/Plan Chief Complaint/Hosp Course IMPRESSION: 1. Patient has acute kidney injury with possible underlying chronic kidney disease. 2. The patient has anasarca.BETTER 3. Pulmonary edema.BETTER 4. Anemia. 5. Hyperkalemia.BETTER 6. Metabolic acidosis.BETTER 7. Homelessness. 8. Incomplete database. 9. proteinuria. 10. chronic kidney disease. 11. Congestive heart failure. BETTER 12 onychomycosis PLAN HD QOD ok to go home from renal Problems: Subjective 24 Hr Interval Summary ENT: no complaints Respiratory: no complaints Cardiovascular: no complaints Exam/Review of Systems Vital Signs Vitals Vital Signs Date Time Temp Pulse Resp B/P Pulse Ox O2 Delivery O2 Flow Rate FiO2 11/09/16 16:30 80 11/09/16 16:16 98.2 16 114/65 99 11/09/16 09:34 Nasal Cannula 2.0 Intake and Output 11/08/16 11/08/16 11/09/16 15:00 23:00 07:00 Intake Total 550 ml 350 ml Output Total 150 ml Balance 550 ml 200 ml Exam Neck: supple Respiratory: clear to auscultation Cardiovascular: regular rate and rhythm Gastrointestinal: soft Extremities: normal pulses Results Result Diagram: 11/07/16 0710 11/07/16 0710 Medications Medications Current Medications Ondansetron HCl (Zofran Inj) 4 mg Q6H PRN IV NAUSEA AND/OR VOMITING Last administered on 11/02/16t 16:29; Admin Dose 4 MG; Start 10/29/16 at 14:30 Acetaminophen (Tylenol Tab) 650 mg Q6H PRN PO PAIN LEVEL 1-3 OR FEVER; Start at 14:30 Acetaminophen (Tylenol Supp) 650 mg Q6H PRN [place] PAIN LEVEL 1-3 OR FEVER; Start 10/29/16 at 14:30 Acetaminophen/ Hydrocodone Bitart ([place] (5/325)) 1 tab Q6H PRN PO MODERATE PAIN LEVEL 4-6; Start 10/29/16 at 14:30 Acetaminophen/ Hydrocodone Bitart ([place] (5/325)) 2 tab Q6H PRN PO SEVERE PAIN LEVEL 7-10; Start 10/29/16 at 14:30 Morphine Sulfate (morphine) 2 mg Q4H PRN IV SEVERE PAIN LEVEL 7-10 Last administered on 11/05/16 22:58; Admin Dose 2 MG; Start 10/29/16 at 14:30 Docusate Sodium (Colace) 100 mg Q12H PRN PO CONSTIPATION Last administered on 13:43; Admin Dose 100 MG; Start 10/29/16 at 14:30 Magnesium Hydroxide (Milk Of Mag) 30 ml DAILY PRN PO CONSTIPATION; Start at 14:30 Bisacodyl (Dulcolax Supp) 10 mg DAILY PRN [place] CONSTIPATION; Start 10/29/16 at 14 :30 Pantoprazole 40 mg 40 mg BID@06,18 PO Last administered on 11/09/16 06:09; Admin Dose 40 MG; Start 10/31/16 at 18:00 Ceftriaxone Sodium (Rocephin) 50 ml @ 100 mls/hr Q24H IVPB Last administered on 11/08/16 20:28; Admin Dose 100 MLS/HR; Start 11/01/16 at 19:30 Amlodipine Besylate (Norvasc) 10 mg DAILY PO Last administered on 11/09/16 08: 31; Admin Dose 10 MG; Start 11/04/16 at 09:00 Metoprolol Tartrate (Lopressor) 25 mg BID PO Last administered on 11/09/16 08: 31; Admin Dose 25 MG; Start 11/04/16 at 09:00 Multivit/Ca Carb/ B Cmplx/FA/Prenat (Ct-Haritha) 1 tab DAILY PO Last administered on 11/09/16 08:30; Admin Dose 1 TAB; Start 11/05/16 at 09:00 Furosemide (Lasix) 40 mg DAILY IV Last administered on 11/09/16 08:33; Admin Dose 40 MG; Start 11/07/16 at 09:00 Betamethasone/ Clotrimazole (Lotrisone Cr) 1 applic BID TOP Last administered on 11/09/16 08:32; Admin Dose 1 APPLIC; Start 11/07/16 at 21:00 Heparin Sodium (Porcine) 5000 unit 5,000 unit BID SC ; Start 11/09/16 at 21:00 Vancomycin HCl/ Sodium Chloride (Vancocin/NS) 250 ml @ 83.333 mls/ hr ONCE IVPB ; Start 11/09/16 at 16:30; Stop 11/09/16 at 19:29 ARMIDA HARRIS MD Nov 09, 2016 17:02
[2016-11-09] MEDS: CEFTRIAXONE 1 GM/50 ML (PMX) 50 ML IVPB SCH (19:58)
[2016-11-09] MEDS: HEPARIN 5,000 UNIT/0.5 ML SYG SC SCH (21:20)
[2016-11-10] VITALS: PULSE 72
[2016-11-10 00:26] VITALS: BP 147/65; RESP 18
[2016-11-10 04:00] VITALS: PULSE 69
[2016-11-10 04:06] VITALS: BP 143/67; RESP 18
[2016-11-10] MEDS: PANTOPRAZOLE (EC) 40 MG TAB PO SCH (05:44)
[2016-11-10 08:00] VITALS: PULSE 69
[2016-11-10] MEDS: CALCIUM ACETATE 667 MG CAP PO SCH (08:31)
[2016-11-10] MEDS: MULTIVIT/CA CARB/B CMPLX/FA TAB PO SCH (08:31)
[2016-11-10] MEDS: AMLODIPINE 10 MG TAB PO SCH (08:32)
[2016-11-10] MEDS: METOPROLOL 25 MG TAB PO SCH (08:32)
[2016-11-10] MEDS: HEPARIN 5,000 UNIT/0.5 ML SYG SC SCH (08:38)
[2016-11-10] MEDS: BETAMETHASONE/CLOTRIMAZOLE 15 GM CR TOP SCH (08:38)
[2016-11-10] MEDS: FUROSEMIDE 40 MG INJ IV SCH (09:05)
[2016-11-10 09:07] VITALS: BP 154/71; RESP 18
--- NOTE | 2016-11-10 15:04 | DS ---
Date/Time of Note Date/Time of Note DATE: 11/10/16 TIME: 15:02 Discharge Summary Admission/Discharge Info Admit Date/Time Oct 29, 2016 at 13:24 Discharge Date/Time Nov 10, 2016 at 11:40 Final Diagnosis 1. ESRD, on HD started this admission 2. Bacteremia, one dose of vancomycin on HD on 3. Anemia, normocytic, CKD related 4. Pulmonary hypertension 5. Congestive heart failure. diastolic, stable 6 onychomycosis, stable 7. Legally blind Patient Condition: Stable Hx of Present Illness This is a 61-year-old male who is a poor historian of his medical history who came to the [facility], [place] due to reports of increased shortness of breath. According to the patient had been havin increased shortness of breath for several days. He is reported to be homeless and was brought to his mother who then brought the patient to the hospital due to his increased shortness of breath. On further examination He did have a chest x-ray that did show cardiomegaly and central pulmonary vascular congestion and interstitial prominence in both lungs. There is also some patchy infiltrates in the right mid and lower lung combined with moderate pleural effusion. There is also seen atelectasis versus mild infiltrates in the left lower lobe. There was also seen and an 11 mm nodular density over the left lower lobe. Patient also was in hypertensive emergency with blood pressure of 226/110. Further lab results done also showed him to have elevated potassium at 6.0 and a BUN of 105 and creatinine of 12.83. He was also found with electrode imbalance of calcium which was 5.9. He also had elevated troponin initial at 0.732 and second and 0.662. He had elevated BNP of 83,200. Currently the patient is alert and oriented. He does have some shortness of breath but does have normal oxygenation while on room air. We will evaluate him for the aforementioned issues. Hospital Course Patient is started HD that is scheduled on TTS. Patient was found of having bacteremia with ALPHA HEMOLYTIC STREP SPP and [facility]. He is getting rocephin. He will get one dose of vancomycin during next HD on . Home Meds Active Scripts Vancomycin HCl in Dextrose 5 % (Vancomycin 1.5 Gram/250 ml-D5w) 1.5 Gm/250 Ml Plast..bag, 1.5 GM IV ONCE for 1 Day Prov:CHIKI CHEUNG MD 11/09/16 Metoprolol Tartrate* (Lopressor*) 25 Mg Tab, 25 MG PO BID for 30 Days, TAB Prov:CHIKI CHEUNG MD 11/09/16 Amlodipine Besylate* (Amlodipine Besylate*) 10 Mg Tablet, 10 MG PO DAILY for 30 Days, TAB Prov:CHIKI CHEUNG MD 11/09/16 Follow-up Plan PCP in one week Nephrology one week CHIKI CHEUNG MD Nov 10, 2016 15:04
--- NOTE | 2016-11-12 15:57 | QN ---
Documentation Comment [id number] ARMIDA HARRIS MD Nov 12, 2016 15:57
== END 2016-11-10 11:40 | disposition home or self-care (01) | DRG 682 ==
LOC: E/R 10:31 → MS4 13:24
PROVIDERS: ADMIT Family Medicine; ATTEND Family Medicine
PROC: 0W993ZZ Drainage of Right Pleural Cavity, Percutaneous Approach (ICD-10-PCS; principal; 2016-10-30)
PROC: 30233N1 Transfusion of Nonautologous Red Blood Cells into Peripheral Vein, Percutaneous Approach (ICD-10-PCS; 2016-10-30)
PROC: 05HM33Z Insertion of Infusion Device into Right Internal Jugular Vein, Percutaneous Approach (ICD-10-PCS; 2016-10-31)
PROC: B543ZZA Ultrasonography of Right Jugular Veins, Guidance (ICD-10-PCS; 2016-10-31)
PROC: 5A1D60Z (ICD-10-PCS; 2016-11-01)
PROC: 0HBRXZZ Excision of Toe Nail, External Approach (ICD-10-PCS; 2016-11-07)
PROC: 0HBRXZZ Excision of Toe Nail, External Approach (ICD-10-PCS; 2016-11-07)
PROC: 0HBRXZZ Excision of Toe Nail, External Approach (ICD-10-PCS; 2016-11-07)
PROC: 0HBRXZZ Excision of Toe Nail, External Approach (ICD-10-PCS; 2016-11-07)
PROC: 0HBRXZZ Excision of Toe Nail, External Approach (ICD-10-PCS; 2016-11-07)
PROC: 0HBRXZZ Excision of Toe Nail, External Approach (ICD-10-PCS; 2016-11-07)
PROC: 0HBRXZZ Excision of Toe Nail, External Approach (ICD-10-PCS; 2016-11-07)
PROC: 0HBRXZZ Excision of Toe Nail, External Approach (ICD-10-PCS; 2016-11-07)
PROC: 0HBRXZZ Excision of Toe Nail, External Approach (ICD-10-PCS; 2016-11-07)
PROC: 0HBRXZZ Excision of Toe Nail, External Approach (ICD-10-PCS; 2016-11-07)
DX: N17.9 Acute kidney failure, unspecified (principal); I50.33 Acute on chronic diastolic (congestive) heart failure; I21.4 Non-ST elevation (NSTEMI) myocardial infarction; J81.1 Chronic pulmonary edema; J90 Pleural effusion, not elsewhere classified; R78.81 Bacteremia; E87.2 Acidosis; I16.1 Hypertensive emergency; I13.2 Hypertensive heart and chronic kidney disease with heart failure and with stage 5 chronic kidney disease, or end stage renal disease; I27.2 Other secondary pulmonary hypertension; N18.6 End stage renal disease; E87.5 Hyperkalemia; D63.1 Anemia in chronic kidney disease; E83.51 Hypocalcemia; E87.8 Other disorders of electrolyte and fluid balance, not elsewhere classified; E87.70 Fluid overload, unspecified; H54.8 Legal blindness, as defined in USA; R80.9 Proteinuria, unspecified; B35.1 Tinea unguium; B95.4 Other streptococcus as the cause of diseases classified elsewhere; Z99.2 Dependence on renal dialysis; Z59.0 Homelessness; Z87.891 Personal history of nicotine dependence
CPT/HCPCS: 36415; 36430; 36558; 71010; 76775; 76942; 80048; 80053; 80061; 81001; 81003; 82140; 82270; 82550; 82553; 82570; 83036; 83690; 83735; 83880; 83970; 84100; 84155; 84157; 84300; 84436; 84443; 84450; 84460; 84479; 84484; 85025; 85610; 85730; 86704; 86709; 86803; 86850; 86900; 86901; 86920; 87040; 87086; 87340; 89190; 90935; 93005; 93306; 94664; 96365; 96375; 96376; J0360; J0610; J0690; J0696; J1200; J1644; J1940; J2150; J2250; J2270; J2405; J3010; J3370; J3411; J7030; J7040; J7050; P9016

== ENCOUNTER 2016-11-11 16:58 | Inpatient (IN) | payer MEDICAID ==
[~2016-11-11] VITALS: Ht 167.6 cm; Wt 68.1 kg
[~2016-11-11 16:58] MED LIST: AMLO-147 PO; METO-448 PO; VANC1.5P12 IV
--- NOTE | 2016-11-11 21:18 | ERA ---
ER Documentation Chief Complaint Date/Time DATE: 11/11/16 TIME: 21:15 Chief Complaint C/O WEAKNESS HPI Patient is a 61-year-old male who is a very difficult historian. I attempted to ask him several questions and could tell that he was not quite comprehending my questions so I got a assistant warehouse manager. Unfortunately even with a assistant warehouse manager there seem to be some difficulty with either comprehension or just simply understanding what we were asking. The patient seemed to answer in a way in which he wanted to answer as opposed to answering the questions that we are asking which made it very difficult to understand why he was here. The patient repeatedly said he was here for high blood pressure. He also stated that he was weak and had not been walking. When asked how long that has been going on he said a few days however his mother said "a long time." I am unsure of how long this is been going on. I asked if his doctor was aware that he was not walking. He said yes and his mother said no. I asked if he had a headache and he said yes and then he said no. I asked if he had had chest pain and he said sometimes does not sometimes know. He did deny having abdominal pain and fever. He had not had any nausea or vomiting or diarrhea. He did state that his weakness was on both sides and that when he stood up he felt generally weak and like he would fall secondary to both pain and weakness. This was the extent of the information that I could obtain. ROS All systems reviewed and are negative except as per history of present illness. Medications Home Meds Active Scripts Metoprolol Tartrate* (Lopressor*) 25 Mg Tab, 25 MG PO BID for 30 Days, TAB Prov:CHIKI CHEUNG MD 11/09/16 Amlodipine Besylate* (Amlodipine Besylate*) 10 Mg Tablet, 10 MG PO DAILY for 30 Days, TAB Prov:CHIKI CHEUNG MD 11/09/16 Discontinued Scripts Vancomycin HCl in Dextrose 5 % (Vancomycin 1.5 Gram/250 ml-D5w) 1.5 Gm/250 Ml Plast..bag, 1.5 GM IV ONCE for 1 Day Prov:CHIKI CHEUNG MD 11/09/16 Allergies Allergies: Coded Allergies: No Known Allergy (Unverified , 11/11/16) PMhx/Soc Anesthesia Reaction: No Hx Neurological Disorder: No Hx Respiratory Disorders: Yes (SOB) Hx Cardiac Disorders: Yes (HTN) Hx Psychiatric Problems: No Hx Miscellaneous Medical Probl: Yes (Foot Rash, Dialysis) Hx Alcohol Use: No Hx Substance Use: No Hx Tobacco Use: No Smoking Status: Never smoker Physical Exam Vitals Vital Signs Date Time Temp Pulse Resp B/P Pulse Ox O2 Delivery O2 Flow Rate FiO2 11/11/16 17:09 98.1 78 18 152/72 99 Physical Exam Const: [] Well-developed well-nourished male sitting on the bed picking his nose Head: Atraumatic normocephalic Eyes: Normal Conjunctiva ENT: Normal External Ears, Nose and Mouth. Neck: Full range of motion..~ No meningismus. Resp: Clear to auscultation bilaterally Cardio: Regular rate and rhythm, 2/6 systolic ejection murmur Abd: Soft, non tender, non distended. Normal bowel sounds no masses, rebound , or guarding Skin: No petechiae or rashes Back: No midline or flank tenderness Ext: No cyanosis, or edema Neur: Awake and alert oriented 3, GCS of 15, moves all extremities equally, grossly nonfocal Psych: Normal Mood and Affect Result Diagram: 11/11/16211911/11/162119 Results 24 hrs Laboratory Tests Test 11/11/16 21:20 Activated Partial Thromboplast Time 31.4Sec Alanine Aminotransferase (ALT/SGPT) 46IU/L Albumin 3.7g/dl Albumin/Globulin Ratio 0.84 Alkaline Phosphatase 240IU/L Anion Gap 23 Aspartate Amino Transf (AST/SGOT) 48IU/L Basophils # 0.010^3/ul Basophils % 0.4% Blood Urea Nitrogen 90mg/dl Calcium Level 8.2mg/dl Carbon Dioxide Level 25mmol/L Chloride Level 95mmol/L Creatinine 9.13mg/dl Direct Bilirubin 0.00mg/dl Eosinophils # 0.010^3/ul Eosinophils % 0.2% Globulin 4.40g/dl Glucose Level 121mg/dl Hematocrit 28.7% Hemoglobin 9.2g/dl INR International Normalized Ratio 1.05 Indirect Bilirubin 0.0mg/dl Lactic Acid Level 0.9mmol/L Lymphocytes # 0.810^3/ul Lymphocytes % 7.4% Mean Corpuscular Hemoglobin 28.6pg Mean Corpuscular Hemoglobin Concent 32.1g/dl Mean Corpuscular Volume 89.1fl Mean Platelet Volume 13.8fl Monocytes # 0.810^3/ul Monocytes % 8.2% Neutrophils # 8.510^3/ul Neutrophils % 83.5% Nucleated Red Blood Cells # 0.010^3/ul Nucleated Red Blood Cells % 0.0/100WBC Platelet Count 27680^3/UL Potassium Level 5.0mmol/L Prothrombin Time 13.7Sec Prothrombin Time Ratio 1.1 Red Blood Count 3.2210^6/ul Red Cell Distribution Width 13.7% Sodium Level 138mmol/L Total Bilirubin 0.0mg/dl Total Protein 8.1g/dl Troponin I 0.072ng/ml White Blood Count 10.210^3/ul Procedures/MDM Differential includes but is not limited to generalized weakness, bacteremia, renal failure, inability to care for self EKG: Rate/Rhythm: Normal Sinus Rhythm at 75 bpm patient has Q waves noted in leads V1 and V2 consistent with an old infarct QRS, ST, T-waves: No changes consistent w/ acute ischemia Impression: No evidence of ischemia or arrhythmia Chest x-ray demonstrates a large right pleural effusion which is new when compared to prior chest film Patient's exam has remained unchanged from earlier. I spoke with Dr. Dacosta who is agreed to admit the patient for further evaluation and treatment. Departure Diagnosis: Primary Impression: Generalized weakness Additional Impressions: Renal failure Hypertension Qualified Code: I10 - Essential hypertension Physical deconditioning Condition: FREIDA Brian Nov 11, 2016 21:18
--- NOTE | 2016-11-11 21:56 | RADRPT ---
PROCEDURE: XR Chest. CLINICAL INDICATION: Possible sepsis. TECHNIQUE: Single frontal view of the chest was obtained COMPARISON: 11/07/2016. FINDINGS: Right central venous double-lumen dialysis catheter in place, with tip in the right atrium. Positio n is unchanged over interval. Cardiomegaly. Increased right pleural effusion. Stable left pleural effusion. Pleural effusions are right much gr eater than left. Bilateral patchy air space disease compatible with volume overload versus failure. There is no pneumothorax. IMPRESSION: 1. Bilateral pleural effusions, increased on the right and stable on the left. 2. Pleural effusions are right much greater than left. 3. Cardiomegaly and patchy air space disease. 4. Findings represent failure versus volume overload. 5. In setting of sepsis findings would favor a degree of right lung base pneumonia, and CT examinat ion may be of further use. RPTAT: UU Physician Cecilio Date Time Electronically viewed and signed by Physician Cecilio on 11/11/2016 21:56 RS/
[2016-11-11 22:12] LABS: ADD SCAN DIFF NO
[2016-11-11 22:19] LABS: BASOPHILS % 0.4 % (0.0-2.0); EOSINOPHILS % 0.2 % (0.0-7.0); HEMATOCRIT 28.7 % (42.0-52.0); HEMOGLOBIN 9.2 g/dl (14.0-18.0); LYMPHOCYTES # 0.8 10^3/ul (0.8-2.9); LYMPHOCYTES % 7.4 % (15.0-51.0); MEAN CORPUSCULAR HEMOGLOBIN 28.6 pg (29.0-33.0); MEAN CORPUSCULAR HGB CONC 32.1 g/dl (32.0-37.0); MEAN CORPUSCULAR VOLUME 89.1 fl (82.0-101.0); MEAN PLATELET VOLUME 13.8 fl (7.4-10.4); MONOCYTE # 0.8 10^3/ul (0.3-0.9); MONOCYTES % 8.2 % (0.0-11.0); NEUTROPHIL # 8.5 10^3/ul (1.6-7.5); NEUTROPHILS % 83.5 % (39.0-77.0); PLATELET COUNT 215 10^3/UL (140-415); RED BLOOD COUNT 3.22 10^6/ul (4.70-6.10); RED CELL DISTRIBUTION WIDTH 13.7 % (11.5-14.5); WHITE BLOOD COUNT 10.2 10^3/ul (4.8-10.8)
[2016-11-11 22:24] LABS: ALBUMIN 3.7 g/dl (3.3-4.9)
[2016-11-11 22:27] LABS: ALBUMIN/GLOBULIN RATIO 0.84; CREATININE 9.13 mg/dl (0.61-1.24); INR 1.05; PROTIME 13.7 Sec (12.2-14.2); PT RATIO 1.1; TOTAL PROTEIN 8.1 g/dl (6.1-8.1)
[2016-11-11 22:28] LABS: CALCIUM 8.2 mg/dl (8.4-10.2); PARTIAL THROMBOPLASTIN TIME 31.4 Sec (25.0-35.0)
[2016-11-11 22:39] LABS: TROPONIN-I 0.072 ng/ml (0.00-0.12)
--- NOTE | 2016-11-11 22:48 | RADRPT ---
PROCEDURE: CT Brain without contrast. CLINICAL INDICATION: general weakness TECHNIQUE: A multiplanar CT of the brain was performed on a CT scanner utilizing axial imaging fro m the skull base through the vertex without IV contrast. The CTDIvol is 37.91 mGy and the DLP is a 34.23 mGycm. One or more of the following dose reduction techniques were utilized: Automated expos ure control, adjustment of the mA and/or kV according to patient size, use of iterative reconstructi on technique. COMPARISON: None FINDINGS: No evidence of intracranial hemorrhage or abnormal extra-axial fluid collection. The brain parenchyma is normal attenuation morphology with preservation of gonzalez white differentiatio n and age appropriate size of the ventricles and subarachnoid spaces. Minimal patchy periventricular low attenuation compared to. Dilated perivascular space versus a rem ote infarct in the right basal ganglia anteriorly. Mild age related central cerebral volume loss. The basal cisterns, posterior fossa contents, brainstem, craniocervical junction, orbits, pituitary axis, paranasal sinuses, mastoid air cells, and calvarium are unremarkable. IMPRESSION: 1. No intracranial hemorrhage or acute intracranial abnormality. 2. Mild chronic microvascular ischemic changes in the deep white matter with right basal ganglia la cunar infarct versus dilated perivascular space. 3. Mild age related central cerebral volume loss. RPTAT:AAJJ Physician Marian Date Time Electronically viewed and signed by Physician Marian on 11/11/2016 22:48 DINESH/
--- NOTE | 2016-11-11 23:16 | QN ---
Documentation Comment wekness esrd home less anemia s/p anasarca plan per order ARMIDA HARRIS MD Nov 11, 2016 23:15
[2016-11-11] MEDS ORDERED: DOCUSATE SODIUM 100 MG CAP PO PRN (23:30)
[2016-11-11] MEDS ORDERED: ONDANSETRON 4 MG INJ IV PRN ×2 (23:30)
[2016-11-11] MEDS ORDERED: BISACODYL (EC) 5 MG TAB PO PRN (23:30)
[2016-11-11] MEDS ORDERED: ACETAMINOPHEN 325 MG TAB PO PRN (23:30)
[2016-11-11] MEDS ORDERED: ACETAMINOPHEN 650 MG SUPP PR PRN (23:30)
[2016-11-11] MEDS ORDERED: NACL 0.9% 3 ML SYG IV SCH (23:30)
[2016-11-12 00:37] VITALS: Ht 167.6 cm; Wt 68.1 kg
[2016-11-12 00:45] VITALS: BP 154/70; PULSE 74; RESP 18
[2016-11-12 07:15] LABS: ADD UMIC YES; URINE BILIRUBIN (Dip) NEGATIVE (NEGATIVE); URINE BLOOD (Dip) 1+ (NEGATIVE); URINE COLOR LT. YELLOW (YELLOW); URINE KETONES (Dip) NEGATIVE (NEGATIVE); URINE LEUKOCYTE ESTERASE (Dip) NEGATIVE (NEGATIVE); URINE NITRITE (Dip) NEGATIVE (NEGATIVE); URINE TOTAL PROTEIN (Dip) 2+ (NEGATIVE); URINE UROBILINOGEN (Dip) 0.2 E.U./dL (0.1-1.0)
[2016-11-12 07:26] LABS: BACTERIA,URINE FEW
[2016-11-12 08:08] VITALS: BP 132/60; RESP 18
[2016-11-12] MEDS: METOPROLOL 25 MG TAB PO SCH ×2 (08:28→20:54)
[2016-11-12] MEDS: AMLODIPINE 10 MG TAB PO SCH (08:29)
[2016-11-12] MEDS: ENOXAPARIN 30 MG/0.3 ML SYG SC SCH (08:31)
[2016-11-12 08:42] LABS: ADD SCAN DIFF NO
[2016-11-12 08:57] LABS: BASOPHILS % 0.3 % (0.0-2.0); EOSINOPHILS # 0.1 10^3/ul (0.0-0.5); EOSINOPHILS % 1.1 % (0.0-7.0); HEMATOCRIT 24.9 % (42.0-52.0); LYMPHOCYTES # 0.8 10^3/ul (0.8-2.9); LYMPHOCYTES % 9.2 % (15.0-51.0); MEAN CORPUSCULAR HEMOGLOBIN 28.2 pg (29.0-33.0); MEAN CORPUSCULAR HGB CONC 32.1 g/dl (32.0-37.0); MEAN CORPUSCULAR VOLUME 87.7 fl (82.0-101.0); MEAN PLATELET VOLUME 14.1 fl (7.4-10.4); MONOCYTE # 0.9 10^3/ul (0.3-0.9); MONOCYTES % 10.2 % (0.0-11.0); NEUTROPHIL # 7.1 10^3/ul (1.6-7.5); PLATELET COUNT 193 10^3/UL (140-415); RED BLOOD COUNT 2.84 10^6/ul (4.70-6.10); RED CELL DISTRIBUTION WIDTH 13.9 % (11.5-14.5)
[2016-11-12 09:08] LABS: ALBUMIN 3.3 g/dl (3.3-4.9)
[2016-11-12 09:11] LABS: ALBUMIN/GLOBULIN RATIO 0.76; CREATININE 9.99 mg/dl (0.61-1.24); TOTAL PROTEIN 7.6 g/dl (6.1-8.1)
--- NOTE | 2016-11-12 16:32 | HP ---
DATE OF ADMISSION: 11/11/2016 HISTORY OF PRESENT ILLNESS: A patient who has a history of ESRD, started on hemodialysis. The rj ent was recently discharged from this hospital with diagnosis of ESRD, bacteremia in the past on van comycin. The patient also has anemia, pulmonary hypertension, congestive heart failure, onychomycos is, legal blindness. Presented with weakness. The patient was home as before, now stays with the [facility] as per social media developer. The patient is a poor historian and is unable to give any details or reaso n to come to the ER, but in the ER it was decided by the ER physician to observe him. The patient i s only noted to have mild anemia, but the patient has no active GI bleed. PAST MEDICAL HISTORY: As mentioned above. The patient has acute on chronic kidney disease, status post anasarca, status post pulmonary edema, anemia, hyperkalemia, homelessness history (now stays wi th the mom), proteinuria, congestive heart failure, onychomycosis. ALLERGY HISTORY: NEGATIVE. FAMILY HISTORY: Noncontributory. SOCIAL HISTORY: Listed as negative. MEDICATION HISTORY: Listed as: 1. Amlodipine. 2. Metoprolol. 3. The patient has been on Nephro-Haritha. 4. Folic acid. 5. Phosphate binder. REVIEW OF SYSTEMS HEENT: Denies anything. RESPIRATORY: Denies anything. ABDOMEN: Unremarkable. GENITOURINARY: Unremarkable. MUSCULOSKELETAL: Unremarkable. PHYSICAL EXAMINATION: GENERAL: Awake, alert. Back to his baseline. VITAL SIGNS: Pulse 73, blood pressure 150/70. HEAD: Atraumatic, normocephalic. Pupils are equal and reactive to light. NECK: Supple. No JVD. LUNGS: Clear. CARDIOVASCULAR: S1, S2 are normal. ABDOMEN: Soft, nontender. Bowel sounds present. No palpable mass or hepatosplenomegaly. No guard ing, rebound tenderness. EXTREMITIES: No cyanosis, clubbing, edema. CENTRAL NERVOUS SYSTEM: The patient is awake, alert with no focal deficit. LABORATORY DATA: Shows hematocrit 24.9, platelet count of 193. Sodium 130, potassium 5, BUN 95, cr eatinine 9.99. IMPRESSION: 1. The patient has end-stage renal disease. 2. Hypertension. 3. Anemia of chronic kidney disease. 4. The patient also has hypophosphatemia. 5. The patient has electrolyte imbalance. 6. Homelessness history. 7. Hypocalcemia. PLAN: At this point is to continue renal diet. Continue home medication Nephro-Haritha, folic acid an d Epogen. sand worker consultation. Orders were done. Dictated By: ARMIDA HARRIS MD BS/NTS Conf#: [id number] DID#: [id number]
[2016-11-12] MEDS: EPOETIN 10000 UNITS/1 ML INJ (ESRD) SC ONE ×2 (18:18→18:24)
[2016-11-12] MEDS: CALCIUM CARBONATE 500 MG CHEW TAB PO SCH (18:18)
[2016-11-12 19:46] VITALS: BP 146/69; RESP 18
[2016-11-13] VITALS (10 sets, daily range): BP systolic 129–157; BP diastolic 65–74; PULSE 61–91; RESP 18–20
[2016-11-13] MEDS: ACETAMINOPHEN 325 MG TAB PO PRN ×2 (00:10→11:00)
[2016-11-13] MEDS: METOPROLOL 25 MG TAB PO SCH ×2 (09:00→21:06)
[2016-11-13] MEDS: FOLIC ACID 1 MG TAB PO SCH (09:00)
[2016-11-13] MEDS: MULTIVIT/CA CARB/B CMPLX/FA TAB PO SCH (09:00)
[2016-11-13] MEDS: AMLODIPINE 10 MG TAB PO SCH (09:00)
[2016-11-13] MEDS: CALCIUM CARBONATE 500 MG CHEW TAB PO SCH ×3 (09:00→17:40)
[2016-11-13] MEDS: ENOXAPARIN 30 MG/0.3 ML SYG SC SCH (10:50)
--- NOTE | 2016-11-13 16:44 | PN ---
Date/Time of Note Date/Time of Note DATE: 11/13/16 TIME: 16:43 Assessment/Plan VTE Prophylaxis VTE Prophylaxis Intervention: other Lines/Catheters IV Catheter Type (from Nrs): Saline Lock Urinary Cath still in place: No Assessment/Plan Chief Complaint/Hosp Course ESRD HTN ANEMIA PLAN HD SNF Problems: Subjective 24 Hr Interval Summary Cardiovascular: no complaints Gastrointestinal: no complaints Exam/Review of Systems Vital Signs Vitals Vital Signs Date Time Temp Pulse Resp B/P Pulse Ox O2 Delivery O2 Flow Rate FiO2 11/13/16 07:45 98.2 66 18 138/65 92 11/12/16 00:45 Room Air Intake and Output 11/12/16 11/12/16 11/13/16 15:00 23:00 07:00 Intake Total 600 ml 480 ml Balance 600 ml 480 ml Exam Respiratory: clear to auscultation Cardiovascular: regular rate and rhythm Gastrointestinal: soft Musculoskeletal: nl extremities to inspection Extremities: normal pulses Results Result Diagram: 11/12/16 0830 11/12/16 0830 Medications Medications Current Medications Amlodipine Besylate (Norvasc) 10 mg DAILY PO Last administered on 11/12/16 08: 29; Admin Dose 10 MG; Start 11/12/16 at 09:00 Metoprolol Tartrate (Lopressor) 25 mg BID PO Last administered on 11/12/16 20: 54; Admin Dose 25 MG; Start 11/12/16 at 09:00 Ondansetron HCl (Zofran Inj) 4 mg Q6H PRN IV NAUSEA AND/OR VOMITING; Start 11/11 at 23:30 Acetaminophen (Tylenol Tab) 650 mg Q6H PRN PO PAIN LEVEL 1-3 OR FEVER Last administered on 11/13/16 11:00; Admin Dose 650 MG; Start 11/11/16 at 23:30 Acetaminophen (Tylenol Supp) 650 mg Q6H PRN [place] PAIN LEVEL 1-3 OR FEVER; Start 11/11/16 at 23:30 Docusate Sodium (Colace) 100 mg Q12H PRN PO CONSTIPATION; Start 11/11/16 at 23: 30 Bisacodyl (Dulcolax) 5 mg DAILY PRN PO CONSTIPATION; Start 11/11/16 at 23:30 Enoxaparin Sodium (Lovenox) 30 mg DAILY SC Last administered on 3/3/17at 10:50 ; Admin Dose 30 MG; Start 11/12/16 at 09:00 Miscellaneous Information Patients own medicat... BID@ XX ; Start 11/12/16 at 10:00 Folic Acid (Folic Acid) 1 mg DAILY PO ; Start 11/13/16 at 09:00 Multivit/Ca Carb/ B Cmplx/FA/Prenat (Ct-Haritha) 1 tab DAILY PO ; Start 11/13/16 at 09:00 Epoetin Brodie (Epogen (Esrd)) 4,000 units MoWeFr@17 SC ; Start 11/13/16 at 17:00; Status ARMIDA RUTH MD Nov 13, 2016 16:44
--- NOTE | 2016-11-13 16:45 | PDOCDIS ---
Discharge Instructions CONDITION Patient Condition: Stable HOME CARE INSTRUCTIONS: Special Diet: renal FOLLOW UP/APPOINTMENTS Appointments F/U DR HARRIS 2 WKS GO TO [facility] FOR DIALYSIS [phone] ARMIDA HARRIS MD Nov 13, 2016 16:45
[2016-11-13] MEDS: EPOETIN 4000 UNITS/1 ML INJ (ESRD) SC SCH (17:42)
[2016-11-14 08:29] VITALS: BP 154/73; RESP 22
[2016-11-14] MEDS: MULTIVIT/CA CARB/B CMPLX/FA TAB PO SCH (08:56)
[2016-11-14] MEDS: AMLODIPINE 10 MG TAB PO SCH (08:57)
[2016-11-14] MEDS: METOPROLOL 25 MG TAB PO SCH ×2 (08:57→20:22)
[2016-11-14] MEDS: FOLIC ACID 1 MG TAB PO SCH (08:57)
[2016-11-14] MEDS: CALCIUM CARBONATE 500 MG CHEW TAB PO SCH ×3 (08:57→20:22)
[2016-11-14] MEDS: ENOXAPARIN 30 MG/0.3 ML SYG SC SCH (08:58)
--- NOTE | 2016-11-14 17:28 | PN ---
Date/Time of Note Date/Time of Note DATE: 11/14/16 TIME: 17:27 Assessment/Plan VTE Prophylaxis VTE Prophylaxis Intervention: other Lines/Catheters IV Catheter Type (from Nrs): Saline Lock Urinary Cath still in place: No Assessment/Plan Chief Complaint/Hosp Course ESRD HTN ANEMIA PLAN HD SNF PLACEMENT Problems: Subjective 24 Hr Interval Summary Cardiovascular: no complaints Gastrointestinal: no complaints Exam/Review of Systems Vital Signs Vitals Vital Signs Date Time Temp Pulse Resp B/P Pulse Ox O2 Delivery O2 Flow Rate FiO2 11/14/16 08:29 98.5 71 22 154/73 97 11/12/16 00:45 Room Air Intake and Output 11/13/16 11/13/16 11/14/16 15:00 23:00 07:00 Intake Total 700 ml 480 ml Output Total 3800 ml Balance -3100 ml 480 ml Exam Cardiovascular: regular rate and rhythm Gastrointestinal: soft Extremities: clubbing Results Result Diagram: 11/12/16 0830 11/12/16 0830 Medications Medications Current Medications Amlodipine Besylate (Norvasc) 10 mg DAILY PO Last administered on 11/14/16 08: 57; Admin Dose 10 MG; Start 11/12/16 at 09:00 Metoprolol Tartrate (Lopressor) 25 mg BID PO Last administered on 11/14/16 08: 57; Admin Dose 25 MG; Start 11/12/16 at 09:00 Ondansetron HCl (Zofran Inj) 4 mg Q6H PRN IV NAUSEA AND/OR VOMITING; Start 11/11 at 23:30 Acetaminophen (Tylenol Tab) 650 mg Q6H PRN PO PAIN LEVEL 1-3 OR FEVER Last administered on 11/13/16 11:00; Admin Dose 650 MG; Start 11/11/16 at 23:30 Acetaminophen (Tylenol Supp) 650 mg Q6H PRN [place] PAIN LEVEL 1-3 OR FEVER; Start 11/11/16 at 23:30 Docusate Sodium (Colace) 100 mg Q12H PRN PO CONSTIPATION; Start 11/11/16 at 23: 30 Bisacodyl (Dulcolax) 5 mg DAILY PRN PO CONSTIPATION; Start 11/11/16 at 23:30 Enoxaparin Sodium (Lovenox) 30 mg DAILY SC Last administered on 11/14/16 08:58 ; Admin Dose 30 MG; Start 11/12/16 at 09:00 Miscellaneous Information Patients own medicat... BID@,16 XX ; Start 11/12/16 at 10:00 Folic Acid (Folic Acid) 1 mg DAILY PO Last administered on 11/14/16 08:57; Admin Dose 1 MG; Start 11/13/16 at 09:00 Multivit/Ca Carb/ B Cmplx/FA/Prenat (Ct-Haritha) 1 tab DAILY PO Last administered on 11/14/16 08:56; Admin Dose 1 TAB; Start 11/13/16 at 09:00 Epoetin Brodie (Epogen (Esrd)) 4,000 units MoWeFr@17 SC Last administered on 17:42; Admin Dose 4,000 UNITS; Start 11/13/16 at 17:00 ARMIDA HARRIS MD Nov 14, 2016 17:28
[2016-11-14 19:42] VITALS: BP 141/67; RESP 18
[2016-11-14 20:25] VITALS: BP 155/70; PULSE 67
[2016-11-15 08:18] VITALS: BP 154/70; RESP 17
[2016-11-15] MEDS: FOLIC ACID 1 MG TAB PO SCH (08:44)
[2016-11-15] MEDS: METOPROLOL 25 MG TAB PO SCH ×2 (08:45→20:34)
[2016-11-15] MEDS: MULTIVIT/CA CARB/B CMPLX/FA TAB PO SCH (08:45)
[2016-11-15] MEDS: CALCIUM CARBONATE 500 MG CHEW TAB PO SCH ×3 (08:45→19:05)
[2016-11-15] MEDS: AMLODIPINE 10 MG TAB PO SCH (08:45)
[2016-11-15] MEDS: ENOXAPARIN 30 MG/0.3 ML SYG SC SCH (08:48)
--- NOTE | 2016-11-15 17:00 | PN ---
Date/Time of Note Date/Time of Note DATE: 11/15/16 TIME: 16:59 Assessment/Plan VTE Prophylaxis VTE Prophylaxis Intervention: other Lines/Catheters IV Catheter Type (from Nrs): Saline Lock Urinary Cath still in place: No Assessment/Plan Chief Complaint/Hosp Course ESRD HTN ANEMIA HOMELESS PLAN HD SNF PLACEMENT Problems: Subjective 24 Hr Interval Summary Subjective hx not possible: other Respiratory: no complaints Cardiovascular: no complaints Exam/Review of Systems Vital Signs Vitals Vital Signs Date Time Temp Pulse Resp B/P Pulse Ox O2 Delivery O2 Flow Rate FiO2 11/15/16 08:18 98.4 64 17 154/70 95 11/12/16 00:45 Room Air Intake and Output 11/14/16 11/14/16 11/15/16 15:00 23:00 07:00 Intake Total 1220 ml Balance 1220 ml Exam Neck: supple Respiratory: clear to auscultation Cardiovascular: regular rate and rhythm Gastrointestinal: soft Musculoskeletal: nl extremities to inspection Extremities: normal pulses Results Result Diagram: 11/12/16 0830 11/12/16 0830 Medications Medications Current Medications Amlodipine Besylate (Norvasc) 10 mg DAILY PO Last administered on 11/15/16 08: 45; Admin Dose 10 MG; Start 11/12/16 at 09:00 Metoprolol Tartrate (Lopressor) 25 mg BID PO Last administered on 11/15/16 08: 45; Admin Dose 25 MG; Start 11/12/16 at 09:00 Ondansetron HCl (Zofran Inj) 4 mg Q6H PRN IV NAUSEA AND/OR VOMITING; Start 11/11 at 23:30 Acetaminophen (Tylenol Tab) 650 mg Q6H PRN PO PAIN LEVEL 1-3 OR FEVER Last administered on 11/13/16 11:00; Admin Dose 650 MG; Start 11/11/16 at 23:30 Acetaminophen (Tylenol Supp) 650 mg Q6H PRN [place] PAIN LEVEL 1-3 OR FEVER; Start 11/11/16 at 23:30 Docusate Sodium (Colace) 100 mg Q12H PRN PO CONSTIPATION; Start 11/11/16 at 23: 30 Bisacodyl (Dulcolax) 5 mg DAILY PRN PO CONSTIPATION; Start 11/11/16 at 23:30 Enoxaparin Sodium (Lovenox) 30 mg DAILY SC Last administered on 11/15/16 08:48 ; Admin Dose 30 MG; Start 11/12/16 at 09:00 Miscellaneous Information Patients own medicat... BID@,16 XX ; Start 11/12/16 at 10:00 Folic Acid (Folic Acid) 1 mg DAILY PO Last administered on 11/15/16 08:44; Admin Dose 1 MG; Start 11/13/16 at 09:00 Multivit/Ca Carb/ B Cmplx/FA/Prenat (Ct-Haritha) 1 tab DAILY PO Last administered on 11/15/16 08:45; Admin Dose 1 TAB; Start 11/13/16 at 09:00 Epoetin Brodie (Epogen (Esrd)) 4,000 units MoWeFr@17 SC Last administered on 17:42; Admin Dose 4,000 UNITS; Start 11/13/16 at 17:00 ARMIDA HARRIS MD Nov 15, 2016 17:00
[2016-11-15 19:38] VITALS: BP 152/71; RESP 16
[2016-11-16] VITALS (10 sets, daily range): BP systolic 130–158; BP diastolic 64–74; PULSE 59–69; RESP 18–20
[2016-11-16] MEDS: METOPROLOL 25 MG TAB PO SCH ×2 (08:58→20:53)
[2016-11-16] MEDS: AMLODIPINE 10 MG TAB PO SCH (08:58)
[2016-11-16] MEDS: FOLIC ACID 1 MG TAB PO SCH (09:16)
[2016-11-16] MEDS: MULTIVIT/CA CARB/B CMPLX/FA TAB PO SCH (09:16)
[2016-11-16] MEDS: CALCIUM CARBONATE 500 MG CHEW TAB PO SCH ×3 (09:16→18:23)
[2016-11-16] MEDS: ENOXAPARIN 30 MG/0.3 ML SYG SC SCH (09:16)
[2016-11-16] MEDS: EPOETIN 4000 UNITS/1 ML INJ (ESRD) SC SCH (17:35)
--- NOTE | 2016-11-16 20:47 | PN ---
Date/Time of Note Date/Time of Note DATE: 11/16/16 TIME: 20:46 Assessment/Plan VTE Prophylaxis VTE Prophylaxis Intervention: other Lines/Catheters IV Catheter Type (from Nrs): Saline Lock Urinary Cath still in place: No Assessment/Plan Chief Complaint/Hosp Course ESRD HTN ANEMIA HOMELESS vre stool poss coloniazation PLAN HD SNF PLACEMENT zyvox Problems: Subjective 24 Hr Interval Summary Subjective hx not possible: other (vre stool no diarrhea will treat w zyvox poss cololniazation) Exam/Review of Systems Vital Signs Vitals Vital Signs Date Time Temp Pulse Resp B/P Pulse Ox O2 Delivery O2 Flow Rate FiO2 11/16/16 16:30 63 18 11/16/16 08:53 98.1 146/67 93 Intake and Output 11/15/16 11/15/16 11/16/16 15:00 23:00 07:00 Intake Total 560 ml 280 ml Output Total 200 ml Balance 360 ml 280 ml Exam Respiratory: diminished breath sounds Cardiovascular: regular rate and rhythm Gastrointestinal: soft Musculoskeletal: nl extremities to inspection Extremities: normal pulses Results Result Diagram: 11/12/1630 11/12/16 0830 Medications Medications Current Medications Amlodipine Besylate (Norvasc) 10 mg DAILY PO Last administered on 11/15/16 08: 45; Admin Dose 10 MG; Start 11/12/16 at 09:00 Metoprolol Tartrate (Lopressor) 25 mg BID PO Last administered on 11/15/16 20: 34; Admin Dose 25 MG; Start 11/12/16 at 09:00 Ondansetron HCl (Zofran Inj) 4 mg Q6H PRN IV NAUSEA AND/OR VOMITING; Start 11/11 at 23:30 Acetaminophen (Tylenol Tab) 650 mg Q6H PRN PO PAIN LEVEL 1-3 OR FEVER Last administered on 11/13/16 11:00; Admin Dose 650 MG; Start 11/11/16 at 23:30 Acetaminophen (Tylenol Supp) 650 mg Q6H PRN [place] PAIN LEVEL 1-3 OR FEVER; Start 11/11/16 at 23:30 Docusate Sodium (Colace) 100 mg Q12H PRN PO CONSTIPATION; Start 11/11/16 at 23: 30 Bisacodyl (Dulcolax) 5 mg DAILY PRN PO CONSTIPATION; Start 11/11/16 at 23:30 Enoxaparin Sodium (Lovenox) 30 mg DAILY SC Last administered on 11/16/16 09:16 ; Admin Dose 30 MG; Start 11/12/16 at 09:00 Folic Acid (Folic Acid) 1 mg DAILY PO Last administered on 11/16/16 09:16; Admin Dose 1 MG; Start 11/13/16 at 09:00 Multivit/Ca Carb/ B Cmplx/FA/Prenat (Ct-Haritha) 1 tab DAILY PO Last administered on 11/16/16 09:16; Admin Dose 1 TAB; Start 11/13/16 at 09:00 Epoetin Brodie (Epogen (Esrd)) 4,000 units MoWeFr@17 SC Last administered on 17:35; Admin Dose 4,000 UNITS; Start 11/13/16 at 17:00 Miscellaneous Information Patients own medicat... DAILY XX ; Start 11/17/16 at 09 :00 ARMIDA HARRIS MD Nov 16, 2016 20:47
[2016-11-16] MEDS: ZYVOX 600 MG TAB PO SCH (20:53)
[2016-11-17 08:09] VITALS: BP 150/70; RESP 20
[2016-11-17] MEDS: AMLODIPINE 10 MG TAB PO SCH (08:43)
[2016-11-17] MEDS: FOLIC ACID 1 MG TAB PO SCH (08:43)
[2016-11-17] MEDS: CALCIUM CARBONATE 500 MG CHEW TAB PO SCH ×3 (08:43→17:33)
[2016-11-17] MEDS: MULTIVIT/CA CARB/B CMPLX/FA TAB PO SCH (08:43)
[2016-11-17] MEDS: METOPROLOL 25 MG TAB PO SCH ×2 (08:43→21:55)
[2016-11-17] MEDS: ENOXAPARIN 30 MG/0.3 ML SYG SC SCH (08:44)
[2016-11-17] MEDS: ZYVOX 600 MG TAB PO SCH ×2 (08:44→21:54)
[2016-11-17 10:01] VITALS: BP 138/70; PULSE 60
[2016-11-17 20:19] VITALS: BP 142/65; RESP 18
--- NOTE | 2016-11-17 21:09 | PN ---
Date/Time of Note Date/Time of Note DATE: 11/17/16 TIME: 21:08 Assessment/Plan VTE Prophylaxis VTE Prophylaxis Intervention: other Lines/Catheters IV Catheter Type (from Nrs): Saline Lock Urinary Cath still in place: No Assessment/Plan Chief Complaint/Hosp Course ESRD HTN ANEMIA HOMELESS vre stool poss coloniazation PLAN HD SNF PLACEMENT zyvox dc Problems: Subjective 24 Hr Interval Summary Cardiovascular: no complaints Gastrointestinal: no complaints Exam/Review of Systems Vital Signs Vitals Vital Signs Date Time Temp Pulse Resp B/P Pulse Ox O2 Delivery O2 Flow Rate FiO2 11/17/16 20:19 99.0 64 18 142/65 93 Intake and Output 11/16/16 11/16/16 11/17/16 15:00 23:00 07:00 Intake Total 1540 ml 300 ml Output Total 4000 ml Balance -2460 ml 300 ml Exam Respiratory: clear to auscultation Cardiovascular: regular rate and rhythm Gastrointestinal: soft Genitourinary - Male: nl penis Medications Medications Current Medications Amlodipine Besylate (Norvasc) 10 mg DAILY PO Last administered on 11/17/16 08: 43; Admin Dose 10 MG; Start 11/12/16 at 09:00 Metoprolol Tartrate (Lopressor) 25 mg BID PO Last administered on 11/17/16 08: 43; Admin Dose 25 MG; Start 11/12/16 at 09:00 Ondansetron HCl (Zofran Inj) 4 mg Q6H PRN IV NAUSEA AND/OR VOMITING; Start 11/11 at 23:30 Acetaminophen (Tylenol Tab) 650 mg Q6H PRN PO PAIN LEVEL 1-3 OR FEVER Last administered on 11/13/16 11:00; Admin Dose 650 MG; Start 11/11/16 at 23:30 Acetaminophen (Tylenol Supp) 650 mg Q6H PRN [place] PAIN LEVEL 1-3 OR FEVER; Start 11/11/16 at 23:30 Docusate Sodium (Colace) 100 mg Q12H PRN PO CONSTIPATION; Start 11/11/16 at 23: 30 Bisacodyl (Dulcolax) 5 mg DAILY PRN PO CONSTIPATION; Start 11/11/16 at 23:30 Enoxaparin Sodium (Lovenox) 30 mg DAILY SC Last administered on 11/17/16 08:44 ; Admin Dose 30 MG; Start 11/12/16 at 09:00 Folic Acid (Folic Acid) 1 mg DAILY PO Last administered on 11/17/16 08:43; Admin Dose 1 MG; Start 11/13/16 at 09:00 Multivit/Ca Carb/ B Cmplx/FA/Prenat (Ct-Haritha) 1 tab DAILY PO Last administered on 11/17/16 08:43; Admin Dose 1 TAB; Start 11/13/16 at 09:00 Epoetin Brodie (Epogen (Esrd)) 4,000 units MoWeFr@17 SC Last administered on 17:35; Admin Dose 4,000 UNITS; Start 11/13/16 at 17:00 Miscellaneous Information Patients own medicat... DAILY XX ; Start 11/17/16 at 09 :00 Linezolid (Zyvox) 600 mg BID PO Last administered on 11/17/16 08:44; Admin Dose 600 MG; Start 11/16/16 at 21:00 ARMIDA HARRIS MD Nov 17, 2016 21:09
[2016-11-18] VITALS (9 sets, daily range): BP systolic 140–173; BP diastolic 65–76; PULSE 66–75; RESP 18
[2016-11-18] MEDS: METOPROLOL 25 MG TAB PO SCH ×2 (08:27→23:38)
[2016-11-18] MEDS: AMLODIPINE 10 MG TAB PO SCH (08:28)
[2016-11-18] MEDS: ENOXAPARIN 30 MG/0.3 ML SYG SC SCH (09:40)
[2016-11-18] MEDS: MULTIVIT/CA CARB/B CMPLX/FA TAB PO SCH (09:40)
[2016-11-18] MEDS: FOLIC ACID 1 MG TAB PO SCH (09:40)
[2016-11-18] MEDS: CALCIUM CARBONATE 500 MG CHEW TAB PO SCH ×3 (09:40→18:05)
[2016-11-18] MEDS: ZYVOX 600 MG TAB PO SCH ×2 (09:40→23:37)
[2016-11-18 11:27] LABS: ADD SCAN DIFF NO
[2016-11-18 11:33] LABS: BASOPHILS % 0.4 % (0.0-2.0); EOSINOPHILS # 0.3 10^3/ul (0.0-0.5); EOSINOPHILS % 4.2 % (0.0-7.0); HEMATOCRIT 26.5 % (42.0-52.0); HEMOGLOBIN 8.4 g/dl (14.0-18.0); LYMPHOCYTES # 1.4 10^3/ul (0.8-2.9); LYMPHOCYTES % 17.6 % (15.0-51.0); MEAN CORPUSCULAR HEMOGLOBIN 28.1 pg (29.0-33.0); MEAN CORPUSCULAR HGB CONC 31.7 g/dl (32.0-37.0); MEAN CORPUSCULAR VOLUME 88.6 fl (82.0-101.0); MEAN PLATELET VOLUME 12.1 fl (7.4-10.4); MONOCYTE # 0.7 10^3/ul (0.3-0.9); MONOCYTES % 8.3 % (0.0-11.0); NEUTROPHIL # 5.6 10^3/ul (1.6-7.5); NEUTROPHILS % 68.8 % (39.0-77.0); PLATELET COUNT 309 10^3/UL (140-415); RED BLOOD COUNT 2.99 10^6/ul (4.70-6.10); RED CELL DISTRIBUTION WIDTH 13.4 % (11.5-14.5); WHITE BLOOD COUNT 8.1 10^3/ul (4.8-10.8)
[2016-11-18 11:44] LABS: POTASSIUM 4.4 mmol/L (3.5-5.1)
[2016-11-18 11:46] LABS: CREATININE 8.92 mg/dl (0.61-1.24)
[2016-11-18 11:47] LABS: CALCIUM 7.3 mg/dl (8.4-10.2)
[2016-11-18] MEDS: EPOETIN 4000 UNITS/1 ML INJ (ESRD) SC SCH (18:03)
--- NOTE | 2016-11-18 19:30 | PN ---
Date/Time of Note Date/Time of Note DATE: 11/18/16 TIME: 19:29 Assessment/Plan VTE Prophylaxis VTE Prophylaxis Intervention: other Lines/Catheters IV Catheter Type (from Rust): Saline Lock Urinary Cath still in place: No Assessment/Plan Chief Complaint/Hosp Course ESRD HTN ANEMIA HOMELESS vre stool poss coloniazation PLAN HD SNF PLACEMENT Problems: Subjective 24 Hr Interval Summary Cardiovascular: no complaints Gastrointestinal: no complaints Exam/Review of Systems Vital Signs Vitals Vital Signs Date Time Temp Pulse Resp B/P Pulse Ox O2 Delivery O2 Flow Rate FiO2 11/18/16 19:00 66 11/18/16 08:22 98.6 18 142/73 96 Intake and Output 11/17/16 11/17/16 11/18/16 15:00 23:00 07:00 Intake Total 1500 ml 300 ml Balance 1500 ml 300 ml Exam Respiratory: clear to auscultation Cardiovascular: regular rate and rhythm Gastrointestinal: soft Results Result Diagram: 11/18/16 1100 11/18/16 1100 Results 24 hrs Laboratory Tests Test 11/18/16 11:00 Anion Gap 19 H Basophils # 0.0 Basophils % 0.4 Blood Urea Nitrogen 71 H Calcium Level 7.3 L Carbon Dioxide Level 27 Chloride Level 94 L Creatinine 8.92 H Eosinophils # 0.3 Eosinophils % 4.2 Glucose Level 188 Hematocrit 26.5 L Hemoglobin 8.4 L Lymphocytes # 1.4 Lymphocytes % 17.6 Mean Corpuscular Hemoglobin 28.1 L Mean Corpuscular Hemoglobin Concent 31.7 L Mean Corpuscular Volume 88.6 Mean Platelet Volume 12.1 H Monocytes # 0.7 Monocytes % 8.3 Neutrophils # 5.6 Neutrophils % 68.8 Nucleated Red Blood Cells # 0.0 Nucleated Red Blood Cells % 0.0 Platelet Count 309 # Potassium Level 4.4 Red Blood Count 2.99 L Red Cell Distribution Width 13.4 Sodium Level 136 White Blood Count 8.1 Medications Medications Current Medications Amlodipine Besylate (Norvasc) 10 mg DAILY PO Last administered on 11/17/16 08: 43; Admin Dose 10 MG; Start 11/12/16 at 09:00 Metoprolol Tartrate (Lopressor) 25 mg BID PO Last administered on 11/17/16 21: 55; Admin Dose 25 MG; Start 11/12/16 at 09:00 Ondansetron HCl (Zofran Inj) 4 mg Q6H PRN IV NAUSEA AND/OR VOMITING; Start 11/11 at 23:30 Acetaminophen (Tylenol Tab) 650 mg Q6H PRN PO PAIN LEVEL 1-3 OR FEVER Last administered on 11/13/16 11:00; Admin Dose 650 MG; Start 11/11/16 at 23:30 Acetaminophen (Tylenol Supp) 650 mg Q6H PRN [place] PAIN LEVEL 1-3 OR FEVER; Start 11/11/16 at 23:30 Docusate Sodium (Colace) 100 mg Q12H PRN PO CONSTIPATION; Start 11/11/16 at 23: 30 Bisacodyl (Dulcolax) 5 mg DAILY PRN PO CONSTIPATION; Start 11/11/16 at 23:30 Enoxaparin Sodium (Lovenox) 30 mg DAILY SC Last administered on 11/18/16 09:40 ; Admin Dose 30 MG; Start 11/12/16 at 09:00 Folic Acid (Folic Acid) 1 mg DAILY PO Last administered on 11/18/16 09:40; Admin Dose 1 MG; Start 11/13/16 at 09:00 Multivit/Ca Carb/ B Cmplx/FA/Prenat (Ct-Haritha) 1 tab DAILY PO Last administered on 11/18/16 09:40; Admin Dose 1 TAB; Start 11/13/16 at 09:00 Epoetin Brodie (Epogen (Esrd)) 4,000 units MoWeFr@17 SC Last administered on 18:03; Admin Dose 4,000 UNITS; Start 11/13/16 at 17:00 Miscellaneous Information Patients own medicat... DAILY XX ; Start 11/17/16 at 09 :00 Linezolid (Zyvox) 600 mg BID PO Last administered on 11/18/16 09:40; Admin Dose 600 MG; Start 11/16/16 at 21:00 ARMIDA HARRIS MD Nov 18, 2016 19:30
[2016-11-19 07:40] VITALS: BP 156/72; RESP 20
[2016-11-19] MEDS: MULTIVIT/CA CARB/B CMPLX/FA TAB PO SCH (10:16)
[2016-11-19] MEDS: FOLIC ACID 1 MG TAB PO SCH (10:16)
[2016-11-19] MEDS: ZYVOX 600 MG TAB PO SCH ×2 (10:16→23:05)
[2016-11-19] MEDS: METOPROLOL 25 MG TAB PO SCH ×2 (10:16→23:07)
[2016-11-19] MEDS: AMLODIPINE 10 MG TAB PO SCH (10:16)
[2016-11-19] MEDS: CALCIUM CARBONATE 500 MG CHEW TAB PO SCH ×3 (10:16→17:48)
[2016-11-19] MEDS: ENOXAPARIN 30 MG/0.3 ML SYG SC SCH (10:17)
[2016-11-19 20:11] VITALS: BP 148/68; RESP 16
--- NOTE | 2016-11-19 20:56 | PN ---
Date/Time of Note Date/Time of Note DATE: 11/19/16 TIME: 20:55 Assessment/Plan VTE Prophylaxis VTE Prophylaxis Intervention: other Lines/Catheters IV Catheter Type (from Nrs): Saline Lock Urinary Cath still in place: No Assessment/Plan Chief Complaint/Hosp Course ESRD HTN ANEMIA HOMELESS vre stool poss coloniazation PLAN HD SNF PLACEMENT Problems: Subjective 24 Hr Interval Summary Gastrointestinal: no complaints Genitourinary: no complaints Exam/Review of Systems Vital Signs Vitals Vital Signs Date Time Temp Pulse Resp B/P Pulse Ox O2 Delivery O2 Flow Rate FiO2 11/19/16 20:11 97.6 54 16 148/68 96 Intake and Output 11/18/16 11/18/16 11/19/16 15:00 23:00 07:00 Intake Total 1220 ml 150 ml Output Total 4350 ml 3500 ml Balance -3130 ml -3350 ml Exam Respiratory: clear to auscultation Cardiovascular: regular rate and rhythm Gastrointestinal: soft Results Result Diagram: 11/18/16 1100 11/18/16 1100 Medications Medications Current Medications Amlodipine Besylate (Norvasc) 10 mg DAILY PO Last administered on 11/19/16 10: 16; Admin Dose 10 MG; Start 11/12/16 at 09:00 Metoprolol Tartrate (Lopressor) 25 mg BID PO Last administered on 11/19/16 10: 16; Admin Dose 25 MG; Start 11/12/16 at 09:00 Ondansetron HCl (Zofran Inj) 4 mg Q6H PRN IV NAUSEA AND/OR VOMITING; Start 11/11 at 23:30 Acetaminophen (Tylenol Tab) 650 mg Q6H PRN PO PAIN LEVEL 1-3 OR FEVER Last administered on 11/13/16 11:00; Admin Dose 650 MG; Start 11/11/16 at 23:30 Acetaminophen (Tylenol Supp) 650 mg Q6H PRN [place] PAIN LEVEL 1-3 OR FEVER; Start 11/11/16 at 23:30 Docusate Sodium (Colace) 100 mg Q12H PRN PO CONSTIPATION; Start 11/11/16 at 23: 30 Bisacodyl (Dulcolax) 5 mg DAILY PRN PO CONSTIPATION; Start 11/11/16 at 23:30 Enoxaparin Sodium (Lovenox) 30 mg DAILY SC Last administered on 11/19/16 10:17 ; Admin Dose 30 MG; Start 11/12/16 at 09:00 Folic Acid (Folic Acid) 1 mg DAILY PO Last administered on 11/19/16 10:16; Admin Dose 1 MG; Start 11/13/16 at 09:00 Multivit/Ca Carb/ B Cmplx/FA/Prenat (Ct-Haritha) 1 tab DAILY PO Last administered on 11/19/16 10:16; Admin Dose 1 TAB; Start 11/13/16 at 09:00 Epoetin Brodie (Epogen (Esrd)) 4,000 units MoWeFr@17 SC Last administered on 18:03; Admin Dose 4,000 UNITS; Start 11/13/16 at 17:00 Miscellaneous Information Patients own medicat... DAILY XX ; Start 11/17/16 at 09 :00 Linezolid (Zyvox) 600 mg BID PO Last administered on 11/19/16 10:16; Admin Dose 600 MG; Start 11/16/16 at 21:00 ARMIDA HARRIS MD Nov 19, 2016 20:56
[2016-11-20] VITALS (11 sets, daily range): BP systolic 106–168; BP diastolic 62–77; PULSE 75–80; RESP 16–18
[2016-11-20] MEDS: MULTIVIT/CA CARB/B CMPLX/FA TAB PO SCH (08:41)
[2016-11-20] MEDS: ZYVOX 600 MG TAB PO SCH ×2 (08:41→22:47)
[2016-11-20] MEDS: FOLIC ACID 1 MG TAB PO SCH (08:41)
[2016-11-20] MEDS: CALCIUM CARBONATE 500 MG CHEW TAB PO SCH ×3 (08:41→17:43)
[2016-11-20] MEDS: ENOXAPARIN 30 MG/0.3 ML SYG SC SCH (08:46)
[2016-11-20] MEDS: METOPROLOL 25 MG TAB PO SCH ×2 (09:00→22:47)
[2016-11-20] MEDS: AMLODIPINE 10 MG TAB PO SCH (09:00)
[2016-11-20] MEDS: EPOETIN 4000 UNITS/1 ML INJ (ESRD) SC SCH (17:44)
--- NOTE | 2016-11-20 18:29 | PN ---
Date/Time of Note Date/Time of Note DATE: 11/20/16 TIME: 18:28 Assessment/Plan VTE Prophylaxis VTE Prophylaxis Intervention: other Lines/Catheters IV Catheter Type (from Nrsg): permacath Urinary Cath still in place: No Assessment/Plan Chief Complaint/Hosp Course ESRD HTN ANEMIA HOMELESS vre stool poss coloniazation PLAN HD SNF PLACEMENT Problems: Subjective 24 Hr Interval Summary Gastrointestinal: no complaints Exam/Review of Systems Vital Signs Vitals Vital Signs Date Time Temp Pulse Resp B/P Pulse Ox O2 Delivery O2 Flow Rate FiO2 11/20/16 17:24 75 15 11/20/16 07:45 97.6 152/73 96 Intake and Output 11/19/16 11/19/16 11/20/16 15:00 23:00 07:00 Intake Total 960 ml 240 ml Balance 960 ml 240 ml Exam Respiratory: clear to auscultation Cardiovascular: regular rate and rhythm Gastrointestinal: soft Musculoskeletal: nl extremities to inspection Extremities: normal pulses Results Result Diagram: 11/18/16 1100 11/18/16 1100 Medications Medications Current Medications Amlodipine Besylate (Norvasc) 10 mg DAILY PO Last administered on 11/19/16 10: 16; Admin Dose 10 MG; Start 11/12/16 at 09:00 Metoprolol Tartrate (Lopressor) 25 mg BID PO Last administered on 11/19/16 23: 07; Admin Dose 25 MG; Start 11/12/16 at 09:00 Ondansetron HCl (Zofran Inj) 4 mg Q6H PRN IV NAUSEA AND/OR VOMITING; Start 11/11 at 23:30 Acetaminophen (Tylenol Tab) 650 mg Q6H PRN PO PAIN LEVEL 1-3 OR FEVER Last administered on 11/13/16 11:00; Admin Dose 650 MG; Start 11/11/16 at 23:30 Acetaminophen (Tylenol Supp) 650 mg Q6H PRN [place] PAIN LEVEL 1-3 OR FEVER; Start 11/11/16 at 23:30 Docusate Sodium (Colace) 100 mg Q12H PRN PO CONSTIPATION; Start 11/11/16 at 23: 30 Bisacodyl (Dulcolax) 5 mg DAILY PRN PO CONSTIPATION; Start 11/11/16 at 23:30 Enoxaparin Sodium (Lovenox) 30 mg DAILY SC Last administered on 11/20/16 08:46 ; Admin Dose 30 MG; Start 11/12/16 at 09:00 Folic Acid (Folic Acid) 1 mg DAILY PO Last administered on 11/20/16 08:41; Admin Dose 1 MG; Start 11/13/16 at 09:00 Multivit/Ca Carb/ B Cmplx/FA/Prenat (Ct-Haritha) 1 tab DAILY PO Last administered on 11/20/16 08:41; Admin Dose 1 TAB; Start 11/13/16 at 09:00 Epoetin Brodie (Epogen (Esrd)) 4,000 units MoWeFr@17 SC Last administered on 11/20 17:44; Admin Dose 4,000 UNITS; Start 11/13/16 at 17:00 Miscellaneous Information Patients own medicat... DAILY XX ; Start 11/17/16 at 09 :00 Linezolid (Zyvox) 600 mg BID PO Last administered on 11/20/16 08:41; Admin Dose 600 MG; Start 11/16/16 at 21:00 ARMIDA HARRIS MD Nov 20, 2016 18:29
[2016-11-21] MEDS: CALCIUM CARBONATE 500 MG CHEW TAB PO SCH ×3 (08:26→18:20)
[2016-11-21] MEDS: ZYVOX 600 MG TAB PO SCH ×2 (08:26→22:09)
[2016-11-21] MEDS: FOLIC ACID 1 MG TAB PO SCH (08:26)
[2016-11-21] MEDS: MULTIVIT/CA CARB/B CMPLX/FA TAB PO SCH (08:26)
[2016-11-21] MEDS: METOPROLOL 25 MG TAB PO SCH ×2 (08:28→22:09)
[2016-11-21] MEDS: AMLODIPINE 10 MG TAB PO SCH (08:28)
[2016-11-21] MEDS: ENOXAPARIN 30 MG/0.3 ML SYG SC SCH (08:29)
[2016-11-21 09:12] VITALS: BP 140/58; RESP 14
--- NOTE | 2016-11-21 13:28 | PN ---
Date/Time of Note Date/Time of Note DATE: 11/21/16 TIME: 13:26 Assessment/Plan VTE Prophylaxis VTE Prophylaxis Intervention: SCD's Lines/Catheters IV Catheter Type (from Nrs): Saline Lock Central line still needed: No Urinary Cath still in place: No Assessment/Plan Chief Complaint/Hosp Course 1. Continue a/b therapy 2. contact worker on case Problems: Subjective 24 Hr Interval Summary Constitutional: improved, no complaints Eyes: no complaints ENT: no complaints Respiratory: no complaints Cardiovascular: no complaints Gastrointestinal: no complaints Genitourinary: no complaints Musculoskeletal: no complaints Skin: no complaints Neurologic: no complaints Exam/Review of Systems Vital Signs Vitals Vital Signs Date Time Temp Pulse Resp B/P Pulse Ox O2 Delivery O2 Flow Rate FiO2 11/21/16 09:12 98.6 68 14 140/58 96 Intake and Output 11/20/16 11/20/16 11/21/16 15:00 23:00 07:00 Intake Total 1180 ml 480 ml Output Total 2000 ml 200 ml Balance -820 ml 280 ml Exam Constitutional: alert, oriented, well developed Psych: nl mood/affect, no complaints Head: atraumatic, normocephalic Eyes: EOMI, nl conjunctiva Neck: non-tender, supple Respiratory: clear to auscultation, normal air movement Cardiovascular: nl pulses, regular rate and rhythm Gastrointestinal: nl liver, spleen, non-tender, soft Genitourinary - Male: nl penis Musculoskeletal: nl extremities to inspection Extremities: normal pulses Results Result Diagram: 11/18/16 1100 11/18/16 1100 Medications Medications Current Medications Amlodipine Besylate (Norvasc) 10 mg DAILY PO Last administered on 11/21/16 08: 28; Admin Dose 10 MG; Start 11/12/16 at 09:00 Metoprolol Tartrate (Lopressor) 25 mg BID PO Last administered on 11/21/16 08: 28; Admin Dose 25 MG; Start 11/12/16 at 09:00 Ondansetron HCl (Zofran Inj) 4 mg Q6H PRN IV NAUSEA AND/OR VOMITING; Start 11/11 at 23:30 Acetaminophen (Tylenol Tab) 650 mg Q6H PRN PO PAIN LEVEL 1-3 OR FEVER Last administered on 11/13/16 11:00; Admin Dose 650 MG; Start 11/11/16 at 23:30 Acetaminophen (Tylenol Supp) 650 mg Q6H PRN [place] PAIN LEVEL 1-3 OR FEVER; Start 11/11/16 at 23:30 Docusate Sodium (Colace) 100 mg Q12H PRN PO CONSTIPATION; Start 11/11/16 at 23: 30 Bisacodyl (Dulcolax) 5 mg DAILY PRN PO CONSTIPATION; Start 11/11/16 at 23:30 Enoxaparin Sodium (Lovenox) 30 mg DAILY SC Last administered on 11/21/16 08:29 ; Admin Dose 30 MG; Start 11/12/16 at 09:00 Folic Acid (Folic Acid) 1 mg DAILY PO Last administered on 11/21/16 08:26; Admin Dose 1 MG; Start 11/13/16 at 09:00 Multivit/Ca Carb/ B Cmplx/FA/Prenat (Ct-Haritha) 1 tab DAILY PO Last administered on 11/21/16 08:26; Admin Dose 1 TAB; Start 11/13/16 at 09:00 Epoetin Brodie (Epogen (Esrd)) 4,000 units MoWeFr@17 SC Last administered on 11/20 17:44; Admin Dose 4,000 UNITS; Start 11/13/16 at 17:00 Miscellaneous Information Patients own medicat... DAILY XX ; Start 11/17/16 at 09 :00 Linezolid (Zyvox) 600 mg BID PO Last administered on 11/21/16 08:26; Admin Dose 600 MG; Start 11/16/16 at 21:00 TOM BASURTO Nov 21, 2016 13:28
[2016-11-21 21:31] VITALS: BP 151/68; RESP 19
[2016-11-22] MEDS: FOLIC ACID 1 MG TAB PO SCH (08:05)
[2016-11-22] MEDS: MULTIVIT/CA CARB/B CMPLX/FA TAB PO SCH (08:05)
[2016-11-22] MEDS: ZYVOX 600 MG TAB PO SCH ×2 (08:05→20:04)
[2016-11-22] MEDS: CALCIUM CARBONATE 500 MG CHEW TAB PO SCH ×3 (08:05→18:43)
[2016-11-22] MEDS: ENOXAPARIN 30 MG/0.3 ML SYG SC SCH (08:06)
[2016-11-22 08:08] VITALS: BP 151/70; PULSE 64; RESP 18
[2016-11-22] MEDS: AMLODIPINE 10 MG TAB PO SCH (08:08)
[2016-11-22] MEDS: METOPROLOL 25 MG TAB PO SCH ×2 (08:08→20:05)
[2016-11-22 08:44] VITALS: BP 140/63; RESP 18
--- NOTE | 2016-11-22 17:27 | PN ---
Date/Time of Note Date/Time of Note DATE: 11/22/16 TIME: 17:26 Assessment/Plan VTE Prophylaxis VTE Prophylaxis Intervention: other Lines/Catheters IV Catheter Type (from Nrs): PERMACATH Urinary Cath still in place: No Assessment/Plan Chief Complaint/Hosp Course ESRD HTN ANEMIA HOMELESS vre stool poss coloniazation PLAN HD SNF PLACEMENT Problems: Subjective 24 Hr Interval Summary Cardiovascular: no complaints Exam/Review of Systems Vital Signs Vitals Vital Signs Date Time Temp Pulse Resp B/P Pulse Ox O2 Delivery O2 Flow Rate FiO2 11/22/16 08:44 98.1 62 18 140/63 96 Intake and Output 11/21/16 11/21/16 11/22/16 15:00 23:00 07:00 Intake Total 480 ml 520 ml Output Total 50 ml Balance 430 ml 520 ml Exam Respiratory: clear to auscultation Cardiovascular: regular rate and rhythm Gastrointestinal: soft Extremities: normal pulses Results Result Diagram: 11/18/16 1100 11/18/16 1100 Medications Medications Current Medications Amlodipine Besylate (Norvasc) 10 mg DAILY PO Last administered on 11/22/16 08: 08; Admin Dose 10 MG; Start 11/12/16 at 09:00 Metoprolol Tartrate (Lopressor) 25 mg BID PO Last administered on 11/22/16 08: 08; Admin Dose 25 MG; Start 11/12/16 at 09:00 Ondansetron HCl (Zofran Inj) 4 mg Q6H PRN IV NAUSEA AND/OR VOMITING; Start 11/11 at 23:30 Acetaminophen (Tylenol Tab) 650 mg Q6H PRN PO PAIN LEVEL 1-3 OR FEVER Last administered on 11/13/16 11:00; Admin Dose 650 MG; Start 11/11/16 at 23:30 Acetaminophen (Tylenol Supp) 650 mg Q6H PRN [place] PAIN LEVEL 1-3 OR FEVER; Start 11/11/16 at 23:30 Docusate Sodium (Colace) 100 mg Q12H PRN PO CONSTIPATION; Start 11/11/16 at 23: 30 Bisacodyl (Dulcolax) 5 mg DAILY PRN PO CONSTIPATION; Start 11/11/16 at 23:30 Enoxaparin Sodium (Lovenox) 30 mg DAILY SC Last administered on 11/22/16 08:06 ; Admin Dose 30 MG; Start 11/12/16 at 09:00 Folic Acid (Folic Acid) 1 mg DAILY PO Last administered on 11/22/16 08:05; Admin Dose 1 MG; Start 11/13/16 at 09:00 Multivit/Ca Carb/ B Cmplx/FA/Prenat (Ct-Haritha) 1 tab DAILY PO Last administered on 11/22/16 08:05; Admin Dose 1 TAB; Start 11/13/16 at 09:00 Epoetin Brodie (Epogen (Esrd)) 4,000 units MoWeFr@17 SC Last administered on 11/20 17:44; Admin Dose 4,000 UNITS; Start 11/13/16 at 17:00 Miscellaneous Information Patients own medicat... DAILY XX ; Start 11/17/16 at 09 :00 Linezolid (Zyvox) 600 mg BID PO Last administered on 11/22/16 08:05; Admin Dose 600 MG; Start 11/16/16 at 21:00 ARMIDA HARRIS MD Nov 22, 2016 17:26
[2016-11-22 20:42] VITALS: BP 117/61; RESP 19
[2016-11-23] VITALS (9 sets, daily range): BP systolic 107–167; BP diastolic 58–79; PULSE 77–81; RESP 16
[2016-11-23] MEDS: ENOXAPARIN 30 MG/0.3 ML SYG SC SCH (08:58)
[2016-11-23] MEDS: MULTIVIT/CA CARB/B CMPLX/FA TAB PO SCH (08:58)
[2016-11-23] MEDS: FOLIC ACID 1 MG TAB PO SCH (08:58)
[2016-11-23] MEDS: CALCIUM CARBONATE 500 MG CHEW TAB PO SCH ×3 (08:58→19:01)
[2016-11-23] MEDS: ZYVOX 600 MG TAB PO SCH ×2 (08:58→20:50)
[2016-11-23] MEDS: METOPROLOL 25 MG TAB PO SCH ×2 (09:00→20:50)
[2016-11-23] MEDS: AMLODIPINE 10 MG TAB PO SCH (09:00)
[2016-11-23] MEDS: EPOETIN 4000 UNITS/1 ML INJ (ESRD) SC SCH (17:16)
--- NOTE | 2016-11-23 23:33 | PN ---
Date/Time of Note Date/Time of Note DATE: 11/23/16 TIME: 23:32 Assessment/Plan VTE Prophylaxis VTE Prophylaxis Intervention: other Lines/Catheters IV Catheter Type (from Nrsg): permACATH Urinary Cath still in place: No Assessment/Plan Chief Complaint/Hosp Course ESRD HTN ANEMIA HOMELESS vre stool poss coloniazation PLAN HD SNF PLACEMENT Problems: Subjective 24 Hr Interval Summary Respiratory: no complaints Cardiovascular: no complaints Exam/Review of Systems Vital Signs Vitals Vital Signs Date Time Temp Pulse Resp B/P Pulse Ox O2 Delivery O2 Flow Rate FiO2 11/23/16 19:53 97.7 63 16 167/72 99 Intake and Output 11/22/16 11/22/16 11/23/16 15:00 23:00 07:00 Intake Total 760 ml 150 ml Output Total 25 ml Balance 760 ml 125 ml Exam Neck: supple Respiratory: clear to auscultation Cardiovascular: regular rate and rhythm Gastrointestinal: soft Medications Medications Current Medications Amlodipine Besylate (Norvasc) 10 mg DAILY PO Last administered on 11/22/16 08: 08; Admin Dose 10 MG; Start 11/12/16 at 09:00 Metoprolol Tartrate (Lopressor) 25 mg BID PO Last administered on 11/23/16 20: 50; Admin Dose 25 MG; Start 11/12/16 at 09:00 Ondansetron HCl (Zofran Inj) 4 mg Q6H PRN IV NAUSEA AND/OR VOMITING; Start 11/11 at 23:30 Acetaminophen (Tylenol Tab) 650 mg Q6H PRN PO PAIN LEVEL 1-3 OR FEVER Last administered on 11/13/16 11:00; Admin Dose 650 MG; Start 11/11/16 at 23:30 Acetaminophen (Tylenol Supp) 650 mg Q6H PRN [place] PAIN LEVEL 1-3 OR FEVER; Start 11/11/16 at 23:30 Docusate Sodium (Colace) 100 mg Q12H PRN PO CONSTIPATION; Start 11/11/16 at 23: 30 Bisacodyl (Dulcolax) 5 mg DAILY PRN PO CONSTIPATION; Start 11/11/16 at 23:30 Enoxaparin Sodium (Lovenox) 30 mg DAILY SC Last administered on 11/23/16 08:58 ; Admin Dose 30 MG; Start 11/12/16 at 09:00 Folic Acid (Folic Acid) 1 mg DAILY PO Last administered on 11/23/16 08:58; Admin Dose 1 MG; Start 11/13/16 at 09:00 Multivit/Ca Carb/ B Cmplx/FA/Prenat (Ct-Haritha) 1 tab DAILY PO Last administered on 11/23/16 08:58; Admin Dose 1 TAB; Start 11/13/16 at 09:00 Epoetin Brodie (Epogen (Esrd)) 4,000 units MoWeFr@17 SC Last administered on 11/23 17:16; Admin Dose 4,000 UNITS; Start 11/13/16 at 17:00 Miscellaneous Information Patients own medicat... DAILY XX ; Start 11/17/16 at 09 :00 Linezolid (Zyvox) 600 mg BID PO Last administered on 11/23/16 20:50; Admin Dose 600 MG; Start 11/16/16 at 21:00 ARMIDA HARRIS MD Nov 23, 2016 23:32
[2016-11-24 08:08] VITALS: BP 164/86; RESP 16
[2016-11-24] MEDS: ZYVOX 600 MG TAB PO SCH ×2 (10:53→20:10)
[2016-11-24] MEDS: CALCIUM CARBONATE 500 MG CHEW TAB PO SCH ×3 (10:54→18:41)
[2016-11-24] MEDS: MULTIVIT/CA CARB/B CMPLX/FA TAB PO SCH (10:54)
[2016-11-24] MEDS: FOLIC ACID 1 MG TAB PO SCH (10:54)
[2016-11-24] MEDS: METOPROLOL 25 MG TAB PO SCH ×2 (10:55→20:10)
[2016-11-24] MEDS: AMLODIPINE 10 MG TAB PO SCH (10:55)
[2016-11-24] MEDS: ENOXAPARIN 30 MG/0.3 ML SYG SC SCH (10:56)
[2016-11-24 20:03] VITALS: BP 141/67; RESP 18
--- NOTE | 2016-11-24 20:07 | PN ---
Date/Time of Note Date/Time of Note DATE: 11/24/16 TIME: 20:07 Assessment/Plan VTE Prophylaxis VTE Prophylaxis Intervention: other Lines/Catheters IV Catheter Type (from Nrs): Permacath Urinary Cath still in place: No Assessment/Plan Chief Complaint/Hosp Course ESRD HTN ANEMIA HOMELESS vre stool poss coloniazation PLAN HD SNF PLACEMENT Problems: Subjective 24 Hr Interval Summary Cardiovascular: no complaints Gastrointestinal: no complaints Genitourinary: no complaints Exam/Review of Systems Vital Signs Vitals Vital Signs Date Time Temp Pulse Resp B/P Pulse Ox O2 Delivery O2 Flow Rate FiO2 11/24/16 20:03 98.3 65 18 141/67 97 Intake and Output 11/23/16 11/23/16 11/24/16 15:00 23:00 07:00 Intake Total 300 ml 830 ml 480 ml Output Total 3300 ml 200 ml 150 ml Balance -3000 ml 630 ml 330 ml Exam Respiratory: clear to auscultation Cardiovascular: regular rate and rhythm Gastrointestinal: soft Musculoskeletal: nl extremities to inspection Extremities: normal pulses Medications Medications Current Medications Amlodipine Besylate (Norvasc) 10 mg DAILY PO Last administered on 11/24/16 10: 55; Admin Dose 10 MG; Start 11/12/16 at 09:00 Metoprolol Tartrate (Lopressor) 25 mg BID PO Last administered on 11/24/16 10: 55; Admin Dose 25 MG; Start 11/12/16 at 09:00 Ondansetron HCl (Zofran Inj) 4 mg Q6H PRN IV NAUSEA AND/OR VOMITING; Start 11/11 at 23:30 Acetaminophen (Tylenol Tab) 650 mg Q6H PRN PO PAIN LEVEL 1-3 OR FEVER Last administered on 11/13/16 11:00; Admin Dose 650 MG; Start 11/11/16 at 23:30 Acetaminophen (Tylenol Supp) 650 mg Q6H PRN [place] PAIN LEVEL 1-3 OR FEVER; Start 11/11/16 at 23:30 Docusate Sodium (Colace) 100 mg Q12H PRN PO CONSTIPATION; Start 11/11/16 at 23: 30 Bisacodyl (Dulcolax) 5 mg DAILY PRN PO CONSTIPATION; Start 11/11/16 at 23:30 Enoxaparin Sodium (Lovenox) 30 mg DAILY SC Last administered on 11/24/16 10:56 ; Admin Dose 30 MG; Start 11/12/16 at 09:00 Folic Acid (Folic Acid) 1 mg DAILY PO Last administered on 11/24/16 10:54; Admin Dose 1 MG; Start 11/13/16 at 09:00 Multivit/Ca Carb/ B Cmplx/FA/Prenat (Ct-Haritha) 1 tab DAILY PO Last administered on 11/24/16 10:54; Admin Dose 1 TAB; Start 11/13/16 at 09:00 Epoetin Brodie (Epogen (Esrd)) 4,000 units MoWeFr@17 SC Last administered on 11/23 17:16; Admin Dose 4,000 UNITS; Start 11/13/16 at 17:00 Miscellaneous Information Patients own medicat... DAILY XX ; Start 11/17/16 at 09 :00 Linezolid (Zyvox) 600 mg BID PO Last administered on 11/24/16 10:53; Admin Dose 600 MG; Start 11/16/16 at 21:00 ARMIDA HARRIS MD Nov 24, 2016 20:07
[2016-11-25] VITALS (10 sets, daily range): BP systolic 110–159; BP diastolic 51–72; PULSE 74–81; RESP 16
[2016-11-25] MEDS: AMLODIPINE 10 MG TAB PO SCH ×2 (09:00→16:20)
[2016-11-25] MEDS: MULTIVIT/CA CARB/B CMPLX/FA TAB PO SCH (09:03)
[2016-11-25] MEDS: METOPROLOL 25 MG TAB PO SCH ×2 (09:03→20:42)
[2016-11-25] MEDS: CALCIUM CARBONATE 500 MG CHEW TAB PO SCH ×3 (09:03→20:41)
[2016-11-25] MEDS: ENOXAPARIN 30 MG/0.3 ML SYG SC SCH (09:03)
[2016-11-25] MEDS: FOLIC ACID 1 MG TAB PO SCH (09:03)
[2016-11-25] MEDS: ZYVOX 600 MG TAB PO SCH ×2 (09:03→20:42)
[2016-11-25] MEDS: EPOETIN 4000 UNITS/1 ML INJ (ESRD) SC SCH (16:21)
--- NOTE | 2016-11-25 20:26 | PN ---
Date/Time of Note Date/Time of Note DATE: 11/25/16 TIME: 20:25 Assessment/Plan VTE Prophylaxis VTE Prophylaxis Intervention: other Lines/Catheters IV Catheter Type (from Nrs): Saline Lock Urinary Cath still in place: No Assessment/Plan Chief Complaint/Hosp Course ESRD HTN ANEMIA HOMELESS vre stool poss coloniazation PLAN HD SNF PLACEMENT Problems: Subjective 24 Hr Interval Summary Cardiovascular: no complaints Gastrointestinal: no complaints Exam/Review of Systems Vital Signs Vitals Vital Signs Date Time Temp Pulse Resp B/P Pulse Ox O2 Delivery O2 Flow Rate FiO2 11/25/16 15:00 80 11/25/16 15:00 18 11/25/16 07:15 98.0 124/66 97 Intake and Output 11/24/16 11/24/16 11/25/16 15:00 23:00 07:00 Intake Total 760 ml 440 ml Output Total 100 ml Balance 660 ml 440 ml Exam Cardiovascular: regular rate and rhythm Gastrointestinal: soft Musculoskeletal: nl extremities to inspection Medications Medications Current Medications Amlodipine Besylate (Norvasc) 10 mg DAILY PO Last administered on 11/25/16 16: 20; Admin Dose 10 MG; Start 11/12/16 at 09:00 Metoprolol Tartrate (Lopressor) 25 mg BID PO Last administered on 11/25/16 09: 03; Admin Dose 25 MG; Start 11/12/16 at 09:00 Ondansetron HCl (Zofran Inj) 4 mg Q6H PRN IV NAUSEA AND/OR VOMITING; Start 11/11 at 23:30 Acetaminophen (Tylenol Tab) 650 mg Q6H PRN PO PAIN LEVEL 1-3 OR FEVER Last administered on 11/13/16 11:00; Admin Dose 650 MG; Start 11/11/16 at 23:30 Acetaminophen (Tylenol Supp) 650 mg Q6H PRN [place] PAIN LEVEL 1-3 OR FEVER; Start 11/11/16 at 23:30 Docusate Sodium (Colace) 100 mg Q12H PRN PO CONSTIPATION; Start 11/11/16 at 23: 30 Bisacodyl (Dulcolax) 5 mg DAILY PRN PO CONSTIPATION; Start 11/11/16 at 23:30 Enoxaparin Sodium (Lovenox) 30 mg DAILY SC Last administered on 11/25/16 09:03 ; Admin Dose 30 MG; Start 11/12/16 at 09:00 Folic Acid (Folic Acid) 1 mg DAILY PO Last administered on 11/25/16 09:03; Admin Dose 1 MG; Start 11/13/16 at 09:00 Multivit/Ca Carb/ B Cmplx/FA/Prenat (Ct-Haritha) 1 tab DAILY PO Last administered on 11/25/16 09:03; Admin Dose 1 TAB; Start 11/13/16 at 09:00 Epoetin Brodie (Epogen (Esrd)) 4,000 units MoWeFr@17 SC Last administered on 11/25 16:21; Admin Dose 4,000 UNITS; Start 11/13/16 at 17:00 Miscellaneous Information Patients own medicat... DAILY XX Last administered on 11/25/16 09:04; Admin Dose 1 EA; Start 11/17/16 at 09:00 Linezolid (Zyvox) 600 mg BID PO Last administered on 11/25/16 09:03; Admin Dose 600 MG; Start 11/16/16 at 21:00 ARMIDA HARRIS MD Nov 25, 2016 20:26
[2016-11-26 08:12] VITALS: BP 172/77; RESP 19
[2016-11-26] MEDS: ENOXAPARIN 30 MG/0.3 ML SYG SC SCH (08:40)
[2016-11-26] MEDS: ZYVOX 600 MG TAB PO SCH (08:41)
[2016-11-26] MEDS: MULTIVIT/CA CARB/B CMPLX/FA TAB PO SCH (08:41)
[2016-11-26] MEDS: FOLIC ACID 1 MG TAB PO SCH (08:41)
[2016-11-26] MEDS: CALCIUM CARBONATE 500 MG CHEW TAB PO SCH ×3 (08:41→18:59)
[2016-11-26] MEDS: METOPROLOL 25 MG TAB PO SCH ×2 (08:42→20:51)
[2016-11-26] MEDS: AMLODIPINE 10 MG TAB PO SCH (08:43)
[2016-11-26 12:10] VITALS: BP 140/69; PULSE 68
--- NOTE | 2016-11-26 12:36 | PN ---
Date/Time of Note Date/Time of Note DATE: 11/26/16 TIME: 12:35 Assessment/Plan VTE Prophylaxis VTE Prophylaxis Intervention: other Lines/Catheters IV Catheter Type (from Nrs): Saline Lock Urinary Cath still in place: No Assessment/Plan Chief Complaint/Hosp Course ESRD HTN ANEMIA HOMELESS vre stool treated PLAN HD SNF zyvox dced PLACEMENT Problems: Subjective 24 Hr Interval Summary Gastrointestinal: no complaints, No diarrhea Genitourinary: no complaints Exam/Review of Systems Vital Signs Vitals Vital Signs Date Time Temp Pulse Resp B/P Pulse Ox O2 Delivery O2 Flow Rate FiO2 11/26/16 08:12 98.4 70 19 172/77 94 Intake and Output 11/25/16 11/25/16 11/26/16 15:00 23:00 07:00 Intake Total 500 ml 420 ml 240 ml Output Total 2500 ml Balance -2000 ml 420 ml 240 ml Exam Respiratory: clear to auscultation Cardiovascular: regular rate and rhythm Gastrointestinal: soft Musculoskeletal: nl extremities to inspection Medications Medications Current Medications Amlodipine Besylate (Norvasc) 10 mg DAILY PO Last administered on 11/26/16 08: 43; Admin Dose 10 MG; Start 11/12/16 at 09:00 Metoprolol Tartrate (Lopressor) 25 mg BID PO Last administered on 11/26/16 08: 42; Admin Dose 25 MG; Start 11/12/16 at 09:00 Ondansetron HCl (Zofran Inj) 4 mg Q6H PRN IV NAUSEA AND/OR VOMITING; Start 11/11 at 23:30 Acetaminophen (Tylenol Tab) 650 mg Q6H PRN PO PAIN LEVEL 1-3 OR FEVER Last administered on 11/13/16 11:00; Admin Dose 650 MG; Start 11/11/16 at 23:30 Acetaminophen (Tylenol Supp) [address] PAIN LEVEL 1-3 OR FEVER; Start 11/11/16 at 23:30 Docusate Sodium (Colace) 100 mg Q12H PRN PO CONSTIPATION; Start 11/11/16 at 23: 30 Bisacodyl (Dulcolax) 5 mg DAILY PRN PO CONSTIPATION; Start 11/11/16 at 23:30 Enoxaparin Sodium (Lovenox) 30 mg DAILY SC Last administered on 11/26/16 08:40 ; Admin Dose 30 MG; Start 11/12/16 at 09:00 Folic Acid (Folic Acid) 1 mg DAILY PO Last administered on 11/26/16 08:41; Admin Dose 1 MG; Start 11/13/16 at 09:00 Multivit/Ca Carb/ B Cmplx/FA/Prenat (Ct-Haritha) 1 tab DAILY PO Last administered on 11/26/16 08:41; Admin Dose 1 TAB; Start 11/13/16 at 09:00 Epoetin Brodie (Epogen (Esrd)) 4,000 units MoWeFr@17 SC Last administered on 11/25 16:21; Admin Dose 4,000 UNITS; Start 11/13/16 at 17:00 Miscellaneous Information Patients own medicat... DAILY XX Last administered on 11/25/16 09:04; Admin Dose 1 EA; Start 11/17/16 at 09:00 Linezolid (Zyvox) 600 mg BID PO Last administered on 11/26/16 08:41; Admin Dose 600 MG; Start 11/16/16 at 21:00 ARMIDA HARRIS MD Nov 26, 2016 12:36
[2016-11-26 21:17] VITALS: BP 169/76; RESP 18
[2016-11-27] VITALS (13 sets, daily range): BP systolic 110–177; BP diastolic 59–81; PULSE 71–80; RESP 16–18
[2016-11-27] MEDS: AMLODIPINE 10 MG TAB PO SCH (08:27)
[2016-11-27] MEDS: METOPROLOL 25 MG TAB PO SCH ×2 (08:27→20:15)
[2016-11-27] MEDS: ENOXAPARIN 30 MG/0.3 ML SYG SC SCH (08:29)
[2016-11-27] MEDS: CALCIUM CARBONATE 500 MG CHEW TAB PO SCH ×4 (08:30→17:57)
[2016-11-27] MEDS: MULTIVIT/CA CARB/B CMPLX/FA TAB PO SCH ×2 (08:30→09:08)
[2016-11-27] MEDS: FOLIC ACID 1 MG TAB PO SCH ×2 (08:30→09:08)
--- NOTE | 2016-11-27 11:29 | PN ---
Date/Time of Note Date/Time of Note DATE: 11/27/16 TIME: 11:23 Assessment/Plan VTE Prophylaxis VTE Prophylaxis Intervention: ambulation Lines/Catheters IV Catheter Type (from Nrs): Saline Lock Central line still needed: No Urinary Cath still in place: No Assessment/Plan Chief Complaint/Hosp Course 1. ESRD with HD support 2.HTN, controlled 3. ANEMIA 4. HOMELESS 5. 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 PLACEMENT to [place] [facility] Problems: Assessment/Plan 1. Discharge med rec signed 2. case management to finalize discharge Subjective 24 Hr Interval Summary Constitutional: no complaints Eyes: no complaints ENT: no complaints Respiratory: no complaints Cardiovascular: no complaints Gastrointestinal: no complaints Genitourinary: no complaints Exam/Review of Systems Vital Signs Vitals Vital Signs Date Time Temp Pulse Resp B/P Pulse Ox O2 Delivery O2 Flow Rate FiO2 11/27/16 08:30 71 11/27/16 08:30 17 11/27/16 07:25 98.0 137/76 98 Intake and Output 11/26/16 11/26/16 11/27/16 15:00 23:00 07:00 Intake Total 1320 ml 600 ml Output Total 2800 ml Balance 1320 ml -2200 ml Exam Constitutional: alert, oriented, well developed Psych: nl mood/affect, no complaints Head: atraumatic, normocephalic Eyes: nl conjunctiva Neck: supple Respiratory: clear to auscultation Cardiovascular: regular rate and rhythm Gastrointestinal: soft Genitourinary - Male: nl penis Musculoskeletal: nl extremities to inspection Extremities: normal pulses Skin: nl turgor Medications Medications Current Medications Amlodipine Besylate (Norvasc) 10 mg DAILY PO Last administered on 11/26/16 08: 43; Admin Dose 10 MG; Start 11/12/16 at 09:00 Metoprolol Tartrate (Lopressor) 25 mg BID PO Last administered on 11/26/16 20: 51; Admin Dose 25 MG; Start 11/12/16 at 09:00 Ondansetron HCl (Zofran Inj) 4 mg Q6H PRN IV NAUSEA AND/OR VOMITING; Start 11/11 at 23:30 Acetaminophen (Tylenol Tab) 650 mg Q6H PRN PO PAIN LEVEL 1-3 OR FEVER Last administered on 11/13/16 11:00; Admin Dose 650 MG; Start 11/11/16 at 23:30 Acetaminophen (Tylenol Supp) 650 mg Q6H PRN [place] PAIN LEVEL 1-3 OR FEVER; Start 11/11/16 at 23:30 Docusate Sodium (Colace) 100 mg Q12H PRN PO CONSTIPATION; Start 11/11/16 at 23: 30 Bisacodyl (Dulcolax) 5 mg DAILY PRN PO CONSTIPATION; Start 11/11/16 at 23:30 Enoxaparin Sodium (Lovenox) 30 mg DAILY SC Last administered on 11/26/16 08:40 ; Admin Dose 30 MG; Start 11/12/16 at 09:00 Folic Acid (Folic Acid) 1 mg DAILY PO Last administered on 11/27/16 09:08; Admin Dose 1 MG; Start 11/13/16 at 09:00 Multivit/Ca Carb/ B Cmplx/FA/Prenat (Ct-Haritha) 1 tab DAILY PO Last administered on 11/27/16 09:08; Admin Dose 1 TAB; Start 11/13/16 at 09:00 Epoetin Brodie (Epogen (Esrd)) 4,000 units MoWeFr@17 SC Last administered on 11/25 16:21; Admin Dose 4,000 UNITS; Start 11/13/16 at 17:00 Miscellaneous Information Patients own medicat... DAILY XX Last administered on 11/25/16 09:04; Admin Dose 1 EA; Start 11/17/16 at 09:00 TOM BASURTO Nov 27, 2016 11:29
[2016-11-27 14:48] LABS: HAAIG REFLEX REFLEX FILED
[2016-11-27] MEDS: EPOETIN 4000 UNITS/1 ML INJ (ESRD) SC SCH (16:49)
[2016-11-27 18:51] LABS: HEPATITIS B CORE ANTIBODY NEGATIVE (NEGATIVE)
[2016-11-28] VITALS (7 sets, daily range): BP systolic 131–170; BP diastolic 63–79; PULSE 59–61; RESP 16
[2016-11-28] MEDS: METOPROLOL 25 MG TAB PO SCH (09:10)
[2016-11-28] MEDS: FOLIC ACID 1 MG TAB PO SCH (09:11)
[2016-11-28] MEDS: MULTIVIT/CA CARB/B CMPLX/FA TAB PO SCH (09:11)
[2016-11-28] MEDS: AMLODIPINE 10 MG TAB PO SCH (09:11)
[2016-11-28] MEDS: CALCIUM CARBONATE 500 MG CHEW TAB PO SCH ×2 (09:11→13:00)
[2016-11-28] MEDS: ENOXAPARIN 30 MG/0.3 ML SYG SC SCH (09:13)
== END 2016-11-28 12:45 | DRG 682 ==
LOC: E/R 16:58 → EDUNIT# 16:58 → PP2 23:09 → OBSVTOIN 11-13 12:53
PROVIDERS: ADMIT Internal Medicine Nephrology; ATTEND Internal Medicine Nephrology
PROC: 5A1D60Z (ICD-10-PCS; principal; 2016-11-13)
DX: I12.0 Hypertensive chronic kidney disease with stage 5 chronic kidney disease or end stage renal disease (principal); N18.6 End stage renal disease; Z59.0 Homelessness; Z99.2 Dependence on renal dialysis; D63.1 Anemia in chronic kidney disease; E83.39 Other disorders of phosphorus metabolism; E83.51 Hypocalcemia; B95.2 Enterococcus as the cause of diseases classified elsewhere; Z16.21 Resistance to vancomycin
CPT/HCPCS: 70450; 71010; 80048; 80053; 81001; 81003; 83605; 84484; 85025; 85610; 85730; 86704; 86709; 86803; 87040; 87045; 87081; 87086; 87340; 90935; 93005; 97110; 97116; 97162; 97530; G0378; J0886; J1650

== ENCOUNTER 2019-01-16 21:07 | Inpatient (IN) | payer OTHER ==
[~2019-01-16 21:07] MED LIST changes: -VANC1.5P12 IV
--- NOTE | 2019-01-16 23:55 | HP ---
Date/Time of Note Date/Time of Note DATE: 01/16/19 TIME: 23:55 Assessment/Plan VTE Prophylaxis Pharmacological prophylaxis: heparin Assessment/Plan Assessment/Plan 1. HD catheter malfunction -Radiology vs vascular for removal/replacement 2. ESRD: Nephrology consult 3. Hypertension: Adjust antihypertensive as needed 4. Anemia of renal failure/chronic disease -Check FOBT and iron/ferritin to evaluate for a GI bleed and iron deficiency HPI/ROS Admit Date/Time Admit Date/Time January 16, 2019 at 22:24 Hx of Present Illness Patient is a 63-year-old male with a history of hypertension, ESRD, anemia who initially presented on outside hospital in the transferred to [facility] because of HD catheter malfunction. Transferring facility wanted catheter to be removed under radiology guidance and patient transferred to [facility] for insurance reasons. PMH/Family/Social Past Medical History Past Surgical Hx: other (HPI) Family History Significant Family History: no pertinent family hx Social History Alcohol Use: none Smoking Status: Never smoker Drug Use: none Exam Constitutional: alert, oriented, well developed Head: normocephalic, atraumatic Eyes: EOMI, PERRL Respiratory: clear to auscultation, normal air movement Cardiovascular: regular rate and rhythm, nl pulses Gastrointestinal: soft, other (Right lower quadrant tenderness elicited on palpation. Patient also with right flank pain) Extremities: normal pulses Coded Allergies: No Known Allergy (Unverified , 11/11/16) Past Surgical History Past Surgical Hx: no surgical history Family History Significant Family History: no pertinent family hx MARIO VELEZ MD January 16, 2019 23:55
[2019-01-16 23:56] VITALS: BP 152/70; PULSE 74; RESP 20
[2019-01-17] MEDS ORDERED: ONDANSETRON 4 MG INJ IV PRN
[2019-01-17] MEDS ORDERED: HYDROCODONE/APAP (5/325) TAB PO PRN
[2019-01-17] MEDS ORDERED: ACETAMINOPHEN 325 MG TAB PO PRN
[2019-01-17] MEDS ORDERED: NACL 0.9% 3 ML SYG IV SCH
[2019-01-17] MEDS ORDERED: ALBUTEROL/IPRATROPIUM (NEB) 3 ML AMP HHN PRN
[2019-01-17 03:58] VITALS: BP 134/63; PULSE 72; RESP 16
[2019-01-17] MEDS: AMLODIPINE 10 MG TAB PO SCH (09:26)
[2019-01-17] MEDS: METOPROLOL 25 MG TAB PO SCH ×2 (09:26→20:30)
--- NOTE | 2019-01-17 18:34 | PN ---
Date/Time of Note Date/Time of Note DATE: 01/17/19 TIME: 18:18 Assessment/Plan VTE Prophylaxis Risk score (from Ns)>0 risk: 2 [place] [facility] [place] Pharmacological prophylaxis: other Pharm contraindication: other Lines/Catheters IV Catheter Type (from [facility] Saline Lock Urinary Cath still in place: No Assessment/Plan Assessment/Plan 1. HD catheter malfunction, radiologist to replace catheter, INR was 0.9, PTT 28 on 01/16/2019 in [facility] 2. ESRD, HD on [facility], nephrology consult 3. Hypertension, controlled 4. Anemia of renal failure/chronic disease Result Diagram: 01/17/19 0640 01/17/19 0640 Results 24hrs Laboratory Tests Test 01/17/19 06:40 White Blood Count 8.9 Red Blood Count 3.90 #L Hemoglobin 12.0 #L Hematocrit 36.4 #L Mean Corpuscular Volume 93.3 Mean Corpuscular Hemoglobin 30.8 Mean Corpuscular Hemoglobin Concent 33.0 Red Cell Distribution Width 12.5 Platelet Count 161 # Mean Platelet Volume 12.3 H Immature Granulocytes % 0.300 Neutrophils % 65.0 Lymphocytes % 23.4 Monocytes % 7.8 Eosinophils % 2.9 Basophils % 0.6 Nucleated Red Blood Cells % 0.0 Immature Granulocytes # 0.030 Neutrophils # 5.8 Lymphocytes # 2.1 Monocytes # 0.7 Eosinophils # 0.3 Basophils # 0.1 Nucleated Red Blood Cells # 0.0 Sodium Level 139 Potassium Level 4.7 Chloride Level 97 Carbon Dioxide Level 27 Anion Gap 15 H Blood Urea Nitrogen 49 H Creatinine 9.16 H Est Glomerular Filtrat Rate mL/min 6 L Glucose Level 59 L Calcium Level 8.5 Phosphorus Level 6.8 H Magnesium Level 2.2 Iron Level 83 Total Iron Binding Capacity 242 Percent Iron Saturation 34 Ferritin 612.0 H Total Bilirubin 0.1 L Direct Bilirubin 0.00 Indirect Bilirubin 0.1 Aspartate Amino Transf (AST/SGOT) 12 L Alanine Aminotransferase (ALT/SGPT) 17 Alkaline Phosphatase 66 Total Protein 7.5 Albumin 4.1 Globulin 3.40 H Albumin/Globulin Ratio 1.20 Subjective 24 Hr Interval Summary Free Text/Dictation no pain, no shortness of breath Exam/Review of Systems Exam Vitals Vital Signs Date Temp Pulse Resp B/P (MAP) Pulse Ox O2 O2 Flow FiO2 Time Delivery Rate 01/17/19 98.0 72 16 134/63 96 03:58 (86) Constitutional: alert, oriented, well developed Head: normocephalic, atraumatic Eyes: nl conjunctiva, EOMI, nl lids, other (blind) ENMT: nl external ears & nose, nl lips & teeth, nl nasal mucosa & septum Neck: supple, non-tender Respiratory: clear to auscultation, normal air movement; No congested cough, No crackles/rales, No diminished breath sounds, No intercostal retraction, No labored breathing, No respirations, No tactile fremitus, No wheezing, No other Cardiovascular: regular rate and rhythm, nl pulses; No bruits, No diastolic murmur, No edema, No gallop, No irregular rhythm, No jugular venous distention (JVD), No murmurs/extra sounds, No rub, No systolic mu rmur, No S3, No S4, No other Gastrointestinal: soft, nl liver, spleen, non-tender; No ascites, No bowel sounds, No distended, No firm, No hepatomegaly, No mass, No rebound or guarding, No splenomegaly, No surgical scars, No tender, No other Musculoskeletal: nl extremities to inspection Extremities: normal pulses; No calf tenderness, No cyanosis, No clubbing, No edema, No pitting pedal edema, No palpable cord, No tenderness, No other Neurological: [employer] II-XII intact, nl mental status, nl speech, nl strength Results Results 24hrs Laboratory Tests Test 01/17/19 06:40 White Blood Count 8.9 Red Blood Count 3.90 #L Hemoglobin 12.0 #L Hematocrit 36.4 #L Mean Corpuscular Volume 93.3 Mean Corpuscular Hemoglobin 30.8 Mean Corpuscular Hemoglobin Concent 33.0 Red Cell Distribution Width 12.5 Platelet Count 161 # Mean Platelet Volume 12.3 H Immature Granulocytes % 0.300 Neutrophils % 65.0 Lymphocytes % 23.4 Monocytes % 7.8 Eosinophils % 2.9 Basophils % 0.6 Nucleated Red Blood Cells % 0.0 Immature Granulocytes # 0.030 Neutrophils # 5.8 Lymphocytes # 2.1 Monocytes # 0.7 Eosinophils # 0.3 Basophils # 0.1 Nucleated Red Blood Cells # 0.0 Sodium Level 139 Potassium Level 4.7 Chloride Level 97 Carbon Dioxide Level 27 Anion Gap 15 H Blood Urea Nitrogen 49 H Creatinine 9.16 H Est Glomerular Filtrat Rate mL/min 6 L Glucose Level 59 L Calcium Level 8.5 Phosphorus Level 6.8 H Magnesium Level 2.2 Iron Level 83 Total Iron Binding Capacity 242 Percent Iron Saturation 34 Ferritin 612.0 H Total Bilirubin 0.1 L Direct Bilirubin 0.00 Indirect Bilirubin 0.1 Aspartate Amino Transf (AST/SGOT) 12 L Alanine Aminotransferase (ALT/SGPT) 17 Alkaline Phosphatase 66 Total Protein 7.5 Albumin 4.1 Globulin 3.40 H Albumin/Globulin Ratio 1.20 Medications Medication Current Medications IV Flush (NS 3 ml) 3 ml PER PROTOCOL IV ; Start 01/17/19 at 00:00 Ondansetron HCl (Zofran Inj) 4 mg Q6H PRN IV NAUSEA/VOMITING; Start 01/17/19 at 00:00 Acetaminophen (Tylenol Tab) 650 mg Q6H PRN PO .PAIN 1-3 OR TEMP; Start 01/17/19 at 00:00 Acetaminophen/ Hydrocodone Bitart ([place] (5/325)) 1 tab Q6H PRN PO .MOD PAIN 4- 6; Start 01/17/19 at 00:00 Albuterol/ Ipratropium (Duoneb) 3 ml Q2H RESP THERAPY PRN HHN SHORTNESS OF BREATH; Start 01/17/19 at 00:00 Amlodipine Besylate (Norvasc) 10 mg DAILY PO Last administered on 01/17/19at 09:26; Admin Dose 10 MG; Start 01/17/19 at 09:00 Metoprolol Tartrate (Lopressor) 25 mg BID PO Last administered on 01/17/19at 09:26; Admin Dose 25 MG; Start 01/17/19 at 09:00 CHIKI CHEUNG MD January 17, 2019 18:32
[2019-01-17 20:00] VITALS: BP 147/70; PULSE 73; RESP 18
[2019-01-18] VITALS (8 sets, daily range): BP systolic 91–149; BP diastolic 42–72; PULSE 67–78; RESP 16–18
[2019-01-18] MEDS: METOPROLOL 25 MG TAB PO SCH ×2 (09:00→20:27)
[2019-01-18] MEDS: AMLODIPINE 10 MG TAB PO SCH (10:49)
[2019-01-18] MEDS ORDERED: HEPARIN 1000 UNITS/ML 10 ML INJ ONE (12:31)
[2019-01-18] MEDS ORDERED: LIDOCAINE 1% (MDV) 20 ML INJ ONE (12:31)
[2019-01-18] MEDS ORDERED: SOD CHLORIDE 0.9% 1,000 ML ONE (12:31)
[2019-01-18] MEDS ORDERED: MIDAZOLAM 1 MG/ML 2 ML INJ ONE (12:34)
[2019-01-18] MEDS ORDERED: FENTAnyl 50 MCG/ML VIAL ONE (12:35)
--- NOTE | 2019-01-18 13:12 | RADRPT ---
PROCEDURE: RIGHT INTERNAL JUGULAR PERMACATH REPLACEMENT CLINICAL INDICATION: Renal failure with poorly functioning permacath. TECHNIQUE: MEDICATIONS: Versed and Fentanyl were administered by the radiology nurse who monitored the patient. TECHNIQUE/FINDINGS: Informed consent was obtained following careful explanations of the risks and yoana efits of the procedure. Moderate sedation time: 15 min Fluoroscopy time: 0.1 min Contrast: 0 cc of Isovue 300 Number of fluoroscopic images:1 This central venous catheter was inserted with all elements of maximal sterile barrier technique, cap AND mask AND sterile gown AND sterile gloves AND sterile full-body drape AND hand hygiene AND 2% chl orhexidine for cutaneous antisepsis. Sterile Ultrasound technique with sterile gel and sterile probe covers was also utilized. The patients chest, neck and existing permacath were prepped and draped in the usual sterile fashi on. Following blunt dissection of the existing permacath cuff, the catheter was partially retracted. A st iff Glidewire was advanced into the IVC and the catheter was exchanged over the wire under direct flu oroscopic guidance. A new 28 cm long hemodialysis catheter was then advanced over the wire with its t ip placed in the mid right atrium. Both ports flush and aspirate well. The catheter was locked with h eparin 1000 units per cc. The catheter was sutured the patient's skin. A sterile dressing was applied. The patient tolerated the procedure well COMPARISON: None FINDINGS: Perma-Cath tip is seen within the mid right atrium. RPTAT: AA IMPRESSION: 1. Uncomplicated replacement of a right-sided tunneled hemodialysis catheter. 2. The catheter is ready for use. .Singh Garrett MD, Date Time Electronically viewed and signed by .Singh Garrett MD, MD on 01/18/2019 13:11 .S/
--- NOTE | 2019-01-18 16:23 | PN ---
Date/Time of Note Date/Time of Note DATE: 01/18/19 TIME: 16:20 Assessment/Plan VTE Prophylaxis Risk score [place] [facility] [place] risk: 4 SCD applied (from [facility] [place] Yes Pharmacological prophylaxis: other Pharm contraindication: other Lines/Catheters IV [facility] (from [facility] Saline Lock Urinary Cath still in place: No Assessment/Plan Assessment/Plan 1. HD catheter removal per radiologist tomorrow 2. ESRD, HD on [facility], nephrology for HD today via AV[facility] 3. Hypertension, antihypertensives 4. Anemia, CKD related 5. Legally blind 6. Hyperkalemia, HD today Result Diagram: 01/17/19 0640 01/18/19 0553 Results 24hrs Laboratory Tests Test 01/17/19 19:09 01/18/19 05:53 Prothrombin Time 12.5 Prothrombin Time Ratio 1.0 INR International Normalized Ratio 0.92 Sodium Level 138 Potassium Level 5.5 H Chloride Level 96 L Carbon Dioxide Level 23 Anion Gap 19 H Blood Urea Nitrogen 71 H Creatinine 11.32 #H Est Glomerular Filtrat Rate mL/min 5 L Glucose Level 73 Calcium Level 8.4 Subjective 24 Hr Interval Summary Free Text/Dictation no shortness of breath, no fever or chills. Exam/Review of Systems Exam Vitals Vital Signs Date Temp Pulse Resp B/P (MAP) Pulse Ox O2 O2 Flow FiO2 Time Delivery Rate 01/18/19 98.7 73 18 149/72 95 14:28 (97) Intake and Output 01/17/19 01/17/19 01/18/19 1515:00 23:00 07:00 IntakeIntake Total 900 ml OutputOutput Total 100 ml BalanceBalance 900 ml -100 ml Constitutional: alert, oriented, well developed Head: normocephalic, atraumatic Eyes: nl conjunctiva, nl lids, other (blind) ENMT: nl external ears & nose, nl lips & teeth, nl nasal mucosa & septum Neck: supple, non-tender Respiratory: clear to auscultation, normal air movement Cardiovascular: regular rate and rhythm, nl pulses; No bruits, No diastolic murmur, No edema, No gallop, No irregular rhythm, No jugular venous distention (JVD), No murmurs/extra sounds, No rub, No systolic murmur, No S3, No S4, No other Gastrointestinal: soft, nl liver, spleen, non-tender Musculoskeletal: nl extremities to inspection Extremities: normal pulses; No calf tenderness, No cyanosis, No clubbing, No edema, No pitting pedal jasmin a, No palpable cord, No tenderness, No other Neurological: MENT[employer]LY II-XII intact, nl mental status, nl speech, nl strength Results Results 24hrs Laboratory Tests Test 01/17/19 19:09 01/18/19 05:53 Prothrombin Time 12.5 Prothrombin Time Ratio 1.0 INR International Normalized Ratio 0.92 Sodium Level 138 Potassium Level 5.5 H Chloride Level 96 L Carbon Dioxide Level 23 Anion Gap 19 H Blood Urea Nitrogen 71 H Creatinine 11.32 #H Est Glomerular Filtrat Rate mL/min 5 L Glucose Level 73 Calcium Level 8.4 Medications Medication Current Medications IV Flush (NS 3 ml) 3 ml PER PROTOCOL IV ; Start 01/17/19 at 00:00 Ondansetron HCl (Zofran Inj) 4 mg Q6H PRN IV NAUSEA/VOMITING; Start 01/17/19 at 00:00 Acetaminophen (Tylenol Tab) 650 mg Q6H PRN PO .PAIN 1-3 OR TEMP; Start 01/17/19 at 00:00 Acetaminophen/ Hydrocodone Bitart ([place] (5/325)) 1 tab Q6H PRN PO .MOD PAIN 4- 6; Start 01/17/19 at 00:00 Albuterol/ Ipratropium (Duoneb) 3 ml Q2H RESP THERAPY PRN HHN SHORTNESS OF BREATH; Start 01/17/19 at 00:00 Amlodipine Besylate (Norvasc) 10 mg DAILY PO Last administered on 01/17/19at 09:26; Admin Dose 10 MG; Start 01/17/19 at 09:00 Metoprolol Tartrate (Lopressor) 25 mg BID PO Last administered on 01/17/19at 20:30; Admin Dose 25 MG; Start 01/17/19 at 09:00 CHIKI CHEUNG MD January 18, 2019 16:23
--- NOTE | 2019-01-18 17:38 | QN ---
Documentation Comment RENAL CONSULT DICATTED LUKE AMARAL MD January 18, 2019 17:38
--- NOTE | 2019-01-18 19:25 | CONS ---
DATE OF ADMISSION: 01/16/2019 DATE OF CONSULTATION: TYPE OF CONSULTATION: Renal. REASON FOR CONSULTATION: Hemodialysis. HISTORY OF PRESENTING ILLNESS: This is a 63-year-old male with a past medical history of end-stage r enal disease on hemodialysis, hypertension, anemia of chronic disease, legally blind, homelessness, w ho was sent in by Dr. Dacosta for removal of the PermCath. The patient has had left upper extremity fi stula and had been working fine for the past 4 months. I spoke to the dialysis center. The patient regularly goes to dialysis Wednesday, Wednesday, Wednesday. Last dialysis was on Wednesday. Since the [facility] would not approve, the patient was sent into the ER for removal of PermCath. On admission, vital signs were blood pressure 137/67, afebrile, heart rate 67, respirations 16, saturating 94%. Potassi um of 5.5, BUN of 71, creatinine 11.32. White count of 8.9, hemoglobin 12.9, platelet count 161. PAST MEDICAL HISTORY: 1. End-stage renal disease on hemodialysis. 2. Hypertension. 3. Anemia of chronic disease. 4. Legally blind. 5. Secondary hyperparathyroidism. ALLERGIES: NONE. PAST SURGICAL HISTORY: Significant for right chest wall PermCath, left upper extremity fistula place ment. SOCIAL HISTORY: No history of smoking, alcohol or any drug use. Lives in a fdc. FAMILY HISTORY: Noncontributory. REVIEW OF SYSTEMS: The patient denies any chest pain, any shortness of breath, any abdominal pain, n ausea, vomiting, diarrhea. The patient is legally blind. Denies any focal neurological deficits. PHYSICAL EXAMINATION: VITAL SIGNS: Currently, blood pressure 149/72, afebrile, heart rate 73, respirations 18, saturating 95%. GENERAL: The patient is awake, alert, oriented, answering questions appropriately. HEENT: Pupils are equal, round, react to light. NECK: Supple. No JVD. HEART: Regular rate and rhythm. LUNGS: Clear to auscultate bilaterally. ABDOMEN: Soft, nontender, nondistended and positive normoactive bowel sounds. EXTREMITIES: No clubbing, cyanosis, or edema. Left upper extremity fistula with a good bruit and th rill. SKIN: The patient has a right upper wall PermCath. LABORATORY DATA: Potassium 5.5, BUN of 71, creatinine 11.32. White count of 8.9, hemoglobin 12.0, p latelet count of 161. ASSESSMENT AND PLAN: This is a 63-year-old male who presented with: 1. PermCath removal since the patient has left upper extremity fistula working at present. 2. End-stage renal disease on hemodialysis. 3. Hyperkalemia. 4. Hypertension. 5. Legally blind. 6. Secondary hyperparathyroidism. 7. Anemia of chronic disease. PLAN: At this period of time, the patient is admitted to med/surg unit. I spoke to the dialysis chente ter. Fistula had been working good for the last 4 months, so right chest wall PermCath should be rem kevin. We will continue the hemodialysis through fistula after the patient gets PermCath removed. e patient can be discharged back. Rest of the treatment will depend on the patient's hospitalization course. Dictated By: LUKE PRUITT/MYRON Conf#: [id number] DID#: [id number] CC: NICK VARMA DO; MARIO VELEZ MD; CHIKI CHEUNG MD;*EndCC*
[2019-01-19] VITALS (13 sets, daily range): BP systolic 108–140; BP diastolic 62–74; PULSE 60–86; RESP 17–18
[2019-01-19] MEDS: AMLODIPINE 10 MG TAB PO SCH (10:00)
[2019-01-19] MEDS: METOPROLOL 25 MG TAB PO SCH ×2 (10:00→20:14)
--- NOTE | 2019-01-19 15:56 | DS ---
Date/Time of Note Date/Time of Note DATE: 01/19/19 TIME: 15:50 Discharge Summary Admission/Discharge Info Admit Date/Time January 16, 2019 at 22:24 Discharge Date/Time Discharge Diagnosis 1. HD catheter removed, stable 2. ESRD, HD on [facility], follow up with nephrology 3. Hypertension, controlled 4. Anemia, CKD related, follow up with PCP 5. Legally blind 6. Hyperkalemia, improved with HD Patient Condition: Stable Hospital Course 63 years old male with HTN and ESRD on HD came in for HD catheter removal. The HD catheter is removed on 01/19/2019 without complication, no local bleeding. Patient has no shortness of breath. Pateint got HD on 01/18/2019, K is down rom 5.5 on 01/18/2019 to 5.1 today. Home Meds Active Scripts Metoprolol Tartrate* (Lopressor*) 25 Mg Tab, 25 MG PO BID for 30 Days, TAB Prov:CHIKI CHEUNG MD 11/09/16 Amlodipine Besylate* (Amlodipine Besylate*) 10 Mg Tablet, 10 MG PO DAILY for 30 Days, TAB Prov:CHIKI CHEUNG MD 11/09/16 Follow-up Plan PCP and nephrology in one week Primary Care Provider Care Physician No Primary Pending Labs Laboratory Tests Test 01/18/19 18:38 01/19/19 09:59 Stool Occult Blood NEGATIVE (NEGATIVE) White Blood Count 9.7 10^3/ul (4.8-10.8) Red Blood Count 4.20 10^6/ul (4.70-6.10) Hemoglobin 12.9 g/dl (14.0-18.0) Hematocrit 38.6 % (42.0-52.0) Mean Corpuscular Volume 91.9 fl (82.0-101.0) Mean Corpuscular Hemoglobin 30.7 pg (29.0-33.0) Mean Corpuscular 33.4 g/dl (32.0-37.0) Hemoglobin Concent Red Cell Distribution Width 12.3 % (11.5-14.5) Platelet Count 177 10^3/UL (140-415) Mean Platelet Volume 12.7 fl (7.4-10.4) Immature Granulocytes % 0.400 % (0.001-0.429) Neutrophils % 68.8 % (39.0-77.0) Lymphocytes % 20.9 % (15.0-51.0) Monocytes % 8.0 % (0.0-11.0) Eosinophils % 1.6 % (0.0-7.0) Basophils % 0.3 % (0.0-2.0) Nucleated Red Blood Cells % 0.0 /100WBC (0.0-0.0) Immature Granulocytes # 0.040 10^3/ul (0.0-0.031) Neutrophils # 6.7 10^3/ul (1.6-7.5) Lymphocytes # 2.0 10^3/ul (0.8-2.9) Monocytes # 0.8 10^3/ul (0.3-0.9) Eosinophils # 0.2 10^3/ul (0.0-0.5) Basophils # 0.0 10^3/ul (0.0-0.1) Nucleated Red Blood Cells # 0.0 10^3/ul (0.0-0.0) Sodium Level 140 mmol/L (135-144) Potassium Level 5.1 mmol/L (3.5-5.1) Chloride Level 99 mmol/L (97-110) Carbon Dioxide Level 28 mmol/L (21-31) Anion Gap 13 (5-13) Blood Urea Nitrogen 49 mg/dl (7-20) Creatinine 9.66 mg/dl (0.61-1.24) Est Glomerular Filtrat 6 mL/min (>60) Rate mL/min Glucose Level 91 mg/dl (70-220) Calcium Level 9.2 mg/dl (8.4-10.2) CHIKI CHEUNG MD January 19, 2019 15:56
--- NOTE | 2019-01-19 16:11 | CONS ---
Assessment/Plan Assessment/Plan Assessment/Plan (Daily) 63-year-old male who presented with: 1. PermCath removal since the patient has left upper extremity fistula working at present. 2. End-stage renal disease on hemodialysis. 3. Hyperkalemia. 4. Hypertension. 5. Legally blind. 6. Secondary hyperparathyroidism. 7. Anemia of chronic disease. plan sp permcath removal sp hd yesterday cw MWF dc home Consultation Date/Type/Reason Admit Date/Time January 16, 2019 at 22:24 Initial Consult Date Date/Time of Note DATE: 01/19/19 TIME: 16:09 24 HR Interval Summary Free Text/Dictation SP Permcath removal yesterday as pt had successful hd with fistula Exam/Review of Systems Exam Vitals Vital Signs Date Temp Pulse Resp B/P (MAP) Pulse Ox O2 O2 Flow FiO2 Time Delivery Rate 01/19/19 97.9 86 17 128/69 96 Room Air 14:00 (88) Intake and Output 01/18/19 01/18/19 01/19/19 1515:00 23:00 07:00 IntakeIntake Total 740 ml OutputOutput Total 300 ml 3450 ml BalanceBalance 440 ml -3450 ml Exam fistula LUE ARM+ bruit/thrill Results Result Diagram: 01/19/19 0959 01/19/19 0959 Results 24hrs Laboratory Tests Test 01/18/19 18:38 01/19/19 09:59 Stool Occult Blood NEGATIVE White Blood Count 9.7 Red Blood Count 4.20 L Hemoglobin 12.9 L Hematocrit 38.6 L Mean Corpuscular Volume 91.9 Mean Corpuscular Hemoglobin 30.7 Mean Corpuscular Hemoglobin Concent 33.4 Red Cell Distribution Width 12.3 Platelet Count 177 Mean Platelet Volume 12.7 H Immature Granulocytes % 0.400 Neutrophils % 68.8 Lymphocytes % 20.9 Monocytes % 8.0 Eosinophils % 1.6 Basophils % 0.3 Nucleated Red Blood Cells % 0.0 Immature Granulocytes # 0.040 H Neutrophils # 6.7 Lymphocytes # 2.0 Monocytes # 0.8 Eosinophils # 0.2 Basophils # 0.0 Nucleated Red Blood Cells # 0.0 Sodium Level 140 Potassium Level 5.1 Chloride Level 99 Carbon Dioxide Level 28 Anion Gap 13 Blood Urea Nitrogen 49 #H Creatinine 9.66 H Est Glomerular Filtrat Rate mL/min 6 L Glucose Level 91 Calcium Level 9.2 Medications Medication Current Medications IV Flush (NS 3 ml) 3 ml PER PROTOCOL IV ; Start 01/17/19 at 00:00 Ondansetron HCl (Zofran Inj) 4 mg Q6H PRN IV NAUSEA/VOMITING; Start 01/17/19 at 00:00 Acetaminophen (Tylenol Tab) 650 mg Q6H PRN PO .PAIN 1-3 OR TEMP; Start 01/17/19 at 00:00 Acetaminophen/ Hydrocodone Bitart ([place] (5/325)) 1 tab Q6H PRN PO .MOD PAIN 4- 6; Start 01/17/19 at 00:00 Albuterol/ Ipratropium (Duoneb) 3 ml Q2H RESP THERAPY PRN HHN SHORTNESS OF BREATH; Start 01/17/19 at 00:00 Amlodipine Besylate (Norvasc) 10 mg DAILY PO Last administered on 01/19/19at 10:00; Admin Dose 10 MG; Start 01/17/19 at 09:00 Metoprolol Tartrate (Lopressor) 25 mg BID PO Last administered on 01/19/19at 10:00; Admin Dose 25 MG; Start 01/17/19 at 09:00 LUKE AMARLA MD January 19, 2019 16:11
== END 2019-01-19 21:49 | DRG 314 ==
LOC: PP2 22:24
PROVIDERS: ADMIT Internal Medicine; ATTEND Internal Medicine
PROC: 0JH60XZ Insertion of Tunneled Vascular Access Device into Chest Subcutaneous Tissue and Fascia, Open Approach (ICD-10-PCS; 2019-01-18)
PROC: 02PA33Z Removal of Infusion Device from Heart, Percutaneous Approach (ICD-10-PCS; 2019-01-18)
PROC: 02H633Z Insertion of Infusion Device into Right Atrium, Percutaneous Approach (ICD-10-PCS; 2019-01-18)
PROC: 5A1D70Z Performance of Urinary Filtration, Intermittent, Less than 6 Hours Per Day (ICD-10-PCS; 2019-01-18)
PROC: 0JPT0XZ Removal of Tunneled Vascular Access Device from Trunk Subcutaneous Tissue and Fascia, Open Approach (ICD-10-PCS; principal; 2019-01-18 12:30)
DX: T82.41XA Breakdown (mechanical) of vascular dialysis catheter, initial encounter (principal); N18.6 End stage renal disease; I12.0 Hypertensive chronic kidney disease with stage 5 chronic kidney disease or end stage renal disease; N25.81 Secondary hyperparathyroidism of renal origin; Z99.2 Dependence on renal dialysis; D63.1 Anemia in chronic kidney disease; E87.5 Hyperkalemia; H54.8 Legal blindness, as defined in USA
CPT/HCPCS: 36589; 71045; 80048; 80053; 82270; 82728; 83540; 83735; 84100; 85025; 85610; 87081; 87340; 90935; J1644; J2250; J3010; J7030